=== PATIENT | female | born 1940 | race Caucasian/White ===

== ENCOUNTER 2023-03-22 19:03 | Inpatient (IN) ==
[2023-03-22] MEDS ORDERED: ACETAMINOPHEN 1,000 MG/100 ML VIAL IV STA (19:24)
--- NOTE | 2023-03-22 19:36 | Emergency Department Note ---
Impression & Plan Acute pain of right hip, Fall, Closed fracture of right hip ED Provider Note ED Provider Note NAME: DIPAK MORALES AGE:83 SEX: Female : 1940 ARRIVES VIA: EMS INFORMANT: Patient ED PROVIDER(s): Akila Grant DO CHIEF COMPLAINT: Fall, right hip pain HPI: This is an 83-year-old female who presents emergency department after being found down after accidentally falling. Patient states she was feeling well and while outside caring other objects she somehow tripped and fell landing on her right side. She states she tried to get up but could not due to significant pain in her right hip. She states to try to get up with assistance additionally and could not so 911 was contacted. She was given intranasal fentanyl in route which did help some of the pain. She states she did not strike her head or lose consciousness. She denies any neck or back pain. She denies any chest pain, abdominal pain, or other extremity pain. No difficulty breathing. No use of antiplatelet or anticoagulation medication. 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 PAST MEDICAL HISTORY:See Below PAST SURGICAL HISTORY:See Below FAMILY HISTORY:See Below SOCIAL HISTORY:See Below HOME MEDICATIONS:See Below ALLERGIES:See Below VITALS:See Below PHYSICAL EXAMINATION: GENERAL: alert, well appearing, well nourished, no distress, non-toxic EYE EXAM: normal conjunctiva, PERRL and EOM's grossly intact OROPHARYNX: no exudate, no erythema, lips, buccal mucosa, and tongue normal and mucous membranes are moist NECK: supple, no nuchal rigidity, no adenopathy, non-tender LUNGS: Clear to auscultation. Normal chest wall mechanics, no w/r/r HEART: no murmurs, S1 normal and S2 normal ABDOMEN: abdomen soft, non-tender, normo-active bowel sounds, no masses, no rebound or guarding. BACK: Back is symmetrical on inspection and there is no deformity, no midline tenderness, no CVA tenderness. SKIN: no rashes, petechiae, orbruising UPPER EXTREMITIES: upper extremities are grossly normal. FROM, nml pulses b/l. LOWER EXTREMITIES: No pitting edema. nml pulses b/l. Pain with palpation over the right lateral hip and proximal femur, RLE shortened and rotated NEURO EXAM: Normal sensorium, cranial nerves II-XII grossly intact, normal speech, no facial droop,nogross weakness of arms, no gross weakness of legs. Gross sensation intact. No ataxia. Vital Signs: reviewed and remarkable Differential Diagnosis: fracture, dislocation, contusion, sprain/strain, ligamentous injury, as well as others were considered MEDICAL DECISION MAKING: This is an 83 yo female who presents to the ER following an accidental fall. She denied head trauma or LOC. Patient c/o pain at right hip and was unable to stand or move following the fall. She was afebrile and VS stable. Labs drawn and sent, IV established, EKG and xrys performed and interpreted at bedside, and patient placed on telemetry. Patient given IV tylenol, IV fenanyl, and IVF. Patient updated on results and need for further evaluation and orthopedic consultation regarding her hip fracture. She and family verbalized understanding. Case discussed with hospitalist for additional evaluation and mgmt. Consultation(s): 2044: Discussed with Dr. Teran, [facility] hospitalist, for additional evaluation and mgmt. ER Treatment Provided: See below Diagnostics Interpreted By Me: -ECG: Normal sinus at 61, normal axis, normal intervals, nonspecific ST/T wave changes -Cardiac Monitoring: An order was placed for continuous cardiac monitoring. The monitor shows a rate of 80 with normal sinus rhythm. -Laboratory studies: As stated above and show below. -Imaging studies: X-ray Chest: A single view study of the chest was reviewed and was negative for cardiomegaly, focal infiltrate, effusion, pulmonary edema, or wide mediastinum. No rib fracture, no pneumothorax. X-ray right hip/pelvis: Right intertrochanteric hip fracture Triage Nursing Note Reviewed Prior/Outside Records Reviewed - DC summary from last admission reivewe Past Med/Surg History Medical History Osteoarthritis Anemia Migraine with aura Allergy-induced asthma inhaler wkly and prn Escobedo esophagus Polyarteritis nodosa Surgical History History of dilatation and curettage several History of colonoscopy History of esophagogastroduodenoscopy (EGD) History of tooth extraction History of bilateral cataract extraction Family History Other No family history of adverse response to anesthesia Social History Smoking Status: Former smoker Tobacco Type: Cigarettes Cigarettes Per Day: Half a pack a day.; Second Hand Exposure: No; Do You Dip or Chew Tobacco: No; Tobacco Cessation Education Requested by Patient: No Hx Alcohol Use: Yes ("OCCASIONALLY") Alcohol type: wine and hard liquor Hx Substance Use: No Preferred Language: Chinese Communication Ability: Effective Cut Filer Required: No Beliefs That Will Affect Care: None Current Living Situation: Alone Other Information That Helps Us Care for You: No Feels Safe at Home: Yes Safety Concerns: Feels Safe At This Time Assistive Devices: Other Assistive Devices Comment: Walking stick. Allergies Allergies Allergy/AdvReac Type Severity Reaction Status Date / Time dust Allergy Intermediate can Uncoded 03/22/23 22:29 trigger asthma pet dander Allergy Intermediate can Uncoded 03/22/23 22:29 trigger asthma pollen Allergy Intermediate can Uncoded 03/22/23 22:29 trigger asthma Home Meds Home Medications Medication Instructions Recorded Confirmed Cilgavimab Inj 300 mg INJ .[id number] 03/22/23 03/22/23 Tixagevimab Inj 300 mg INJ .[id number] 03/22/23 03/22/23 albuterol sulfate 90 mcg/actuation 2 puff inhalation TID PRN 03/22/23 03/22/23 aerosol inhaler Shortness Of Breath Or Wheezing aspirin 81 mg chewable tablet 81 mg PO DAILY 03/22/23 03/22/23 atorvastatin 40 mg tablet 40 mg PO QAM 03/22/23 03/22/23 clobetasol 0.05 % scalp solution 1 applic topical BID PRN 03/22/23 03/22/23 .irritation ferrous sulfate 325 mg (65 mg 325 mg PO QAM 03/22/23 03/22/23 iron) tablet mycophenolate sodium 360 mg 720 mg PO DAILY 03/22/23 03/22/23 tablet,delayed release pantoprazole 40 mg tablet,delayed 40 mg PO QAM 03/22/23 03/22/23 release prednisone 5 mg tablet 5 mg PO DAILY 03/22/23 03/22/23 triamcinolone acetonide 0.1 % 1 applic topical BID PRN .itching 03/22/23 03/22/23 topical cream vit C 250 mg-vit E 90 mg-zinc 40 1 tab PO DAILY 03/22/23 03/22/23 mg-copper 1 [id number] capsule (PreserVision AREDS-2) Results & Data (ED) Vital Signs Vital Signs - 24 hr 03/22/23 19:20 03/22/23 19:20 03/22/23 21:18 Temperature 36.4 C L 36.4 C L Temperature Source Oral Oral Pulse Rate 66 Pulse Rate [Right Radial] 72 76 Respiratory Rate 18 18 16 Blood Pressure 172/67 H Blood Pressure [Right Arm] 172/67 H 151/68 H Blood Pressure Mean 102 Blood Pressure Mean [Right Arm] 102 95 Pulse Oximetry 99 100 99 Oxygen Delivery Method Room Air Room Air Room Air Sepsis Recent Fever Within 48 Hours No Sepsis New/Unexplained Change in Mental Status N/A Sepsis Action Taken by Nursing No Action Required Laboratory Data 03/24/23 06:36 03/24/23 06:36 Lab Results 03/22/23 Range/Units 19:35 WBC 13.56 H (4.8-10.8) K/ul RBC 4.51 (4.20-5.40) M/uL Hgb 12.2 (12.0-16.0) g/dl Hct 38.8 (37.0-47.0) % MCV 86.0 (80.0-100.0) fL MCH 27.1 (25.0-34.0) pg MCHC 31.4 L (32.0-36.0) g/dL RDW Std Deviation 41.2 (36.4-46.3) fL RDW Coeff of Shoshana 13.3 (11.5-14.5) % Plt Count 369 (130-400) K/uL MPV 8.1 L (9.4-12.4) fL Immature Gran % (Auto) 0.8 % Neut % (Auto) 77.4 % Lymph % (Auto) 13.9 % [place] % (Auto) 5.5 % Eos % (Auto) 2.0 % Baso % (Auto) 0.4 % Neut # (Auto) 10.48 H (1.40-6.50) K/uL Lymph # (Auto) 1.89 (1.20-3.40) K/uL [place] # (Auto) 0.75 H (0.11-0.59) K/uL Eos # (Auto) 0.27 (0.00-0.50) K/uL Baso # (Auto) 0.06 (0.00-0.20) K/uL Immature Gran # (Auto) 0.11 (0.01-0.20) K/uL PT 10.7 (9.0-12.0) Seconds INR 1.0 (0.9-1.1) Sodium 139 (136-145) mmol/L Potassium 3.4 L (3.5-5.1) mmol/L Chloride 104 (98-107) mmol/L Carbon Dioxide 26 (21-32) mmol/L Anion Gap 9 (3-11) BUN 14 (6-23) mg/dl Creatinine 0.70 (0.6-1.2) mg/dl Est Cr Clr Drug Dosing 54.6 ml/min Est GFR ( Amer) 94.2 ml/min Est GFR (Non-Af Amer) 81.3 ml/min BUN/Creatinine Ratio 20.0 (10-20) Glucose 118 H (70-99(Fasting)) mg/dl Calcium 9.1 (8.6-10.3) mg/dl Magnesium 1.7 (1.7-2.4) mg/dl Total Bilirubin 0.3 (0.2-1.0) mg/dl AST 17 (13-39) U/L ALT 16 (7-52) U/L Alkaline Phosphatase 48 (34-104) U/L Total Protein 6.8 (6.0-8.3) gm/dl Albumin 4.1 (3.4-5.0) gm/dl Globulin 2.7 (2.5-4.0) gm/dl Albumin/Globulin Ratio 1.5 (0.9-2) Administered Medications Acetaminophen (Acetaminophen 500 Mg Tab) 1,000 mg PO Q8H KELLEE Stop: 04/22/23 09:59 Last Admin: 03/24/23 09:22 Dose: 1,000 mg Documented By: Admin: 03/24/23 02:04 Dose: 1,000 mg Documented By: Admin: 03/23/23 18:40 Dose: 1,000 mg Documented By: Admin: 03/23/23 12:27 Dose: 1,000 mg Documented By: EDDA Aspirin (Aspirin 81 Mg Chew) 81 mg PO DAILY [facility] Stop: 04/22/23 08:59 Last Admin: 03/23/23 08:53 Dose: 81 mg Documented By: EDDA Atorvastatin Calcium (Atorvastatin 40 Mg Tab) 40 mg PO QAM [facility] Stop: 04/22/23 08:59 Last Admin: 03/24/23 07:44 Dose: 40 mg Documented By: Admin: 03/23/23 08:53 Dose: 40 mg Documented By: EDDA Ferrous Sulfate (Ferrous Sulfate 325 Mg Tab) 325 mg PO QDB KELLEE Stop: 04/22/23 07:29 Last Admin: 03/24/23 07:45 Dose: 325 mg Documented By: Admin: 03/23/23 08:53 Dose: 325 mg Documented By: EDDA Morphine Sulfate (Morphine Sulfate 2 Mg/Ml Carp) 2 mg IV Q3H PRN PRN Reason: Pain Stop: 04/05/23 20:42 Last Admin: 03/24/23 09:16 Dose: 2 mg Documented By: Admin: 03/23/23 20:17 Dose: 2 mg Documented By: Admin: 03/23/23 16:32 Dose: 2 mg Documented By: Admin: 03/23/23 12:22 Dose: 2 mg Documented By: Admin: 03/23/23 06:34 Dose: 2 mg Documented By: Admin: 03/23/23 01:51 Dose: 2 mg Documented By: Admin: 03/22/23 22:37 Dose: 2 mg Documented By: CHAUNCEY Multivitamins/Minerals (Cerovite Adv Formula Tab) 1 tab PO DAILY [facility] Stop: 04/22/23 08:59 Last Admin: 03/24/23 07:44 Dose: 1 tab Documented By: Admin: 03/23/23 08:53 Dose: 1 tab Documented By: EDDA Mycophenolate Sodium (Mycophenolate Sodium 180 Mg Tab) 720 mg PO DAILY [facility] Stop: 04/22/23 08:59 Last Admin: 03/24/23 07:44 Dose: 720 mg Documented By: Admin: 03/23/23 08:54 Dose: 720 mg Documented By: EDDA Ondansetron HCl (Ondansetron Inj 2 Mg/Ml 2 Ml Vial) 4 mg IV Q6H PRN PRN Reason: Nausea And Vomiting Stop: 04/23/23 08:54 Last Admin: 03/24/23 09:16 Dose: 4 mg Documented By: DEBRA Pantoprazole Sodium (Pantoprazole 40 Mg Tab) 40 mg PO QAM KELLEE Stop: 04/22/23 08:59 Last Admin: 03/24/23 07:45 Dose: 40 mg Documented By: Admin: 03/23/23 08:55 Dose: 40 mg Documented By: EDDA Polyethylene Glycol (Polyethylene (Miralax) 17 Gm Pack) 17 gm PO DAILY KELLEE Stop: 04/22/23 10:54 Last Admin: 03/24/23 08:30 Dose: Not Given Documented By: Admin: 03/23/23 12:28 Dose: 17 gm Documented By: EDDA Prednisone (Prednisone 5 Mg Tab) 5 mg PO DAILY KELLEE Stop: 04/22/23 08:59 Last Admin: 03/24/23 07:45 Dose: 5 mg Documented By: Admin: 03/23/23 08:57 Dose: 5 mg Documented By: EDDA Tramadol HCl (Tramadol Hcl 50 Mg Tablet) 25 - 50 mg PO Q4H PRN PRN Reason: Pain Stop: 04/21/23 20:42 Last Admin: 03/23/23 14:47 Dose: 50 mg Documented By: Admin: 03/23/23 08:35 Dose: 50 mg Documented By: EDDA Discontinued Medications Fentanyl Citrate (Fentanyl Citrate Pf 100 Mcg/2 Ml Vial) 50 mcg IV Q15M PRN PRN Reason: Pain Stop: 04/05/23 19:23 Last Admin: 03/22/23 20:01 Dose: 50 mcg Documented By: Admin: 03/22/23 19:43 Dose: 50 mcg Documented By: CHAUNCEY Acetaminophen (Ofirmev) 1,000 mg in 100 mls @ 400 mls/hr IV NOW STA Stop: 03/22/23 19:38 Last Infusion: 03/22/23 20:00 Dose: Infused Documented By: Admin: 03/22/23 19:43 Dose: 400 mls/hr Documented By: CHAUNCEY Potassium Chloride/Sodium Chloride (Normal Saline W/20 Meq Kcl) 20 meq in 1,000 mls @ 50 mls/hr IV .Q20H ONE; Protocol Stop: 03/23/23 17:40 Last Infusion: 03/23/23 18:43 Dose: Infused Documented By: Admin: 03/23/23 01:14 Dose: 50 mls/hr Documented By: CARROLL Magnesium Sulfate/Dextrose (Magnesium Sulfate / D5w) 1 gm in 100 mls @ 50 mls/hr IV ONE ONE Stop: 03/23/23 00:06 Last Infusion: 03/23/23 01:06 Dose: Infused Documented By: Admin: 03/22/23 22:38 Dose: 50 mls/hr Documented By: CHAUNCEY Potassium Chloride (Potassium Chloride Crtab 20 Meq Tabcr) 20 meq PO NOW STA Stop: 03/22/23 20:43 Last Admin: 03/22/23 23:58 Dose: Not Given Documented By: GEOVANY Imaging Data Radiologist's Impression: Hip/Pelvis X-Ray 03/22/23 19:23 SINGLE VIEW PELVIS; 2 VIEWS RIGHT HIP CLINICAL HISTORY: Trauma. FINDINGS: An AP view of the pelvis with AP and frog-leg views of the right hip are obtained. Correlation is made with pelvic CT dated 03/04/2018. The skeletal structures are osteopenic. There is a comminuted intertrochanteric fracture of the right proximal femur with angulation and medial displacement of the lesser trochanter. Overlying soft tissue edema is noted. No additional acute fracture is seen involving the left hip or the bony pelvis. Mild arthritic change and joint space narrowing is seen in the hips. There is mild degenerative sclerosis of the sacroiliac joints. Small phleboliths are noted in the pelvis. IMPRESSION: Comminuted intertrochanteric fracture of the right proximal femur as above. Electronically signed by: Jefferson Garduno M.D. 03/22/2023 11:44 PM Discharge Plan Visit Data Chief Complaint: Fall Stated Complaint: FALL ED Provider: Akila Grant Discharge Problem: Acute pain of right hip, Fall, Closed fracture of right hip Patient Disposition: Admitted As Inpatient Discharge Instructions Interventions: ED Discharge Assessment Last Done: 03/22/23 22:34
[2023-03-22] MEDS: fentaNYL citrate PF 100 MCG/2 ML VIAL IV PRN ×2 (19:43→20:01)
[2023-03-22 19:55] LABS: Basophils # (auto) 0.06 K/uL (0.00-0.20); Basophils % (auto) 0.4 %; Eosinophils # (auto) 0.27 K/uL (0.00-0.50); Hematocrit (blood only) 38.8 % (37.0-47.0); Hemoglobin 12.2 g/dl (12.0-16.0); Immature Granulocytes # (auto) 0.11 K/uL (0.01-0.20); Immature Granulocytes % (auto) 0.8 %; Lymphocytes # (auto) 1.89 K/uL (1.20-3.40); Lymphocytes % (auto) 13.9 %; Mean Corpuscular Hemoglobin 27.1 pg (25.0-34.0); Mean Corpuscular Hgb Conc 31.4 g/dL (32.0-36.0); Mean Platelet Volume 8.1 fL (9.4-12.4); Monocytes # (auto) 0.75 K/uL (0.11-0.59); Monocytes % (auto) 5.5 %; Neutrophils # (auto) 10.48 K/uL (1.40-6.50); Neutrophils % (auto) 77.4 %; Platelet Count 369 K/uL (130-400); RDW Coefficient of Variation 13.3 % (11.5-14.5); RDW Standard Deviation 41.2 fL (36.4-46.3); Red Blood Count 4.51 M/uL (4.20-5.40); White Blood Count 13.56 K/ul (4.8-10.8)
[2023-03-22 20:11] LABS: Albumin Globulin Ratio 1.5 (0.9-2); Albumin Level 4.1 gm/dl (3.4-5.0); Bilirubin,Total 0.3 mg/dl (0.2-1.0); Calcium 9.1 mg/dl (8.6-10.3); Creatinine Clr Calc Pharmacy 54.6 ml/min; Est GFR (African American) 94.2 ml/min; Est GFR (Non-African American) 81.3 ml/min; Globulin 2.7 gm/dl (2.5-4.0); Potassium 3.4 mmol/L (3.5-5.1); Total Protein 6.8 gm/dl (6.0-8.3)
[2023-03-22 20:21] LABS: Prothrombin Time 10.7 Seconds (9.0-12.0)
[2023-03-22] MEDS ORDERED: POTASSIUM CHLORIDE CRTAB 20 MEQ TABCR PO STA (20:42)
[2023-03-22] MEDS ORDERED: ACETAMINOPHEN 325 MG TAB PO PRN (20:43)
[2023-03-22] MEDS ORDERED: oxyCODONE HCL IR 5 MG TAB (IMMEDIATE RELEASE) PO PRN (20:43)
[2023-03-22] MEDS ORDERED: PROMETHAZINE HCL 6.25 MG in SODIUM CHLORIDE 0.9% 50 ML IV PRN (20:44)
[2023-03-22 21:01] LABS: Magnesium 1.7 mg/dl (1.7-2.4)
--- NOTE | 2023-03-22 21:20 | History & Physical Report ---
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 until patient evaluated by Orthopedics. Acceptable risk for cardiac complications resulting from prospective procedure Revised Cardiac Risk Index (RCRI): 1. High-risk type of surgery (examples include vascular and any open intraperitoneal or intrathoracic procedures). No 2. History of ischemic heart disease (history of myocardial infarction or positive exercise test, current compliant of chest pain considered to be secondary to myocardial ischemia, use of nitrate therapy, or ECG with patho logical Q waves; do not count prior coronary revascularization procedure unless one of the other criteria for ischemic heart disease is present). No 3. History of heart failure. No 4. History of cerebrovascular disease. No 5. Diabetes mellitus requiring treatment with insulin. No 6. Preoperative serum creatinine >2.0. No Pt has revised cardiac index score of 0 points. (Class I Risk.) 3.9 % 30-day risk of , CA, or cardiac arrest. Acceptable risk for cardiac complications if surgery recommended by Orthopedics and patient/family agreeable to attendant procedural benefits and risks.. Continue aspirin for secondary DVT prevention Continue daily prednisone for vasculitis, may need stress dose steroids if BP borderline DVT prophylaxis. SCDs Re: Possible procedure Full code Patient daughter requesting updates providers. Ms. Marli Salinas, contact #[phone]. Text document was generated using [employer] voice recognition software. It may contain grammatical or spelling errors. Kindly contact undersigned for clarification of any documentation item in question. History of Present Illness Chief Complaint: Fall, right hip pain Primary Care Provider: Elvia Pink, History obtained from patient, family, and records. 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 Patient stumbled at her home this afternoon while carrying a load of objects. Achy right hip pain following fall. No head trauma, no LOC, no chest pain, no SOB. Patient unable to get up to get to her phone. Patient was on the ground for about an hour before she was found by family. Patient brought to ER by EMS. Highest SBP of 170s documented at the ER. 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 Allergies Allergy/AdvReac Type Severity Reaction Status Date / Time dust Allergy Intermediate can Uncoded 03/22/23 22:29 trigger asthma pet dander Allergy Intermediate can Uncoded 03/22/23 22:29 trigger asthma pollen Allergy Intermediate can Uncoded 03/22/23 22:29 trigger asthma Home Medications Medication Instructions Recorded Confirmed Type Cilgavimab Inj 300 mg INJ .[id number] 03/22/23 03/22/23 History Tixagevimab Inj 300 mg INJ .[id number] 03/22/23 03/22/23 History albuterol sulfate 90 mcg/actuation 2 puff inhalation TID PRN 03/22/23 03/22/23 History aerosol inhaler Shortness Of Breath Or Wheezing aspirin 81 mg chewable tablet 81 mg PO DAILY 03/22/23 03/22/23 History atorvastatin 40 mg tablet 40 mg PO QAM 03/22/23 03/22/23 History clobetasol 0.05 % scalp solution 1 applic topical BID PRN 03/22/23 03/22/23 History .irritation ferrous sulfate 325 mg (65 mg 325 mg PO QAM 03/22/23 03/22/23 History iron) tablet mycophenolate sodium 360 mg 720 mg PO DAILY 03/22/23 03/22/23 History tablet,delayed release pantoprazole 40 mg tablet,delayed 40 mg PO QAM 03/22/23 03/22/23 History release prednisone 5 mg tablet 5 mg PO DAILY 03/22/23 03/22/23 History triamcinolone acetonide 0.1 % 1 applic topical BID PRN .itching 03/22/23 03/22/23 History topical cream vit C 250 mg-vit E 90 mg-zinc 40 1 tab PO DAILY 03/22/23 03/22/23 History mg-copper 1 [id number] capsule (PreserVision AREDS-2) Past Med/Surg History Medical History Allergy-induced asthma inhaler wkly and prn Anemia Escobedo esophagus Migraine with aura Osteoarthritis Polyarteritis nodosa Surgical History History of bilateral cataract extraction History of colonoscopy History of dilatation and curettage several History of esophagogastroduodenoscopy (EGD) History of tooth extraction Family History Other No family history of adverse response to anesthesia Social History Smoking Status: Former smoker Tobacco Type: Cigarettes Cigarettes Per Day: Half a pack a day.; Second Hand Exposure: No; Do You Dip or Chew Tobacco: No; Tobacco Cessation Education Requested by Patient: No Hx Alcohol Use: Yes ("OCCASIONALLY") Alcohol type: wine and hard liquor Hx Substance Use: No Preferred Language: Luxembourger Communication Ability: Effective Immigration Specialist Required: No Beliefs That Will Affect Care: None Current Living Situation: Alone Other Information That Helps Us Care for You: No Feels Safe at Home: Yes Safety Concerns: Feels Safe At This Time Assistive Devices: Other Assistive Devices Comment: Walking stick. Review of Systems Review of Systems: As per HPI, all other systems reviewed and negative Physical Exam Physical Exam: GENERAL: Slightly uncomfortable, pleasant, no respiratory distress SKIN: Normal color, warm HEENT: Bespectacled, [place] palpebral conjunctivae, no ptosis, dry buccal mucosa NECK : Supple, no tenderness CHEST : Decreased breath sounds, no tenderness HEART : RRR, no obvious murmurs ABDOMEN: no distention, nontender EXTREMITIES : Externally rotated right hip, right hip tenderness NEUROLOGIC : Coherent, no facial asymmetry, no other gross focality Results & Data Results & Data Vital Signs (Past 12 Hours) Vital Signs Temp Pulse Pulse Resp BP BP Pulse Ox 03/22/23 19:20 36.4 C L 72 18 172/67 H 100 03/22/23 19:20 36.4 C L 66 18 172/67 H 99 O2 Del Method 03/22/23 19:20 Room Air 03/22/23 19:20 Room Air Laboratory Results Laboratory Results WBC 13.56 K/ul (4.8-10.8) H 03/22/23 19:35 RBC 4.51 M/uL (4.20-5.40) 03/22/23 19:35 Hgb 12.2 g/dl (12.0-16.0) 03/22/23 19:35 Hct 38.8 % (37.0-47.0) 03/22/23 19:35 MCV 86.0 fL (80.0-100.0) 03/22/23 19:35 MCH 27.1 pg (25.0-34.0) 03/22/23 19:35 MCHC 31.4 g/dL (32.0-36.0) L 03/22/23 19:35 RDW Std Deviation 41.2 fL (36.4-46.3) 03/22/23 19:35 RDW Coeff of Shoshana 13.3 % (11.5-14.5) 03/22/23 19:35 Plt Count 369 K/uL (130-400) 03/22/23 19:35 MPV 8.1 fL (9.4-12.4) L 03/22/23 19:35 Immature Gran % (Auto) 0.8 % 03/22/23 19:35 Neut % (Auto) 77.4 % 03/22/23 19:35 Lymph % (Auto) 13.9 % 03/22/23 19:35 [place] % (Auto) 5.5 % 03/22/23 19:35 Eos % (Auto) 2.0 % 03/22/23 19:35 Baso % (Auto) 0.4 % 03/22/23 19:35 Neut # (Auto) 10.48 K/uL (1.40-6.50) H 03/22/23 19:35 Lymph # (Auto) 1.89 K/uL (1.20-3.40) 03/22/23 19:35 [place] # (Auto) 0.75 K/uL (0.11-0.59) H 03/22/23 19:35 Eos # (Auto) 0.27 K/uL (0.00-0.50) 03/22/23 19:35 Baso # (Auto) 0.06 K/uL (0.00-0.20) 03/22/23 19:35 Immature Gran # (Auto) 0.11 K/uL (0.01-0.20) 03/22/23 19:35 PT 10.7 Seconds (9.0-12.0) 03/22/23 19:35 INR 1.0 (0.9-1.1) 03/22/23 19:35 Sodium 139 mmol/L (136-145) 03/22/23 19:35 Potassium 3.4 mmol/L (3.5-5.1) L 03/22/23 19:35 Chloride 104 mmol/L (98-107) 03/22/23 19:35 Carbon Dioxide 26 mmol/L (21-32) 03/22/23 19:35 Anion Gap 9 (3-11) 03/22/23 19:35 BUN 14 mg/dl (6-23) 03/22/23 19:35 Creatinine 0.70 mg/dl (0.6-1.2) 03/22/23 19:35 Est Cr Clr Drug Dosing 54.6 ml/min 03/22/23 19:35 Est GFR ( Amer) 94.2 ml/min 03/22/23 19:35 Est GFR (Non-Af Amer) 81.3 ml/min 03/22/23 19:35 BUN/Creatinine Ratio 20.0 (10-20) 03/22/23 19:35 Glucose 118 mg/dl (70-99(Fasting)) H 03/22/23 19:35 Calcium 9.1 mg/dl (8.6-10.3) 03/22/23 19:35 Magnesium 1.7 mg/dl (1.7-2.4) 03/22/23 19:35 Total Bilirubin 0.3 mg/dl (0.2-1.0) 03/22/23 19:35 AST 17 U/L (13-39) 03/22/23 19:35 ALT 16 U/L (7-52) 03/22/23 19:35 Alkaline Phosphatase 48 U/L (34-104) 03/22/23 19:35 Total Protein 6.8 gm/dl (6.0-8.3) 03/22/23 19:35 Albumin 4.1 gm/dl (3.4-5.0) 03/22/23 19:35 Globulin 2.7 gm/dl (2.5-4.0) 03/22/23 19:35 Albumin/Globulin Ratio 1.5 (0.9-2) 03/22/23 19:35 Diagnostic Findings Chest x-ray as per my interpretation atelectasis Hip x-ray as per my interpretation intertrochanteric fracture right femur EKG as per my interpretation : Rate 60, NSR, normal axis, septal infarct, no ischemia
[2023-03-22] MEDS ORDERED: NSS + 20MEQ KCL 20 MEQ/1,000 ML BAG IV ONE (21:41)
[2023-03-22] MEDS ORDERED: MAGNESIUM SULFATE / D5W 1 GM/100 ML BAG IV ONE (22:07)
[2023-03-22] MEDS ORDERED: NALOXONE HCL 0.4 MG/1 ML VIAL/CARP IV PRN (22:34)
[2023-03-22] MEDS ORDERED: bisacodyL 10 MG SUPP PR PRN (22:34)
[2023-03-22] MEDS: MoRPHine SULFATE 2 MG/ML CARP IV PRN (22:37)
[2023-03-22] MEDS ORDERED: ALBUT/IPRATROP 3MG/0.5MG NEB 3 ML VIAL NEB PRN (22:39)
--- NOTE | 2023-03-22 23:45 | XRay Report ---
SINGLE VIEW PELVIS; 2 VIEWS RIGHT HIP CLINICAL HISTORY: Trauma. FINDINGS: An AP view of the pelvis with AP and frog-leg views of the right hip are obtained. Correlat ion is made with pelvic CT dated 03/04/2018. The skeletal structures are osteopenic. There is a commin uted intertrochanteric fracture of the right proximal femur with angulation and medial displacement o f the lesser trochanter. Overlying soft tissue edema is noted. No additional acute fracture is seen i nvolving the left hip or the bony pelvis. Mild arthritic change and joint space narrowing is seen in the hips. There is mild degenerative sclerosis of the sacroiliac joints. Small phleboliths are noted in the pelvis. IMPRESSION: Comminuted intertrochanteric fracture of the right proximal femur as above. Electronically signed by: Jefferson Garduno M.D. 03/22/2023 11:44 PM
--- NOTE | 2023-03-23 00:17 | XRay Report ---
SINGLE VIEW CHEST CLINICAL HISTORY: Trauma. Hip fracture. FINDINGS: An AP, portable, supine chest radiograph is compared to study dated 03/06/2018. The cardiome diastinal silhouette is unremarkable noting atherosclerotic calcification of the thoracic aorta. Finishing Powder Press Operator angela interstitial thickening is similar to previous. There is mild left basilar scarring/atelectasis. The lungs and pleural spaces are otherwise clear. No pneumothorax is seen. The skeletal structures ar e osteopenic. The bony thorax is grossly intact. IMPRESSION: No acute cardiopulmonary abnormality. ACT 112: Negative or not required by law. Electronically signed by: Jefferson Garduno M.D. 03/23/2023 12:16 AM
[2023-03-23] MEDS ORDERED: PNEUMOCOCCAL VACCINE (PCV20) 20-VAL CONJ-DIP CRM/PF 0.5 ML SYR IM ONE (01:06)
[2023-03-23] MEDS: MoRPHine SULFATE 2 MG/ML CARP IV PRN ×5 (01:51→20:17)
--- OUTSIDE RECORDS SUMMARY | 2023-03-23 02:35 | External Medical Summary | Summary of Care ---
Author Name Unknown Organization [facility] Address [address] [facility] [place] [address] Phone [phone] Care Team Providers Care Contour Band Saw Operator Vertical Name Role Phone Elvia Pink DO Primary Care Provider [phone] Reason for Visit * Reason Onset Date Comments Medication Pre-auth 09/25/2022 Recjan Encounter Details Date Type Department Care Team (Late st Contact Info) Description 09/25/2022 Telephone Rheumatology [address] [place] [phone] Sammie Man MD [address] [facility] [place] [address] Medication Pre-auth (January ) Allergies Active Allergy Reactions Criticality Noted Date Comments Dust 07/19/2009 Sneezing, watering eyes, eventually might develop into asthma attack Other - Environmental 07/19/2009 Pet Dander Sneezing, watering eyes Pollen 07/19/2009 Sneezing, watering eyes documented as of this encounter (statuses as of 03/18/2023) Medications Medication Sig Dispensed Refills Start Date End Date Status SURGICAL COMPRESSION STOCKINGIndicatio ns:Anticardiolipi n antibody positive,Cutaneou s polyarteritis nodosa (HCC) Knee high compression stocking 20-30mmg Hg 2 Each 1 8 Active clobetasol propionate 0.05 % external solution Apply topically to affected area 2 times a day. To affected area for up to two weeks. 50 mL 1 8 Active Aspirin 81 MG Oral Tablet Chewable Take 1 Tablet by mouth in the morning. 0 Active PreserVision AREDS 2 Oral Tablet Chewable Take by mouth . 0 Acti ve Mycophenolate Mofetil 500 MG Oral Tablet (Cellcept) TAKE TWO TABLETS BY MOUTH IN THE MORNING 180 Tablet 1 2 01/19/20 23 Discontinued(Me dication/Dose Changed) Atorvastatin Calcium 40 MG Oral Tablet (Lipitor) Take 1 Tablet (40 mg) by mouth in the morning. 90 Tablet 3 2 04/07/20 22 Discontinued([place] prescription brought in as discontinued) Ferrous Sulfate 325 (65 Fe) MG Oral Tablet (Feosol)Indicatio ns:Iron deficiency anemia, unspecified iron deficiency anemia type,Thrombocytos is Take 1 Tablet by mouth daily with breakfast. 90 Tablet 2 3 03/10/20 23 Discontinued(En d of Procedure) Triamcinolone Acetonide 0.1 % External Cream (Aristocort) Apply to legs twice daily as needed for itching 454 g 0 3 05/25/19 23 Discontinued([place] prescription brought in as discontinued) Albuterol Sulfate HFA 108 (90 Base) MCG/ACT Inhalation Aerosol SolutionIndicatio ns:Asthma, allergic, mild intermittent, uncomplicated,Ang ular cheilitis Inhale 2 Puffs by mouth in the morning and 2 Puffs at noon and 2 Puffs in the evening and 2 Puffs before bedtime. 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 180 Tablet 3 3 09/19/19 23 Discontinued([place] prescription brought in as discontinued) predniSONE 1 MG Oral Tablet (Deltasone) Take 4mg daily 360 Tablet 2 3 09/26/19 23 Discontinued([place] prescription brought in as discontinued) Hospital, Clinic, or Other Facility Administered Medication Ordered Dose Route Frequency Start Date End Date Status Tixagevimab inj 300 mgIndications:Encounter for long-term (current) use of medications,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 [id number] 11/14/2021 Active Cilgavimab inj 300 mgIndications:Encounter for long-term (current) use of medications,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 [id number] 11/14/2021 Active documented as of this encounter (statuses as of 03/18/2023) Active Problems Problem Noted Date Diagnosed Date Immunodeficiency 03/10/2023 Senile osteoporosis 09/29/2022 Peripheral neuropathy 09/03/2022 Carotid stenosis, non-symptomatic, bilateral 10/2021 Bronchiectasis without complication 03/12/2022 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 06/28/2017 06/28/2017 Vasculitis 06/08/2017 03/14/2018 Anticardiolipin antibody syndrome 05/17/2017 02/16/2018 MILLER (polyarteritis nodosa) 05/07/2017 1 05/14/2017 Encounter for long-term (cur rent) use of medications 12/09/2016 03/14/2018 Lesion of soft tissue of lower leg and ankle 7 12/07/2016 Chronic cough 08/06/2015 03/14/2018 COPD, moderate 02/02/2014 07/13/2019 Overview: Per COPD GOLD Classification Moderate intermittent asthma with acute exacerbation 02/02/2014 06/08/2017 Escobedo's esophagus with low grade dysplasia 4 01/30/2020 Overview: 1 endo clip placed Gastritis 09/15/2011 12/07/2016 Diverticulosis of colon (wit hout mention of hemorrhage) 09/10/2011 11/19/2015 Overview: Colonoscopy-09/09/11 Escobedo's esophagus 09/08/2011 01/05/20 15 Overview: EGD-09/07/11-Dr Stephens Diaphragmatic hernia without mention of obstruction or gangrene 09/08/2011 02/02/2014 Overview: EGD-09/07/11-Dr Stephens Loss of height 10/30/2010 04/05/2015 ASTHMA 07/19/2009 12/29/2013 Psoriasis 07/19/2009 01/30/2020 Esophageal reflux 07/19/2009 02/02/2014 MIGRAINE 07/19/2009 12/07/2016 Major depressive disorder 07/19/2009 Overview: ICD-10 update of inactive term ALLERGIC RHINITIS 07/19/2009 12/07/2016 Gastroesophageal reflux dise ase with esophagitis 01/30/2020 documented as of this encounter (statuses as of 03/18/2023) Immunizations Name Administration Dates Next Due COVID-19 mRNA, LNP-s, No Pre serve, 2-Dose Series (Moderna) 09/27/2021,06/19/2021,01/10/2021,06/04,05/30/2020 PPD 03/02/2012,10/14/2010 Pneumococcal Conjugate Vacc, 13 Valent (Prevnar) 02/19/2016 Pneumococcal Polysaccharide PPV23 (Pneumovax) 12/30/2007,02/06/2000 SEASONAL INFLUENZA, PF, 6 M & Above, IM , (FLULAVAL or FLUZONE) 01/31/2020,02/10/2018 Seasonal Influenza, Quadriva lent Hd (Fluzone Hd) 03/10/2023,02/12/2022,02/06/2021 Seasonal Influenza, Quadriva lent, No Preserve, IM 02/19/2016,02/15/2015 02/18/2017 Seasonal Influenza, Split, I IV3, With Preserve, Inj 02/02/2014,02/02/2013,01/28/2012,03/03,02/11/2010,02/11/2009 02/02/2014 Seasonal Influenza, Trivalen t, Adjuvanted, 65+ yrs 02/27/2019 Seasonal Influenza, Trivalen t, High Dose, No Preserve, IM 02/01/2017 TB Anita Test 01/09/2017 TD - Tetanus/Diptheria (ADULT) 07/09/2003 TDAP (age 10 and older)(Boostrix) 02/05/2014 Varicella Zoster Vaccine (Adult) 11/16/2013 documented as of this encounter Social History Tobacco Use Types Packs/Day Years Used Date Smoking Tobacco: Former Cigarettes 0.5 24 Q uit: 05/03/1983 Smokeless Tobacco: Never Alcohol Use Standard Drinks/Week Comments Yes 0.8 (1 standard drink = 0.6 oz p ure alcohol) OCCASIONAL PHQ-2 Answer Date Recorded PHQ Adult Total Score 0 11/13/2020 Hunger Vital Sign Answer Date Recorded Worried About Running Out of Food in the Last Ye ar Never true 05/19/2019 Ran Out of Food in the Last Year Never true 05/19/2019 Sex and Gender Information Value Date Recorded Sex Assigned at Not on file Gender Identity Not on file Sexual Orientation Not on file Job Start Date Occupation Industry Not on file Not on file Not on file documented as of this encounter Functional Status Functional Status Response Date of Assess ment Are you deaf or do you have serious difficulty h earing? No 10/23/2013 Are you blind or do you have serious difficulty seeing, even when wearing glasses? No 10/23/2013 Do you have serious difficul ty walking or climbing stairs? (5 years old or older) No 10/23/2013 Do you have difficulty dress ing or bathing? (5 years old or older) No 10/23/2013 Because of a physical, menta l, or emotional condition, do you have difficulty doing errands alone such as visiting a doctor s office or shopping? (15 years old or older) No 10/24/19 14 Cognitive Status Response Date of Assessm ent Because of a physical, menta l, or emotional condition, do you have serious difficulty concentrating, remembering, or making decisions? (5 years old or older) No 10/23/2013 documented as of this encounter Miscellaneous Notes * Addendum Note - Amor Meneses RN - 03/18/2023 8:20 AM ESTAddended by: AMOR MENESES on: 03/18/2023 08:20 AM Modules accepted: Orders * Telephone Encounter - Amor Meneses RN - 03/18/2023 8:19 AM EST Letter sent 01/18/23, patient has not returned calls/ letter to schedule. [place] plan for reclast discontinued. Patient can be re-referred if agreeable to scheduling in the future. * Telephone Encounter - Angelica Narayan OSA - 01/18/2023 9:53 AM EDT Sent letter * Telephone Encounter - Angelica Narayan OSA - 01/15/2023 10:17 AM EDT Called X3. Lmom for patient. * Telephone Encounter - Angelica Narayan OSA - 01/14/2023 8:37 AM EDT Called X2. Lmom for patient. * Telephone Encounter - Angelica Narayan OSA - 01/13/2023 10:40 AM EDT Patient returned call but patient unable to hear conversation. Asked if she could call back. * Telephone Encounter - Angelica Narayan OSA - 01/13/2023 9:59 AM EDT Called and lmom for patient. * Telephone Encounter - Amor Rodriguez RN - 01/13/2023 9:48 AM EDT [place] plan is signed, referral in place. Scheduling: please call patient to schedule 1 hour appt on 503 schedule "reclast" (Dr Sammie Man). Thanks! * Telephone Encounter - Neha Gan LPN - 01/13/2023 9:42 AM EDT Repeat labs done, please call and schedule. Thx * Telephone Encounter - Neha Gan LPN - 01/08/2023 2:56 PM EDT Pt reminded to have repeat labs done so we can schedule her Reclast See pt message from 10/05 * Telephone Encounter - Neha Gan LPN - 10/19/2022 3:01 PM EDT Pt aware * Addendum Note - Sammie Man MD - 10/08/2022 1:48 PM EDTAddended by: SAMMIE MAN on: 10/08/2022 01:48 PM Modules accepted: Orders * Telephone Encounter - Sammie Man MD - 10/08/2022 1:48 PM EDT Yes will need to repeat labs in 3 months first * Telephone Encounter - Amor Rodriguez RN - 10/08/2022 7:53 AM EDT Patient had labs 10/02/22, vit D low, starting supplement and repeating in 3 months. Rheum: please advise on reclast- are we waiting until repeat labs in 3 months for reclast? Will patient need to have kidney function/ ca rechecked as well if so? * Telephone Encounter - Stella Gan LPN - 10/02/2022 9:43 AM EDT Left a message for pt to get lab work done, auth is back for Reclast. * Telephone Encounter - Adelaida Avila LPN - 09/29/2022 3:50 PM EDT Order received for Reclast 5mg IV once yearly [place] created and routed to provider for signature Rheum: When the labs and auth are back and patient is ready to be scheduled, please forward back top [phone] for scheduling. Thank you! * Telephone Encounter - Neha Gan LPN - 09/29/2022 10:17 AM EDT Please auth, thanks * Telephone Encounter - Sammie Man MD - 09/25/2022 4:33 PM EDT Can we look into coverage for IV Reclast for her osteoporosis. Can not get oral therapy because of heartburn. documented in this encounter Plan of Treatment Upcoming Encounters Date Type Department Care Team (Late st Contact Info) Description 04/07/2023 10:00 AM EST Imaging Vascular Lab, [facility], [address] [place] [address] 05/05/2023 9:30 AM EST Laboratory Laboratory [place] [place] [phone] Zelda Chacon [address] [place] [phone] 05/12/2023 12:30 PM EST Office Visit [facility]ology[facility] [address] [place] [address] Jordan Elias MD [address] [place] [address] 11/19/2023 10:00 AM EDT Office Visit Rheumatology [address], [address] [place] [address] Sammie Man MD [address] [facility] [place], [place] [phone] 03/14/2024 11:00 AM EST Telemedicine General Surgery, [place] [address] [place], [place] [phone] Marek Petty PA-C [address] [place], [place] [id number] Scheduled Procedures Name Priority Associated Diagnoses Date/Ti me ESOPHAGOGASTRODUODENOSCOPY ( EGD), FLEXIBLE, TRANSORAL, DIAGNOSTIC Recall Esophagitis, [place]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 Health Maintenance Due Date Last Done Comments Zoster Vaccines (1 of 2) 01/11/2014 11/16/2013 Depression Screening 11/13/2021 11/13/2020 *BISPHONATE OR OTHER ACCEPTABLE MEDICATION NEEDED FOR OSTEOPOROSIS (REFER TO SMARTSET #1146) 10/02/2022 COVID-19 Vaccine ( season) 2023 09/27/2021, 06/19/2021, 01/10/2021, Additional history exists O2 ASSESSMENT COMPLETED IN PAST YEAR FOR COPD 12/03/2023 12/02/2022 DTaP,Tdap,and Td Vaccines (2 - Td or Tdap) 02/06/2024 02/05/2014, 07/09/2003 DXA Scan 09/22/2024 09/22/2022, 06/03, 06/22/2014, Additional history exists Escobedo's Esophagus Surveilance 12/02/2025 12/02/2022, 01/29/2015, 11/23/2014, Additional history exists COLONOSCOPY-EVERY 5 YRS AGES 18-100 12/13/2025 12/13/2020, 04/01/2017, 09/09/2011 Pneumococcal Vaccine: 65+ Years Completed 02/19/2016, 12/30/2007, 02/06/2000 Albumin/Creatinine Ratio Discontinued 022, 01/02/2022, 10/30/2021, Additional history exists Alpha-1 Antitrypsin Completed 04/29/2022 Influenza Vaccine (FLU shot) Completed 03/10/2023, 02/12/2022, 02/06/2021, Additional history exists VITAMIN D LEVEL ONCE IN A LIFETIME-USE SMARTSET# 88979 Completed 03/10/2023, 01/12/2023, 10/02/2022, Additional history exists GARDASIL-HPV IMMUNIZATION SERIES Aged Out No longer eligible based on patient's age to complete this topic Hepatitis B Aged Out No longer eligi ble based on patient's age to complete this topic MENINGOCOCCAL (MENACTRA/MENVEO) Aged Out No longer eligible based on patient's age to complete this topic documented as of this encounter Medical Devices Implanted Type Area Nuclear Technologist Device Identifier Shelf Expiration Date Model / Serial / Lot Alloderm 2x4 Sheet [id number](8 Units) - [id number] Implanted:Qty : 8 on 10[place]23/2013 [place] [facility] [place] - Human N/A: Esophagus [employer] 05/02/2015 [id number] / / [id number] documented as of this encounter Results * (ABNORMAL) 25-HYDROXY VITAMIN D (10/02/2022 11:06 AM EDT) 25-Hydroxy Vitamin D 15(L) >19 ng/mL 10/02/2022 11:47 PM EDT [facility] Blood Venous blood specimen / Unknown Venipuncture / Unknown 10/02/2022 11:06 AM EDT 10/02/2022 11:06 AM EDT Narrative [facility] - 10/02/2022 11:47 PM EDT Deficient: <20 ng/mL Insufficient: 20-29 ng/mL Recommended/Optimum:30-50 ng/mL Vitamin D intoxication is rare. If suspicious of Vitamin D toxicity, evaluation of serum Calcium and PTH is recommended. Sammie Man MD LAB BLOOD ORDERABLE S [facility] [address] [place] [address] documented in this encounter Visit Diagnoses Diagnosis Senile osteoporosis- Primary documented in this encounter Advance Directives Latest Code Status on File Code Status Date Activated Date Inactivated Comments Full Code 10/23/2013 11:32 AM 10/24/2013 4:10 PM This order reflects the patients wishes and were consensually agreed upon. Care Teams Contour Band Saw Operator Vertical Relationship Specialty Start Date End Date Elvia Pink DO [address] [facility] [place] [address] PCP - General Family Medicine 11/19/15 documented as of this encounter
--- OUTSIDE RECORDS SUMMARY | 2023-03-23 02:35 | External Medical Summary | Summary of Care ---
Author Name Unknown Organization [facility] Address [address] [facility] [place] [address] Phone [phone] Care Team Providers Care Crop Picker Name Role Phone Elvia Pink DO Primary Care Provider [phone] Reason for Visit * Reason Onset Date Comments Medication Pre-auth 09/25/2022 Recjan Encounter Details Date Type Department Care Team (Late st Contact Info) Description 09/25/2022 Telephone Rheumatology [address] [place] [phone] Sammie Man MD [address] [facility] [place] [address] Medication Pre-auth (January ) Allergies Active Allergy [...] medications,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 [id number] 11/14/2021 Active Cilgavimab inj 300 mgIndications:Encounter for long-term (current) use of medications,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 [id number] 11/14/2021 Active documented as of this encounter [...] has not returned calls/ letter to schedule. [place] plan for reclast discontinued. Patient can be [...] Rodriguez RN - 01/13/2023 9:48 AM EDT [place] plan is signed, referral in place. Scheduling: [...] received for Reclast 5mg IV once yearly [place] created and routed to provider for signature Rheum: When the labs and auth are back and patient is ready to be scheduled, please forward back top [phone] for scheduling. Thank you! * Telephone Encounter [...] 04/07/2023 10:00 AM EST Imaging Vascular Lab, [facility] 2nd [facility], [address] [place] [address] 05/05/2023 9:30 AM EST Laboratory Laboratory [place] [place] [phone] Zelda Chacon [address] [place] [address] 05/12/2023 12:30 PM EST Office [facility]ology[facility] [address] [place] [address] Jordan Elias MD [address] [place] [address] 11/19/2023 10:00 AM EDT Office Visit Rheumatology [address], [address] [place] [address] Sammie Man MD [address] [facility], [place] [phone] 03/14/2024 11:00 AM EST Telemedicine General Surgery, [place] [address] [place], [place] [phone] Marek Petty PA-C [address] [place], [place] [phone] Scheduled Procedures Name Priority Associated Diagnoses Date/Ti me ESOPHAGOGASTRODUODENOSCOPY ( EGD), FLEXIBLE, TRANSORAL, DIAGNOSTIC Recall Esophagitis, [place]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 Health Maintenance Due [...] D LEVEL ONCE IN A LIFETIME-USE SMARTSET# [id number] Completed 03/10/2023, 01/12/2023, 10/02/2022, Additional history exists [...] this encounter Medical Devices Implanted Type Area Assembly Technician Device Identifier Shelf Expiration Date Model / Serial / Lot Alloderm 2x4 Sheet [id number](8 Units) - [id number] Implanted:Qty : 8 on 10/23/2013 [place] [facility] [place] Tissue - Human N/A: Esophagus [employer] 05/02/2015 [id number] / / [id number] documented as of this encounter Results * (ABNORMAL) 25-HYDROXY VITAMIN D (10/02/2022 11:06 AM EDT) 25-Hydroxy Vitamin D 15(L) >19 ng/mL 10/02/2022 11:47 PM EDT LAB[facility]ORY [facility] [place] Blood Venous blood specimen / Unknown Venipuncture / Unknown 10/02/2022 11:06 AM EDT 10/02/2022 11:06 AM EDT Narrative [facility] [place] - 10/02/2022 11:47 PM EDT Deficient: <20 ng/mL Insufficient: 20-29 ng/mL Recommended/Optimum:30-50 ng/mL Vitamin D intoxication is rare. If suspicious of Vitamin D toxicity, evaluation of serum Calcium and PTH is recommended. Sammie Man MD LAB BLOOD ORDERABLE S LAB[facility] [address] [place] [address] documented in this encounter Visit Diagnoses Diagnosis Senile osteoporosis- Primary documented in this encounter Advance Directives Latest Code Status on File Code Status Date Activated Date Inactivated Comments Full Code 10/23/2013 11:32 AM 10/24/2013 4:10 PM This order reflects the patients wishes and were consensually agreed upon. Care Teams Crop Picker Relationship Specialty Start Date End Date Elvia Pink DO [address] [facility] [place] [address] PCP - General Family Medicine 11/19/15 documented as of this encounter
--- OUTSIDE RECORDS SUMMARY | 2023-03-23 02:36 | External Medical Summary | Summary of Care ---
Author Name Unknown Organization [facility] Address [address] [facility] [place] [address] Phone [phone] Care Team Providers Care Aquacultural Worker Supervisor Name Role Phone Elvia Pink DO Primary Care Provider [phone] Reason for Visit * Reason Onset Date Comments Routine Exam Routine 6 month return, Medication Administration 03/10/2023 Flu an d/or Pneumo Inj Encounter Details Date Type Department Care Team (Latest Contact Info) Description 03/10/2023 1:20 PM EST Office Visit [facility] Oswaldo Cooper [address] [place] [address] Elvia Pink DO [address] [facility] [place] [address] Anticardiolipin antibody syndrome (HCC)*; 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; Bronchiectasis without complication (HCC); Carotid stenosis, non-symptomatic, bilateral; Cutaneous polyarteritis nodosa (HCC); Dyslipidemia, goal LDL below 100; Encounter for long-term (current) use of medications; COPD, group A, by GOLD 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); HLA B27 (HLA B27 positive); Essential (hemorrhagic) thrombocythemia (HCC); Low vitamin B12 level; Iron deficiency anemia, unspecified iron deficiency anemia type; Mononeuritis multiplex; Peripheral polyneuropathy; Psoriatic arthropathy (HCC); Pulmonary nodule; S/P Tanja fundoplication (without gastrostomy tube) procedure; Spondyloarthropathy; Senile osteoporosis; Thrombocytosis; Immunodeficiency (HCC); Need for prophylactic vaccination and inoculation against influenza; Prediabetes; Encounter for screening mammogram for breast cancer Allergies Active Allergy Reactions Criticality Noted Date Comments Dust 07/19/2009 Sneezing, watering eyes, eventually might develop into asthma attack Other - Environmental 07/19/2009 Pet Dander Sneezing, watering eyes Pollen 07/19/2009 Sneezing, watering eyes documented as of this encounter (statuses as of 03/10/2023) Medications Medication Sig Dispensed Refills Start Date End Date Status PREDNISONE 20 MG PO TABSIndications:He adache(784.0) 2 by mouth daily for 5 days 10 Tab 0 11/22/2012 Active SURGICAL COMPRESSION STOCKINGIndication s:Anticardiolipin antibody positive,Cutaneous polyarteritis nodosa (HCC) Knee high compression stocking 20-30mmg Hg 2 Each 1 06/28/2017 Active clobetasol propionate 0.05 % external solution Apply topically to affected area 2 times a day. To affected area for up to two weeks. 50 mL 1 07/05/2017 Active Aspirin 81 MG Oral Tablet Chewable Take 1 Tablet by mouth in the morning. 0 Active PreserVision AREDS 2 Oral Tablet Chewable Take by mouth . 0 Active predniSONE 5 MG Oral Tablet (Deltasone) TAKE ONE TABLET BY MOUTH EVERY DAY 90 Tablet 1 08/27/2022 4 Active Ferrous Sulfate 325 (65 Fe) MG Oral Tablet Delayed Release TAKE ONE TABLET BY MOUTH DAILY WITH BREAKFAST 90 Tablet 2 05/25/2022 4 Active Triamcinolone Acetonide 0.1 % External Cream (Aristocort) APPLY TO LEGS TWICE DAILY NEEDED FOR ITCHING 454 g 0 05/25/2022 4 Active Pantoprazole Sodium 40 MG Oral Tablet Delayed Release (Protonix) Take 1 Tablet by mouth in the morning. 90 Tablet 3 12/14/2022 Active Mycophenolate Sodium 360 MG Oral Tablet Delayed Release (Myfortic) Take 3 Tablets by mouth daily. 270 Tablet 4 01/18/2023 Active Atorvastatin Calcium 40 MG Oral Tablet (Lipitor) TAKE ONE TABLET BY MOUTH EVERY MORNING 90 Tablet 3 03/03/2023 4 Active Albuterol Sulfate HFA 108 (90 Base) MCG/ACT Inhalation Aerosol SolutionIndication s:Asthma, allergic, mild intermittent, uncomplicated,Angu lar cheilitis INHALE TWO PUFFS BY MOUTH EVERY MORNING & TWO PUFFS AT NOON & TWO PUFFS IN THE EVENING & TWO PUFFS BEFORE BEDTIME 25.5 g 1 03/09/2023 4 Active Zoster Vac Recomb Adjuvanted 50 MCG/0.5ML Intramuscular Suspension Reconstituted (Shingrix) Inject 0.5 mL into a large muscle now and repeat dose in 60 to 180 days 1 Each 1 03/10/2023 Active Ferrous Sulfate 325 (65 Fe) MG Oral Tablet (Feosol)Indication s:Iron deficiency anemia, unspecified iron deficiency anemia type,Thrombocytosi s Take 1 Tablet by mouth daily with breakfast. 90 Tablet 2 05/25/2022 3 Discontinue d(End of Procedure) Hospital, Clinic, or Other Facility Administered Medication Ordered Dose Route Frequency Start Date End Date Status Tixagevimab inj 300 mgIndications:Encounter for long-term (current) use of medications,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 [id number] 11/14/2021 Active Cilgavimab inj 300 mgIndications:Encounter for long-term (current) use of medications,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 [id number] 11/14/2021 Active documented as of this encounter (statuses as of 03/10/2023) Active Problems Problem Noted Date Diagnosed Date [...] (current) use of medicat ions 09/20/2015 S/P Tanja fundoplication (w ithout gastrostomy tube) procedure 04/05/2015 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) 07/19/2009 documented as of this encounter (statuses as of 03/10/2023) Resolved Problems Problem Noted Date Diagnosed Date [...] as of this encounter (statuses as of 03/10/2023) Immunizations Name Administration Dates Next Due COVID-19 [...] 24 Q uit: 05/[birth year]1983 Smokeless Tobacco: Never Tobacco Cessation:Counseling Given: Not Answered Alcohol Use Standard Drinks/Week Comments Yes 0.8 [...] on file documented as of this encounter Last Filed Vital Signs Vital Sign Reading Time Taken Comments Blood Pressure 122/68 03/10/2023 1:13 PM EST Pulse 80 03/10/2023 1:13 PM EST Temperature 36.3 C (97.4 F) 03/10/2023 1:13 PM ES T Respiratory Rate 20 03/10/2023 1:13 PM EST Oxygen Saturation 98% 03/10/2023 1:13 PM EST Inhaled Oxygen Concentration - - Weight 61.4 kg (135 lb 6.4 oz) 03/10/2023 1:13 P M EST Height 154.9 cm (5' 1") 03/10/2023 1:13 PM EST Body Mass Index 25.58 03/10/2023 1:13 PM EST documented in this encounter Functional Status Functional Status Response [...] or making decisions? (5 years old or older No 10/23/2013 documented as of this encounter Progress Notes * Ophelia Santizo LPN - 03/10/2023 1:26 PM EST PRE - ADMINISTRATION DOCUMENTATION Are you experiencing any cold symptoms or fever? No Have you had Guillain-[place] Syndrome (an illness that causes paralysis) within the last 6 weeks? No Have you had the flu shot in the past? YES Have you ever had a reaction to the flu shot? No Ophelia Santizo LPN, 03/10/2023 1:26 PM Immunization Administration Documentation Time Out Procedure Performed: Yes Patient Identified (Ask Name/Date of ): Yes Does the patient have a fever greater than 101 degrees today? No Patient allergic to latex? No VFC Stock: No Immunization(s) verified: Yes, Immunization Name: Flu, VIS Sheet(s) given: Yes Verified Side and Site: Yes Verified Shot(s) with Parent(s)/Patient: Yes * Elvia Pink DO - 03/10/2023 1:18 PM EST Subjective: Patricia Salinas is a 83 year old female. Chief Complaint Patient presents with Routine Exam Routine 6 month return, Medication Administration Flu and/or Pneumo Inj HPI: Patient is an 83-year-old female who presents to the office for routine follow-up. She was last in the office in July. Recent fasting blood work was stable. Hemoglobin A1c is pending. She continues to follow with Dermatology and was last in the office in May for a history of cutaneous poly arteritis nodosa. She continues to follow with Rheumatology and was recently seen in August. She is a history of psoriatic arthritis, HLA B27, cutaneous PN. She remains on CellCept. Recent DEXA scan in August demonstrated osteoporosis. She is following with Rheumatology and she will be having an infusion of IV Reclast. She had a recent evaluation with Gastroenterology in October. She is had a history of fecal leaking. She had an evaluation in 2020 prior. Last EGD was in 2020 with Barretts, status post ablation. She was recommended to undergo an EGD for ablation at [place], patient deferred due to difficulty with transportation. Last colonoscopy was in 2020. Her recent EGD recommended repeat ablation at [facility] but issues with transportation. Alternatively sheshould have surveillance EGD annually at least. She continues to follow with Pulmonary for her COPD. Per Pulmonary no further surveillance CT chestrequired for follow-up of her lung nodules. She had a recent tele video visit with Hematology in October for thrombocytosis. Plan at that time wasto continue to monitor symptoms. She had a normal echo in 2020. We discussed mammogram. She performs breast exams at home. She wouldlike to have a mammogram. Last evaluation was 08/2020. She is due for a follow-up. She would a tele video visit with vascular surgery in April of 2022 for carotid stenosis. She is to continue on aspirin and Lipitor. She is repeat follow-up this April with an ultrasound prior to her appointment. General surgery in March of 2022. She is to follow up in 1 year. She is status post knees on fundoplication in 2013. Last EGD and pathic positive for Escobedo's, but no dysplasia. She is been following locally with Gastroenterology. She has been watching her memory. She is up to date with her eye exam and dentist. She has a left dropping eyelid that has slightly gotten worse. Normal MRI in January. She denies any chest pain, shortness of breath, or lower extremity edema. PMH: Patient Active Problem List Diagnosis Code HLA B27 (HLA B27 positive) Z15.89 Psoriatic arthropathy (HCC) L40.50 Iron deficiency anemia D50.9 Spondyloarthropathy M47.819 S/P Tanja fundoplication (without gastrostomy tube) procedure Z98.890 Encounter for long-term (current) use of medications Z79.899 Pulmonary nodule R91.1 Cutaneous polyarteritis nodosa (HCC) M30.0 Mononeuritis multiplex G58.7 Low vitamin B12 level R79.89 Dyslipidemia, goal LDL below 100 E78.5 COPD, group A, by GOLD 2017 classification ([facility]) J44.9 Anticardiolipin antibody syndrome ([facility]) D68.61 Essential (hemorrhagic) thrombocythemia ([facility]) D47.3 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 To affected area for up to two weeks. 50 mL 1 Aspirin 81 MG Oral Tablet Chewable Take 1 Tablet by mouth in the morning. PreserVision AREDS 2 Oral Tablet Chewable Take by mouth . predniSONE 5 MG Oral Tablet (Deltasone) TAKE ONE TABLET BY MOUTH EVERY DAY 90 Tablet 1 Ferrous Sulfate 325 (65 Fe) MG Oral Tablet Delayed Release TAKE ONE TABLET BY MOUTH DAILY WITH BREAKFAST 90 Tablet 2 Triamcinolone Acetonide 0.1 % External Cream (Aristocort) APPLY TO LEGS TWICE DAILY NEEDED FOR ITCHING 454 g 0 Pantoprazole Sodium 40 MG Oral Tablet Delayed Release (Protonix) Take 1 Tablet by mouth in the morning. 90 Tablet 3 Mycophenolate Sodium 360 MG Oral Tablet Delayed Release (Myfortic) Take 3 Tablets by mouth daily. 270 Tablet 4 Atorvastatin Calcium 40 MG Oral Tablet (Lipitor) TAKE ONE TABLET BY MOUTH EVERY MORNING 90 Tablet 3 Albuterol Sulfate HFA 108 (90 Base) MCG/ACT Inhalation Aerosol Solution INHALE TWO PUFFS BY MOUTH EVERY MORNING & TWO PUFFS AT NOON & TWO PUFFS IN THE EVENING & TWO PUFFS BEFORE BEDTIME 25.5 g 1 Zoster Vac Recomb Adjuvanted 50 MCG/0.5ML Intramuscular Suspension Reconstituted (Shingrix) Inject 0.5 mL into a large muscle now and repeat dose in 60 to 180 days 1 Each 1 PREDNISONE 20 MG PO TABS 2 by mouth daily for 5 days 10 Tab 0 Current Facility-Administered Medications Medication Dose Route Frequency Provider Last Rate Last Admin Tixagevimab inj 300 mg 300 mg Intramuscular Q6 Months Cesar Gaona MD 300 mg at 11/14/21 1253 Cilgavimab inj 300 mg 300 mg Intramuscular Q6 Months Cesar Gaona MD 300 mg at 11/14/21 1252 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 Escobedo's esophagus 09/08/2011 Escobedo's esophagus 07/05/2013 1 endo clip placed Chronic cough 08/06/2015 COPD (chronic obstructive pulmonary disease) (HCC) DEPRESSION 07/19/2009 Diaphragmatic hernia without mention of obstruction or gangrene 09/08/2011 Diverticulosis of colon (without mention of hemorrhage) 09/10/2011 Esophageal reflux 07/19/2009 Gastritis 09/15/2011 HLAB 27+ 07/19/2009 KAITLIN (iron deficiency anemia) 09/16/2011 Lesion of soft tissue of lower leg and ankle 09/11/2016 Lung nodule MIGRAINE 07/19/2009 PSORIASIS 07/19/2009 Psoriatic arthropathy (HCC) 11/20/2010 Pulmonary nodule 09/11/2016 Thrombocytopenia (HCC) 03/14/2018 Thrombocytopenia (HCC) 03/14/2018 Past Surgical History: Procedure Laterality Date COLONOSCOPY COLONOSCOPY, DIAGNOSTIC (RECTUM) 12/13/2020 benign adenomatous polyp / [facility] D&[facility] AFTER DELIVERY 2 times EGD, FLEXIBLE, DIAGNOSTIC 05/16/2013 ESOPHAGOGASTRODUODENOSCOPY (EGD), FLEXIBLE, TRANSORAL, DIAGNOSTIC performed by Ruddy Cavazos MD atENDOSCOPY [facility] EGD, FLEXIBLE, DIAGNOSTIC 07/05/2013 ESOPHAGOGASTRODUODENOSCOPY (EGD), FLEXIBLE, TRANSORAL, DIAGNOSTIC performed by Ruddy Cavazos MD [facility] EGD, FLEXIBLE, DIAGNOSTIC 10/23/2013 ESOPHAGOGASTRODUODENOSCOPY (EGD), FLEXIBLE, TRANSORAL, DIAGNOSTIC performed by Francisco Yarbrough OR [facility] EGD, FLEXIBLE, DIAGNOSTIC N/A 11/23/2014 ESOPHAGOGASTRODUODENOSCOPY (EGD), FLEXIBLE, TRANSORAL, DIAGNOSTIC performed by MD Faheem PastorNDOSCOPY [facility] EGD, FLEXIBLE, DIAGNOSTIC N/A 01/29/2015 ESOPHAGOGASTRODUODENOSCOPY (EGD), FLEXIBLE, TRANSORAL, DIAGNOSTIC performed by Ruddy Cavazos MD at[facility] EGD, FLEXIBLE, DIAGNOSTIC 12/13/2020 Barretts, reflux esophagitis / [facility] EGD, FLEXIBLE, DIAGNOSTIC 12/02/2022 partial fundoplication, wrap appears loose/biopsies Escobedo's esophagitis, indefinite for dysplasia/repeat 6 months/ESOPHAGOGASTRODUODENOSCOPY (EGD), FLEXIBLE, TRANSORAL, DIAGNOSTIC performed by Jadon Dean MD at ENDOSCOPY [facility] EGD, W/ENDOSCOPIC US N/A 11/22/2017 ESOPHAGOGASTRODUODENOSCOPY (EGD), FLEXIBLE, TRANSORAL, ENDOSCOPIC ULTRASOUND performed by Ruddy Cavazos MD at ENDOSCOPY [facility] ESOPHAGOGASTRIC FUNDOPLASTY 10/23/2013 10/23/2013 LAPAROSCOPIC ESOPHAGOGASTRIC FUNDOPLASTY TAJNA performed by Rickey Stern MD at OR [facility] REMOVE CATARACT, INSERT LENS PROSTH 09/22/[address] Jarrett Review of patient's allergies indicates: Allergen Reactions Dust Sneezing, watering eyes, eventually might develop into asthma attack Other - Environmental Pet Dander Sneezing, watering eyes Pollen Sneezing, watering eyes Family History Problem Relation Age of Onset Cancer Mother stomach, colon Heart Disorder Mother valve problems from Rheum. fever as a child Arthritis Mother Rheum. fever as a child, hump in back Colon cancer Mother Heart Disorder Father Arthritis Father ? Lung Disorder Sister Pulmonary edema COPD Brother Cancer Brother skin Lung Disorder Brother Diabetes Aunt (Unspecified) Cancer Grandmother (Maternal) Stomach Diabetes Other Family Status Relation Status Mo at age 87 STOMACH CA, COLON CA, Fa at age 79 CHF, HTN, ARTHRITIS Sis Bro at age 83 emphysema (20 years) Bro (Not Specified) Bro (Not Specified) Jany Alive Jany Alive AUNT (Not Specified) MGMA (Not Specified) Other (Not Specified) Social History Socioeconomic History Marital status: Spouse name: Not on file Number of children: 2 Years of education: Not on file Highest education level: Not on file Occupational History Employer: [employer] 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, 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 Tobacco Use Smoking status: Former Packs/day: 0.50 Years: 24.00 Additional pack years: 0.00 Total pack years: 12.00 Types: Cigarettes Quit date: 05/03/1983 Years since quittin.8 Smokeless tobacco: Never Vaping Use Vaping Use: Never used Substance and Sexual Activity Alcohol use: Yes Alcohol/week: 0.8 standard drinks of alcohol Types: 1 5 oz of wine per week Comment: OCCASIONAL Drug use: No Sexual activity: Not on file Other Topics Concern Service Not Asked Blood Transfusions Not Asked Caffeine Concern Not Asked Occupational Exposure Not Asked Hobby Hazards Not Asked Sleep Concern Not Asked Stress Concern Not Asked Weight Concern Not Asked Special Diet Not Asked Back Care Not Asked Exercise Not Asked Bike Helmet Not Asked Seat Belt Yes Self-Exams Not Asked Social History Narrative No pets. No mold. Social Determinants of Health Financial Resource Strain: Not on file Food Insecurity: No Food Insecurity (05/19/2019) Hunger Vital Sign Worried About Running Out of Food in the Last Year: Never true Ran Out of Food in the Last Year: Never true Transportation Needs: Not on file Physical Activity: Not on file Stress: Not on file Social Connections: Not on file Intimate Partner Violence: Not on file Housing Stability: Not on file Review of Systems Constitutional: Negative. HENT: Negative. Eyes: Negative. Respiratory: Negative. Cardiovascular: Negative. Gastrointestinal: Negative. Endocrine: Negative. Genitourinary: Negative. Musculoskeletal: Negative. Skin: Negative. Allergic/Immunologic: Negative. Neurological: Negative. Hematological: Negative. Psychiatric/Behavioral: Negative. Objective: BP 122/68 | Pulse 80 | Temp 36.3 C (97.4 F) (Tympanic) | Resp 20 | Ht 1.549 m (5' 1") | Wt 61.4kg (135 lb 6.4 oz) | LMP (LMP Unknown) | SpO2 98% | BMI 25.58 kg/m | BSA 1.63 m Physical Exam Vitals and nursing note reviewed. Constitutional: Appearance: She is well-developed. HENT: Right Ear: External ear normal. Left Ear: External ear normal. Nose: Nose normal. Eyes: Conjunctiva/sclera: Conjunctivae normal. Pupils: Pupils are equal, round, and reactive to light. Cardiovascular: Rate and Rhythm: Normal rate and regular rhythm. Heart sounds: Normal heart sounds. Pulmonary: Effort: Pulmonary effort is normal. Breath sounds: Normal breath sounds. Abdominal: General: Bowel sounds are normal. Palpations: Abdomen is soft. Musculoskeletal: General: Normal range of motion. Cervical back: Neck supple. Skin: General: Skin is warm and dry. Neurological: Mental Status: She is alert and oriented to person, place, and time. Psychiatric: Behavior: Behavior normal. Thought Content: Thought content normal. Judgment: Judgment normal. 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 - 25-HYDROXY VITAMIN D; Future; Expected date: 03/10/2023 Bronchiectasis without complication (HCC) - 25-HYDROXY VITAMIN D; Future; Expected date: 03/10/2023 Carotid stenosis, non-symptomatic, bilateral - 25-HYDROXY VITAMIN D; Future; Expected date: 03/10/2023 Cutaneous polyarteritis nodosa (HCC) - 25-HYDROXY VITAMIN D; Future; Expected date: 03/10/2023 Dyslipidemia, goal LDL below 100 - 25-HYDROXY VITAMIN D; Future; Expected date: 03/10/2023 Encounter for long-term (current) use of medications - 25-HYDROXY VITAMIN D; Future; Expected date: 03/10/2023 COPD, group A, by GOLD 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) - 25-HYDROXY VITAMIN D; Future; Expected date: 03/10/2023 HLA B27 (HLA B27 positive) - 25-HYDROXY VITAMIN D; Future; Expected date: 03/10/2023 Essential (hemorrhagic) thrombocythemia (HCC) - 25-HYDROXY VITAMIN D; Future; Expected date: 03/10/2023 Low vitamin B12 level - 25-HYDROXY VITAMIN D; Future; Expected date: 03/10/2023 Iron deficiency anemia, unspecified iron deficiency anemia type - 25-HYDROXY VITAMIN D; Future; Expected date: 03/10/2023 Mononeuritis multiplex - 25-HYDROXY VITAMIN D; Future; Expected date: 03/10/2023 Peripheral polyneuropathy - 25-HYDROXY VITAMIN D; Future; Expected date: 03/10/2023 Psoriatic arthropathy (HCC) - 25-HYDROXY VITAMIN D; Future; Expected date: 03/10/2023 Pulmonary nodule - 25-HYDROXY VITAMIN D; Future; Expected date: 03/10/2023 S/P Tanja fundoplication (without gastrostomy tube) procedure - 25-HYDROXY VITAMIN D; Future; Expected date: 03/10/2023 Spondyloarthropathy - 25-HYDROXY VITAMIN D; Future; Expected date: 03/10/2023 Senile osteoporosis - 25-HYDROXY VITAMIN D; Future; Expected date: 03/10/2023 Thrombocytosis - 25-HYDROXY VITAMIN D; Future; Expected date: 03/10/2023 Immunodeficiency (HCC) - 25-HYDROXY VITAMIN D; Future; Expected date: 03/10/2023 Need for prophylactic vaccination and inoculation against influenza - INFLUENZA VACC, QUAD, HIGH DOSE (FLUZONE HD) - 25-HYDROXY VITAMIN D; Future; Expected date: 03/10/2023 Prediabetes - HEMOGLOBIN A1C; Future; Expected date: 03/10/2023 - 25-HYDROXY VITAMIN D; Future; Expected date: 03/10/2023 Encounter for screening mammogram for breast cancer - MAMMOGRAM SCREENING BILATERAL; Future; Expected date: 03/10/2023 Other orders - Zoster Vac Recomb Adjuvanted 50 MCG/0.5ML Intramuscular Suspension Reconstituted (Shingrix); Inject 0.5 mL into a large muscle now and repeat dose in 60 to 180 days Follow Up: Return in about 4 months (around 07/09/2023), or if symptoms worsen or fail to improve, for Blood work today. | For: Blood work today Plan Hemoglobin A1C 25-Hydroxy Vitamin D Mammogram Screening Bilateral Fluzone High Dose (HD) - Influenza Vacc, Quad, 0.7mL, IM [54095.01] Zoster Vac Recomb Adjuvanted 50 MCG/0.5ML Intramuscular Suspension Reconstituted (Shingrix) Stable 83-year-old female. She is up-to-date with her routine screenings. Hemoglobin A1c is pending. We discussed mammogram and she would like to get a mammogram. Risks discussed. Continue follow-up with specialists. We discussed her fecal incontinence. We discussed getting a CT scan and she would like to hold off for now. Risks discussed. Continue current medications. Return to the office in 4 months or sooner as needed. Blood work today. Follow Up: Return in about 4 months (around 07/09/2023), or if symptoms worsen or fail to improve, for Blood work today. | For: Blood work today Elvia Pink DO documented in this encounter Nursing Notes * Ophelia Santizo LPN - 03/10/2023 1:13 PM EST Chief Complaint Patient presents with Routine Exam Routine 6 month return, documented in this encounter Plan of Treatment Upcoming Encounters Date Type Department Care Team (Late st Contact Info) Description 03/16/2023 11:00 AM EST Telemedicine General Surgery, [place] [address] [place] [address] Marek Petty PA-C [address] [place], [place] [id number] 04/07/2023 10:00 AM EST Imaging Vascular Lab, [facility] 2nd Floor, [place] [address] [facility] [place] [id number] 05/05/2023 9:30 AM EST Laboratory Laboratory [place] Oswaldo Cooper [address] [place] [id number] Oswaldo, Lab [facility] [address] [place] [id number] 05/12/2023 12:30 PM EST Office Visit Hematology/Oncology [facility] [place] [address] [facility] [place], [place] [address] Jordan Elias MD [address] [facility] [place], [place] [id number] 11/19/2023 10:00 AM EDT Office Visit Rheumatology [place] Oswaldo Cooper [address] [place] [address] Cesar Gaona MD [address] [place] [address] Pending Results Name Type Priority Associated Diagnoses Date /Time HEMOGLOBIN A1C Lab Routine Prediabetes 03/10/2023 2:14 PM EST 25-HYDROXY VITAMIN D Lab Routine 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 Bronchiectasis without complication (HCC) Carotid stenosis, non-symptomatic, bilateral Cutaneous polyarteritis nodosa (HCC) Dyslipidemia, goal LDL below 100 Encounter for long-term (current) use of medications COPD, group A, by GOLD 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) HLA B27 (HLA B27 positive) Essential (hemorrhagic) thrombocythemia (HCC) Low vitamin B12 level Iron deficiency anemia, unspecified iron deficiency anemia type Mononeuritis multiplex Peripheral polyneuropathy Psoriatic arthropathy (HCC) Pulmonary nodule S/P Tanja fundoplication (without gastrostomy tube) procedure Spondyloarthropathy Senile osteoporosis Thrombocytosis Immunodeficiency (HCC) Need for prophylactic vaccination and inoculation against influenza Prediabetes 03/10/2023 2:14 PM EST Scheduled Orders Name Type Priority Associated Diagnoses Orde r Schedule HEMOGLOBIN A1C Lab Routine Prediabetes Expected: 03/10/2023 (Approximate), Expires: 03/09/2024 25-HYDROXY VITAMIN D Lab Routine 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 Bronchiectasis without complication (HCC) Carotid stenosis, non-symptomatic, bilateral Cutaneous polyarteritis nodosa (HCC) Dyslipidemia, goal LDL below 100 Encounter for long-term (current) use of medications COPD, group A, by GOLD 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) HLA B27 (HLA B27 positive) Essential (hemorrhagic) thrombocythemia (HCC) Low vitamin B12 level Iron deficiency anemia, unspecified iron deficiency anemia type Mononeuritis multiplex Peripheral polyneuropathy Psoriatic arthropathy (HCC) Pulmonary nodule S/P Tanja fundoplication (without gastrostomy tube) procedure Spondyloarthropathy Senile osteoporosis Thrombocytosis Immunodeficiency (HCC) Need for prophylactic vaccination and inoculation against influenza Prediabetes Expected: 03/10/2023 (Approximate), Expires: 03/09/2024 MAMMOGRAM SCREENING BILATERAL Medical Imaging Routine Encounter for screening mammogram for breast cancer Expected: 03/10/2023, Expires: 04/09/2024 Scheduled Procedures Name Priority Associated Diagnoses Date/Ti me ESOPHAGOGASTRODUODENOSCOPY ( EGD), FLEXIBLE, TRANSORAL, DIAGNOSTIC Recall Esophagitis, [place]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 Health Maintenance Due [...] Additional history exists Alpha-1 Antitrypsin Completed 04/29/2022 VITAMIN D LEVEL ONCE IN A LIFETIME-USE SMARTSET# 39712 Completed 01/12/2023, 10/02/2022, 08/20/2017, Additional history exists Influenza Vaccine (FLU shot) Completed 03/10/2023, 02/12/2022, 02/06/2021, Additional history exists GARDASIL-HPV IMMUNIZATION SERIES Aged Out No longer eligible based on patient's age to complete this topic Hepatitis B Aged Out No longer eligi ble based on patient's age to complete this topic MENINGOCOCCAL (MENACTRA/MENVEO) Aged Out No longer eligible based on patient's age to complete this topic documented as of this encounter Medical Devices Implanted Type Area Real Estate Paralegal Device Identifier Shelf Expiration Date Model / Serial / Lot Alloderm 2x4 Sheet [id number](8 Units) - [id number] Implanted:Qty : 8 on 10/23/2013 [place] [facility] [place] - Human N/A: Esophagus LIFE AngioSlide 05/02/2015 [id number] / / [id number] documented as of this encounter Visit Diagnoses Diagnosis Anticardiolipin antibody syndrome (HCC)- Primary Primary hypercoagulable state 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 Bronchiectasis without complication (HCC) Bronchiectasis without acute exacerbation Carotid stenosis, non-symptomatic, bilateral Cutaneous polyarteritis nodosa (HCC) Polyarteritis nodosa Dyslipidemia, goal LDL below 100 Other and unspecified hyperlipidemia Encounter for long-term (current) use of medications Encounter for long-term (current) use of other medications COPD, group A, by GOLD 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) HLA B27 (HLA B27 positive) Genetic susceptibility to other disease Essential (hemorrhagic) thrombocythemia (HCC) Low vitamin B12 level Other B-complex deficiencies Iron deficiency anemia, unspecified iron deficiency anemia type Mononeuritis multiplex Peripheral polyneuropathy Unspecified hereditary and idiopathic peripheral neuropathy Psoriatic arthropathy (HCC) Psoriatic arthropathy Pulmonary nodule Solitary pulmonary nodule S/P Tanja fundoplication (without gastrostomy tube) procedure Follow-up examination, following unspecified surgery Spondyloarthropathy Spondylosis of unspecified site without mention of myelopathy Senile osteoporosis Thrombocytosis Essential thrombocythemia Immunodeficiency (HCC) Unspecified immunity deficiency Need for prophylactic vaccination and inoculation against influenza Prediabetes Other abnormal glucose Encounter for screening mammogram for breast cancer documented in this encounter Advance Directives Latest Code Status on File Code Status Date Activated Date Inactivated Comments Full Code 10/23/2013 11:32 AM 10/24/2013 4:10 PM This order reflects the patients wishes and were consensually agreed upon. Care Teams Aquacultural Worker Supervisor Relationship Specialty Start Date End Date Elvia Pink DO [address] [facility] [place] [address] PCP - General Family Medicine 11/19/15 documented as of this encounter
--- OUTSIDE RECORDS SUMMARY | 2023-03-23 02:36 | External Medical Summary | Summary of Care ---
Author Name Unknown Organization [facility] Address [address] [facility] [place] [address] Phone [phone] Care Team Providers Care Installers Mechanical Name Role Phone Elvia Pink DO Primary Care Provider [phone] Encounter Details Date Type Department Care Team (Late st Contact Info) Description [facility] [address] [place] [address] Elvia Pink DO [address] [facility] [place] [address] Allergies Active Allergy Reactions Criticality Noted Date Comments Dust 07/19/2009 Sneezing, watering eyes, eventually might develop into asthma attack Other - Environmental 07/19/2009 Pet Dander Sneezing, watering eyes Pollen 07/19/2009 Sneezing, watering eyes documented as of this encounter (statuses as of 03/16/2023) Medications Medication Sig Dispensed Refills Start Date End Date Status PREDNISONE 20 MG PO TABSIndications:Hea dache(784.0) 2 by mouth daily for 5 days 10 Tab 0 11/22/2012 Active SURGICAL COMPRESSION STOCKINGIndications :Anticardiolipin antibody positive,Cutaneous polyarteritis nodosa (HCC) Knee high [...] MOUTH EVERY DAY 90 Tablet 1 08/27/2022 08/27/2023 Active Ferrous Sulfate 325 (65 Fe) MG Oral Tablet Delayed Release TAKE ONE TABLET BY MOUTH DAILY WITH BREAKFAST 90 Tablet 2 05/25/2022 05/25/2023 Active Triamcinolone Acetonide 0.1 % External Cream (Aristocort) APPLY TO LEGS TWICE DAILY NEEDED FOR ITCHING 454 g 0 05/25/2022 05/25/2023 Active Pantoprazole Sodium 40 MG Oral Tablet Delayed Release (Protonix) Take 1 Tablet by mouth in the morning. 90 Tablet 3 12/14/2022 Active Mycophenolate Sodium 360 MG Oral Tablet Delayed Release (Myfortic) Take 3 Tablets by mouth daily. 270 Tablet 4 01/18/2023 Active Atorvastatin Calcium 40 MG Oral Tablet (Lipitor) TAKE ONE TABLET BY MOUTH EVERY MORNING 90 Tablet 3 03/03/2023 03/02/2024 Active Albuterol Sulfate HFA 108 (90 Base) MCG/ACT Inhalation Aerosol SolutionIndications :Asthma, allergic, mild intermittent, uncomplicated,Angul ar cheilitis INHALE TWO PUFFS BY MOUTH EVERY MORNING & TWO PUFFS AT NOON & TWO PUFFS IN THE EVENING & TWO PUFFS BEFORE BEDTIME 25.5 g 1 03/09/2023 03/08/2024 Active Zoster Vac Recomb Adjuvanted 50 MCG/0.5ML Intramuscular Suspension Reconstituted (Shingrix) Inject 0.5 mL into a large muscle now and repeat dose in 60 to 180 days 1 Each 1 03/10/2023 Active Hospital, Clinic, or Other Facility Administered Medication Ordered Dose Route Frequency Start Date End Date Status Tixagevimab inj 300 mgIndications:Encounter for long-term (current) use of medications,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 [id number] 11/14/2021 Active Cilgavimab inj 300 mgIndications:Encounter for long-term (current) use of medications,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 [id number] 11/14/2021 Active documented as of this encounter (statuses as of 03/16/2023) Active Problems Problem Noted Date Diagnosed Date [...] as of this encounter (statuses as of 03/16/2023) Resolved Problems Problem Noted Date Diagnosed Date [...] as of this encounter (statuses as of 03/16/2023) Immunizations Name Administration Dates Next Due COVID-19 mRNA, LNP-s, No Pre serve, 2-Dose Series (Moderna) 09/27/2021,06/19/2021,01/10/2021,02/08/2020,05/30/2020 PPD 03/02/2012,10/14/2010 Pneumococcal Conjugate Vacc, 13 Valent [...] as of this encounter Miscellaneous Notes * Telephone Encounter - Elvia Pink DO - 03/15/2023 10:41 PM EST Blood work reviewed and stable. Hemoglobin A1c 5.8%. Vitamin-D level increase to 33. Continue vitamin-D supplementation. Follow-up with specialists as scheduled. documented in this encounter Plan of Treatment Upcoming Encounters Date Type Department Care Team (Late st Contact Info) Description 03/16/2023 11:00 AM EST Telemedicine General Surgery, [place] [address] [place] [address] Marek Petty PA-C [address] [place] [address] 04/07/2023 10:00 AM EST Imaging Vascular Lab, [facility] [facility] [address] [facility] [place] [address] 05/05/2023 9:30 AM EST Laboratory Laboratory [address] [place] [phone] [place] [address] 05/12/2023 12:30 PM EST Office Visit Hematology/Oncology [facility] [address] [facility] [address] Jordan Elias MD [address] [facility] [place] [address] 11/19/2023 10:00 AM EDT Office Visit Rheumatology [address], [place] [address] [place] [address] Cesar Gaona MD [address] [place] [address] Scheduled Procedures Name Priority Associated Diagnoses Date/Ti me ESOPHAGOGASTRODUODENOSCOPY ( EGD), FLEXIBLE, TRANSORAL, DIAGNOSTIC Recall Esophagitis, [place]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 Health Maintenance Due [...] D LEVEL ONCE IN A LIFETIME-USE SMARTSET# [id number] Completed 03/10/2023, 01/12/2023, 10/02/2022, Additional history exists [...] this encounter Medical Devices Implanted Type Area Roof Foreman Device Identifier Shelf Expiration Date Model / Serial / Lot Alloderm 2x4 Sheet [id number](8 Units) - [id number] Implanted:Qty : 8 on 10/23/2013 [place] [facility] [place] - Human N/A: Esophagus LIFE CELL ANETTE 05/02/2015 [id number] / / [id number] documented as of this encounter Advance Directives Latest Code Status on File Code Status Date Activated Date Inactivated Comments Full Code 10/23/2013 11:32 AM 10/24/2013 4:10 PM This order reflects the patients wishes and were consensually agreed upon. Care Teams Installers Mechanical Relationship Specialty Start Date End Date Elvia Pink DO [address] [facility] [place] [address] PCP - General Family Medicine 11/19/15 documented as of this encounter
--- OUTSIDE RECORDS SUMMARY | 2023-03-23 02:36 | External Medical Summary | Summary of Care ---
Author Name Unknown Organization [facility] Address [address] [facility] [place] [address] Phone [phone] Care Team Providers Care Consultant Teacher Name Role Phone Elvia Pink DO Primary Care Provider [phone] Encounter Details Date Type Department Care Team (Late st Contact Info) Description 03/15/2023 [facility] [address] [place] [address] Elvia Pink DO [address] [facility] [place] [address] Allergies Active Allergy Reactions Criticality Noted Date Comments Dust 07/19/2009 Sneezing, watering eyes, eventually might develop into asthma attack Other - Environmental 07/19/2009 Pet Dander Sneezing, watering eyes Pollen 07/19/2009 Sneezing, watering eyes documented as of this encounter (statuses as of 03/15/2023) Medications Medication Sig Dispensed Refills Start Date [...] medications,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 [id number] 11/14/2021 Active Cilgavimab inj 300 mgIndications:Encounter for long-term (current) use of medications,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 [id number] 11/14/2021 Active documented as of this encounter (statuses as of 03/15/2023) Active Problems Problem Noted Date Diagnosed Date [...] as of this encounter (statuses as of 03/15/2023) Resolved Problems Problem Noted Date Diagnosed Date [...] as of this encounter (statuses as of 03/15/2023) Immunizations Name Administration Dates Next Due COVID-19 [...] 03/16/2023 11:00 AM EST Telemedicine General Surgery, [place] [address] [place] [address] Marek Petty PA-C [address] [place] [address] 04/07/2023 10:00 AM EST Imaging Vascular Lab, [facility] [address] [facility] [address] [facility] [place] [address] 05/05/2023 9:30 AM EST Laboratory Laboratory [address] [place] [phone] [place] [address] 05/12/2023 12:30 PM EST Office Visit [facility]ology[facility] [address] [facility] [address] Jordan Elias MD [address] [facility] [place] [address] 11/19/2023 10:00 AM EDT Office Visit Rheumatology [address], [place] [address] [place] [address] Cesar Gaona MD [address] [employer] [place] [address] Scheduled Procedures Name Priority Associated Diagnoses Date/Ti me ESOPHAGOGASTRODUODENOSCOPY ( EGD), FLEXIBLE, TRANSORAL, DIAGNOSTIC Recall Esophagitis, [place]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 Health Maintenance Due [...] D LEVEL ONCE IN A LIFETIME-USE SMARTSET# [id number] Completed 03/10/2023, 01/12/2023, 10/02/2022, Additional history exists [...] this encounter Medical Devices Implanted Type Area Slag Mixer Device Identifier Shelf Expiration Date Model / Serial / Lot Alloderm 2x4 Sheet [id number](8 Units) - [id number] Implanted:Qty : 8 on 10/23/2013 at [place] [facility] [place] Tissue - Human N/A: Esophagus LIFE CELL ANETTE 05/02/2015 [id number] / / [id number] documented as of this encounter Advance Directives Latest Code Status on File Code Status Date Activated Date Inactivated Comments Full Code 10/23/2013 11:32 AM 10/24/2013 4:10 PM This order reflects the patients wishes and were consensually agreed upon. Care Teams Consultant Teacher Relationship Specialty Start Date End Date Elvia Pink DO [address] [facility] [place] [address] PCP - General Family Medicine 11/19/15 documented as of this encounter
--- OUTSIDE RECORDS SUMMARY | 2023-03-23 02:36 | External Medical Summary | Summary of Care ---
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 Needs EGD surveillance with possible ablation, pt requesting Dr. Cavazos. 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 [id number] 11/14/2021 Active Cilgavimab inj 300 mgIndications:Encounter for long-term (current) use of medications,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 [id number] 11/14/2021 Active documented as of this encounter (statuses as of 03/16/2023) Active Problems Problem Noted Date Diagnosed Date Immunodeficiency 03/10/2023 Senile osteoporosis 09/29/2022 Peripheral neuropathy 09/03/2022 Carotid stenosis, non-symptomatic, bilateral 10/2021 Bronchiectasis without complication 03/12/2022 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 [facility]OP[facility] REFLUX DISORDERS AT [facility] CLINIC VISIT DATE: 03/16/2023 Last office visit 10/31/2013 (in office), 03/17/2022 (telemedicine) Patricia Salinas [phone] PCP: Elvia Pink DO Consult requested by: Elvia Pink DO Previous MIS Surgical History: Laparoscopy, Esophageal Fundoplication; Tanja 360 degree Fundoplication 10/23/2013 JDG Hiatal hernia repair with mesh, alloderm 2 x 4 thick Upper GI Endoscopy, simple primary examination Patient location: HOME. I was in a hospital or clinic location. After connecting through [employer],patient was verified with two unique identifiers. 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 Methods to assure confidentiality were taken. Patient acknowledged consent and understanding of pr ivacy and security of the Telemedicine visit. The patient agreed to participate. HPI 03/16/2023: 9 yrs post op Tanja and HH repair with mesh. History of BE and recent EGD on 12/02/2022 shows continued BE and indefinite for dysplasia. GI recommending ablation or yearly eval. Pt asking for referral to Dr. Cavazos. HPI 03/17/2022: This patient had a lap tanja with alloderm 2013 and has been doing very well. Doeshave very minor acid reflux (pt states almost not worth mentioning). She does have a small recurrent Hiatal hernia per imaging. EGD from last year revealed Escobedo's per path. Symptoms also include: Heartburn Score: 1 Gas Bloat Score: 0 - None Dysphagia Score: 0 Regurgitation Score: 0 - none Nausea/Vomiting Score: 0 - none Diarrhea: 0 - none Does this patient have known Escobedo's Esophagus? Yes, non dysplastic. Does this patient have a suspected or established diagnosis of Achalasia? No 02/29/2020 HPI: This patient had a laparoscopic hiatal hernia repair with tanja fundoplication andplacement of alloderm 2 x4 thick mesh on 10/23/2013. She was last seen in clinic on 07/23/2016. She hd a main pre-operative symptom of heartburn and also had a history of BE with HGD. At her last visitshe wasn't taking PPI's. She is currently not on PPI and she is not having significant reflux issues. She takes occasional pepto-bismol. Symptoms also include: Heartburn Score: 1 - Minimal - episodic no ongoing treatment Gas Bloat Score: 0 - None Dysphagia Score: 0 - no dysphagia Regurgitation Score: 0 - none Nausea/Vomiting Score: 0 - none Diarrhea: 2 - moderate Burping or belching Unknown, Previous DIAGNOSTIC TESTS include the followin12/02/2022 EGD - Jadon Dean MD Findings & Specimens: A 2 cm hiatal hernia was found. The proximal extent of the gastric folds (end of tubular esophagus)was 33 cm from the incisors. The hiatal narrowing was 35 cm from the incisors. The esophagus and gastroesophageal junction were examined with white light and narrow band imaging (NBI) from a forward view and retroflexed position. There were esophageal mucosal changes classified as Escobedo's stage C3-M4 per [place] criteria. These changes involved the mucosa extending to the Z-line (29 cm from the incisors). No visible abnormalities were present. The maximum longitudinal extent of these esophageal mucosal changes was 4 cm in length. Several biopsies were obtained at 29, 30, 31 and 32 cm from the incisors with cold forceps for histology. Verification of patient identification forthe specimen was done by the physician and nurse using the patient's name and date. The pathology specimen was placed into Bottle A. Evidence of a partial fundoplication was found in the gastric fundus. The wrap appeared loose. Thiswas traversed. The entire examined stomach was normal. The duodenal bulb and second portion of the duodenum were normal. Impression: - 2 cm hiatal hernia. - Esophageal mucosal changes classified as Escobedo's stage C3-M4 per [place] criteria. Several biopsies were obtained. - A partial fundoplication was found. The wrap appears loose. - Normal stomach. - Normal duodenal bulb and second portion of the duodenum. Recommendation: - Discharge patient to home. - Await pathology results. - Follow an antireflux regimen. - PO PPI. - Return to referring physician. COMMENT: Patient should have repeat ablation in view of prior HGD however she does [place] have [place] [facility] Alternatively she should have surveillance EGD annually at least. PATH: A. Esophagus, @ 32 cm, biopsy: Columnar mucosa with reactive changes Negative for intestinal metaplasia or dysplasia No squamous mucosa identified B. Esophagus, @ 31 cm, biopsy: Columnar mucosa with intestinal metaplasia Negative for dysplasia No squamous mucosa identified C. Esophagus, @ 30 cm, biopsy: Columnar mucosa with intestinal metaplasia Negative for dysplasia A small fragment of benign squamous mucosa D. Esophagus, @ 29 cm, biopsy: Columnar mucosa with intestinal metaplasia and chronic active inflammation Indefinite for focal low-grade dysplasia No squamous mucosa identified 12/13/2020 EGD: Eros Terrazas MD 11/20/2019. UGI ([facility]) 11/22/2017. EGD. Ruddy Cavazos MD. [facility] Findings: [place] Grade A (one or more mucosal breaks less than 5 mm, not extending between tops of 2 mucosal folds) esophagitis with no bleeding was found 29 to 31 cm from the incisors. The esophagus and gastroesophageal junction were examined with white light and narrow band imaging (NBI) from a forward view and retroflexed position. There were esophageal mucosal changes classifiedas Escobedo's stage C0-M1 per [place] criteria. These changes involved the mucosa along an irregular Z-line (31 cm from the incisors). Two tongues of salmon-colored mucosa were present from 29 to 31 cm, two tongues of salmon-colored mucosa were present, scattered islands of salmon-colored mucosa were present at 30 cm and hiatal narrowing was identified at 35 cm. The maximum longitudinalextent of these esophageal mucosal changes was 1 cm in length. Mucosa was biopsied with a cold forceps for histology in a targeted manner. One specimen bottle was sent to pathology. Coagulation for tissue destruction using argon plasma at liter/minute and 40 sandy was successful in the scattered islands. The gastroesophageal flap valve was visualized endoscopically. There was evidence of previous fundoplication, but the GEJ was somewhat loose. The exam of the stomach was otherwise normal. Impression: - LA Grade A erosive esophagitis. - Esophageal mucosal changes classified as Escobedo's stage C0M1 per [place] criteria. Biopsied. Treated with argon plasma coagulation (APC). - Previous hiatal hernia repair intact but slightly loose. A. Esophagus, gastroesophageal junction, biopsy: Intestinal metaplasia, indefinite for dysplasia in a squamocolumnar junction mucosa Current Outpatient Medications Medication Sig Dispense Refill PREDNISONE 20 MG PO TABS 2 by mouth daily for 5 days 10 Tab 0 SURGICAL COMPRESSION STOCKING Knee high compression stocking [...] 60 to 180 days 1 Each 1 Current Facility-Administered Medications Medication Dose Route Frequency Provider Last Rate Last Admin Tixagevimab inj 300 mg 300 mg Intramuscular Q6 Months Cesar Gaona MD 300 mg at 11/14/21 1253 Cilgavimab inj 300 mg 300 mg Intramuscular Q6 Months Cesar Gaona MD 300 mg at 11/14/21 1252 Allergies as of 03/16/2023 - Reviewed 03/10/2023 Allergen Reaction Noted Dust 07/19/2009 Other - environmental 07/19/2009 Pollen 07/19/2009 Past Medical History: Diagnosis Date ASTHMA 07/19/2009 [...] DIAGNOSTIC (RECTUM) 12/13/2020 benign adenomatous polyp / [facility] D&C AFTER DELIVERY 2 times EGD, FLEXIBLE, DIAGNOSTIC 05/16/2013 ESOPHAGOGASTRODUODENOSCOPY (EGD), FLEXIBLE, TRANSORAL, DIAGNOSTIC performed by Ruddy Cavazos MD [place] [facility] [place]GD, FLEXIBLE, DIAGNOSTIC 07/05/2013 ESOPHAGOGASTRODUODENOSCOPY (EGD), FLEXIBLE, TRANSORAL, DIAGNOSTIC performed by Ruddy Cavazos MD [place] [facility] [place]GD, FLEXIBLE, DIAGNOSTIC 10/23/2013 ESOPHAGOGASTRODUODENOSCOPY (EGD), FLEXIBLE, TRANSORAL, DIAGNOSTIC performed by Francisco Yarbrough [place] [facility] [place]GD, FLEXIBLE, DIAGNOSTIC N/A 11/23/2014 ESOPHAGOGASTRODUODENOSCOPY (EGD), FLEXIBLE, TRANSORAL, DIAGNOSTIC performed by uRddy Cavazos MD [place] [facility] [place]GD, FLEXIBLE, DIAGNOSTIC N/A 01/29/2015 ESOPHAGOGASTRODUODENOSCOPY (EGD), FLEXIBLE, TRANSORAL, DIAGNOSTIC performed by Ruddy Cavazos MD [place] [facility] [place]GD, FLEXIBLE, DIAGNOSTIC 12/13/2020 Barretts, reflux esophagitis / [facility] EGD, FLEXIBLE, DIAGNOSTIC 12/02/2022 partial fundoplication, wrap appears loose/biopsies Escobedo's esophagitis, indefinite for dysplasia/repeat 6 months/ESOPHAGOGASTRODUODENOSCOPY (EGD), FLEXIBLE, TRANSORAL, DIAGNOSTIC performed by Jadon Dean MD at ENDOSCOPY [facility] EGD, W/ENDOSCOPIC US N/A 11/22/2017 ESOPHAGOGASTRODUODENOSCOPY (EGD), FLEXIBLE, TRANSORAL, ENDOSCOPIC ULTRASOUND performed by Ruddy Cavazos MD at [place] [facility] ESOPHAGOGASTRIC FUNDOPLASTY 10/23/2013 10/23/2013 LAPAROSCOPIC ESOPHAGOGASTRIC FUNDOPLASTY TANJA performed by Rickey Stern MD [place] [facility] REMOVE CATARACT, INSERT LENS PROSTH 09/22/[address] Jarrett Family History Problem Relation Age of Onset Cancer Mother stomach, colon Heart Disorder Mother valve problems from Rheum. fever as a child Arthritis Mother Rheum. fever as a child, hump in back Colon cancer Mother Heart Disorder Father Arthritis Father ? Lung Disorder Sister Pulmonary edema COPD Brother Cancer Brother skin Lung Disorder Brother Diabetes Aunt (Unspecified) Cancer Grandmother (Maternal) Stomach Diabetes Other PHYSICAL EXAM: 03/16/2023 none reported 03/17/2022: none reported 03/04/2021: Telephonic medicine General: well appearing, no distress Impression: 1) s/p lap tanja in 2014. Small recurrent hiatal hernia, but symptomatically doing well 2) Escobedo's esophagus - Last EGD and path were positive for Escobedo's and indefinite dysplasia. Will place order for EGD with Dr. Caavzos Plan: 1) Follow up one year. Continue current medications. 2) Continue follow up with GI, per their team, needs EGD with Dr. Cavazos in [place] for EGD and possible ablation. I spent a total of 30-39 minutes (exact time 31 mins) on the date of service in preparation, delivery, and documentation of the care provided to Patricia Salinas excluding any time spent in the performance of separately billed services. Marek Petty PA-C Bariatric and Foregut Surgery [facility] 03/16/2023 documented in this encounter Plan of Treatment Upcoming Encounters Date Type Department Care Team (Late st Contact Info) Description 04/07/2023 10:00 AM EST Imaging Vascular Lab, [facility] 2nd [facility], [address] [place] [address] 05/05/2023 9:30 AM EST Laboratory Laboratory [address] [place] [phone] Zel[address] [place] [address] 05/12/2023 12:30 PM EST Office Visit Hematology/Oncology [facility] Jony Aguilar [address] [place] [address] Jordan Elias MD [address] [place] [address] 11/19/2023 10:00 AM EDT Office Visit Rheumatology [address], [place] [place] [address] Cesar Gaona MD [address] [place] [address] Scheduled Procedures Name Priority Associated Diagnoses Date/Ti me ESOPHAGOGASTRODUODENOSCOPY ( EGD), FLEXIBLE, TRANSORAL, DIAGNOSTIC Recall Esophagitis, [place]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 Scheduled Referrals Name Type Priority Associated Diagnoses Orde r Schedule UPPER ENDOSCOPY GI REFERRAL OP Referral Within 30 days (routine) S/P laparoscopic fundoplication 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 Ordered: 03/16/2023 Health Maintenance Due Date Last Done Comments [...] D LEVEL ONCE IN A LIFETIME-USE SMARTSET# [id number] Completed 03/10/2023, 01/12/2023, 10/02/2022, Additional history exists [...] this encounter Medical Devices Implanted Type Area Overhead Irrigator Device Identifier Shelf Expiration Date Model / Serial / Lot Alloderm 2x4 Sheet [id number](8 Units) - [id number] Implanted:Qty : 8 on 10/23/2013 [place] [facility] Tissue - Human N/A: Esophagus [employer] Backand 05/02/2015 [id number] / / [id number] documented as of this encounter Visit Diagnoses Diagnosis S/P laparoscopic fundoplication- Primary Other postprocedural status 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 Care Teams Abseiling Instructor Relationship Specialty Start Date End Date Elvia Pink DO [address] [facility] [place] [address] PCP - General Family Medicine 11/19/15 documented as of this encounter
--- OUTSIDE RECORDS SUMMARY | 2023-03-23 02:36 | External Medical Summary | Summary of Care ---
Author Name Unknown Organization [facility] Address [address] [address] Phone [phone] Care Team Providers Care Analytical Manager Name Role Phone Elvia Pink DO Primary Care Provider [phone] Reason for Visit * Reason Onset Date Comments Test Results 03/15/2023 [facility] 03/16 Encounter Details Date Type Department Care Team (Late st Contact Info) Description 03/15/2023 Telephone Family Practice [address] [place] [place] [address] Elvia Pink DO [address] [facility] [place] [address] Test Results ([facility] 03/16) Allergies Active Allergy Reactions Criticality Noted Date [...] medications,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 Left voicemail to return our call. If patient returns call fwd to nurse line @ [phone]. * Telephone Encounter - Elvia Pink DO - 03/15/2023 10:41 PM EST Blood work reviewed and stable. Hemoglobin A1c 5.8%. Vitamin-D level increase to 33. Continue vitamin-D supplementation. Follow-up with specialists as scheduled. documented in this encounter Plan of Treatment Upcoming Encounters Date Type Department Care Team (Late st Contact Info) Description 03/16/2023 11:00 AM EST Telemedicine General Surgery, [place] [address] [place] [address] Marek Petty PA-C [address] [place] [facility] [place] [address] 04/07/2023 10:00 AM EST Imaging Vascular Lab, [facility] 2nd [facility] [address] [place] [address] 05/05/2023 9:30 AM EST Laboratory Laboratory [place] [address] [place] [phone] [address], [address] [place] [address] 05/12/2023 12:30 PM EST Office Visit Hematology/Oncology [address] [address] [place] [address] [facility] [place] [address] Jordan Elias MD [address] [place] [address] 11/19/2023 10:00 AM EDT Office Visit Rheumatology [address] [place] [address] [place] [address] Cesar Gaona MD [address] [employer] [place] [address] Scheduled Procedures Name Priority Associated Diagnoses Date/Ti me ESOPHAGOGASTRODUODENOSCOPY ( EGD), FLEXIBLE, TRANSORAL, DIAGNOSTIC Recall Esophagitis, [place]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 Health Maintenance Due [...] D LEVEL ONCE IN A LIFETIME-USE SMARTSET# [id number] Completed 03/10/2023, 01/12/2023, 10/02/2022, Additional history exists [...] this encounter Medical Devices Implanted Type Area Project Management Consultant Device Identifier Shelf Expiration Date Model / Serial / Lot Alloderm 2x4 Sheet [id number](8 Units) - [id number] Implanted:Qty : 8 on 10/23/2013 at [place] [facility] Tissue - Human N/A: Esophagus [employer] CELL ANETTE 05/02/2015 [id number] / / [id number] documented as of this encounter Advance Directives Latest Code Status on File Code Status Date Activated Date Inactivated Comments Full Code 10/23/2013 11:32 AM 10/24/2013 4:10 PM This order reflects the patients wishes and were consensually agreed upon. Care Teams Analytical Manager Relationship Specialty Start Date End Date Elvia Pink DO [address] [facility] [place] [address] PCP - General Family Medicine 11/19/15 documented as of this encounter
--- OUTSIDE RECORDS SUMMARY | 2023-03-23 02:36 | External Medical Summary | Summary of Care ---
Author Name Unknown Organization [facility] Address [address] [facility] [place] [address] Phone [phone] Care Team Providers Care Face Burler Name Role Phone Elvia Pink DO Primary Care Provider [phone] Reason for Visit * Reason Onset Date Comments Medication Pre-auth 09/25/2022 Recjan Encounter Details Date Type Department Care Team (Late st Contact Info) Description 09/25/2022 Telephone Rheumatology [address] [place] [phone] Sammie Man MD [address] [facility] [place] [address] Medication Pre-auth (January ) Allergies Active Allergy [...] medications,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 Platinum plan for reclast discontinued. Patient can be [...] Rodriguez RN - 01/13/2023 9:48 AM EDT Platinum plan is signed, referral in place. Scheduling: [...] received for Reclast 5mg IV once yearly Platinum created and routed to provider for signature Rheum: When the labs and auth are back and patient is ready to be scheduled, please forward back top [phone] for scheduling. Thank you! * Telephone Encounter [...] 04/07/2023 10:00 AM EST Imaging Vascular Lab, [facility] 2nd [facility], [address] [place] [address] 05/05/2023 9:30 AM EST Laboratory Laboratory [place] [address] [place] [phone] Zelda [place] [address] [place] [address] 05/12/2023 12:30 PM EST Office Visit Hematology/Oncology [facility] [address] [place] [address] Jordan Elias MD [address] [place] [address] 11/19/2023 10:00 AM EDT Office Visit Rheumatology [address], [place] [address] [place] [address] Sammie Man MD [address] [facility] [place], [place] [id number] 03/14/2024 11:00 AM EST Telemedicine General Surgery, [place] [address] [place], [place] [id number] Marek Petty PA-C [address] [place], [place] [id number] Scheduled Procedures Name Priority Associated Diagnoses Date/Ti me ESOPHAGOGASTRODUODENOSCOPY ( EGD), FLEXIBLE, TRANSORAL, DIAGNOSTIC Recall Esophagitis, [place]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 Health Maintenance Due [...] D LEVEL ONCE IN A LIFETIME-USE SMARTSET# [id number] Completed 03/10/2023, 01/12/2023, 10/02/2022, Additional history exists [...] this encounter Medical Devices Implanted Type Area Audiovisual Aids Technician Device Identifier Shelf Expiration Date Model / Serial / Lot Alloderm 2x4 Sheet [id number](8 Units) - [id number] Implanted:Qty : 8 on 10/23/2013 at [place] [facility] [place] Tissue - Human N/A: Esophagus [employer] Hemoteq 05/02/2015 [id number] / / [id number] documented as of this encounter Results * (ABNORMAL) 25-HYDROXY VITAMIN D (10/02/2022 11:06 AM EDT) 25-Hydroxy Vitamin D 15(L) >19 ng/mL 10/02/2022 11:47 PM EDT LAB[facility]AT[facility] Blood Venous blood specimen / Unknown Venipuncture / Unknown 10/02/2022 11:06 AM EDT 10/02/2022 11:06 AM EDT Narrative LAB[facility]ATORY [facility] - 10/02/2022 11:47 PM EDT Deficient: <20 ng/mL Insufficient: 20-29 ng/mL Recommended/Optimum:30-50 ng/mL Vitamin D intoxication is rare. If suspicious of Vitamin D toxicity, evaluation of serum Calcium and PTH is recommended. Sammie Man MD LAB BLOOD ORDERABLE S LAB[facility]ATORY [facility] [address] [place] [address] documented in this encounter Visit Diagnoses Diagnosis Senile osteoporosis- Primary documented in this encounter Advance Directives Latest Code Status on File Code Status Date Activated Date Inactivated Comments Full Code 10/23/2013 11:32 AM 10/24/2013 4:10 PM This order reflects the patients wishes and were consensually agreed upon. Care Teams Face Burler Relationship Specialty Start Date End Date Elvia Pink DO [address] [facility] [place] [address] PCP - General Family Medicine 11/19/15 documented as of this encounter
--- OUTSIDE RECORDS SUMMARY | 2023-03-23 02:37 | External Medical Summary ---
Author Name Unknown Address Unknown Organization K01:[place] [place] [address] [place] [address] Laboratory Report Ordering Provider Test Date Status JOSUE CAMEJO 03/10/2023 14:14:51 Final Deficient: <20 ng/mL
Ins ufficient: 20-29 ng/mL
Recommended/Optimum:30-50 ng/mL

Vitamin D intoxication is rare. If suspicious of Vitamin D toxicity, evaluation of serum Calcium and PTH is recommended. Observation Date Value Abnormality Reference (Units ) Status 25-OH Vitamin D total 03/10/2023 14:14:51 33 >19 (ng/mL) Final Performing Location [facility] [place] [address] [place] [address]
--- OUTSIDE RECORDS SUMMARY | 2023-03-23 02:37 | External Medical Summary | Summary of Care ---
Author Name Unknown Organization [facility] Address [address] [place] [address] Phone [phone] Care Team Providers Care Tool Planer Set Up Operator Name Role Phone Elvia Pink DO Primary Care Provider [phone] Encounter Details Date Type Department Care Team (Late st Contact Info) Description 02/23/2023 Orders Only Outcomes Research Department [address] [place] [address] Anna Jha CHRA [employer] Research Other*[id number] Allergies Active Allergy Reactions Criticality Noted Date Comments Dust 07/19/2009 Sneezing, watering eyes, eventually might develop into asthma attack Other - Environmental 07/19/2009 Pet Dander Sneezing, watering eyes Pollen 07/19/2009 Sneezing, watering eyes documented as of this encounter (statuses as of 02/23/2023) Medications Medication Sig Dispensed Refills Start Date End Date Status SURGICAL COMPRESSION STOCKINGIndications :Anticardiolipin antibody positive,Cutaneous polyarteritis [...] Chewable Take by mouth . 0 Active Ferrous Sulfate 325 (65 Fe) MG Oral Tablet (Feosol)Indications :Iron deficiency anemia, unspecified iron deficiency anemia type,Thrombocytosis Take 1 Tablet by mouth daily with breakfast. 90 Tablet 2 05/25/2022 Active predniSONE 5 MG Oral Tablet (Deltasone) TAKE ONE TABLET BY MOUTH EVERY DAY 90 Tablet 1 08/27/2022 08/27/2023 Active Albuterol Sulfate HFA 108 (90 Base) MCG/ACT Inhalation Aerosol SolutionIndications :Asthma, allergic, mild intermittent, uncomplicated,Angul ar cheilitis INHALE TWO PUFFS BY MOUTH EVERY MORNING & TWO PUFFS AT NOON & TWO PUFFS IN THE EVENING & TWO PUFFS BEFORE BEDTIME 33.5 g 0 06/22/2022 06/22/2023 Active Ferrous Sulfate 325 (65 Fe) MG Oral Tablet Delayed Release TAKE ONE TABLET BY MOUTH DAILY WITH BREAKFAST 90 Tablet 2 05/25/2022 05/25/2023 Active Triamcinolone Acetonide 0.1 % External Cream (Aristocort) APPLY TO LEGS TWICE DAILY NEEDED FOR ITCHING 454 g 0 05/25/2022 05/25/2023 Active Atorvastatin Calcium 40 MG Oral Tablet (Lipitor) TAKE ONE TABLET BY MOUTH EVERY MORNING 90 Tablet 3 04/07/2022 04/07/2023 Active Pantoprazole Sodium 40 MG Oral Tablet Delayed Release (Protonix) Take 1 Tablet by mouth in the morning. 90 Tablet 3 12/14/2022 Active Mycophenolate Sodium 360 MG Oral Tablet Delayed Release (Myfortic) Take 3 Tablets by mouth daily. 270 Tablet 4 01/18/2023 Active Hospital, Clinic, or Other Facility Administered Medication Ordered Dose Route Frequency Start Date End Date Status Tixagevimab inj 300 mgIndications:Encounter for long-term (current) use of medications,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 [id number] 11/14/2021 Active Cilgavimab inj 300 mgIndications:Encounter for long-term (current) use of medications,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 [id number] 11/14/2021 Active documented as of this encounter (statuses as of 02/23/2023) Active Problems Problem Noted Date Diagnosed Date Senile osteoporosis 09/29/2022 Peripheral neuropathy 09/03/2022 Carotid [...] as of this encounter (statuses as of 02/23/2023) Resolved Problems Problem Noted Date Diagnosed Date [...] as of this encounter (statuses as of 02/23/2023) Immunizations Name Administration Dates Next Due COVID-19 mRNA, LNP-s, No Pre serve, 2-Dose Series (Moderna) 09/27/2021,06/19/2021,01/10/2021,06/04,05/30/2020 PPD 03/02/2012,10/14/2010 Pneumococcal Conjugate Vacc, 13 Valent (Prevnar) 02/19/2016 Pneumococcal Polysaccharide PPV23 (Pneumovax) 12/30/2007,02/06/2000 SEASONAL INFLUENZA, PF, 6 M & Above, IM , (FLULAVAL or FLUZONE) 01/31/2020,02/10/2018 Seasonal Influenza, Quadriva lent Hd (Fluzone Hd) 02/12/2022,02/06/2021 Seasonal Influenza, Quadriva lent, No Preserve, IM [...] = 0.6 oz p ure alcohol) OCCASIONAL Sex and Gender Information Value Date Recorded [...] No 10/23/2013 documented as of this encounter Plan of Treatment Upcoming Encounters Date Type Department Care Team (Late st Contact Info) Description 03/10/2023 1:20 PM EST Office Visit Family Practice [address] [place] [address] Elvia Pink DO [address] [place] [address] 03/16/2023 11:00 AM EST Telemedicine General Surgery, [place] [address] [place], [place] [phone] Marek Petty PA-C [address], [place] [id number] 04/07/2023 10:00 AM EST Imaging Vascular Lab, [facility] 2nd [facility], [address] [place] [address] 05/05/2023 9:30 AM EST Laboratory Laboratory [place] [address] [place] [id number] [facility] [address] [place] [address] 05/12/2023 12:30 PM EST Office Visit Hematology/Oncology [facility] [address] [facility] [place] [address] Jordan Elias MD 200 [facility] [place], [place] [address] 11/19/2023 10:00 AM EDT Office Visit Rheumatology [address] [place] [address] Cesar Gaona MD [address] [facility] [place] [address] Scheduled Orders Name Type Priority Associated Diagnoses Orde r Schedule MYCODE SUBSEQUENT ADULT Lab Routine [employer] Other*[id number] Every 6 Months for 2 Occurrences starting 02/23/2023 until 03/14/2024 Scheduled Procedures Name Priority Associated Diagnoses Date/Ti me ESOPHAGOGASTRODUODENOSCOPY ( EGD), FLEXIBLE, TRANSORAL, DIAGNOSTIC Recall Esophagitis, [place]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 Health Maintenance Due Date Last Done Comments Zoster Vaccines (1 of 2) 01/11/2014 11/16/2013 Depression Screening 11/13/2021 11/13/2020 *BISPHONATE OR OTHER ACCEPTABLE MEDICATION NEEDED FOR OSTEOPOROSIS (REFER TO SMARTSET #1146) 10/02/2022 COVID-19 Vaccine ( season) 2023 09/27/2021, 06/19/2021, 01/10/2021, Additional history exists Influenza Vaccine (FLU shot) (#1) 2023 02/12/2022, 02/06/2021, 01/31/2020, Additional history exists O2 ASSESSMENT COMPLETED IN [...] D LEVEL ONCE IN A LIFETIME-USE SMARTSET# 34832 Completed 01/12/2023, 10/02/2022, 08/20/2017, Additional history exists GARDASIL-HPV IMMUNIZATION SERIES Aged Out No longer eligible based on patient's age to complete this topic Hepatitis B Aged Out No longer eligi ble based on patient's age to complete this topic MENINGOCOCCAL (MENACTRA/MENVEO) Aged Out No longer eligible based on patient's age to complete this topic documented as of this encounter Medical Devices Implanted Type Area Forestry Workers Device Identifier Shelf Expiration Date Model / Serial / Lot Alloderm 2x4 Sheet [id number](8 Units) - [id number] Implanted:Qty : 8 on 10/23/2013 [place] [facility] [place] Human N/A: Esophagus LIFE CELL ANETTE 05/02/2015 [id number] / / [id number] documented as of this encounter Visit Diagnoses Diagnosis [employer] Other*[id number] documented in this encounter Advance Directives Latest Code Status on File Code Status Date Activated Date Inactivated Comments Full Code 10/23/2013 11:32 AM 10/24/2013 4:10 PM This order reflects the patients wishes and were consensually agreed upon. Care Teams Tool Planer Set Up Operator Relationship Specialty Start Date End Date Elvia Pink DO [address] [facility] [place] [address] PCP - General Family Medicine 11/19/15 documented as of this encounter
--- OUTSIDE RECORDS SUMMARY | 2023-03-23 02:37 | External Medical Summary | Summary of Care ---
Author Name Unknown Organization [facility] Address [address] [place] [address] Phone [phone] Care Team Providers Care Stacker Driver Name Role Phone Elvia Pink DO Primary Care Provider [phone] Reason for Visit * Reason Comments Medication Refill Encounter Details Date Type Department Care Team (Late st Contact Info) Description 03/03/2023 Refill Vascular [facility]urg [facility] [address], [place] [phone] Mansi Rousseau CRNP [address] [place], [place] [phone] Allergies Active Allergy Reactions Criticality Noted Date Comments Dust 07/19/2009 Sneezing, watering eyes, eventually might develop into asthma attack Other - Environmental 07/19/2009 Pet Dander Sneezing, watering eyes Pollen 07/19/2009 Sneezing, watering eyes documented as of this encounter (statuses as of 03/03/2023) Medications Medication Sig Dispensed Refills Start Date End Date Status SURGICAL COMPRESSION STOCKINGIndication s:Anticardiolipin antibody positive,Cutaneous polyarteritis [...] DAY 90 Tablet 1 08/27/2022 4 Active Albuterol Sulfate HFA 108 (90 Base) MCG/ACT Inhalation Aerosol SolutionIndication s:Asthma, allergic, mild intermittent, uncomplicated,Angu lar cheilitis INHALE TWO PUFFS BY MOUTH EVERY MORNING & TWO PUFFS AT NOON & TWO PUFFS IN THE EVENING & TWO PUFFS BEFORE BEDTIME 33.5 g 0 06/22/2022 4 Active Ferrous Sulfate 325 (65 Fe) [...] MORNING 90 Tablet 3 03/03/2023 4 Active Atorvastatin Calcium 40 MG Oral Tablet (Lipitor) TAKE ONE TABLET BY MOUTH EVERY MORNING 90 Tablet 3 04/07/2022 3 Discontinue d(Refill) Hospital, Clinic, or Other Facility Administered Medication Ordered Dose Route Frequency Start Date End Date Status Tixagevimab inj 300 mgIndications:Encounter for long-term (current) use of medications,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 [id number] 11/14/2021 Active Cilgavimab inj 300 mgIndications:Encounter for long-term (current) use of medications,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 [id number] 11/14/2021 Active documented as of this encounter (statuses as of 03/03/2023) Active Problems Problem Noted Date Diagnosed Date [...] as of this encounter (statuses as of 03/03/2023) Resolved Problems Problem Noted Date Diagnosed Date [...] as of this encounter (statuses as of 03/03/2023) Immunizations Name Administration Dates Next Due COVID-19 [...] encounter Miscellaneous Notes * Telephone Encounter - Mansi Rousseau CRNP - 03/03/2023 6:11 AM EDT Signed Prescriptions: Disp Refills Atorvastatin Calcium 40 MG Oral Tablet (Li*90 Tab*3 Sig: TAKE ONE TABLET BY MOUTH EVERY MORNINGAuthorizing Provider: MANSI ROUSSEAU documented in this encounter Plan of Treatment Upcoming Encounters Date Type Department Care Team (Late st Contact Info) Description 03/10/2023 1:20 PM EST Office Visit Family Practice [facility] [address] [place] [address] Elvia Pink DO [address] [place] [address] 03/16/2023 11:00 AM EST Telemedicine General Surgery, [place] [address] [place] [address] Marek Petty PA-C [address] [place] [address] 04/07/2023 10:00 AM EST Imaging Vascular Lab, [facility] 2nd [facility], [address] [place] [address] 05/05/2023 9:30 AM EST Laboratory Laboratory [place] [address] [place] [phone] [place] [address] 05/12/2023 12:30 PM EST Office Visit Hematology/Oncology [facility] [place] [address] [facility] [place] [address] Jordan Elias MD [address] [place], [place] [address] 11/19/2023 10:00 AM EDT Office Visit Rheumatology [address] [place] [address] Cesar Gaona MD [facility] [place], [place] [address] Scheduled Procedures Name Priority Associated Diagnoses Date/Ti me ESOPHAGOGASTRODUODENOSCOPY ( EGD), FLEXIBLE, TRANSORAL, DIAGNOSTIC Recall Esophagitis, [place]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 Health Maintenance Due [...] D LEVEL ONCE IN A LIFETIME-USE SMARTSET# 10135 Completed 01/12/2023, 10/02/2022, 08/20/2017, Additional history exists [...] this encounter Medical Devices Implanted Type Area Telecommunication Systems Designer Device Identifier Shelf Expiration Date Model / Serial / Lot Alloderm 2x4 Sheet [id number](8 Units) - [id number] Implanted:Qty : 8 on 10/23/2013 at [place] [facility] [place] Tissue - Human N/A: Esophagus LIFE CELL ANETTE 05/02/2015 [id number] / / [id number] documented as of this encounter Advance Directives Latest Code Status on File Code Status Date Activated Date Inactivated Comments Full Code 10/23/2013 11:32 AM 10/24/2013 4:10 PM Thi s order reflects the patients wishes and were consensually agreed upon. Care Teams Stacker Driver Relationship Specialty Start Date End Date Elvia Pink DO [address] [facility] [place] [address] PCP - General Family Medicine 11/19/15 documented as of this encounter
--- OUTSIDE RECORDS SUMMARY | 2023-03-23 02:37 | External Medical Summary ---
Author Name Unknown Address Unknown Organization K01:[facility] [place] [address] [place] [address] Laboratory Report Ordering Provider Test Date Status JOSUE CAMEJO 03/10/2023 14:14:51 Final Observation Date Value Abnormality Reference (Units ) Status HbA1C 03/10/2023 14:14:51 5.8 Above high normal 4. 0-5.6 (%) Final The use of HbA1c to monitor glycemic status is based on normal hemoglobin and HbA composition. This test should not be used in patients with abnormal hemoglobin that affects the half life of the red blood cell or the in vivo glycation rates. Glucose, estimated average 03/10/2023 14:14:51 120 <126 (mg/dL) Final Performing Location [facility] [place] - [address] [place] [address]
--- OUTSIDE RECORDS SUMMARY | 2023-03-23 02:37 | External Medical Summary | Summary of Care ---
Author Name Unknown Organization [facility] Address [address] [facility] [place] [address] Phone [phone] Care Team Providers Care Rides Supervisor Name Role Phone Elvia Pink DO Primary Care Provider [phone] Reason for Visit * Reason Onset Date Comments Test Results 01/15/202301/19 Encounter Details Date Type Department Care Team Description 01/15/2023 Telephone [facility] [address] [place] [phone] Elvia Pink DO [address] [place] [address] Test Results (01/19) Allergies Active Allergy Reactions Severity Noted Date Comments Dust 07/19/2009 Sneezing, watering eyes, eventually might develop into asthma attack Other - Environmental 07/19/2009 Pet Dander Sneezing, watering eyes Pollen 07/19/2009 Sneezing, watering eyes documented as of this encounter (statuses as of 01/19/2023) Medications Medication Sig Dispensed Refills Start Date [...] ITCHING 454 g 0 05/25/2022 4 Active Atorvastatin Calcium 40 MG Oral Tablet (Lipitor) TAKE ONE TABLET BY MOUTH EVERY MORNING 90 Tablet 3 04/07/2022 3 Active Pantoprazole Sodium 40 MG Oral Tablet Delayed Release (Protonix) Take 1 Tablet by mouth in the morning. 90 Tablet 3 12/14/2022 Active Mycophenolate Mofetil 500 MG Oral Tablet (Cellcept) TAKE TWO TABLETS BY MOUTH IN THE MORNING 180 Tablet 1 03/24/2022 3 Discontinue d(Medicatio n/Dose Changed) predniSONE 1 MG Oral Tablet (Deltasone) TAKE FOUR TABLETS BY MOUTH EVERY DAY 360 Tablet 2 09/25/2022 3 Discontinue d(Medicatio n List Clean Up) Mycophenolate Mofetil 500 MG Oral Tablet (Cellcept) TAKE TWO TABLETS BY MOUTH IN THE MORNING 180 Tablet 1 03/27/2022 3 Discontinue d(Medicatio n/Dose Changed) Hospital, Clinic, or Other Facility Administered Medication Ordered Dose Route Frequency Start Date End Date Status Tixagevimab inj 300 mgIndications:Encounter for long-term (current) use of medications,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 [id number] 11/14/2021 Active Cilgavimab inj 300 mgIndications:Encounter for long-term (current) use of medications,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 [id number] 11/14/2021 Active documented as of this encounter (statuses as of 01/19/2023) Active Problems Problem Noted Date Senile osteoporosis 09/29/2022 Peripheral neuropathy 09/03/2022 Carotid stenosis, non-symptomatic, bilat eral 04/07/2022 Bronchiectasis without complication 03/03 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 06/28/2017 06/28/2017 Vasculitis 06/08/2017 03/14/2018 Anticardiolipin antibody syndrome 05/17/2017 02/16/2018 MILLER (polyarteritis nodosa) 05/07/201703/14 Encounter for long-term (current) use of medicat ions 12/09/2016 03/14/2018 Lesion of soft tissue of lower leg and ankle 04/201712/07/2016 Chronic cough 08/06/2015 03/14/2018 COPD, moderate 02/02/2014 07/13/2019 Overview: Per COPD GOLD Classification Moderate intermittent asthma with acute exacerba tion 02/02/2014 06/08/2017 Escobedo's esophagus with low grade dysplasia 08/201301/30/2020 Overview: 1 endo clip placed Gastritis 09/15/2011 12/07/2016 Diverticulosis of colon (without mention of hemo rrhage) 09/10/2011 11/19/2015 Overview: Colonoscopy-09/09/11 Escobedo's esophagus 09/08/2011 01/04/2015 Overview: EGD-09/07/11-Dr Stephens Diaphragmatic hernia without mention of obstruction or gangrene 09/08/2011 02/02/2014 Overview: EGD-09/07/11-Dr Stephens Loss of height 10/30/2010 04/05/2015 ASTHMA 07/19/2009 12/29/2013 Psoriasis 07/19/2009 01/30/2020 Esophageal reflux 07/19/2009 02/02/2014 MIGRAINE 07/19/2009 12/07/2016 Major depressive disorder 07/19/20092014 Overview: ICD-10 update of inactive term ALLERGIC RHINITIS 07/19/2009 12/07/2016 Gastroesophageal reflux disease with esophagitis 01/30/2020 documented as of this encounter (statuses as of 01/19/2023) Immunizations Name Administration Dates Next Due COVID-19 mRNA, LNP-s, No Pre serve, 2-Dose Series (Moderna) 09/27/2021,06/19/2021,01/10/2021,06/04,05/30/2020 PPD 03/02/2012,10/14/2010 Pneumococcal Conjugate Vacc, 13 Valent (Prevnar) 02/19/2016 Pneumococcal Polysaccharide PPV23 (Pneumovax) 12/30/2007,02/06/2000 Seasonal Influenza, PF, 6 mo ns & Above, IM , (Flulaval) 01/31/2020,02/10/2018 Seasonal Influenza, Quadriva lent Hd (Fluzone [...] = 0.6 oz p ure alcohol) OCCASIONAL Food Insecurity Answer Date Recorded Within the past 12 months, y ou worried that your food would run out before you got money to buy more. Never true 05/19/2019 Within the past 12 months, t he food you bought just didn't last and you didn't have money to get more. Never true 05/19/2019 Sex Assigned at Date Recorded Not on file Job Start Date Occupation [...] encounter Miscellaneous Notes * Telephone Encounter - Chava Mckee LPN - 01/19/2023 1:23 PM EDT Attempted to contact pt to relay below message. No answer, left message requesting a return call to [phone]. * Telephone Encounter - Elvia Pink DO - 01/15/2023 11:40 AM EDT Blood work stable. Will discuss at follow-up visit on March 10. documented in this encounter Plan of Treatment Upcoming Encounters Date Type Specialty Care Team Description 03/10/2023 Office Visit Family Medicine Elvia Pink DO [address] [facility] [place] [address] 03/16/2023 Telemedicine General Surgery Marek Petty PA-C [address] [facility] [phone] 04/07/2023 Imaging Radiology 05/05/2023 Laboratory Laboratory [place] [place] [address] [place] [address] 05/12/2023 Office Visit Hematology Oncology Jordan Elias MD [address] [place], [place] [address] 11/19/2023 Office Visit Rheumatology Cesar Gaona MD [address] [facility] [place], [place] [address] Scheduled Procedures Name Priority Associated Diagnoses Date/Ti me ESOPHAGOGASTRODUODENOSCOPY ( EGD), FLEXIBLE, TRANSORAL, DIAGNOSTIC Recall Esophagitis, [place]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 Health Maintenance Due Date Last Done Comments Zoster Vaccines (1 of 2) 01/11/2014 11/16/2013 Depression Screening 11/13/2021 11/13/2020 COVID-19 Vaccine (6 - Moderna risk series) 11/22/2021 09/27/2021, 06/19/2021, 01/10/2021, Additional history exists *BISPHONATE OR OTHER ACCEPTABLE MEDICATION NEEDED FOR OSTEOPOROSIS (REFER TO SMARTSET #1146) 10/02/2022 Influenza Vaccine (FLU shot) (#1) 2023 02/12/2022, 02/06/2021, 01/31/2020, Additional history exists O2 ASSESSMENT COMPLETED IN PAST YEAR FOR COPD 12/03/2023 12/02/2022 DTaP,Tdap,and Td Vaccines (2 - Td or Tdap) 02/06/2024 02/05/2014, 07/09/2003 DXA Scan 09/22/2024 09/22/2022, 06/03, 06/22/2014, Additional history exists COLONOSCOPY-EVERY 5 YRS AGES 18-100 12/13/2025 12/13/2020, 04/01/2017, 09/09/2011 Pneumococcal Vaccine: 65+ Years Completed 02/19/2016, 12/30/2007, 02/06/2000 Albumin/Creatinine Ratio Discontinued 022, 01/02/2022, 10/30/2021, Additional history exists Alpha-1 Antitrypsin Completed 04/29/2022 VITAMIN D LEVEL ONCE IN A LIFETIME-USE SMARTSET# 30935 Completed 01/12/2023, 10/02/2022, 08/20/2017, Additional history exists [...] this encounter Medical Devices Implanted Type Area Sales Specialist Device Identifier Shelf Expiration Date Model / Serial / Lot Alloderm 2x4 Sheet [id number](8 Units) - [id number] Implanted:Qty : 8 on 10/23/2013 at [place] [facility] [place] Tissue - Human N/A: Esophagus LIFE CELL ANETTE 05/02/2015 [id number] / / [id number] documented as of this encounter Advance Directives Latest Code Status on File Code Status Date Activated Date Inactivated Comments Full Code 10/23/2013 11:32 AM 10/24/2013 4:10 PM This order reflects the patients wishes and were consensually agreed upon. Care Teams Rides Supervisor Relationship Specialty Start Date End Date Elvia Pink DO [address] [facility] [place] [address] PCP - General Family Medicine 11/19/15 documented as of this encounter
--- OUTSIDE RECORDS SUMMARY | 2023-03-23 02:37 | External Medical Summary | Summary of Care ---
Author Name Unknown Organization [facility] Address [address] [place] [place] [address] Phone [phone] Care Team Providers Care Forest Pathology Associate Professor Name Role Phone Elvia Pink DO Primary Care Provider [phone] Reason for Visit * Reason Comments Outpatient Testing Encounter Details Date Type Department Care Team (Latest Contact Info) Description 03/10/2023 2:20 PM EST Laboratory Laboratory [facility] [place] [address] [facility] [place] [address] [facility] [address] [facility] [place] [address] Prediabetes; Anticardiolipin antibody syndrome (HCC); 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; Bronchiectasis without complication (HCC); Carotid stenosis, non-symptomatic, bilateral; Cutaneous polyarteritis nodosa (HCC); Dyslipidemia, goal LDL below 100; Encounter for long-term (current) use of medications; COPD, group A, by GOLD 2017 classification ([facility]); HLA B27 (HLA B27 positive); Essential (hemorrhagic) thrombocythemia (HCC); Low vitamin B12 level; Iron deficiency anemia, unspecified iron deficiency anemia type; Mononeuritis multiplex; Peripheral polyneuropathy; Psoriatic arthropathy (HCC); Pulmonary nodule; S/P Flores fundoplication (without gastrostomy tube) procedure; Spondyloarthropathy; Senile osteoporosis; Thrombocytosis; Immunodeficiency (HCC); Need for prophylactic vaccination and inoculation against influenza Allergies Active Allergy Reactions Criticality Noted Date [...] medications,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 [id number] 11/14/2021 Active Cilgavimab inj 300 mgIndications:Encounter for long-term (current) use of medications,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 [id number] 11/14/2021 Active documented as of this encounter [...] 03/16/2023 11:00 AM EST Telemedicine General Surgery, [place] [address] [place] [address] Marek Petty PA-C [address] [place] [address] 04/07/2023 10:00 AM EST Imaging Vascular Lab, [facility] 2nd [facility], [address] [address] 05/05/2023 9:30 AM EST Laboratory Laboratory [place] [facility] [place] Cooper [address] [place] [address] Kenneth [place], [place] [id number] [place], [facility] [address] [place] [address] 05/12/2023 12:30 PM EST Office Visit Hematology/Oncology Arnoldo Aguilar [place] [address] [facility] [place] [address] Jordan Elias MD [address] [facility] [place], [place] [address] 11/19/2023 10:00 AM EDT Office Visit Rheumatology [place] [address] [facility] [place] [address] Cesar Gaona MD [address] [place] [address] Pending Results Name Type Priority Associated Diagnoses [...] polyneuropathy Psoriatic arthropathy (HCC) Pulmonary nodule S/P Flores fundoplication (without gastrostomy tube) procedure Spondyloarthropathy Senile osteoporosis Thrombocytosis Immunodeficiency (HCC) Need for prophylactic vaccination and inoculation against influenza Prediabetes 03/10/2023 2:14 PM EST Scheduled Procedures Name Priority Associated Diagnoses Date/Ti me ESOPHAGOGASTRODUODENOSCOPY ( EGD), FLEXIBLE, TRANSORAL, DIAGNOSTIC Recall Esophagitis, [place]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 Health Maintenance Due Date Last Done Comments Zoster Vaccines (1 of 2) 01/11/2014 11/16/2013 Depression Screening 11/13/2021 11/13/2020 *BISPHONATE OR OTHER ACCEPTABLE MEDICATION NEEDED FOR OSTEOPOROSIS (REFER TO SMARTSET #1146) 10/02/2022 COVID-19 Vaccine (2022-24 season) 2023 09/27/2021, 06/19/2021, 01/10/2021, Additional history [...] D LEVEL ONCE IN A LIFETIME-USE SMARTSET# [id number] Completed 01/12/2023, 10/02/2022, 08/20/2017, Additional history exists [...] this encounter Medical Devices Implanted Type Area Psychiatry Physician Device Identifier Shelf Expiration Date Model / Serial / Lot Alloderm 2x4 Sheet [id number](8 Units) - [id number] [place]planted:Qty : 8 on 10[place]23[place] [facility] [place] - Human N/A: Es[employer] 05/02/2015 [id number] / / [id number] documented as of this encounter Visit Diagnoses Diagnosis Prediabetes Other abnormal glucose Anticardiolipin antibody syndrome (HCC) Primary hypercoagulable state Escobeod's esophagus without dysplasia Escobedo's esophagus Bronchiectasis without [...] arthropathy Pulmonary nodule Solitary pulmonary nodule S/P Flores fundoplication (without gastrostomy tube) procedure Follow-up examination, following unspecified surgery Spondyloarthropathy Spondylosis of unspecified site without mention of myelopathy Senile osteoporosis Thrombocytosis Essential thrombocythemia Immunodeficiency (HCC) Unspecified immunity deficiency Need for prophylactic vaccination and inoculation against influenza documented in this encounter Advance Directives Latest Code Status on File Code Status Date Activated Date Inactivated Comments Full Code 10/23/2013 11:32 AM 10/24/2013 4:10 PM This order reflects the patients wishes and were consensually agreed upon. Care Teams Forest Pathology Associate Professor Relationship Specialty Start Date End Date Elvia Pink DO [address] [facility] [place] [address] PCP - General Family Medicine 11/19/15 documented as of this encounter
--- OUTSIDE RECORDS SUMMARY | 2023-03-23 02:37 | External Medical Summary | Summary of Care ---
Author Name Unknown Organization [facility] Address [address] [facility] [address] Phone [phone] Care Team Providers Care Herbicide Sprayer Name Role Phone Elvia Pink DO Primary Care Provider [phone] Reason for Visit * Reason Comments Medication Refill Encounter Details Date Type Department Care Team (Late st Contact Info) Description 03/08[facility] [address] [place] [address] Susan Mendoza DO [address] [facility] [address] Asthma, allergic, mild intermittent, uncomplicated; Angular cheilitis Allergies Active Allergy Reactions Criticality Noted Date Comments Dust 07/19/2009 Sneezing, watering eyes, eventually might develop into asthma attack Other - Environmental 07/19/2009 Pet Dander Sneezing, watering eyes Pollen 07/19/2009 Sneezing, watering eyes documented as of this encounter (statuses as of 03/09/2023) Medications Medication Sig Dispensed Refills Start Date [...] BEDTIME 25.5 g 1 03/09/2023 4 Active Albuterol Sulfate HFA 108 (90 Base) MCG/ACT Inhalation Aerosol SolutionIndication s:Asthma, allergic, mild intermittent, uncomplicated,[place]gu lar cheilitis INHALE TWO PUFFS BY MOUTH EVERY MORNING & TWO PUFFS AT NOON & TWO PUFFS IN THE EVENING & TWO PUFFS BEFORE BEDTIME 33.5 g 0 06/22/2022 3 Discontinue d(Refill) Hospital, Clinic, or Other Facility Administered Medication Ordered Dose Route Frequency Start Date End Date Status Tixagevimab inj 300 mgIndications:Encounter for long-term (current) use of medications,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 [id number] 11/14/2021 Active Cilgavimab inj 300 mgIndications:Encounter for long-term (current) use of medications,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 [id number] 11/14/2021 Active documented as of this encounter (statuses as of 03/09/2023) Active Problems Problem Noted Date Diagnosed Date [...] as of this encounter (statuses as of 03/09/2023) Resolved Problems Problem Noted Date Diagnosed Date [...] as of this encounter (statuses as of 03/09/2023) Immunizations Name Administration Dates Next Due COVID-19 [...] encounter Miscellaneous Notes * Telephone Encounter - Arabella Mobley RPh - 03/09/2023 9:00 AM EST Signed Prescriptions: Disp Refills Albuterol Sulfate HFA 108 (90 Base) MCG/AC*25.5 g 1 Sig: INHALE TWO PUFFS BY MOUTH EVERY MORNING & TWO PUFFS AT NOON & TWO PUFFS IN THE EVENING & TWO PUFFS BEFORE BEDTIMEAuthorizing Provider: ELVIA PINKOrderijeoma User: ARABELLA MOBLEY--- documented in this encounter Plan of Treatment Upcoming Encounters Date Type Department Care Team (Late st Contact Info) Description 03/10/2023 1:20 PM EST Office Visit Family Practice [address] [place] [address] Elvia Pink DO [address] [facility] [place] [address] 03/16/2023 11:00 AM EST Telemedicine General Surgery, [place] [address] [place] [address] Marek Petty PA-C [address] [place], [place] [id number] 04/07/2023 10:00 AM EST Imaging Vascular Lab, [facility] 2nd [facility], [place] [address] [facility] [place] [address] 05/05/2023 9:30 AM EST Laboratory Laboratory [place] Kenneth [place] [address] [place] [place] [phone] [place], [facility] [address] [place] [address] 05/12/2023 12:30 PM EST Office Visit Hematology/Oncology [facility] 200 [facility] [place], [place] [address] Jordan Elias MD 200 [facility] [place], [place] [address] 11/19/2023 10:00 AM EDT Office Visit Rheumatology [place] Kenneth [place] [address] [facility] [place] [address] Cesar Gaona MD [address] [place] [address] [place], [place] [address] Scheduled Procedures Name Priority Associated Diagnoses Date/Ti me ESOPHAGOGASTRODUODENOSCOPY ( EGD), FLEXIBLE, TRANSORAL, DIAGNOSTIC Recall Esophagitis, [place]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 Health Maintenance Due [...] D LEVEL ONCE IN A LIFETIME-USE SMARTSET# [id number] Completed 01/12/2023, 10/02/2022, 08/20/2017, Additional history exists [...] this encounter Medical Devices Implanted Type Area Polymer Specialist Device Identifier Shelf Expiration Date Model / Serial / Lot Alloderm 2x4 Sheet [id number](8 Units) - [id number] Implanted:Qty : 8 on 10/23/2013 [place] [facility] [place] - Human N/A: Esophagus [employer] 05/02/2015 [id number] / / [id number] documented as of this encounter Visit Diagnoses Diagnosis Asthma, allergic, mild intermittent, uncomplicated Angular cheilitis Diseases of lips documented in this encounter Advance Directives Latest Code Status on File Code Status Date Activated Date Inactivated Comments Full Code 10/23/2013 11:32 AM 10/24/2013 4:10 PM This order reflects the patients wishes and were consensually agreed upon. Care Teams Herbicide Sprayer Relationship Specialty Start Date End Date Elvia Pink DO [address] [facility] [place] [address] PCP - General Family Medicine 11/19/15 documented as of this encounter
--- OUTSIDE RECORDS SUMMARY | 2023-03-23 02:37 | External Medical Summary | Summary of Care ---
Author Name Unknown Organization [facility] Address [address] [facility] [place] [address] Phone [phone] Care Team Providers Care Inorganic Chemistry Professor Name Role Phone Elvia Pink DO Primary Care Provider [phone] Reason for Visit * Reason Onset Date Comments Test Results 01/15/202301/19 Encounter Details Date Type Department Care Team Description 01/15/2023 [facility] [place] [facility] [address] [place] [id number] Elvia Pink DO [address] [place] [address] Test Results (01/19) Allergies [...] medications,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 [id number] 11/14/2021 Active Cilgavimab inj 300 mgIndications:Encounter for long-term (current) use of medications,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 [id number] 11/14/2021 Active documented as of this encounter [...] Colonoscopy-09/09/11 Escobedo's esophagus 09/08/2011 01/04/2015 Overview: EGD-09/07/11-Dr Stephnes Diaphragmatic hernia without mention of obstruction or [...] encounter Miscellaneous Notes * Telephone Encounter - Vivienne Wagner LPN - 01/19/2023 1:38 PM EDT Patient called. Informed of message. Verbalized understanding. * Telephone Encounter - Chava Mckee LPN - 01/19/2023 1:23 PM EDT Attempted to contact pt to relay below message. No answer, left message requesting a return call to [phone]. * Telephone Encounter - Elvia Pink DO - 01/15/2023 11:40 AM EDT Blood work stable. Will discuss at follow-up visit on March 10. documented in this encounter Plan of Treatment Upcoming Encounters Date Type Specialty Care Team Description 03/10/2023 Office Visit Family Medicine Elvia Pink, [address] [facility] [place] [address] 03/16/2023 Telemedicine General Surgery Marek Petty PA-C [address] [place] [address] 04/07/2023 Imaging Radiology 05/05/2023 [facility] [place] [address] [place] [address] [facility] [place] [address] 05/12/2023 Office Visit Hematology Oncology Jordan Elias MD [address] [place] [address] 11/19/2023 Office Visit Rheumatology Cesar Gaona MD [address] [place], [place] [phone] Scheduled Procedures Name Priority Associated Diagnoses Date/Ti me ESOPHAGOGASTRODUODENOSCOPY ( EGD), FLEXIBLE, TRANSORAL, DIAGNOSTIC Recall Esophagitis, [place]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 Health Maintenance Due [...] D LEVEL ONCE IN A LIFETIME-USE SMARTSET# [id number] Completed 01/12/2023, 10/02/2022, 08/20/2017, Additional history exists [...] this encounter Medical Devices Implanted Type Area Precision Honer Device Identifier Shelf Expiration Date Model / Serial / Lot Alloderm 2x4 Sheet [id number](8 Units) - [id number] Implanted:Qty : 8 on 10/23/2013 at [place] [facility] [place] Tissue - Human N/A: Esophagus [employer] 05/02/2015 [id number] / / [id number] documented as of this encounter Advance Directives Latest Code Status on File Code Status Date Activated Date Inactivated Comments Full Code 10/23/2013 11:32 AM 10/24/2013 4:10 PM This order reflects the patients wishes and were consensually agreed upon. Care Teams Inorganic Chemistry Professor Relationship Specialty Start Date End Date Elvia Pink DO [address] [facility] [place] [address] PCP - General Family Medicine 11/19/15 documented as of this encounter
--- OUTSIDE RECORDS SUMMARY | 2023-03-23 02:37 | External Medical Summary | Summary of Care ---
Author Name Unknown Organization [facility] [address] [facility] [address] Phone [phone] Care Team Providers Care Career Development Consultant Name Role Phone Elvia Pink DO Primary Care Provider [phone] Reason for Visit * Reason Comments Outpatient Testing Encounter Details Date Type Department Care Team (Late st Contact Info) Description 03/05/2023 8:40 AM EDT Laboratory Laboratory [place] [address] [place] [address] Zelda [place] [facility] [address] [facility] [place] [address] Arrived Allergies Active Allergy Reactions Criticality Noted Date Comments Dust 07/19/2009 Sneezing, watering eyes, eventually might develop into asthma attack Other - Environmental 07/19/2009 Pet Dander Sneezing, watering eyes Pollen 07/19/2009 Sneezing, watering eyes documented as of this encounter (statuses as of 03/05/2023) Medications Medication Sig Dispensed Refills Start Date [...] MORNING 90 Tablet 3 03/03/2023 03/02/2024 Active Hospital, Clinic, or Other Facility Administered Medication Ordered Dose Route Frequency Start Date End Date Status Tixagevimab inj 300 mgIndications:Encounter for long-term (current) use of medications,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 [id number] 11/14/2021 Active Cilgavimab inj 300 mgIndications:Encounter for long-term (current) use of medications,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 [id number] 11/14/2021 Active documented as of this encounter (statuses as of 03/05/2023) Active Problems Problem Noted Date Diagnosed Date [...] as of this encounter (statuses as of 03/05/2023) Resolved Problems Problem Noted Date Diagnosed Date [...] as of this encounter (statuses as of 03/05/2023) Immunizations Name Administration Dates Next Due COVID-19 [...] Office Visit Family Practice [address] [place] [address] Elvia Pink DO [address] [place] [address] 03/16/2023 11:00 AM EST Telemedicine General Surgery, [place] [address] [place] [address] Marek Petty PA-C [address] [place] [address] 04/07/2023 10:00 AM EST Imaging Vascular Lab, [facility] 2nd [facility], [address] [address] 05/05/2023 9:30 AM EST Laboratory [facility] [address] [place] [phone] [place], Lab [place] Kenneth [address] [place] [address] 05/12/2023 12:30 PM EST Office Visit Hematology/Oncology Arnoldo Aguilar [place] [address] Arnold[place] [address] Jordan Elias MD [address] [place] [address] 11/19/2023 10:00 AM EDT Office Visit Rheumatology [place] [address] [place] [address] Cesar Gaona MD [address] [facility] [place] [address] Scheduled Procedures Name Priority Associated Diagnoses Date/Ti me ESOPHAGOGASTRODUODENOSCOPY ( EGD), FLEXIBLE, TRANSORAL, DIAGNOSTIC Recall Esophagitis, [place]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 Health Maintenance Due [...] D LEVEL ONCE IN A LIFETIME-USE SMARTSET# [id number] Completed 01/12/2023, 10/02/2022, 08/20/2017, Additional history exists [...] this encounter Medical Devices Implanted Type Area Workday Director Device Identifier Shelf Expiration Date Model / Serial / Lot Alloderm 2x4 Sheet [id number](8 Units) - [id number] Implanted:Qty : 8 on 10/23/[place] [facility] [place] - Human N/A: Esophagus [employer] 05/02/2015 [id number] / / [id number] documented as of this encounter Advance Directives Latest Code Status on File Code Status Date Activated Date Inactivated Comments Full Code 10/23/2013 11:32 AM 10/24/2013 4:10 PM This order reflects the patients wishes and were consensually agreed upon. Care Teams Career Development Consultant Relationship Specialty Start Date End Date Elvia Pink DO [address] [facility] [place] [address] PCP - General Family Medicine 11/19/15 documented as of this encounter
--- OUTSIDE RECORDS SUMMARY | 2023-03-23 02:37 | External Medical Summary | Summary of Care ---
Author Name Unknown Organization [facility] Address [address] [facility] [place] [address] Phone [phone] Care Team Providers Care Associate Professor Of Archaeology Name Role Phone Elvia Pink DO Primary Care Provider [phone] Encounter Details Date Type Department Care Team (Late st Contact Info) Description 11/30/2022 Telephone OR [facility], Operating Room [facility] [address] [place] [address] Jadon Dean MD [address] [place] [address] Allergies Active Allergy Reactions Criticality Noted Date Comments Dust 07/19/2009 Sneezing, watering eyes, eventually might develop into asthma attack Other - Environmental 07/19/2009 Pet Dander Sneezing, watering eyes Pollen 07/19/2009 Sneezing, watering eyes documented as of this encounter (statuses as of 03/01/2023) Medications Medication Sig Dispensed Refills Start Date [...] MORNING 90 Tablet 3 04/07/2022 3 Active Mycophenolate Mofetil 500 MG Oral Tablet (Cellcept) TAKE TWO TABLETS BY MOUTH IN THE MORNING 180 Tablet 1 03/24/2022 3 Discontinue d(Medicatio n/Dose Changed) predniSONE 1 MG Oral Tablet (Deltasone) TAKE FOUR TABLETS BY MOUTH EVERY DAY 360 Tablet 2 09/25/2022 3 Discontinue d(Medicatio n List Clean Up) Omeprazole 20 MG Oral Tablet Delayed ReleaseIndications :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 TAKE ONE TABLET BY MOUTH IN THE MORNING AND ONE TABLET BEFORE BEDTIME 180 Tablet 3 09/18/2022 3 Discontinue d(Patient preference/ discontinua tion) Mycophenolate Mofetil 500 MG Oral Tablet (Cellcept) TAKE TWO TABLETS BY MOUTH IN THE MORNING 180 Tablet 1 03/27/2022 3 Discontinue d(Medicatio n/Dose Changed) Hospital, Clinic, or Other Facility Administered Medication Ordered Dose Route Frequency Start Date End Date Status Tixagevimab inj 300 mgIndications:Encounter for long-term (current) use of medications,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 [id number] 11/14/2021 Active Cilgavimab inj 300 mgIndications:Encounter for long-term (current) use of medications,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 [id number] 11/14/2021 Active documented as of this encounter (statuses as of 03/01/2023) Active Problems Problem Noted Date Diagnosed Date [...] as of this encounter (statuses as of 03/01/2023) Resolved Problems Problem Noted Date Diagnosed Date [...] as of this encounter (statuses as of 03/01/2023) Immunizations Name Administration Dates Next Due COVID-19 [...] encounter Miscellaneous Notes * Telephone Encounter - Ciic Lopez RN - 11/30/2022 1:08 PM EDT Attempted to call for pre anesthesia evaluation. No answer. Voice mail left requesting return call documented in this encounter Plan of Treatment Upcoming Encounters Date Type Department Care Team (Late st Contact Info) Description 03/10/2023 1:20 PM EST Office Visit Family [facility] [address] [facility] [place] [address] Elvia Pink DO [address] [place] [address] 03/16/2023 11:00 AM EST Telemedicine General Surgery, [place] [address] [place] [address] Marek Petty PA-C [address] [place] [address] 04/07/2023 10:00 AM EST Imaging Vascular Lab, [facility] 2nd [facility], [address] [place] [address] 05/05/2023 9:30 AM EST Laboratory Laboratory [place] Cooper [address] [place] [phone] [address] [place] [address] 05/12/2023 12:30 PM EST Office Visit Hematology/Oncology Arnoldo Aguilar [place] 200 [facility] [place] [address] Jordan Elias MD [address] [place] [address] 11/19/2023 10:00 AM EDT Office Visit Rheumatology [address] [place] [address] Cesar Gaona MD [address] [facility] [place], [place] [address] Scheduled Procedures Name Priority Associated Diagnoses Date/Ti me ESOPHAGOGASTRODUODENOSCOPY ( EGD), FLEXIBLE, TRANSORAL, DIAGNOSTIC Recall Esophagitis, [place]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 Health Maintenance Due [...] D LEVEL ONCE IN A LIFETIME-USE SMARTSET# [id number] Completed 01/12/2023, 10/02/2022, 08/20/2017, Additional history exists [...] this encounter Medical Devices Implanted Type Area Typewriter Mechanic Device Identifier Shelf Expiration Date Model / Serial / Lot Alloderm 2x4 Sheet [id number](8 Units) - [id number] Implanted:Qty : 8 [place] 10[place]23[place] [facility] [place] - Human N/A: Esophagus [employer] 05/02/2015 [id number] / / [id number] documented as of this encounter Advance Directives Latest Code Status on File Code Status Date Activated Date Inactivated Comments Full Code 10/23/2013 11:32 AM 10/24/2013 4:10 PM This order reflects the patients wishes and were consensually agreed upon. Care Teams Associate Professor Of Archaeology Relationship Specialty Start Date End Date Elvia Pink DO [address] [facility] [place] [address] PCP - General Family Medicine 11/19/15 documented as of this encounter
--- OUTSIDE RECORDS SUMMARY | 2023-03-23 02:38 | External Medical Summary | Summary of Care ---
Author Name Unknown Organization [facility] Address [address] [facility] [place] [address] Phone [phone] Care Team Providers Care Delivery Merchandiser Name Role Phone Elvia Pink DO Primary Care Provider [phone] Reason for Visit * Reason Onset Date Comments Medication Pre-auth 09/25/2022 Recjan Encounter Details Date Type Department Care Team Description 09/25/2022 Telephone Rheumatology [address] [place] [phone] Sammie Man MD [address] [facility] [place] [address] Medication Pre-auth (January ) Allergies Active Allergy Reactions Severity Noted Date Comments Dust 07/19/2009 Sneezing, watering eyes, eventually might develop into asthma attack Other - Environmental 07/19/2009 Pet Dander Sneezing, watering eyes Pollen 07/19/2009 Sneezing, watering eyes documented as of this encounter (statuses as of 01/15/2023) Medications Medication Sig Dispensed Refills Start Date [...] IN THE MORNING 180 Tablet 1 2 Active Ferrous Sulfate 325 (65 Fe) MG Oral Tablet (Feosol)Indicatio ns:Iron deficiency anemia, unspecified iron deficiency anemia type,Thrombocytos is Take 1 Tablet by mouth daily with breakfast. 90 Tablet 2 3 Active Atorvastatin Calcium 40 MG Oral Tablet (Lipitor) Take 1 Tablet (40 mg) by mouth in the morning. 90 Tablet 3 2 04/07/20 22 Discontinued([place] prescription brought in as discontinued) Triamcinolone Acetonide 0.1 % External Cream (Aristocort) [...] medications,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 [id number] 11/14/2021 Active Cilgavimab inj 300 mgIndications:Encounter for long-term (current) use of medications,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 [id number] 11/14/2021 Active documented as of this encounter (statuses as of 01/15/2023) Active Problems Problem Noted Date Senile osteoporosis [...] as of this encounter (statuses as of 01/15/2023) Resolved Problems Problem Noted Date Resolved Date [...] as of this encounter (statuses as of 01/15/2023) Immunizations Name Administration Dates Next Due COVID-19 [...] encounter Miscellaneous Notes * Telephone Encounter - MARYJO Queen - 01/15/2023 10:17 AM EDT Called X3. Lmom for patient. * Telephone Encounter - MARYJO Queen - 01/14/2023 8:37 AM EDT Called X2. Lmom for patient. * Telephone Encounter - MARYJO Queen - 01/13/2023 10:40 AM EDT Patient returned call but patient unable to hear conversation. Asked if she could call back. * Telephone Encounter - MARYJO Queen - 01/13/2023 9:59 AM EDT Called and lmom for patient. * Telephone Encounter - Maddy Rodriguez RN - 01/13/2023 9:48 AM EDT [place] plan is signed, referral in place. Scheduling: please call patient to schedule 1 hour appt on 503 schedule "reclast" (Dr Sammie Man). Thanks! * Telephone Encounter - Neha Birch LPN - 01/13/2023 9:42 AM EDT Repeat labs done, please call and schedule. Thx * Telephone Encounter - Neha Birch LPN - 01/08/2023 2:56 PM EDT Pt reminded to have repeat labs done so we can schedule her Reclast See pt message from 10/05 * Telephone Encounter - Neha Birch LPN - 10/19/2022 3:01 PM EDT Pt aware * Addendum Note - Sammie Man MD - 10/08/2022 1:48 PM EDTAddended by: SAMMIE MAN on: 10/08/2022 01:48 PM Modules accepted: Orders * Telephone Encounter - Sammie Man MD - 10/08/2022 1:48 PM EDT Yes will need to repeat labs in 3 months first * Telephone Encounter - Maddy Rodriguez RN - 10/08/2022 7:53 AM EDT [...] received for Reclast 5mg IV once yearly [place] created and routed to provider for signature Rheum: When the labs and auth are back and patient is ready to be scheduled, please forward back top [phone] for scheduling. Thank you! * Telephone Encounter - Neha Birch LPN - 09/29/2022 10:17 AM EDT Please auth, thanks * Telephone Encounter - Sammie Man MD - 09/25/2022 4:33 PM EDT Can we look into coverage for IV Reclast for her osteoporosis. Can not get oral therapy because of heartburn. documented in this encounter Plan of Treatment Upcoming Encounters Date Type Specialty Care Team Description 03/10/2023 Office Visit Family Medicine Elvia Pink DO [address] [facility] [place] [address] 03/16/2023 Telemedicine General Surgery Marek Petty PA-Sly [address] [place] [address] 04/07/2023 Imaging Radiology 05/05/2023 Laboratory Laboratory [facility] [address] [place] [address] 05/12/2023 Office Visit Hematology Oncology Jordan Elias MD [address] [place] [address] 11/19/2023 Office Visit Rheumatology OpSammie العلي MD [address] [place] [address] Scheduled Procedures Name Priority Associated Diagnoses Date/Ti me ESOPHAGOGASTRODUODENOSCOPY ( EGD), FLEXIBLE, TRANSORAL, DIAGNOSTIC Recall Esophagitis, [place]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 Health Maintenance Due [...] D LEVEL ONCE IN A LIFETIME-USE SMARTSET# [id number] Completed 01/12/2023, 10/02/2022, 08/20/2017, Additional history exists [...] this encounter Medical Devices Implanted Type Area Production Pattern Maker Device Identifier Shelf Expiration Date Model / Serial / Lot Alloderm 2x4 Sheet [id number](8 Units) - [id number] Implanted:Qty : 8 on 10/23/2013 at OR [facility] Tissue - Human N/A: Esophagus LIFE CELL ANETTE 05/02/2015 [id number] / / [id number] documented as of this encounter Results * (ABNORMAL) 25-HYDROXY VITAMIN D (10/02/2022 11:06 AM EDT) 25-Hydroxy Vitamin D 15(L) >19 ng/mL 10/02/2022 11:47 PM EDT LABORATORY [facility] Blood Venous blood specimen / Unknown Venipuncture / Unknown 10/02/2022 11:06 AM EDT 10/02/2022 11:06 AM EDT Narrative LAB[facility]ATORY [facility] - 10/02/2022 11:47 PM EDT Deficient: <20 ng/mL Insufficient: 20-29 ng/mL Recommended/Optimum:30-50 ng/mL Vitamin D intoxication is rare. If suspicious of Vitamin D toxicity, evaluation of serum Calcium and PTH is recommended. Sammie Man MD LAB BLOOD ORDERABLE S LABORATORY [facility] [address] [place] [address] documented in this encounter Visit Diagnoses Diagnosis Senile osteoporosis- Primary documented in this encounter Advance Directives Latest Code Status on File Code Status Date Activated Date Inactivated Comments Full Code 10/23/2013 11:32 AM 10/24/2013 4:10 PM This order reflects the patients wishes and were consensually agreed upon. Care Teams Delivery Merchandiser Relationship Specialty Start Date End Date Elvia Pink DO [address] [facility] [place] [address] PCP - General Family Medicine 11/19/15 documented as of this encounter
--- OUTSIDE RECORDS SUMMARY | 2023-03-23 02:38 | External Medical Summary | Summary of Care ---
Author Name Unknown Organization [facility] Address [address] [facility] [place] [address] Phone [phone] Care Team Providers Care Mailing Specialist Name Role Phone Elvia Pink DO Primary Care Provider [phone] Reason for Visit * Reason Onset Date Comments Medication Pre-auth 09/25/2022 Recjan Encounter Details Date Type Department Care Team Description 09/25/2022 Telephone Rheumatology [address] [place] [phone] Cesar Man MD [address] [facility] [place] [address] Medication Pre-auth (January ) Allergies Active Allergy Reactions Severity Noted Date Comments Dust 07/19/2009 Sneezing, watering eyes, eventually might develop into asthma attack Other - Environmental 07/19/2009 Pet Dander Sneezing, watering eyes Pollen 07/19/2009 Sneezing, watering eyes documented as of this encounter (statuses as of 01/13/2023) Medications Medication Sig Dispensed Refills Start Date [...] medications,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 [id number] 11/14/2021 Active Cilgavimab inj 300 mgIndications:Encounter for long-term (current) use of medications,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 [id number] 11/14/2021 Active documented as of this encounter (statuses as of 01/13/2023) Active Problems Problem Noted Date Senile osteoporosis [...] as of this encounter (statuses as of 01/13/2023) Resolved Problems Problem Noted Date Resolved Date [...] as of this encounter (statuses as of 01/13/2023) Immunizations Name Administration Dates Next Due COVID-19 [...] encounter Miscellaneous Notes * Telephone Encounter - Neha Birch LPN [...] EDT Pt aware * Addendum Note - Cesar Man MD - 10/08/2022 1:48 PM EDTAddended by: CESAR MAN on: 10/08/2022 01:48 PM Modules accepted: Orders * Telephone Encounter - Cesar Man MD - 10/08/2022 1:48 PM EDT [...] received for Reclast 5mg IV once yearly [place] created and routed to provider for signature Rheum: When the labs and auth are back and patient is ready to be scheduled, please forward back top [phone] for scheduling. Thank you! * Telephone Encounter - Neha Birch LPN - 09/29/2022 10:17 AM EDT Please auth, thanks * Telephone Encounter - Cesar Man MD - 09/25/2022 4:33 PM EDT Can we look into coverage for IV Reclast for her osteoporosis. Can not get oral therapy because of heartburn. documented in this encounter Plan of Treatment Upcoming Encounters Date Type Specialty Care Team Description 03/10/2023 Office Visit Family Medicine Elvia Pink, [address] [facility] [place] [address] 03/16/2023 Telemedicine General Surgery Marek Petty PA-C [address] [place] [address] 04/07/2023 Imaging Radiology 05/05/2023 Laboratory Laboratory [address] [facility] [place] [address] 05/12/2023 Office Visit Hematology Oncology Jordan Elias MD [address] [place] [address] 11/19/2023 Office Visit Rheumatology Cesar Man MD [address] [place] [address] Scheduled Procedures Name Priority Associated Diagnoses Date/Ti me ESOPHAGOGASTRODUODENOSCOPY ( EGD), FLEXIBLE, TRANSORAL, DIAGNOSTIC Recall Esophagitis, [place]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 Health Maintenance Due [...] D LEVEL ONCE IN A LIFETIME-USE SMARTSET# [id number] Completed 01/12/2023, 10/02/2022, 08/20/2017, Additional history exists [...] this encounter Medical Devices Implanted Type Area Forensic Document Examiner Device Identifier Shelf Expiration Date Model / Serial / Lot Alloderm 2x4 Sheet [id number](8 Units) - [id number] Implanted:Qty : 8 on 10/23/2013 at [place] [facility] Tissue - Human N/A: Esophagus LIFE CELL ANETTE 05/02/2015 [id number] / / [id number] documented as of this encounter Results * (ABNORMAL) 25-HYDROXY VITAMIN D (10/02/2022 11:06 AM EDT) 25-Hydroxy Vitamin D 15(L) >19 ng/mL 10/02/2022 11:47 PM EDT LABORATORY [facility] Blood Venous blood specimen / Unknown Venipuncture / Unknown 10/02/2022 11:06 AM EDT 10/02/2022 11:06 AM EDT Narrative LAB[facility]ATORY [facility] - 10/02/2022 11:47 PM EDT Deficient: <20 ng/mL Insufficient: 20-29 ng/mL Recommended/Optimum:30-50 ng/mL Vitamin D intoxication is rare. If suspicious of Vitamin D toxicity, evaluation of serum Calcium and PTH is recommended. Cesar Man MD LAB BLOOD ORDERABLE S LAB[facility]ATORY [facility] [address] [facility] [place] [address] documented in this encounter Visit Diagnoses Diagnosis Senile osteoporosis- Primary documented in this encounter Advance Directives Latest Code Status on File Code Status Date Activated Date Inactivated Comments Full Code 10/23/2013 11:32 AM 10/24/2013 4:10 PM This order reflects the patients wishes and were consensually agreed upon. Care Teams Mailing Specialist Relationship Specialty Start Date End Date Elvia Pink DO [address] [facility] [place] [address] PCP - General Family Medicine 11/19/15 documented as of this encounter
--- OUTSIDE RECORDS SUMMARY | 2023-03-23 02:38 | External Medical Summary | Summary of Care ---
Author Name Unknown Organization [facility] Address [address] [facility] [place] [address] Phone [phone] Care Team Providers Care Sales Operations Assistant Name Role Phone Elvia Pink DO Primary Care Provider [phone] Reason for Visit * Reason Onset Date Comments Medication Pre-auth 09/25/2022 Recjan Encounter Details Date Type Department Care Team Description 09/25/2022 Telephone Rheumatology [address] [place] [phone] Sammie Man MD [address] [facility] [place] [address] Medication Pre-auth (January ) Allergies Active [...] medications,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 [id number] 11/14/2021 Active Cilgavimab inj 300 mgIndications:Encounter for long-term (current) use of medications,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 [id number] 11/14/2021 Active documented as of this encounter [...] Rodriguez RN - 01/13/2023 9:48 AM EDT [place] plan is signed, referral in place. Scheduling: [...] received for Reclast 5mg IV once yearly [place] created and routed to provider for signature Rheum: When the labs and auth are back and patient is ready to be scheduled, please forward back top [phone] for scheduling. Thank you! * Telephone Encounter [...] 03/10/2023 Office Visit Family Medicine Elvia Pink, [address] [facility] [place] [address] 03/16/2023 Telemedicine General Surgery Marek Petty PA-C [address] [place] [address] 04/07/2023 Imaging Radiology 05/05/2023 Laboratory Laboratory [facility] [address] [place] [address] 05/12/2023 Office Visit Hematology Oncology Jordan Elias MD [address] [facility] [place] [address] 11/19/2023 Office Visit Rheumatology Sammie Man MD [facility] [place] [address] Scheduled Procedures Name Priority Associated Diagnoses Date/Ti me ESOPHAGOGASTRODUODENOSCOPY ( EGD), FLEXIBLE, TRANSORAL, DIAGNOSTIC Recall Esophagitis, [place]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 Health Maintenance Due [...] D LEVEL ONCE IN A LIFETIME-USE SMARTSET# [id number] Completed 01/12/2023, 10/02/2022, 08/20/2017, Additional history exists [...] this encounter Medical Devices Implanted Type Area Show Worker Device Identifier Shelf Expiration Date Model / Serial / Lot Alloderm 2x4 Sheet [id number](8 Units) - [id number] Implanted:Qty : 8 on 10/23/2013 at [place] [facility] [place] Tissue - Human N/A: Esophagus LIFE CELL ANETTE 05/02/2015 [id number] / / [id number] documented as of this encounter Results * (ABNORMAL) 25-HYDROXY VITAMIN D (10/02/2022 11:06 AM EDT) 25-Hydroxy Vitamin D 15(L) >19 ng/mL 10/02/2022 11:47 PM EDT LABORATORY [facility] Blood Venous blood specimen / Unknown Venipuncture / Unknown 10/02/2022 11:06 AM EDT 10/02/2022 11:06 AM EDT Narrative LABORATORY [facility] - 10/02/2022 11:47 PM EDT Deficient: <20 ng/mL Insufficient: 20-29 ng/mL Recommended/Optimum:30-50 ng/mL Vitamin D intoxication is rare. If suspicious of Vitamin D toxicity, evaluation of serum Calcium and PTH is recommended. Sammie Man MD LAB BLOOD ORDERABLE S LABORATORY [facility] [address] [facility] [place] [address] documented in this encounter Visit Diagnoses Diagnosis Senile osteoporosis- Primary documented in this encounter Advance Directives Latest Code Status on File Code Status Date Activated Date Inactivated Comments Full Code 10/23/2013 11:32 AM 10/24/2013 4:10 PM This order reflects the patients wishes and were consensually agreed upon. Care Teams Sales Operations Assistant Relationship Specialty Start Date End Date Elvia Pink DO [address] [facility] [place] [address] PCP - General Family Medicine 11/19/15 documented as of this encounter
--- OUTSIDE RECORDS SUMMARY | 2023-03-23 02:38 | External Medical Summary | Summary of Care ---
Author Name Unknown Organization [facility] Address [address] [facility] [place] [address] Phone [phone] Care Team Providers Care Retail Shift Manager Name Role Phone Elvia Pink DO Primary Care Provider [phone] Reason for Visit * Reason Onset Date Comments Medication Pre-auth 09/25/2022 Recjan Encounter Details Date Type Department Care Team Description 09/25/2022 Telephone Rheumatology [address] [place] [phone] Sammie Man MD [address] [facility] [place] [address] Medication Pre-auth (January ) Allergies Active [...] medications,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 [id number] 11/14/2021 Active Cilgavimab inj 300 mgIndications:Encounter for long-term (current) use of medications,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 [id number] 11/14/2021 Active documented as of this encounter [...] Rodriguez RN - 01/13/2023 9:48 AM EDT [place] plan is signed, referral in place. Scheduling: [...] received for Reclast 5mg IV once yearly [place] created and routed to provider for signature Rheum: When the labs and auth are back and patient is ready to be scheduled, please forward back top [phone] for scheduling. Thank you! * Telephone Encounter [...] Office Visit Family Medicine Elvia Pink DO [address] [place] [address] [place] [address] 03/16/2023 Telemedicine General Surgery Marek Petty PA-C [address] [place] [address] 04/07/2023 Imaging Radiology 05/05/2023 Laboratory Laboratory [address] [place] [address] 05/12/2023 Office Visit Hematology Oncology Jordan Elias MD [address] [facility] [place] [address] 11/19/2023 Office Visit Rheumatology Sammie Man MD [address] [facility] [place], [place] [address] Scheduled Procedures Name Priority Associated Diagnoses Date/Ti me ESOPHAGOGASTRODUODENOSCOPY ( EGD), FLEXIBLE, TRANSORAL, DIAGNOSTIC Recall Esophagitis, [place]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 Health Maintenance Due [...] D LEVEL ONCE IN A LIFETIME-USE SMARTSET# [id number] Completed 01/12/2023, 10/02/2022, 08/20/2017, Additional history exists [...] this encounter Medical Devices Implanted Type Area Music Sound Light Technician Device Identifier Shelf Expiration Date Model / Serial / Lot Alloderm 2x4 Sheet [id number](8 Units) - [id number] Implanted:Qty : 8 on 10/23/2013 at OR [facility] [place] Tissue - Human N/A: Esophagus LIFE CELL ANETTE 05/02/2015 [id number] / / [id number] documented as of this encounter Results * (ABNORMAL) 25-HYDROXY VITAMIN D (10/02/2022 11:06 AM EDT) 25-Hydroxy Vitamin D 15(L) >19 ng/mL 10/02/2022 11:47 PM EDT LABORATORY [facility] Blood Venous blood specimen / Unknown Venipuncture / Unknown 10/02/2022 11:06 AM EDT 10/02/2022 11:06 AM EDT Narrative LABORATORY [facility] - 10/02/2022 11:47 PM EDT Deficient: <20 ng/mL Insufficient: 20-29 ng/mL Recommended/Optimum:30-50 ng/mL Vitamin D intoxication is rare. If suspicious of Vitamin D toxicity, evaluation of serum Calcium and PTH is recommended. Sammie Man MD LAB BLOOD ORDERABLE S LABORATORY [facility] [address] [facility] [address] documented in this encounter Visit Diagnoses Diagnosis Senile osteoporosis- Primary documented in this encounter Advance Directives Latest Code Status on File Code Status Date Activated Date Inactivated Comments Full Code 10/23/2013 11:32 AM 10/24/2013 4:10 PM This order reflects the patients wishes and were consensually agreed upon. Care Teams Retail Shift Manager Relationship Specialty Start Date End Date Elvia Pink DO [address] [facility] [place] [address] PCP - General Family Medicine 11/19/15 documented as of this encounter
--- OUTSIDE RECORDS SUMMARY | 2023-03-23 02:38 | External Medical Summary | Summary of Care ---
Author Name Unknown Organization [facility] Address [address] [facility] [place] [address] Phone [phone] Care Team Providers Care Junior Programmer Analyst Name Role Phone Elvia Pink DO Primary Care Provider [phone] Reason for Visit * Reason Onset Date Comments Medication Pre-auth 09/25/2022 Recjan Encounter Details Date Type Department Care Team Description 09/25/2022 Telephone Rheumatology [address] [place] [id number] Sammie Man MD [address] [facility] [place] [address] Medication Pre-auth (January ) Allergies Active Allergy Reactions Severity Noted Date Comments Dust 07/19/2009 Sneezing, watering eyes, eventually might develop into asthma attack Other - Environmental 07/19/2009 Pet Dander Sneezing, watering eyes Pollen 07/19/2009 Sneezing, watering eyes documented as of this encounter (statuses as of 01/14/2023) Medications Medication Sig Dispensed Refills Start Date [...] medications,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 [id number] 11/14/2021 Active Cilgavimab inj 300 mgIndications:Encounter for long-term (current) use of medications,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 [id number] 11/14/2021 Active documented as of this encounter (statuses as of 01/14/2023) Active Problems Problem Noted Date Senile osteoporosis [...] as of this encounter (statuses as of 01/14/2023) Resolved Problems Problem Noted Date Resolved Date [...] as of this encounter (statuses as of 01/14/2023) Immunizations Name Administration Dates Next Due COVID-19 [...] Rodriguez RN - 01/13/2023 9:48 AM EDT [place] plan is signed, referral in place. Scheduling: please call patient to schedule 1 hour appt on 503 schedule "alejandrot" (Dr Sammie Man). Thanks! * Telephone Encounter - Neha Birch LPN - 01/13/2023 9:42 AM EDT Repeat labs done, please call and schedule. Thx * Telephone Encounter - Neha Birch LPN - 01/08/2023 2:56 PM EDT Pt reminded to have repeat labs done so we can schedule her Reclast See pt message from 10/05 * Telephone Encounter - eNha Birch LPN - 10/19/2022 3:01 PM EDT [...] received for Reclast 5mg IV once yearly [place] created and routed to provider for signature Rheum: When the labs and auth are back and patient is ready to be scheduled, please forward back top [phone] for scheduling. Thank you! * Telephone Encounter [...] Office Visit Family Medicine Elvia Pink DO [address] [facility] [place] [address] 03/16/2023 Telemedicine General Surgery Marek Petty PA-C [address] [place], [place] [id number] 04/07/2023 Imaging Radiology 05/05/2023 Laboratory Laboratory [address] [place] [address] 05/12/2023 Office Visit Hematology Oncology Jordan Elias MD [address] [place] [address] 11/19/2023 Office Visit Rheumatology Sammie Man MD [address] [facility] 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 Health Maintenance Due [...] D LEVEL ONCE IN A LIFETIME-USE SMARTSET# [id number] Completed 01/12/2023, 10/02/2022, 08/20/2017, Additional history exists [...] this encounter Medical Devices Implanted Type Area Chief Payroll Clerk Device Identifier Shelf Expiration Date Model / Serial / Lot Alloderm 2x4 Sheet [id number](8 Units) - [id number] Implanted:Qty : 8 on 10/23/2013 at OR [facility] [place] Tissue - Human N/A: Esophagus LIFE CELL ANETTE 05/02/2015 [id number] / / [id number] documented as of this encounter Results * (ABNORMAL) 25-HYDROXY VITAMIN D (10/02/2022 11:06 AM EDT) 25-Hydroxy Vitamin D 15(L) >19 ng/mL 10/02/2022 11:47 PM EDT LAB[facility]ATORY [facility] Blood Venous blood specimen / Unknown Venipuncture / Unknown 10/02/2022 11:06 AM EDT 10/02/2022 11:06 AM EDT Narrative LABORATORY [facility] - 10/02/2022 11:47 PM EDT Deficient: <20 ng/mL Insufficient: 20-29 ng/mL Recommended/Optimum:30-50 ng/mL Vitamin D intoxication is rare. If suspicious of Vitamin D toxicity, evaluation of serum Calcium and PTH is recommended. Sammie Man MD LAB BLOOD ORDERABLE S LABORATORY [facility] [address] [place] [address] documented in this encounter Visit Diagnoses Diagnosis Senile osteoporosis- Primary documented in this encounter Advance Directives Latest Code Status on File Code Status Date Activated Date Inactivated Comments Full Code 10/23/2013 11:32 AM 10/24/2013 4:10 PM This order reflects the patients wishes and were consensually agreed upon. Care Teams Junior Programmer Analyst Relationship Specialty Start Date End Date Elvia Pink DO [address] [facility] [place] [address] PCP - General Family Medicine 11/19/15 documented as of this encounter
--- OUTSIDE RECORDS SUMMARY | 2023-03-23 02:38 | External Medical Summary | Summary of Care ---
Author Name Unknown Organization [facility] Address [address] [facility] [place] [address] Phone [phone] Care Team Providers Care Fishing Gear Mechanic Name Role Phone Elvia Pink DO Primary Care Provider [phone] Reason for Visit * Reason Onset Date Comments Medication Pre-auth 09/25/2022 Recjan Encounter Details Date Type Department Care Team Description 09/25/2022 Telephone Rheumatology [address] [place] [phone] Cesar Man MD [address] [facility] [place] [address] Medication Pre-auth (January ) Allergies Active [...] medications,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 Scheduling: please call patient to schedule 1 hour appt on 503 schedule "reclast" (Dr Cesar Man). Thanks! * Telephone Encounter - Neha [...] received for Reclast 5mg IV once yearly [place] created and routed to provider for signature Rheum: When the labs and auth are back and patient is ready to be scheduled, please forward back top [phone] for scheduling. Thank you! * Telephone Encounter [...] Office Visit Family Medicine Elvia Pink DO [address] [facility] [place] [address] 03/16/2023 Telemedicine General Surgery Marek Petty PA-C [address] [place] [address] 04/07/2023 Imaging Radiology 05/05/2023 Laboratory Laboratory Zelda [address] [facility] [place] [address] 05/12/2023 Office Visit Hematology Oncology Jordan Elias MD [address] [facility] [place], [place] [address] 11/19/2023 Office Visit Rheumatology Cesar Man MD [address] [facility] [place] [address] Scheduled Procedures Name Priority Associated Diagnoses Date/Ti me ESOPHAGOGASTRODUODENOSCOPY ( EGD), FLEXIBLE, TRANSORAL, DIAGNOSTIC Recall Esophagitis, [place]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 Health Maintenance Due [...] D LEVEL ONCE IN A LIFETIME-USE SMARTSET# [id number] Completed 01/12/2023, 10/02/2022, 08/20/2017, Additional history exists [...] this encounter Medical Devices Implanted Type Area Visual Effects Artist Device Identifier Shelf Expiration Date Model / Serial / Lot Alloderm 2x4 Sheet [id number](8 Units) - [id number] Implanted:Qty : 8 on 10/23/2013 at OR [facility] [place] Tissue - Human N/A: Esophagus LIFE CELL ANETTE 05/02/2015 [id number] / / [id number] documented as of this encounter Results * (ABNORMAL) 25-HYDROXY VITAMIN D (10/02/2022 11:06 AM EDT) 25-Hydroxy Vitamin D 15(L) >19 ng/mL 10/02/2022 11:47 PM EDT LABORATORY [facility] Blood Venous blood specimen / Unknown Venipuncture / Unknown 10/02/2022 11:06 AM EDT 10/02/2022 11:06 AM EDT Narrative LAB[facility]ATORY [facility] - 10/02/2022 11:47 PM EDT Deficient: <20 ng/mL Insufficient: 20-29 ng/mL Recommended/Optimum:30-50 ng/mL Vitamin D intoxication is rare. If suspicious of Vitamin D toxicity, evaluation of serum Calcium and PTH is recommended. Cesar Man MD LAB BLOOD ORDERABLE S LABORATORY [facility] [address] [facility] [place] [address] documented in this encounter Visit Diagnoses Diagnosis Senile osteoporosis- Primary documented in this encounter Advance Directives Latest Code Status on File Code Status Date Activated Date Inactivated Comments Full Code 10/23/2013 11:32 AM 10/24/2013 4:10 PM This order reflects the patients wishes and were consensually agreed upon. Care Teams Fishing Gear Mechanic Relationship Specialty Start Date End Date Elvia Pink DO [address] [facility] [place] [address] PCP - General Family Medicine 11/19/15 documented as of this encounter
--- OUTSIDE RECORDS SUMMARY | 2023-03-23 02:38 | External Medical Summary | Summary of Care ---
Author Name Unknown Organization [facility] Address [address] [facility] [place] [address] Phone [phone] Care Team Providers Care Digester Capper Name Role Phone Elvia Pink DO Primary Care Provider [phone] Reason for Visit * Reason Onset Date Comments Medication Pre-auth 09/25/2022 Recjan Encounter Details Date Type Department Care Team Description 09/25/2022 Telephone Rheumatology [address] [place] [phone] Sammie Man MD [address] [facility] [place] [address] Medication Pre-auth (January ) Allergies Active Allergy Reactions Severity Noted Date Comments Dust 07/19/2009 Sneezing, watering eyes, eventually might develop into asthma attack Other - Environmental 07/19/2009 Pet Dander Sneezing, watering eyes Pollen 07/19/2009 Sneezing, watering eyes documented as of this encounter (statuses as of 01/18/2023) Medications Medication Sig Dispensed Refills Start Date [...] medications,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 [id number] 11/14/2021 Active Cilgavimab inj 300 mgIndications:Encounter for long-term (current) use of medications,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 [id number] 11/14/2021 Active documented as of this encounter (statuses as of 01/18/2023) Active Problems Problem Noted Date Senile osteoporosis [...] as of this encounter (statuses as of 01/18/2023) Resolved Problems Problem Noted Date Resolved Date [...] as of this encounter (statuses as of 01/18/2023) Immunizations Name Administration Dates Next Due COVID-19 [...] * Telephone Encounter - MARYJO Queen - 01/18/2023 9:53 AM EDT Sent letter * Telephone Encounter - MARYJO Queen - [...] Rodriguez RN - 01/13/2023 9:48 AM EDT [place] plan is signed, referral in place. Scheduling: [...] received for Reclast 5mg IV once yearly [place] created and routed to provider for signature Rheum: When the labs and auth are back and patient is ready to be scheduled, please forward back top [phone] for scheduling. Thank you! * Telephone Encounter [...] Office Visit Family Medicine Elvia Pink DO [address] [facility] [place] [address] 03/16/2023 Telemedicine General Surgery Marek Petty PA-Sly [address] [place], [place] [address] 04/07/2023 Imaging Radiology 05/05/2023 Laboratory Laboratory [facility] [address] [facility] [place] [address] 05/12/2023 Office Visit Hematology Oncology Jordan Elias MD [address] [facility], [place] [address] 11/19/2023 Office Visit Rheumatology Sammie Man MD [address] [place] [address] Scheduled Procedures Name Priority Associated Diagnoses Date/Ti me ESOPHAGOGASTRODUODENOSCOPY ( EGD), FLEXIBLE, TRANSORAL, DIAGNOSTIC Recall Esophagitis, [place]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 Health Maintenance Due [...] D LEVEL ONCE IN A LIFETIME-USE SMARTSET# [id number] Completed 01/12/2023, 10/02/2022, 08/20/2017, Additional history exists [...] this encounter Medical Devices Implanted Type Area Concrete Pipe Making Machine Operator Device Identifier Shelf Expiration Date Model / Serial / Lot Alloderm 2x4 Sheet [id number](8 Units) - [id number] Implanted:Qty : 8 on 10/23/2013 at [place] [facility] [place] Tissue - Human N/A: Esophagus LIFE CELL ANETTE 05/02/2015 [id number] / / [id number] documented as of this encounter Results * (ABNORMAL) 25-HYDROXY VITAMIN D (10/02/2022 11:06 AM EDT) 25-Hydroxy Vitamin D 15(L) >19 ng/mL 10/02/2022 11:47 PM EDT LABORATORY [facility] [place] [facility] Blood Venous blood specimen / Unknown Venipuncture / Unknown 10/02/2022 11:06 AM EDT 10/02/2022 11:06 AM EDT Narrative LABORATORY [facility] [place] [facility] - 10/02/2022 11:47 PM EDT Deficient: <20 ng/mL Insufficient: 20-29 ng/mL Recommended/Optimum:30-50 ng/mL Vitamin D intoxication is rare. If suspicious of Vitamin D toxicity, evaluation of serum Calcium and PTH is recommended. Sammie Man MD LAB BLOOD ORDERABLE S LAB[facility]ATORY [facility] [place] [address] [facility] [address] documented in this encounter Visit Diagnoses Diagnosis Senile osteoporosis- Primary documented in this encounter Advance Directives Latest Code Status on File Code Status Date Activated Date Inactivated Comments Full Code 10/23/2013 11:32 AM 10/24/2013 4:10 PM This order reflects the patients wishes and were consensually agreed upon. Care Teams Digester Capper Relationship Specialty Start Date End Date Elvia Pink DO [address] [facility] [place] [address] PCP - General Family Medicine 11/19/15 documented as of this encounter
--- OUTSIDE RECORDS SUMMARY | 2023-03-23 02:38 | External Medical Summary | Summary of Care ---
Author Name Unknown Organization [facility] Address [address] [place] [address] Phone [phone] Care Team Providers Care Highway Worker Name Role Phone Elvia Pink DO Primary Care Provider [phone] Encounter Details Date Type Department Care Team Description [facility]23 [facility] [facility] [place] [address] Elvia Pink DO [address] [facility] [place] [address] Allergies Active Allergy Reactions Severity Noted Date [...] Chewable Take by mouth . 0 Active Mycophenolate Mofetil 500 MG Oral Tablet (Cellcept) TAKE TWO TABLETS BY MOUTH IN THE MORNING 180 Tablet 1 03/24/2022 Active Ferrous Sulfate 325 (65 Fe) MG Oral Tablet (Feosol)Indications :Iron deficiency anemia, unspecified iron deficiency anemia type,Thrombocytosis Take 1 Tablet by mouth daily with breakfast. 90 Tablet 2 05/25/2022 Active predniSONE 1 MG Oral Tablet (Deltasone) TAKE FOUR TABLETS BY MOUTH EVERY DAY 360 Tablet 2 09/25/2022 09/25/2023 Active Additional Information Patient not taking.Reported on 11/20/2022 predniSONE 5 MG Oral Tablet (Deltasone) TAKE [...] MORNING 90 Tablet 3 04/07/2022 04/07/2023 Active Mycophenolate Mofetil 500 MG Oral Tablet (Cellcept) TAKE TWO TABLETS BY MOUTH IN THE MORNING 180 Tablet 1 03/27/2022 03/27/2023 Active Pantoprazole Sodium 40 MG Oral Tablet Delayed Release (Protonix) Take 1 Tablet by mouth in the morning. 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 [id number] 11/14/2021 Active documented as of this encounter [...] Office Visit Family Medicine Elvia Pink DO [address] [place] [address] 03/16/2023 Telemedicine General Surgery Marek Petty PA-C [address] [place] [address] 04/07/2023 Imaging Radiology 05/05/2023 Laboratory Laboratory [facility] [address] [place] [address] 05/12/2023 Office Visit Hematology Oncology Jordan Elias MD [address] [place] [address] 11/19/2023 Office Visit Rheumatology Cesar Gaona MD [address] [place] [address] Scheduled Procedures Name Priority Associated Diagnoses Date/Ti me ESOPHAGOGASTRODUODENOSCOPY ( EGD), FLEXIBLE, TRANSORAL, DIAGNOSTIC Recall Esophagitis, [place]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 Health Maintenance Due [...] Completed 02/19/2016, 12/30/2007, 02/06/2000 Albumin/Creatinine Ratio Discontinued 2 022, 01/02/2022, 10/30/2021, Additional history exists Alpha-1 Antitrypsin Completed 04/29/2022 VITAMIN D LEVEL ONCE IN A LIFETIME-USE SMARTSET# [id number] Completed 01/12/2023, 10/02/2022, 08/20/2017, Additional history exists [...] this encounter Medical Devices Implanted Type Area Earth Science Professor Device Identifier Shelf Expiration Date Model / Serial / Lot Alloderm 2x4 Sheet [id number](8 Units) - [id number] Implanted:Qty : 8 on 10/23/2013 at OR [facility] [place] Tissue - Human N/A: Esophagus LIFE CELL ANETTE 05/02/2015 [id number] / / [id number] documented as of this encounter Advance Directives Latest Code Status on File Code Status Date Activated Date Inactivated Comments Full Code 10/23/2013 11:32 AM 10/24/2013 4:10 PM This order reflects the patients wishes and were consensually agreed upon. Care Teams Highway Worker Relationship Specialty Start Date End Date Elvia Pink DO [address] [facility] [place] [address] PCP - General Family Medicine 11/19/15 documented as of this encounter
--- OUTSIDE RECORDS SUMMARY | 2023-03-23 02:39 | External Medical Summary | Summary of Care ---
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] History of Escobedo's esophagus [Z87.19] Procedures EGD, FLEXIBLE, DIAGNOSTIC ESOPHAGOGASTRODUODENOSCOPY (EGD), FLEXIBLE, TRANSORAL, DIAGNOSTIC Referral ID Status Reason Start Date Expiration Date Visits Re quested Visits Authorized [id number] Encounter Details Date Type Department Care Team Description 12/02/2022 Hospital Encounter ENDO [facility], Endoscopy Room [facility] [address] [place] [id number] Jadon Dean MD [address] [place] [address] Upper GI Endoscopy Allergies Active Allergy Reactions Severity Noted Date Comments Dust 07/19/2009 Sneezing, watering eyes, eventually might develop into asthma attack Other - Environmental 07/19/2009 Pet Dander Sneezing, watering eyes Pollen 07/19/2009 Sneezing, watering eyes documented as of this encounter (statuses as of 12/03/2022) Medications Medication Sig Dispensed Refills Start Date [...] Additional Information Patient not taking.Reported on 11/20/2022 Omeprazole 20 MG Oral Tablet Delayed ReleaseIndications: 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 TAKE ONE TABLET BY MOUTH IN THE MORNING AND ONE TABLET BEFORE BEDTIME 180 Tablet 3 09/18/2022 09/18/2023 Active predniSONE 5 MG Oral Tablet (Deltasone) [...] MORNING 180 Tablet 1 03/27/2022 03/27/2023 Active documented as of this encounter (statuses as of 12/03/2022) Active Problems Problem Noted Date Senile osteoporosis [...] as of this encounter (statuses as of 12/03/2022) Resolved Problems Problem Noted Date Resolved Date [...] as of this encounter (statuses as of 12/03/2022) Immunizations Name Administration Dates Next Due COVID-19 mRNA, LNP-s, No Pre serve, 2-Dose Series (Moderna) 09/27/2021,06/19/2021,01/10/2021,06/04,05/30/2020 PPD 03/02/2012,10/14/2010 Pneumococcal Conjugate Vacc, 13 Valent (Prevnar) 02/19/2016 Pneumococcal Polysaccharide PPV23 (Pneumovax) 12/30/2007,02/06/2000 Seasonal Influenza, Quadriva lent Hd (Fluzone Hd) 02/12/2022,02/06/2021 Seasonal Influenza, Quadriva lent, No Preserve, 6 Mons & Above, IM 01/31/2020,02/10/2018 Seasonal Influenza, Quadriva lent, No Preserve, IM [...] Sign Reading Time Taken Comments Blood Pressure 118/56 12/02/2022 1:40 PM EDT Pulse 69 12/02/2022 1:40 PM EDT Temperature 36.1 C (97 F) 12/02/2022 1:10 PM EDT Respiratory Rate 18 12/02/2022 1:40 PM EDT Oxygen Saturation 99% 12/02/2022 1:40 PM EDT Inhaled Oxygen Concentration - - Weight 61.2 kg (135 lb) 11/30/2022 3:43 PM EDT Height 154.9 cm (5' 1") 11/30/2022 3:43 PM EDT Body Mass Index 25.51 11/30/2022 3:43 PM EDT documented in this encounter Functional Status Functional [...] No 10/23/2013 documented as of this encounter H&P Notes * Jadon Dean MD - 12/02/2022 11:58 AM EDT Endoscopy Pre-Procedure Assessment Name: Patricia Salinas Date: 12/02/2022 Time: 11:58 AM Procedure(s): Upper GI Endoscopy; with Indication(s) of evaluation or management of Escobedo's esophagus Endoscopy Pre-Procedure Assessment: Prior to the procedure, the patient was identified. The patient's history, medications and allergies were reviewed as per the Anesthesia Assessment. The patient is competent. The risks and benefits of the proposed procedure and the planned sedation were discussed with the patient. All questions were answered and informed consent for the procedure was obtained. Ht 1.549 m (5' 1") | Wt 61.2 kg (135 lb) | LMP (LMP Unknown) | BMI 25.51 kg/m | BSA 1.62 m Review of patient's allergies indicates: Allergen Reactions Dust Sneezing, watering eyes, eventually might develop into asthma attack Other - Environmental Pet Dander Sneezing, watering eyes Pollen Sneezing, watering eyes Prior to Admission medications Medication Sig Last Dose Discont. Omeprazole 20 MG Oral Tablet Delayed Release TAKE ONE TABLET BY MOUTH IN THE MORNING AND ONE TABLETBEFORE BEDTIME 11/30/2022 predniSONE 5 MG Oral Tablet (Deltasone) TAKE ONE TABLET BY MOUTH EVERY DAY 11/30/2022 Albuterol Sulfate HFA 108 (90 Base) MCG/ACT Inhalation Aerosol Solution INHALE TWO PUFFS BY MOUTH EVERY MORNING & TWO PUFFS AT NOON & TWO PUFFS IN THE EVENING & TWO PUFFS BEFORE BEDTIME Past Month Ferrous Sulfate 325 (65 Fe) MG Oral Tablet (Feosol) Take 1 Tablet by mouth daily with breakfast. 11/30/2022 Atorvastatin Calcium 40 MG Oral Tablet (Lipitor) TAKE ONE TABLET BY MOUTH EVERY MORNING 11/30/2022 Mycophenolate Mofetil 500 MG Oral Tablet (Cellcept) TAKE TWO TABLETS BY MOUTH IN THE MORNING 11/30/2022 Aspirin 81 MG Oral Tablet Chewable Take 1 Tablet by mouth in the morning. 11/30/2022 predniSONE 1 MG Oral Tablet (Deltasone) TAKE FOUR TABLETS BY MOUTH EVERY DAY Patient not taking: Reported on 11/20/2022 Ferrous Sulfate 325 (65 Fe) MG Oral Tablet Delayed Release TAKE ONE TABLET BY MOUTH DAILY WITH BREAKFAST Triamcinolone Acetonide 0.1 % External Cream (Aristocort) APPLY TO LEGS TWICE DAILY NEEDED FOR ITCHING Mycophenolate Mofetil 500 MG Oral Tablet (Cellcept) TAKE TWO TABLETS BY MOUTH IN THE MORNING PreserVision AREDS 2 Oral Tablet Chewable Take by mouth . clobetasol propionate 0.05 % external solution Apply topically to affected area 2 times a day. To affected area for up to two weeks. SURGICAL COMPRESSION STOCKING Knee high compression stocking 20-30mmg Hg Physical Exam: Mental Status Examination: alert and oriented. Airway Examination: normal oropharyngeal airway and neck mobility. Respiratory Examination: clear to auscultation. CV Examination: Regular rate and rythm, no murmurs. ASA Grade: II - A patient with mild systemic disease. After reviewing the risks and benefits, the patient was deemed in satisfactory condition to undergothe procedure. The anesthesia plan was to use sedation. Patient was explained in detail regarding risks, benefits, limitations and alternatives of the above endoscopic procedure. Risks of intravenous sedation used for procedure were also explained. Risks include, but not limited to perforation, bleeding, infection, respiratory distress, cardiac arrest and . Risk of acute pancreatitis and necrosis if ERCP is done. Patient is also aware about the possibility of missed lesion. Patient's questions were answered. The patient verbalized understandingthe information and agreed to undergo the procedure. Jadon Dean MD 12/02/2022 documented in this encounter Procedure Notes * Elvia Pink, - 12/02/2022 12:02 PM EDTAssociated Order(s): UPPER GI ENDOSCOPY [facility] Patient Name: Patricia Salinas Procedure Date: 12/02/2022 12:02 PM Date of : 1940 Admit Type: Outpatient Note Status: Finalized Date of : 1940 Admit Type: Outpatient Age: 82 Room: [facility] Gender: Female Note Status: Finalized Procedure: Upper GI endoscopy Indications: Surveillance for malignancy due to personal history of Escobedo's esophagus Providers: Jadon Dean MD (Doctor), Chi Griffin RN Referring MD: Elvia Pink (Referring MD) Medicines: Propofol per Anesthesia Complications: No immediate complications. Procedure: Pre-Anesthesia Assessment: - Prior to the procedure, a History and Physical was performed, and patient medications, allergies and sensitivities were reviewed. The patient's tolerance of previous anesthesia was reviewed. - The risks and benefits of the procedure and the sedation options and risks were discussed with the patient. All questions were answered and informed consent was obtained. - Patient identification and proposed procedure were verified prior to the procedure by the physician and the nurse. The procedure was verified in the procedure room. - Pre-procedure physical examination revealed no contraindications to sedation. After obtaining informed consent, the endoscope was passed under direct vision. All instruments were visually inspected immediately before and after removal from the patient to ensure they are fully intact. Throughout the procedure, the patient's blood pressure, pulse, and oxygen saturations were monitored continuously.The upper GI endoscopy was accomplished without difficulty. The patient tolerated the procedure well. The [id number]-[id number] Endoscope ([id number]) was introduced through the mouth, and advanced to the second part of duodenum. Findings & Specimens: A 2 cm hiatal [...] changes classified as Escobedo's stage C3-M4 per Girard criteria. These changes involved the mucosa extending [...] changes classified as Escobedo's stage C3-M4 per Girard criteria. Several biopsies were obtained. - A [...] however she does not have transportation to [facility]. Alternatively she should have surveillance EGD annually at least. Jadon Dean MD 12/02/2022 1:11:36 PM This report has been signed electronically. documented in this encounter Nursing Notes * Humera Jung RN - 12/02/2022 1:48 PM EDT Patient is alert, pain free, and tolerating po fluids prior to discharge. Patient has been visited by Dr. Dean. Patient has received and demonstrates understanding of discharge instructions. Patient is transported ambulatory to private auto accompanied by friend and staff. * Humera Jung RN - 12/02/2022 1:18 PM EDT Awake, O2 removed, respirations easy and regular denies pain. * Humera Jung RN - 12/02/2022 1:10 PM EDT Pt received PACU II,s/p EGD with Dr. Yun, pt sedated O2 4 lpm nasal canula . * Chi Griffin RN - 12/02/2022 1:08 PM EDT See anesthesia record for medication administered during procedure. Chi Griffin RN Specimen(s) and location(s) verified with physician post procedure 1:08 PM Chi Griffin RN Pre cleaning of scope at the bedside started by carpet technician. * Elly Vicente RN - 12/02/2022 12:29 PM EDT The following pt discharge instructions reviewed with pt prior to prodedure: No driving today. No alcohol today. No signing of legal documents. Rest as much as possible today and can return to normal activities tomorrow. No operating any heavy equipment today. Diet as tolerated. Pt verbalized understanding. Pt prepped. documented in this encounter Plan of Treatment Upcoming Encounters Date Type Specialty Care Team Description 03/10/2023 Office Visit Family Medicine Elvia Pink DO [address] [facility] [place] [address] 03/16/2023 Telemedicine General Surgery Marek Petty PA-C [address] [place] [address] 04/07/2023 Imaging Radiology 05/05/2023 Laboratory Laboratory Zelda [place] [facility] [address] [facility] [place] [address] 05/12/2023 Office Visit Hematology Oncology Jordan Elias MD [address] [place] [address] 11/19/2023 Office Visit Rheumatology Cesar Gaona MD [address] [place] [address] Pending Results Name Type Priority Associated Diagnoses Date /Time SURGICAL PATHOLOGY Pathology Routine 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 12/02/2022 1:08 PM EDT Scheduled Orders Name Type Priority Associated Diagnoses Orde r Schedule SURGICAL PATHOLOGY Pathology Routine 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 Release Upon Ordering for 1 Occurrences starting 12/02/2022, 1 completed Scheduled Procedures Name Priority Associated Diagnoses Date/Ti me ESOPHAGOGASTRODUODENOSCOPY ( EGD), FLEXIBLE, TRANSORAL, DIAGNOSTIC Recall Esophagitis, [place]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 Health Maintenance Due Date Last Done Comments Zoster Vaccines (1 of 2) 01/11/2014 11/16/2013 Depression Screening, Annual for Pts 12 and Over 11/13/2021 11/13/2020 COVID-19 Vaccine (6 - Moderna risk series) 11/22/2021 09/27/2021, 06/19/2021, 01/10/2021, Additional history exists *BISPHONATE OR OTHER ACCEPTABLE MEDICATION NEEDED FOR OSTEOPOROSIS (REFER TO SMARTSET #1146) 10/02/2022 Influenza Vaccine (FLU shot) (#1) 2023 02/12/2022, 02/06/2021, 01/31/2020, Additional history exists O2 ASSESSMENT COMPLETED IN PAST YEAR FOR COPD 07/25/2023 12/02/2022 DTaP,Tdap,and Td Vaccines (2 - Td or Tdap) 02/06/2024 02/05/2014, 07/09/2003 DXA Scan 09/22/2024 09/22/2022, 06/03, 06/22/2014, Additional history exists COLONOSCOPY-EVERY 5 YRS AGES 18-100 12/13/2025 12/13/2020, 04/01/2017, 09/09/2011 Pneumococcal Vaccine: 65+ Years Completed 02/19/2016, 12/30/2007, 02/06/2000 Albumin/Creatinine Ratio Discontinued 022, 01/02/2022, 10/30/2021, Additional history exists Alpha-1 Antitrypsin Completed 04/29/2022 VITAMIN D LEVEL ONCE IN A LIFETIME-USE SMARTSET# 10036 Completed 10/02/2022, 08/20/2017, 02/01/2017, Additional history exists GARDASIL-HPV IMMUNIZATION SERIES Aged Out No longer eligible based on patient's age to complete this topic Hepatitis B Aged Out No longer eligi ble based on patient's age to complete this topic MENINGOCOCCAL (MENACTRA/MENVEO) Aged Out No longer eligible based on patient's age to complete this topic documented as of this encounter Medical Devices Implanted Type Area Design Agent Device Identifier Shelf Expiration Date Model / Serial / Lot Alloderm 2x4 Sheet [id number](8 Units) - [id number] Implanted:Qty : 8 on 10/23/2013 at [place] [facility] Tissue - Human N/A: Esophagus [employer]ETTE 05/02/2015 [id number] / / [id number] documented as of this encounter Procedures Procedure Name Priority Date/Time Associated Diagnosis Comments UPPER GI ENDOSCOPY 12/02/2022 12 :02 PM EDT documented in this encounter Results * UPPER GI ENDOSCOPY (12/02/2022 12:02 PM EDT) 12/02/2022 12:0 2 PM EDT Procedure Note Elvia Pink DO - 12/02/2022 12:02 PM EDT [facility] Patient Name: Patricia Salinas Procedure Date: 12/02/2022 12:02 PMMRN: [id number] Date of : 1940 Admit Type: Outpatient Note Status:Finalized Date of : 1940 Admit Type: Outpatient Age: 82 Room: [facility] Gender: Female Note Status: Finalized Procedure: Upper GI endoscopy Indications: Surveillance for malignancy due to personal historyof Escobedo's esophagus Providers: Jadon Dean MD (Doctor), Chi Griffin RN Referring MD: Elvia Pink (Referring MD) Medicines: Propofol per Anesthesia Complications: No immediate complications. Procedure: Pre-Anesthesia Assessment: - Prior to the procedure, a History and Physicalwas performed, and patient medications, allergies and sensitivities werereviewed. The patient's tolerance of previous anesthesia was reviewed. - The risks and benefits of the procedure and thesedation options and risks were discussed with the patient. All questions wereanswered and informed consent was obtained. - Patient identification and proposed procedurewere verified prior to the procedure by the physician and the nurse. The procedure wasverified in the procedure room. - Pre-procedure physical examination revealed nocontraindications to sedation. After obtaining informed consent, the endoscope waspassed under direct vision. All instruments were visually inspected immediatelybefore and after removal from the patient to ensure they are fully intact. Throughout the procedure, the patient's bloodpressure, pulse, and oxygen saturations were monitored continuously.The upper GI endoscopywas accomplished without difficulty. The patient tolerated the procedurewell. The GIF-HQ190 Endoscope ([id number]) was introduced through the mouth, andadvanced to the second part of duodenum. Findings & Specimens: A 2 cm hiatal hernia was found. The proximal extent of the gastricfolds (end of tubular esophagus) was 33 cm from the incisors. The hiatal narrowing was 35 cm from theincisors. The esophagus and gastroesophageal junction were examined with whitelight and narrow band imaging (NBI) from a forward view and retroflexed position. There wereesophageal mucosal changes classified as Escobedo's stage C3-M4 per Girard criteria. These changes involved themucosa extending to the Z-line (29 cm from the incisors). No visible abnormalities were present. Themaximum longitudinal extent of these esophageal mucosal changes was 4 cm in length. Several biopsieswere obtained at 29, 30, 31 and 32 cm from the incisors with cold forceps for histology. Verificationof patient identification for the specimen was done by the physician and nurse using the patient's nameand date. The pathology specimen was placed into Bottle A. Evidence of a partial fundoplication was found in the gastric fundus.The wrap appeared loose. This was traversed. The entire examined stomach was normal. The duodenal bulb and second portion of the duodenum were normal. Impression: - 2 cm hiatal hernia. - Esophageal mucosal changes classified asBarrett's stage C3-M4 per Girard criteria. Several biopsies were obtained. - A partial fundoplication was found. The wrapappears loose. - Normal stomach. - Normal duodenal bulb and second portion of theduodenum. Recommendation: - Discharge patient to home. - Await pathology results. - Follow an antireflux regimen. - PO PPI. - Return to referring physician. COMMENT: Patient should have repeat ablation inview of prior HGD however she does not have transportation to [facility]. Alternatively sheshould have surveillance EGD annually at least. Jadon Dean MD 12/02/2022 1:11:36 PM This report has been signed electronically. Elvia Pink DO GASTRO UPPER documented in this encounter Visit Diagnoses Diagnosis Escobedo's esophagus with dysplasia Escobedo's esophagus History of Escobedo's esophagus documented in this encounter Administered Medications Inactive Administered Medications - up to 3 most recent administrations Medication Order MAR Action Action Date Dose Rate Site Acetaminophen (Tylenol) tab 650 mg 650 mg, Oral, PRN Pain, Mild, Starting on Wed12/02/22 at 1315, Until Wed12/02/22 at 1749, For 1 dose, Maximum of 4 grams (4000 mg) per day., Post-op isolyte-S pH 7.4 infusion Intravenous, at 100 mL/hr, Plasma-LYTE 148, isolyte-S, and isolyte-S pH 7.4 are considered equivalent - including for MAR barcode scanning., CONTINUOUS, Starting on Wed12/02/22 at 1300, Until Wed12/02/22 at 1749, Pre-Op Restarted 12/02/2022 1:10 PM EDT Continue from Pre-Op 12/02/2022 12:54 PM EDT 10 0 mL/hr New Bag 12/02/2022 12:36 PM EDT 100 mL/hr documented in this encounter Active and Recently Administered Medications Times are shown in EDT. Continuous Medication Order 11/30/2022 12/01/2022 12/02/2022 isolyte-S pH 7.4 infusion Intravenous, at 100 mL/hr, Plasma-LYTE 148, isolyte-S, and isolyte-S pH 7.4 are considered equivalent - including for MAR barcode scanning., CONTINUOUS, Starting on Wed12/02/22 at 1300, Until Wed12/02/22 at 1749, Pre-Op 1236 (New Bag - Prov ider: Elly Vicente RN)1254 (Continue from Pre-Op - Provider: ANDREA Ag)1309 (Paused - Provider: ANDREA Ag - Comment: Switch to gravity)1310 (Restarted - Provider: ANDREA Ag) PRN Medication Order 11/30/2022 12/01/2022 12/02/2022 Acetaminophen (Tylenol) tab 650 mg 650 mg, Oral, PRN Pain, Mild, Starting on Wed12/02/22 at 1315, Until Wed12/02/22 at 1749, For 1 dose, Maximum of 4 grams (4000 mg) per day., Post-op documented in this encounter Advance Directives Latest Code Status on File Code Status Date Activated Date Inactivated Comments Full Code 10/23/2013 11:32 AM 10/24/2013 4:10 PM This order reflects the patients wishes and were consensually agreed upon. Care Teams Geospatial Systems Integrator Relationship Specialty Start Date End Date Elvia Pink DO [address] [facility] [place] [id number] PCP - General Family Medicine 11/19/15 documented as of this encounter
--- OUTSIDE RECORDS SUMMARY | 2023-03-23 02:39 | External Medical Summary ---
Author Name Unknown Address Unknown Organization [id number]:[facility]ORY [facility] - [address] [facility] [place] [address] Laboratory Report Ordering Provider Test Date Status JOSUE CAMEJO 01/12/2023 09:28:56 Final Observation Date Value Abnormality Reference (Units ) Status Triglyceride 01/12/2023 09:28:56 101 <=174 ( mg/dL) Final Triglyceride Reference Range s (mg/dL):
<150 Acceptable
150-174 Borderline high
175-499 High
>=500 Very high Cholesterol 01/12/2023 09:28:56 157 <200 (mg /dL) Final Total Cholesterol Reference Ranges (mg/dL):
<200 Desirable
200-239 Borderline high
>=240 High HDL 01/12/2023 09:28:56 82 >49 (mg/dL ) Final HDL Cholesterol Reference Ra nges (mg/dL):
>=60 High (Desirable)
<50 Low (Undesirable) For Females
<40 Low (Undesirable) For Males NON-HDL CHOLESTEROL 01/12/2023 09:28:56 75 <=159 (mg/dL) Final Non-HDL Cholesterol Referenc e Range (mg/dL):
<100 Target level for high risk ASCVD patient
<130 Optimal for general population
130-159 Near optimal for general population
160-189 Borderline High
190-219 High
>=220 Very High LDL, (calculated) 01/12/2023 09:28:56 55 <= 129 (mg/dL) Final LDL Cholesterol Reference Ra nges (mg/dL):
<70 Target level for high risk ASCVD patient
<100 Optimal for general population
100-129 Near optimal for general population
130-159 Borderline high
160-189 High
>=190 Very high Performing Location [facility]ATORY [facility] - [address] [facility] [address]
--- OUTSIDE RECORDS SUMMARY | 2023-03-23 02:39 | External Medical Summary | Summary of Care ---
Author Name Unknown Organization [facility] Address [address] [facility] [place] [address] Phone [phone] Care Team Providers Care Bench Inspector Name Role Phone Elvia Pink DO Primary Care Provider [phone] [phone] Reason for Visit * Reason Onset Date Comments Medication Pre-auth 09/25/2022 Recjan Encounter Details Date Type Department Care Team Description 09/25/2022 Telephone Rheumatology [address] [place] [phone] Cesar Man MD [address] [facility] [place] [address] Medication Pre-auth (January ) Allergies Active Allergy Reactions Severity Noted Date Comments Dust 07/19/2009 Sneezing, watering eyes, eventually might develop into asthma attack Other - Environmental 07/19/2009 Pet Dander Sneezing, watering eyes Pollen 07/19/2009 Sneezing, watering eyes documented as of this encounter (statuses as of 01/08/2023) Medications Medication Sig Dispensed Refills Start Date [...] medications,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 [id number] 11/14/2021 Active Cilgavimab inj 300 mgIndications:Encounter for long-term (current) use of medications,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 [id number] 11/14/2021 Active documented as of this encounter (statuses as of 01/08/2023) Active Problems Problem Noted Date Senile osteoporosis [...] as of this encounter (statuses as of 01/08/2023) Resolved Problems Problem Noted Date Resolved Date [...] as of this encounter (statuses as of 01/08/2023) Immunizations Name Administration Dates Next Due COVID-19 [...] received for Reclast 5mg IV once yearly [place] created and routed to provider for signature Rheum: When the labs and auth are back and patient is ready to be scheduled, please forward back top [phone] for scheduling. Thank you! * Telephone Encounter [...] Office Visit Family Medicine Elvia Pink DO [address] [facility] [place] [address] 03/16/2023 Telemedicine General Surgery Marek Petty PA-C [address] [facility] [address] 04/07/2023 Imaging Radiology 05/05/2023 Laboratory Laboratory Zelda [address] [place] [address] 05/12/2023 Office Visit Hematology Oncology Jordan Elias MD [address] [place] [address] 11/19/2023 Office Visit Rheumatology Cesar Man MD [address] [facility] [place] [address] Scheduled Orders Name Type Priority Associated Diagnoses Orde r Schedule BASIC METABOLIC PANEL Lab Routine Senile osteoporosis Expected: 01/08/2023, Expires: 10/09/2023 Scheduled Procedures Name Priority Associated Diagnoses Date/Ti me ESOPHAGOGASTRODUODENOSCOPY ( EGD), FLEXIBLE, TRANSORAL, DIAGNOSTIC Recall Esophagitis, [place]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 Health Maintenance Due [...] D LEVEL ONCE IN A LIFETIME-USE SMARTSET# [id number] Completed 10/02/2022, 08/20/2017, 02/01/2017, Additional history exists [...] this encounter Medical Devices Implanted Type Area Exterminator Device Identifier Shelf Expiration Date Model / Serial / Lot Alloderm 2x4 Sheet [id number](8 Units) - [id number] Implanted:Qty : 8 on 10/23/2013 at OR [facility] [place] Tissue - Human N/A: Esophagus LIFE CELL ANETTE 05/02/2015 [id number] / / [id number] documented as of this encounter Results * (ABNORMAL) 25-HYDROXY VITAMIN D (10/02/2022 11:06 AM EDT) 25-Hydroxy Vitamin D 15(L) >19 ng/mL 10/02/2022 11:47 PM EDT LABORATORY [facility] Blood Venous blood specimen / Unknown Venipuncture / Unknown 10/02/2022 11:06 AM EDT 10/02/2022 11:06 AM EDT Narrative LABORATORY [facility] - 10/02/2022 11:47 PM EDT Deficient: <20 ng/mL Insufficient: 20-29 ng/mL Recommended/Optimum:30-50 ng/mL Vitamin D intoxication is rare. If suspicious of Vitamin D toxicity, evaluation of serum Calcium and PTH is recommended. Cesar Man MD LAB BLOOD ORDERABLE S LABORATORY [facility] [address] [place] [address] documented in this encounter Visit Diagnoses Diagnosis Senile osteoporosis- Primary documented in this encounter Advance Directives Latest Code Status on File Code Status Date Activated Date Inactivated Comments Full Code 10/23/2013 11:32 AM 10/24/2013 4:10 PM This order reflects the patients wishes and were consensually agreed upon. Care Teams Bench Inspector Relationship Specialty Start Date End Date Elvia Pink DO [address] [facility] [place] [address] PCP - General Family Medicine 11/19/15 documented as of this encounter
--- OUTSIDE RECORDS SUMMARY | 2023-03-23 02:39 | External Medical Summary | Summary of Care ---
Author Name Unknown Organization [facility] Address [address] [facility] [address] Phone [phone] Care Team Providers Care Sales And Business Development Manager Name Role Phone Elvia Pink DO Primary Care Provider [phone] [phone] Reason for Visit * Reason Comments Outpatient Testing Encounter Details Date Type Department Care Team Description 01/12/2023 [facility] [address] [facility] [place] [address] [place], Lab [facility] [address] [facility] [place] [address] Hyperlipidemia, unspecified hyperlipidemia type; Thrombocytosis; Psoriatic arthropathy (HCC); Cutaneous polyarteritis nodosa (HCC); Encounter for long-term (current) use of medications; Vitamin D deficiency; Senile osteoporosis Allergies Active Allergy Reactions Severity Noted Date Comments Dust 07/19/2009 Sneezing, watering eyes, eventually might develop into asthma attack Other - Environmental 07/19/2009 Pet Dander Sneezing, watering eyes Pollen 07/19/2009 Sneezing, watering eyes documented as of this encounter (statuses as of 01/12/2023) Medications Medication Sig Dispensed Refills Start Date [...] medications,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 [id number] 11/14/2021 Active Cilgavimab inj 300 mgIndications:Encounter for long-term (current) use of medications,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 [id number] 11/14/2021 Active documented as of this encounter (statuses as of 01/12/2023) Active Problems Problem Noted Date Senile osteoporosis [...] as of this encounter (statuses as of 01/12/2023) Resolved Problems Problem Noted Date Resolved Date [...] as of this encounter (statuses as of 01/12/2023) Immunizations Name Administration Dates Next Due COVID-19 [...] Office Visit Family Medicine Elvia Pink DO [address] [place] [address] 03/16/2023 Telemedicine General Surgery Marek Petty PA-C [address] [place] [address] 04/07/2023 Imaging Radiology 05/05/2023 Laboratory Laboratory Zelda Chacon [facility] [address] [place] [address] 05/12/2023 Office Visit Hematology Oncology Jordan Elias MD [address] [facility] [place] [address] 11/19/2023 Office Visit Rheumatology Cesar Gaona MD [address] [place] [address] Pending Results Name Type Priority Associated Diagnoses Date /Time COMPREHENSIVE METABOLIC PANEL Lab Routine Hyperlipidemia, unspecified hyperlipidemia type 01/12/2023 9:28 AM EDT LIPID PANEL WITH DIRECT LDL IF TG IS HIGH Lab Routine Hyperlipidemia, unspecified hyperlipidemia type 01/12/2023 9:28 AM EDT CBC WITH WBC DIFFERENTIAL Lab Routine Thrombocytosis 01/12/2023 9:28 AM EDT 25-HYDROXY VITAMIN D Lab Routine Vitamin D deficiency 01/12/2023 9:28 AM EDT CBC Lab Routine Thrombocytosis 01/12/2023 9:28 AM EDT DIFFERENTIAL, AUTOMATED Lab Routine Thrombocytosis 01/12/2023 9:28 AM EDT Scheduled Procedures Name Priority Associated Diagnoses Date/Ti me ESOPHAGOGASTRODUODENOSCOPY ( EGD), FLEXIBLE, TRANSORAL, DIAGNOSTIC Recall Esophagitis, [place]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 Health Maintenance Due [...] Completed 02/19/2016, 12/30/2007, 02/06/2000 Albumin/Creatinine Ratio Discontinued 02/12/ 022, 01/02/2022, 10/30/2021, Additional history exists Alpha-1 Antitrypsin Completed 04/29/2022 VITAMIN D LEVEL ONCE IN A LIFETIME-USE SMARTSET# [id number] Completed 10/02/2022, 08/20/2017, 02/01/2017, Additional history exists [...] this encounter Medical Devices Implanted Type Area Fire Captain Device Identifier Shelf Expiration Date Model / Serial / Lot Alloderm 2x4 Sheet [id number](8 Units) - [id number] Implanted:Qty : 8 on 10/23/2013 at OR [facility] [place] Tissue - Human N/A: Esophagus LIFE CELL ANETTE 05/02/2015 [id number] / / [id number] documented as of this encounter Visit Diagnoses Diagnosis Hyperlipidemia, unspecified hyperlipidemia type Thrombocytosis Essential thrombocythemia Psoriatic arthropathy (HCC) Psoriatic arthropathy Cutaneous polyarteritis nodosa (HCC) Polyarteritis nodosa Encounter for long-term (current) use of medications Encounter for long-term (current) use of other medications Vitamin D deficiency Unspecified vitamin D deficiency Senile osteoporosis documented in this encounter Advance Directives Latest Code Status on File Code Status Date Activated Date Inactivated Comments Full Code 10/23/2013 11:32 AM 10/24/2013 4:10 PM This order reflects the patients wishes and were consensually agreed upon. Care Teams Sales And Business Development Manager Relationship Specialty Start Date End Date Elvia Pink DO [address] [facility] [place] [address] PCP - General Family Medicine 11/19/15 documented as of this encounter
--- OUTSIDE RECORDS SUMMARY | 2023-03-23 02:39 | External Medical Summary ---
Author Name Unknown Address Unknown Organization K01:LAB[facility]ATORY [facility] [place] [address] [facility] [address] [facility] [address] Laboratory Report Ordering Provider Test Date Status ARELY DANG 01/12/2023 09:28:56 Final Observation Date Value Abnormality Reference (Units ) Status WBC, Total 01/12/2023 09:28:56 8.91 4.00-10.80 (K/uL) Final RBC 01/12/2023 09:28:56 4.65 3.85-5.15 (M/uL) Final Hemoglobin 01/12/2023 09:28:56 13.0 12.0-15.3 (g/dL) Final HCT 01/12/2023 09:28:56 42.6 36.0-45.2 (%) Final MCV 01/12/2023 09:28:56 91.6 81.5-97.5 (fL) Final MCH 01/12/2023 09:28:56 28.0 27.0-34.0 (pg) Final MCHC 01/12/2023 09:28:56 30.5 32.0-36.0 (g/dL) Final RDW 01/12/2023 09:28:56 13.7 11.5-15.5 (%) Final Platelets 01/12/2023 09:28:56 464 Above high normal 140-400 (K/uL) Final MPV 01/12/2023 09:28:56 8.4 6.6-11.1 (fL) Final Nucleated erythrocytes/100 leukocytes [Ratio] in Blood by Automated count 01/12/2023 09:28:56 0 <=0 (/100 WBCs) Final Performing Location LAB[facility]ORY [facility] [place] [address] [facility] [address]
--- OUTSIDE RECORDS SUMMARY | 2023-03-23 02:39 | External Medical Summary | Summary of Care ---
Author Name Unknown Organization [facility] Address [address] [facility] [place] [address] Phone [phone] Care Team Providers Care Extruder Operator Name Role Phone Elvia Pink DO Primary Care Provider [phone] [phone] Reason for Visit * Reason Onset Date Comments Medication Pre-auth 09/25/2022 Recjan Encounter Details Date Type Department Care Team Description 09/25/2022 Telephone Rheumatology [address] [place] [phone] Cesar Man MD [address] [facility] [place] [address] Medication Pre-auth (January ) Allergies Active [...] medications,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 [id number] 11/14/2021 Active Cilgavimab inj 300 mgIndications:Encounter for long-term (current) use of medications,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 [id number] 11/14/2021 Active documented as of this encounter [...] received for Reclast 5mg IV once yearly [place] created and routed to provider for signature Rheum: When the labs and auth are back and patient is ready to be scheduled, please forward back top [phone] for scheduling. Thank you! * Telephone Encounter [...] 03/10/2023 Office Visit Family Medicine Elvia Pink, [address] [facility] [place] [address] 03/16/2023 Telemedicine General Surgery Marek Petty PA-C [address] [place] [address] 04/07/2023 Imaging Radiology 05/05/2023 Laboratory Laboratory Zelda Ch[address] [facility] [place] [address] 05/12/2023 Office Visit Hematology Oncology Jordan Elias MD [address] [place] [address] 11/19/2023 Office Visit Rheumatology Cesar Man MD [address] [place] [address] Scheduled Orders Name Type Priority Associated Diagnoses Orde r Schedule BASIC METABOLIC PANEL Lab Routine Senile osteoporosis Expected: 01/08/2023, Expires: 10/09/2023 Scheduled Procedures Name Priority Associated Diagnoses Date/Ti me ESOPHAGOGASTRODUODENOSCOPY ( EGD), FLEXIBLE, TRANSORAL, DIAGNOSTIC Recall Esophagitis, [place]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 Health Maintenance Due [...] D LEVEL ONCE IN A LIFETIME-USE SMARTSET# [id number] Completed 10/02/2022, 08/20/2017, 02/01/2017, Additional history exists [...] this encounter Medical Devices Implanted Type Area Intraoperative Neuro Tech Device Identifier Shelf Expiration Date Model / Serial / Lot Alloderm 2x4 Sheet [id number](8 Units) - [id number] Implanted:Qty : 8 on 10/23/2013 at OR [facility] [place] Tissue - Human N/A: Esophagus LIFE CELL ANETTE 05/02/2015 [id number] / / [id number] documented as of this encounter Results * (ABNORMAL) 25-HYDROXY VITAMIN D (10/02/2022 11:06 AM EDT) 25-Hydroxy Vitamin D 15(L) >19 ng/mL 10/02/2022 11:47 PM EDT LABORATORY [facility] Blood Venous blood specimen / Unknown Venipuncture / Unknown 10/02/2022 11:06 AM EDT 10/02/2022 11:06 AM EDT Narrative LABORATORY [facility] - 10/02/2022 11:47 PM EDT Deficient: <20 ng/mL Insufficient: 20-29 ng/mL Recommended/Optimum:30-50 ng/mL Vitamin D intoxication is rare. If suspicious of Vitamin D toxicity, evaluation of serum Calcium and PTH is recommended. Cesar Man MD LAB BLOOD ORDERABLE S LABORATORY [facility] [address] [facility] [place] [address] documented in this encounter Visit Diagnoses Diagnosis Senile osteoporosis- Primary documented in this encounter Advance Directives Latest Code Status on File Code Status Date Activated Date Inactivated Comments Full Code 10/23/2013 11:32 AM 10/24/2013 4:10 PM This order reflects the patients wishes and were consensually agreed upon. Care Teams Extruder Operator Relationship Specialty Start Date End Date Elvia Pink DO [address] [facility] [place] [address] PCP - General Family Medicine 11/19/15 documented as of this encounter
--- OUTSIDE RECORDS SUMMARY | 2023-03-23 02:39 | External Medical Summary ---
Author Name Unknown Address Unknown Organization K01:LABORATORY [facility] [place] - [address] [place] [address] Laboratory Report Ordering Provider Test Date Status DONOVAN COCHRAN 01/12/2023 09:28:56 Final Deficient: <20 ng/mL
Ins ufficient: 20-29 ng/mL
Recommended/Optimum:30-50 ng/mL

Vitamin D intoxication is rare. If suspicious of Vitamin D toxicity, evaluation of serum Calcium and PTH is recommended. Observation Date Value Abnormality Reference (Units ) Status 25-OH Vitamin D total 01/12/2023 09:28:56 35 >19 (ng/mL) Final Performing Location LABORATORY C - [address] [place] [address]
--- OUTSIDE RECORDS SUMMARY | 2023-03-23 02:39 | External Medical Summary | Summary of Care ---
Author Name Unknown Organization [facility] Address [address] [facility] [place] [address] Phone [phone] Care Team Providers Care Cart Driver Name Role Phone Elvia Pink DO Primary Care Provider +1 [phone] Reason for Visit * Reason Onset Date Comments Order Request 10/05/2022 Encounter Details Date Type Department Care Team Description 10/05/2022 Telephone Rheumatology [facility] [address] [place] [address] Cesar Gaona MD [address] [place] [address] Order Request Allergies Active Allergy Reactions Severity Noted Date [...] medications,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 [id number] 11/14/2021 Active Cilgavimab inj 300 mgIndications:Encounter for long-term (current) use of medications,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 [id number] 11/14/2021 Active documented as of this encounter [...] encounter Miscellaneous Notes * Telephone Encounter - Marisela Waterman LPN - 01/08/2023 2:24 PM EDT Left message on pt phone to have labs done ,so we can schedule Reclast. * Telephone Encounter - Cesar Gaona MD - 10/05/2022 7:55 AM EDT Repeat vit d level in 3 months documented in this encounter Plan of Treatment Upcoming Encounters Date Type Specialty Care Team Description 03/10/2023 Office Visit Family Medicine Elvia Pink DO [address] [place] [address] 03/16/2023 Telemedicine General Surgery Marek Petty PA-C [address] [place] [address] 04/07/2023 Imaging Radiology 05/05/2023 Laboratory Laboratory Zelda Ch[place] [address] [place] 05/12/2023 Office Visit Hematology Oncology Jordan Elias MD [address] [facility] [place], [place] [address] 11/19/2023 Office Visit Rheumatology Cesar Gaona MD [address] [facility] [place], [place] [address] Scheduled Orders Name Type Priority Associated Diagnoses Orde r Schedule 25-HYDROXY VITAMIN D Lab Routine Vitamin D deficiency Expected: 01/05/2023, Expires: 10/06/2023 Scheduled Procedures Name Priority Associated Diagnoses Date/Ti me ESOPHAGOGASTRODUODENOSCOPY ( EGD), FLEXIBLE, TRANSORAL, DIAGNOSTIC Recall Esophagitis, [place]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 Health Maintenance Due [...] D LEVEL ONCE IN A LIFETIME-USE SMARTSET# [id number] Completed 10/02/2022, 08/20/2017, 02/01/2017, Additional history exists [...] this encounter Medical Devices Implanted Type Area Satellite Dish Installer Device Identifier Shelf Expiration Date Model / Serial / Lot Alloderm 2x4 Sheet [id number](8 Units) - [id number] Implanted:Qty : 8 on 10/23/2013 at OR [facility] [place] Tissue - Human N/A: Esophagus LIFE CELL ANETTE 05/02/2015 [id number] / / [id number] documented as of this encounter Visit Diagnoses Diagnosis Vitamin D deficiency- Primary Unspecified vitamin D deficiency documented in this encounter Advance Directives Latest Code Status on File Code Status Date Activated Date Inactivated Comments Full Code 10/23/2013 11:32 AM 10/24/2013 4:10 PM This order reflects the patients wishes and were consensually agreed upon. Care Teams Cart Driver Relationship Specialty Start Date End Date Elvia Pink DO [address] [facility] [place] [address] PCP - General Family Medicine 11/19/15 documented as of this encounter
--- OUTSIDE RECORDS SUMMARY | 2023-03-23 02:39 | External Medical Summary ---
Author Name Unknown Address Unknown Organization K01:LABORATORY [facility] [place] - [address] [facility]. [place] [address] Laboratory Report Ordering Provider Test Date Status JOSUE CAMEJO 01/12/2023 09:28:56 Final Observation Date Value Abnormality Reference (Units ) Status BUN 01/12/2023 09:28:56 18 6-20 (mg/dL) Final Creatinine 01/12/2023 09:28:56 1.0 0.5-1.0 (mg/dL) Final Glomerular filtration rate/1.73 sq M.predicted [Volume Rate/Area] in Serum, Plasma or Blood by Creatinine-based formula (CKD-EPI) 01/12/2023 09:28:56 59 Below low normal >=60 (mL/min) Final eGFR is calculated based on the CKD-EPI 2020 equation SODIUM 01/12/2023 09:28:56 140 135-146 (m mol/L) Final Potassium 01/12/2023 09:28:56 4.3 3.5-5.1 (m mol/L) Final Cl 01/12/2023 09:28:56 103 98-107 (mm ol/L) Final CO2 01/12/2023 09:28:56 24 22-32 (mmo l/L) Final Anion gap 01/12/2023 09:28:56 13 7-15 (mmol /L) Final Glucose 01/12/2023 09:28:56 75 70-120 (mg /dL) Final Albumin 01/12/2023 09:28:56 4.3 3.8-5.0 (g /dL) Final AST (Aspartate aminotransferase) 01/12/2023 09:28:56 12 10-35 (U/L) Final Alk Phos 01/12/2023 09:28:56 56 35-130 (U/ L) Final Bilirubin, Total 01/12/2023 09:28:56 0.3 <=1 .2 (mg/dL) Final Calcium 01/12/2023 09:28:56 9.2 8.4-10.2 ( mg/dL) Final Protein 01/12/2023 09:28:56 6.7 6.0-8.3 (g /dL) Final ALT (Alanine aminotransferase) 01/12/2023 09:28:56 13 10-35 (U/L) Final Performing Location LABORATORY [facility] [place] - [facility] [address] [facility] [address]
--- OUTSIDE RECORDS SUMMARY | 2023-03-23 02:39 | External Medical Summary ---
Author Name Unknown Address Unknown Organization K01:LABORATORY [facility] [place] - [address] [facility] [place] [address] Laboratory Report Ordering Provider Test Date Status ARELY DANG 01/12/2023 09:28:56 Final Observation Date Value Abnormality Reference (Units ) Status SYNC LEUKOCYTES IN BLOOD BY AUTOMATED COUNT 01/12/2023 09:28:56 8.91 4.00-10.80 (K/uL) Final Segs 01/12/2023 09:28:56 59.6 40.0-75.0 (%) Final Lymphs % 01/12/2023 09:28:56 26.6 18.0-42.0 (%) Final Monos 01/12/2023 09:28:56 9.4 1.0-11.0 (%) Final Eosinophils 01/12/2023 09:28:56 3.3 0.0-6.0 (%) Final Basos 01/12/2023 09:28:56 0.7 0.0-2.0 (%) Final Immature Granulocyte, Percent 01/12/2023 09:28:56 0.4 0.0-2.0 (%) Final Absolute Segs 01/12/2023 09:28:56 5.31 1.80-7.70 (K/uL) Final Lymphs, absolute 01/12/2023 09:28:56 2.37 1.00-4.80 (K/ul) Final Monos, Abs 01/12/2023 09:28:56 0.84 0.00-1.10 (K/uL) Final Eos, Abs 01/12/2023 09:28:56 0.29 0.00-0.70 (K/uL) Final Basos, Abs 01/12/2023 09:28:56 0.06 0.00-0.20 (K/uL) Final Immature Granulocytes, Number 01/12/2023 09:28:56 0.04 0.00-0.20 (K/uL) Final Performing Location LABORATORY [facility] [place] - [address] [facility] [address]
--- OUTSIDE RECORDS SUMMARY | 2023-03-23 02:40 | External Medical Summary | Summary of Care ---
Author Name Unknown Organization [facility] Address [address] [place] [address] Phone [phone] Care Team Providers Care Time Study Technician Name Role Phone Elvia Pink DO Primary Care Provider [phone] Reason for Visit * Reason Comments NEW PATIENT Fecal incontinence * Evaluate & Treat - Unlimited Visits (Within 10 days (routine)) - Authorized Specialty Diagnoses / Procedures Referred By Can [email or web address] Referred To Contact Gastroenterology Diagnoses Incontinence of feces, unspecified fecal incontinence type Leobardo Padilla MD [address] [place] [address] Referral ID Status Reason Start Date Expiration Date Visits Requested Visits Authorized [id number] Authorized Specialty Services Required 07/24/[phone] Encounter Details Date Type Department Care Team Description 11/20/2022 Office Visit Gastroenterology, [facility] [address] [place] [address] [facility]man [facility] [address] [facility] [address] Incontinence of feces, unspecified fecal incontinence type*; History of Escobedo's esophagus Allergies Active Allergy Reactions Severity Noted Date Comments Dust 07/19/2009 Sneezing, watering eyes, eventually might develop into asthma attack Other - Environmental 07/19/2009 Pet Dander Sneezing, watering eyes Pollen 07/19/2009 Sneezing, watering eyes documented as of this encounter (statuses as of 11/20/2022) Medications Medication Sig Dispensed Refills Start Date [...] MORNING 180 Tablet 1 03/27/2022 03/27/2023 Active Hospital, Clinic, or Other Facility Administered Medication Ordered Dose Route Frequency Start Date End Date Status Tixagevimab inj 300 mgIndications:Encounter for long-term (current) use of medications,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 [id number] 11/14/2021 Active Cilgavimab inj 300 mgIndications:Encounter for long-term (current) use of medications,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 [id number] 11/14/2021 Active documented as of this encounter (statuses as of 11/20/2022) Active Problems Problem Noted Date Senile osteoporosis [...] long-term (current) use of medications 09/20/2015 S/P Tanja fundoplication (without gastr ostomy tube) procedure 04/05/2015 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) 07/19/2009 documented as of this encounter (statuses as of 11/20/2022) Resolved Problems Problem Noted Date Resolved Date [...] as of this encounter (statuses as of 11/20/2022) Immunizations Name Administration Dates Next Due COVID-19 [...] Sign Reading Time Taken Comments Blood Pressure 124/74 11/20/2022 9:00 AM EDT Pulse 70 11/20/2022 9:00 AM EDT Temperature 36.6 C (97.9 F) 11/20/2022 9:00 AM ED T Respiratory Rate 18 11/20/2022 9:00 AM EDT Oxygen Saturation - - Inhaled Oxygen Concentration - - Weight 61.5 kg (135 lb 8 oz) 11/20/2022 9:00 AM EDT Height - - Body Mass Index 25.6 07/24/2022 2:36 PM EDT documented in this encounter Functional [...] No 10/23/2013 documented as of this encounter Patient Instructions * Patient Instructions* REMA Prasad - 11/20/2022 9:23 AM EDT EGD w Dr. Dean for Escobedo's For stool leaking, I think this is from constipation with overflow. Please do a Miralax/Ducolax purge: 2 Dulcolax tabs and 4 Miralax in 32 oz of water. You probably need to repeat this a second day. Then continue the daily fiber but this time also do 1/2 capful of Miralax with the fiber every day. documented in this encounter Progress Notes * REMA Prasad - 11/20/2022 8:59 AM EDT Consult requested by Ref: LEOBARDO PADILLA[[id number]] [address] [place] [address] (office) [phone] (fax) CC: Fecal incontinence HPI: Recall that Ms. Patricia Salinas is an 82 year old female pt of Elvia Pink DO with a hx of asthma, COPD, psoriasis, depression, GERD, HLA B27 positive, Migraines and lung nodule. Regarding her fecal leaking, We reviewed her visit here for 2020. At that time she had the same problem which vastly improved after undergoing MiraLax and Dulcolax purge then starting daily regime offiber. She is now on fiber daily and drinking lot of water but is having a lot of leaking, sometimes on her underwear and sometimes passing some liquid stool soon after passing a formed BM. She also underwent EGD in 2020 with Escobedo's, S /P ablation, at that time recommended to undergo EGD for ablation at [place] but patient deferred due to difficulty with transportation. She is otherwise feeling well. The fecal incontinence if "cutting into" her "social life." Diagnostic Testing: Colonoscopy 2020 - Multiple small and large-mouthed diverticula were found in the entire colon. - A 1 mm polyp was found in the ascending colon. The polyp was sessile. The polyp was removed with a cold biopsy forceps. Resection and retrieval were complete. Hemorrhoids on retroflexion. - The exam was otherwise without abnormalit EGD 2020 Dr. Terrazas: - [place] Grade B reflux esophagitis. - Esophageal mucosal changes classified as Escobedo's stage. Biopsied. - 2 cm hiatal hernia. Fundoplication appears mildly loose EGD 2018 in [place]: - [place] Grade A erosive esophagitis. - Esophageal mucosal changes classified as Escobedo's stage C0M1 per [place] criteria. Biopsied. Treated with argon plasma coagulation (APC). - Previous hiatal hernia repair intact but slightly loose. ROS: No lightheadedness, dizziness No fevers, chills, sweats No vision loss, eye pain, redness No oral ulcers No chest pain, palpitations, syncope No cough, shortness of breath, exertional dyspnea No rashes or other skin lesions No new joint pain, swelling, myalgias + bilat lower leg edema, mild, chronic, not worsened. No bleeding tendencies or excessive bruising A total of 12 systems were reviewed, all others (-). ALLERGIES: Review of patient's allergies indicates: Allergen Reactions Dust Sneezing, watering eyes, eventually might develop into asthma attack Other - Environmental Pet Dander Sneezing, watering eyes Pollen Sneezing, watering eyes PMH/PSH/Soc Hx reviewed, significant for: Past Medical History: Diagnosis Date ASTHMA 07/19/2009 [...] DIAGNOSTIC (RECTUM) 12/13/2020 benign adenomatous polyp / [facility] D&C AFTER DELIVERY 2 times EGD, FLEXIBLE, DIAGNOSTIC 05/16/2013 ESOPHAGOGASTRODUODENOSCOPY (EGD), FLEXIBLE, TRANSORAL, DIAGNOSTIC performed by Ruddy Cavazos MD [place] [facility] [place]GD, FLEXIBLE, DIAGNOSTIC 07/05/2013 ESOPHAGOGASTRODUODENOSCOPY (EGD), FLEXIBLE, TRANSORAL, DIAGNOSTIC performed by Ruddy Cavazos MD [facility] [place]GD, FLEXIBLE, DIAGNOSTIC 10/23/2013 ESOPHAGOGASTRODUODENOSCOPY (EGD), FLEXIBLE, TRANSORAL, DIAGNOSTIC performed by Rickey Stern MDa [place] [facility] EGD, FLEXIBLE, DIAGNOSTIC N/A 11/23/2014 ESOPHAGOGASTRODUODENOSCOPY (EGD), FLEXIBLE, TRANSORAL, DIAGNOSTIC performed by Ruddy Cavazos MD [facility] EGD, FLEXIBLE, DIAGNOSTIC N/A 01/29/2015 ESOPHAGOGASTRODUODENOSCOPY (EGD), FLEXIBLE, TRANSORAL, DIAGNOSTIC [facility] EGD, FLEXIBLE, DIAGNOSTIC 12/13/2020 Barretts, reflux esophagitis / [facility] EGD, W/ENDOSCOPIC US N/A 11/22/2017 ESOPHAGOGASTRODUODENOSCOPY (EGD), FLEXIBLE, TRANSORAL, ENDOSCOPIC ULTRASOUND performed by Ruddy Cavazos MD at [place]OS[place] [facility] ESOPHAGOGASTRIC FUNDOPLASTY 10/23/2013 10/23/2013 LAPAROSCOPIC ESOPHAGOGASTRIC FUNDOPLASTY TANJA performed by Rickey Stern MD at [place] [facility] REMOVE CATARACT, INSERT LENS PROSTH 09/22/[address] 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 No mold. Family history reviewed and significant for: Family History Problem Relation Age of Onset Cancer Mother stomach, colon Heart Disorder Mother valve problems from Rheum. fever as a child Arthritis Mother Rheum. fever as a child, hump in back Colon cancer Mother Heart Disorder Father Arthritis Father ? Lung Disorder Sister Pulmonary edema COPD Brother Cancer Brother skin Lung Disorder Brother Diabetes Aunt (Unspecified) Cancer Grandmother (Maternal) Stomach Diabetes Other No outpatient medications have been marked as taking for the 11/20/22 encounter (Appointment) with REMA Prasad. Current Facility-Administered Medications for the 11/20/22 encounter (Appointment) with REMA Prasad Medication Cilgavimab inj 300 mg Tixagevimab inj 300 mg EXAM: BP 124/74 | Pulse 70 | Temp 36.6 C (97.9 F) (Infrared ) | Resp 18 | Wt 61.5 kg (135 lb 8 oz) | LMP (LMP Unknown) | BMI 25.60 kg/m | BSA 1.63 m GENERAL: 82 year old female well developed and well nourished in no acute distress SKIN: no rashes, ulcers, or spider angiomata HEENT: normocephalic, sclera clear, pharynx normal NECK: supple, no lymphadenopathy, no masses or thyroid enlargement LUNGS: clear to auscultation anterior and posterior HEART: regular rate & rhythm, no murmurs and no gallops ABDOMEN: normo-active bowel sounds, soft, non-tender, non-distended no masses, no hepatosplenomegaly, no rebound or guarding, no bruits EXTREMITIES: no palmar erythema, no edema, no skin discoloration, no clubbing, no cyanosis NEURO: no lateralizing findings, Sensory/Motor grossly normal IMPRESSION/RECOMMENDATIONS: 82 year old female with Incontinence of feces, unspecified fecal incontinence type (Primary) - Miralax/dulcolax purge then fiber w miralax daily. See pt instructions. If continues with issues would change laxative - possibly amitiza or Linzess. Continue adequate water intake, about 60oz a day. History of Escobedo's esophagus - EGD, FLEXIBLE, DIAGNOSTIC Follow Up: Return in about 3 months (around 02/20/2023) for after endoscopy. | For: after endoscopy I spent a total of 30 minutes on the date of service in review of patient's record, and previously obtained information in person and appropriate medical visit, discussion and education of plan, withpatient and/or caregiver, placing orders for tests/referral/procedures as medically necessary and documentation of pertinent clinical information in patient's medical records for their visit today. REMA Prasad [facility] Gastroenterology documented in this encounter Nursing Notes * Miguel Gomez RN - 11/20/2022 9:03 AM EDT Patient identified by full name and date of Chief Complaint Patient presents with NEW PATIENT Fecal incontinence documented in this encounter Plan of Treatment Upcoming Encounters Date Type Specialty Care Team Description 12/03/19 Hospital Encounter Endoscopy Jadon Dean MD [address] [place] [address] 12/03/19 23 Surgery Endoscopy Jadon Dean MD [address] [place] [address] ESOPHAGOGASTRODUODENOSCOPY (EGD), FLEXIBLE, TRANSORAL, DIAGNOSTIC 02/23/20 23 Office Visit Gastroenterology Kristina Feldman CRNP [address] [place] [address] 03/10/20 23 Office Visit Family Medicine Elvia iPnk, [address] [facility] [place] [address] 03/16/20 23 Telemedicine General Surgery Marek Petty PA-C [address] [place] [address] 04/07/20 23 Imaging Radiology 05/05/19 24 Laboratory Laboratory Zelda [address] [place] [address] 05/12/19 24 Office Visit Hematology Oncology Jordan Elias MD [address] [place], [place] [address] [address] 11/19/19 24 Office Visit Rheumatology Cesar Gaona MD [address] [facility] [place] [address] Scheduled Orders Name Type Priority Associated Diagnoses Orde r Schedule EGD, FLEXIBLE, DIAGNOSTIC Procedures Routine History of Escobedo's esophagus Ordered: 11/20/2022 Scheduled Procedures Name Priority Associated Diagnoses Date/Ti me ESOPHAGOGASTRODUODENOSCOPY ( EGD), FLEXIBLE, TRANSORAL, DIAGNOSTIC 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 12/02/2022 1:00 PM EDT ESOPHAGOGASTRODUODENOSCOPY ( EGD), FLEXIBLE, TRANSORAL, DIAGNOSTIC Recall Esophagitis, [place]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 Health Maintenance Due [...] COMPLETED IN PAST YEAR FOR COPD 07/25/2023 07/24/2022 DTaP,Tdap,and Td Vaccines (2 - Td or Tdap) 02/06/2024 02/05/2014, 07/09/2003 DXA Scan 09/22/2024 09/22/2022, 06/03, 06/22/2014, Additional history exists COLONOSCOPY-EVERY 5 YRS AGES 18-100 12/13/2025 12/13/2020, 04/01/2017, 09/09/2011 Pneumococcal Vaccine: 65+ Years Completed 02/19/2016, 12/30/2007, 02/06/2000 Albumin/Creatinine Ratio Discontinued 022, 01/02/2022, 10/30/2021, Additional history exists Alpha-1 Antitrypsin Completed 04/29/2022 VITAMIN D LEVEL ONCE IN A LIFETIME-USE SMARTSET# [id number] Completed 10/02/2022, 08/20/2017, 02/01/2017, Additional history exists [...] this encounter Medical Devices Implanted Type Area Insurance Business Analyst Device Identifier Shelf Expiration Date Model / Serial / Lot Alloderm 2x4 Sheet [id number](8 Units) - [id number] Implanted:Qty : 8 on 10/23/2013 [place] [facility] Tissue - Human N/A: Esophagus LIFE CELL ANETTE 05/02/2015 [id number] / / [id number] documented as of this encounter Visit Diagnoses Diagnosis Incontinence of feces, unspecified fecal incontinence type- Primary History of Escobedo's esophagus Escobedo's esophagus with dysplasia Escobedo's esophagus History of Escobedo's esophagus documented in this encounter Advance Directives Latest Code Status on File Code Status Date Activated Date Inactivated Comments Full Code 10/23/2013 11:32 AM 10/24/2013 4:10 PM This order reflects the patients wishes and were consensually agreed upon. Care Teams Time Study Technician Relationship Specialty Start Date End Date Elvia Pink DO [address] [facility] [place] [address] PCP - General Family Medicine 11/19/15 documented as of this encounter
--- OUTSIDE RECORDS SUMMARY | 2023-03-23 02:40 | External Medical Summary | Summary of Care ---
Author Name Unknown Organization [facility] Address [address] [facility] [place] [address] Phone [phone] Care Team Providers Care Rubber Engraver Name Role Phone Elvia Pink DO Primary Care Provider [phone] Reason for Visit * Reason Onset Date Comments Medication Pre-auth 09/25/2022 reclast Encounter Details Date Type Department Care Team Description 09/25/2022 Telephone Rheumatology [address] [place] [phone] Sammie Man MD [address] [facility] [place] [address] Medication Pre-auth (reclast) Allergies Active Allergy Reactions Severity Noted Date Comments Dust 07/19/2009 Sneezing, watering eyes, eventually might develop into asthma attack Other - Environmental 07/19/2009 Pet Dander Sneezing, watering eyes Pollen 07/19/2009 Sneezing, watering eyes documented as of this encounter (statuses as of 11/02/2022) Medications Medication Sig Dispensed Refills Start Date End Date Status SURGICAL COMPRESSION STOCKINGIndications: Anticardiolipin antibody positive,Cutaneous polyarteritis nodosa (HCC) Knee high [...] THE MORNING 180 Tablet 1 03/24/2022 Active Atorvastatin Calcium 40 MG Oral Tablet (Lipitor) Take 1 Tablet (40 mg) by mouth in the morning. 90 Tablet 3 04/07/2022 Active Ferrous Sulfate 325 (65 Fe) MG Oral Tablet (Feosol)Indications: Iron deficiency anemia, unspecified iron deficiency anemia type,Thrombocytosis Take 1 Tablet by mouth daily with breakfast. 90 Tablet 2 05/25/2022 Active Triamcinolone Acetonide 0.1 % External Cream (Aristocort) Apply to legs twice daily as needed for itching 454 g 0 05/25/2022 Active Albuterol Sulfate HFA 108 (90 Base) MCG/ACT Inhalation Aerosol SolutionIndications: Asthma, allergic, mild intermittent, uncomplicated,Angula r cheilitis Inhale 2 Puffs by mouth in the morning and 2 Puffs at noon and 2 Puffs in the evening and 2 Puffs before bedtime. 33.5 g 0 06/22/2022 Active predniSONE 5 MG Oral Tablet (Deltasone) TAKE ONE TABLET BY MOUTH EVERY DAY 90 Tablet 1 08/27/2022 Active Omeprazole 20 MG Oral Tablet Delayed ReleaseIndications:B arrett's esophagus without dysplasia Take 1 Tablet by mouth in the morning and 1 Tablet before bedtime. 180 Tablet 3 09/18/2022 Active predniSONE 1 MG Oral Tablet (Deltasone) Take 4mg daily 360 Tablet 2 09/25/2022 Active Hospital, Clinic, or Other Facility Administered Medication Ordered Dose Route Frequency Start Date End Date Status Tixagevimab inj 300 mgIndications:Encounter for long-term (current) use of medications,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 [id number] 11/14/2021 Active Cilgavimab inj 300 mgIndications:Encounter for long-term (current) use of medications,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 [id number] 11/14/2021 Active documented as of this encounter (statuses as of 11/02/2022) Active Problems Problem Noted Date Senile osteoporosis [...] as of this encounter (statuses as of 11/02/2022) Resolved Problems Problem Noted Date Resolved Date [...] as of this encounter (statuses as of 11/02/2022) Immunizations Name Administration Dates Next Due COVID-19 [...] received for Reclast 5mg IV once yearly Kathleen created and routed to provider for signature Rheum: When the labs and auth are back and patient is ready to be scheduled, please forward back top [phone] for scheduling. Thank you! * Telephone Encounter [...] Encounters Date Type Specialty Care Team Description 11/09/2022 Telemedicine Hematology Oncology Jada, Jordan Lo MD [address] [place] [address] 11/20/2022 Office Visit Gastroenterology Vanessa Burnett MD [address] [facility] [address] [place] [address] 03/10/2023 Office Visit Family Medicine Elvia Pink DO [address] [facility] [place] [address] 03/16/2023 Telemedicine General Surgery Marek Petty PA-C [address] [place] [address] 04/07/2023 Imaging Radiology 11/19/2023 Office Visit Rheumatology Sammie Man MD [address] [place] [address] Scheduled Orders Name Type Priority Associated Diagnoses Orde r Schedule BASIC METABOLIC PANEL Lab Routine Senile osteoporosis Expected: 01/08/2023, Expires: 10/09/2023 Scheduled Procedures Name Priority Associated Diagnoses Date/Ti me ESOPHAGOGASTRODUODENOSCOPY ( EGD), FLEXIBLE, TRANSORAL, DIAGNOSTIC Recall Esophagitis, [place]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 Health Maintenance Due Date Last Done Comments Zoster Vaccines (1 of 2) 01/11/2014 11/16/2013 Depression Screening, Annual for Pts 12 and Over 11/13/2021 11/13/2020 COVID-19 Vaccine (6 - Booster for Moderna series) 11/22/2021 09/27/2021, 06/19/2021, 01/10/2021, Additional history [...] D LEVEL ONCE IN A LIFETIME-USE SMARTSET# [id number] Completed 10/02/2022, 08/20/2017, 02/01/2017, Additional history exists [...] this encounter Medical Devices Implanted Type Area Grades 7 And 8 Teacher Device Identifier Shelf Expiration Date Model / Serial / Lot Alloderm 2x4 Sheet [id number](8 Units) - [id number] Implanted:Q[place] : 8 on 10[place]23/[place] [facility] [place] - Human N/A: Esophagus LIFE CELL ANETTE 05/02/2015 [id number] / / [id number] documented as of this encounter Results * (ABNORMAL) 25-HYDROXY VITAMIN D (10/02/2022 11:06 AM EDT) 25-Hydroxy Vitamin D 15(L) >19 ng/mL 10/02/2022 11:47 PM EDT [facility] Blood Venous blood specimen / Unknown Venipuncture / Unknown 10/02/2022 11:06 AM EDT 10/02/2022 11:06 AM EDT Narrative [facility] - 10/02/2022 11:47 PM EDT Deficient: <20 ng/mL Insufficient: 20-29 ng/mL Recommended/Optimum:30-50 ng/mL Vitamin D intoxication is rare. If suspicious of Vitamin D toxicity, evaluation of serum Calcium and PTH is recommended. Sammie Man MD LAB BLOOD ORDERABLE S [facility] [address] [facility] [place] [address] documented in this encounter Visit Diagnoses Diagnosis Senile osteoporosis- Primary documented in this encounter Advance Directives Latest Code Status on File Code Status Date Activated Date Inactivated Comments Full Code 10/23/2013 11:32 AM 10/24/2013 4:10 PM This order reflects the patients wishes and were consensually agreed upon. Care Teams Rubber Engraver Relationship Specialty Start Date End Date Elvia Pink DO [address] [facility] [place] [address] PCP - General Family Medicine 11/19/15 documented as of this encounter
--- OUTSIDE RECORDS SUMMARY | 2023-03-23 02:40 | External Medical Summary | Summary of Care ---
Author Name Unknown Organization [facility] Address [address] [facility] [facility] [place] [address] Phone [phone] Care Team Providers Care Insurance Verification Clerk Name Role Phone Elvia Pink DO Primary Care Provider [phone] [phone] Encounter Details Date Type Department Care Team Description 11/09/2022 Telemedicine Hematology/Oncology [facility] [address] [place] [address] Jordan Elias MD [address] [place] [address] Thrombocytosis* Allergies Active Allergy Reactions Severity Noted Date Comments Dust 07/19/2009 Sneezing, watering eyes, eventually might develop into asthma attack Other - Environmental 07/19/2009 Pet Dander Sneezing, watering eyes Pollen 07/19/2009 Sneezing, watering eyes documented as of this encounter (statuses as of 11/09/2022) Medications Medication Sig Dispensed Refills Start Date [...] DAY 360 Tablet 2 09/25/2022 09/25/2023 Active Omeprazole 20 MG Oral Tablet Delayed ReleaseIndications: 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 TAKE ONE TABLET BY [...] medications,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 [id number] 11/14/2021 Active Cilgavimab inj 300 mgIndications:Encounter for long-term (current) use of medications,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 [id number] 11/14/2021 Active documented as of this encounter (statuses as of 11/09/2022) Active Problems Problem Noted Date Senile osteoporosis 09/29/2022 Peripheral neuropathy 09/03/2022 Carotid stenosis, non-symptomatic, bilat eral 04/07/2022 Bronchiectasis without complication 03/03 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 Thrombocytosis 11/13/2020 Essential (hemorrhagic) [...] as of this encounter (statuses as of 11/09/2022) Resolved Problems Problem Noted Date Resolved Date [...] asthma with acute exacerba tion 02/02/2014 06/08/2017 Gaspar's esophagus with low grade dysplasia 08/201301/30/2020 Overview: 1 endo clip placed Gastritis 09/15/2011 12/07/2016 Diverticulosis of colon (without mention of hemo rrhage) 09/10/2011 11/19/2015 Overview: Colonoscopy-09/09/11 Gaspar's esophagus 09/08/2011 01/04/2015 Overview: EGD-09/07/11-Dr Stephens Diaphragmatic [...] as of this encounter (statuses as of 11/09/2022) Immunizations Name Administration Dates Next Due COVID-19 [...] as of this encounter Progress Notes * Jordan Elias MD - 11/09/2022 10:48 AM EDT Outpatient Consult Note Data Source: Patient, Epic record. Data Source: Patient, Powered by Peak record. 11/09/2022 10:48 AM Patient location: HOME. I was in a hospital or clinic location. After connecting through televideo,patient was verified with two unique identifiers. Patient (or authorized legal signs and displays sales representative) was then informed that this was a Telemedicine visit and being conducted confidentially over secure lines. Methods to assure confidentiality were taken. Patient acknowledged consent and understanding of pr ivacy and security of the Telemedicine visit. The patient agreed to participate. Patricia Salinas [id number] 82 year old Patient Encounter: HEMATOLOGY/ONCOLOGY [facility] Cancer Diagnosis: Anemia and history of thrombocytopenia.She had complete recovery of thrombocytopenia. Now shehas thrombocytosis. JAK2 mutation was negative Current Treatment: Observation Previous Treatment: None Oncologic History : 82-year-old female was referred to me for evaluation of anemia. Her past medical history significant for polyarteritis nodosa, Vasculitis, iron deficiency anemia, spondyloarthropathy, gaspar's esophagus, GERD, s/p flores fundoplication, chronic cough. In March of 2018 she presented to the [facility] with fever, chills, fatigue and diarrhea. CT scan showed bilateral lower lobe pneumonia. Her chest x-ray also shows left lower lobe pneumonia. Platelet counts was found to be 35,000. [facility] was treated to with the antibiotics. Workup for DIC was negative and there was no evidence ofTTP. Her history is also significant for the anemia for many years. Last CBC was done on May 17, 2018 shows WBC count of 8.2 hemoglobin 10.3 platelet count 510, MCV 87.6 RDW is 15 and normal differential.She has low hemoglobin atleast since December of 2016. Ferritin level on March 14, 2018was 469,retic count was 2.78,and peripheral blood smear shows normocytic hypochromic anemia with thrombocytosis. Family history significant for oncologic problem. Mother was diagnosed of a stomach cancer. Hergrandmother was also diagnosed of stomach cancer. The mother is was 80-year-old man she was diagnosed of cancer Review of peripheral blood shows as follow: Peripheral blood, smear: - Mild normocytic anemia (MCV 89.0 fL, HGB 10.7 g/dL) with possible rouleaux and mild thrombocytosis (PLT 553,000) and history of a slightly abnormal lebkygi-4-pgqcnimt-dehydrogenase (G6PD) test in 2018. No definitive morphologic evidence of hemolysis, however; rare schistocytes are noted JAK2 QUANTITATIVE 0.00 - 0.24 % 0.01 JAK2 INTERPRETATION NEGATIVE Interval History: Overall clinically she is stable without any new symptoms. Denies any fever, night sweats, blurred vision, chest pain, palpitation, bleeding, bruising, hematuria, hematochezia. LABS/IMAGING: Results for orders placed or performed in visit on 10/02/22 COMPREHENSIVE METABOLIC PANEL Result Value Ref Range BUN 14 6 - 20 mg/dL Creatinine 0.9 0.5 - 1.0 mg/dL Estimated Glomerular Filtration Rate 69 >=60 mL/min Sodium 139 135 - 146 mmol/L Potassium 4.2 3.5 - 5.1 mmol/L Chloride 101 98 - 107 mmol/L CO2 25 22 - 32 mmol/L Anion Gap 13 7 - 15 mmol/L Glucose 77 70 - 120 mg/dL Albumin 4.4 3.8 - 5.0 g/dL AST 17 10 - 35 U/L Alkaline Phosphatase 55 35 - 130 U/L Bilirubin, Total 0.4 <=1.2 mg/dL Calcium 9.3 8.4 - 10.2 mg/dL Protein 6.7 6.0 - 8.3 g/dL ALT 12 10 - 35 U/L 25-HYDROXY VITAMIN D Result Value Ref Range 25-Hydroxy Vitamin D 15 (L) >19 ng/mL MYCODE SST1 Result Value Ref Range MyCode Specimen Freezing of extracted DNA, whole blood and/or serum. MYCODE SST2 Result Value Ref Range MyCode Specimen Freezing of extracted DNA, whole blood and/or serum. CBC Result Value Ref Range WBC 8.59 4.00 - 10.80 K/uL RBC 4.92 3.85 - 5.15 M/uL HGB 13.2 12.0 - 15.3 g/dL HCT 44.2 36.0 - 45.2 % MCV 89.8 81.5 - 97.5 fL MCH 26.8 27.0 - 34.0 pg MCHC 29.9 32.0 - 36.0 g/dL RDW 13.3 11.5 - 15.5 % PLT 477 (H) 140 - 400 K/uL MPV 8.2 6.6 - 11.1 fL nRBCs 0 <=0 /100 WBCs DIFFERENTIAL, AUTOMATED Result Value Ref Range WBC 8.59 4.00 - 10.80 K/uL Neutrophils % 62.9 40.0 - 75.0 % Lymphocytes % 26.5 18.0 - 42.0 % Monocytes % 8.3 1.0 - 11.0 % Eosinophils % 1.4 0.0 - 6.0 % Basophils % 0.6 0.0 - 2.0 % Immature Granulocytes % 0.3 0.0 - 2.0 % Absolute Neutrophils 5.40 1.80 - 7.70 K/uL Absolute Lymphocytes 2.28 1.00 - 4.80 K/ul Absolute Monocytes 0.71 0.00 - 1.10 K/uL Absolute Eosinophils 0.12 0.00 - 0.70 K/uL Absolute Basophils 0.05 0.00 - 0.20 K/uL Absolute Immature Granulocytes 0.03 0.00 - 0.20 K/uL *Note: Due to a large number of results and/or encounters for the requested time period, some results have not been displayed. A complete set of results can be found in Results Review. Blood counts are in stable range. REVIEW OF SYSTEMS: General: No Fever, chills, night sweats, or weight loss. HEENT: No change in visual acuity, blurred or double vision. No epistaxis, facial pain, nasal discharge or change in hearing. Denies dysphagia, no muscosal ulceration, or sores noted. Cardiovascular: No chest pain, KING, or palpitations Respiratory: No shortness of breath, cough, hemoptysis, or pleuritic chest pain Gastrointestinal: stable abdominal pain, No nausea, vomiting, diarrhea, rectal pain or bleeding Genitourinary: Denies Hematuria or dysuria Musculoskeletal: Stable generalized weakness Skin: No skin rash or lesions noted Neurologic: No numbness, weakness, neuropathic pain or change in cognitive function Psychiatric: No vegetative signs of depression Endocrine: No symptoms of hypothyroidism or hyperglycemia Hematologic: No bleeding or lymph nodes noted As mentioned above, all of the systems were reviewed in full and are unremarkable. 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 Gaspar's esophagus 09/08/2011 Gaspar's esophagus 07/05/2013 1 endo clip placed Chronic cough 08/06/2015 COPD (chronic obstructive pulmonary disease) ([facility]) DEPRESSION 07/19/2009 Diaphragmatic hernia without mention of obstruction or gangrene 09/08/2011 Diverticulosis of colon (without mention of hemorrhage) 09/10/2011 Esophageal reflux 07/19/2009 Gastritis 09/15/2011 HLAB 27+ 07/19/2009 KAITLIN (iron deficiency anemia) 09/16/2011 Lesion of soft tissue of lower leg and ankle 09/11/2016 Lung nodule MIGRAINE 07/19/2009 PSORIASIS 07/19/2009 Psoriatic arthropathy ([facility]) 11/20/2010 Pulmonary nodule 09/11/2016 Thrombocytopenia ([facility]) 03/14/2018 Thrombocytopenia ([facility]) 03/14/2018 Current Outpatient Medications Medication Sig Dispense Refill [...] Oral Tablet Chewable Take by mouth . Mycophenolate Mofetil 500 MG Oral Tablet (Cellcept) TAKE TWO TABLETS BY MOUTH IN THE MORNING 180 Tablet 1 Ferrous Sulfate 325 (65 Fe) MG Oral Tablet (Feosol) Take 1 Tablet by mouth daily with breakfast. 90 Tablet 2 predniSONE 1 MG Oral Tablet (Deltasone) TAKE FOUR TABLETS BY MOUTH EVERY DAY 360 Tablet 2 Omeprazole 20 MG Oral Tablet Delayed Release TAKE ONE TABLET BY MOUTH IN THE MORNING AND ONE TABLET BEFORE BEDTIME 180 Tablet 3 predniSONE 5 MG Oral Tablet (Deltasone) TAKE ONE TABLET BY MOUTH EVERY DAY 90 Tablet 1 Albuterol Sulfate HFA 108 (90 Base) MCG/ACT Inhalation Aerosol Solution INHALE TWO PUFFS BY MOUTH EVERY MORNING & TWO PUFFS AT NOON & TWO PUFFS IN THE EVENING & TWO PUFFS BEFORE BEDTIME 33.5 g 0 Ferrous Sulfate 325 (65 Fe) MG Oral Tablet Delayed Release TAKE ONE TABLET BY MOUTH DAILY WITH BREAKFAST 90 Tablet 2 Triamcinolone Acetonide 0.1 % External Cream (Aristocort) APPLY TO LEGS TWICE DAILY NEEDED FOR ITCHING 454 g 0 Atorvastatin Calcium 40 MG Oral Tablet (Lipitor) TAKE ONE TABLET BY MOUTH EVERY MORNING 90 Tablet 3 Mycophenolate Mofetil 500 MG Oral Tablet (Cellcept) TAKE TWO TABLETS BY MOUTH IN THE MORNING 180 Tablet 1 Current Facility-Administered Medications Medication Dose Route Frequency Provider Last Rate Last Admin Tixagevimab inj 300 mg 300 mg Intramuscular Q6 Months Cesar Gaona MD 300 mg at 11/14/21 1253 Cilgavimab inj 300 mg 300 mg Intramuscular Q6 Months Cesar Gaona MD 300 mg at 11/14/21 1252 Social History Tobacco Use Smoking status: Former Packs/day: 0.50 Years: 24.00 Pack years: 12.00 Types: Cigarettes Quit date: 05/03/1983 Years since quittin.5 Smokeless tobacco: Never Vaping Use Vaping Use: Never used Substance Use Topics Alcohol use: Yes Alcohol/week: 0.8 standard drinks Types: 1 5 oz of wine per week Comment: OCCASIONAL Drug use: No Review of patient's allergies indicates: Allergen Reactions Dust Sneezing, watering eyes, eventually might develop into asthma attack Other - Environmental Pet Dander Sneezing, watering eyes Pollen Sneezing, watering eyes ASSESSMENT: 82-year-old female was initially seen because of thrombocytopenia and anemia. She recovered andnow she is running high platelet count. JAK2 mutation was negative.Her past medical history significant polyarteritis nodosa, Vasculitis, iron deficiency anemia, spondyloarthropathy, gaspar's esophagus, GERD. Overall clinically she is stable without any new symptoms complain. Her blood counts are in stable range with normal WBC and hemoglobin level. Platelet counts are high but overall stable. Reviewed all the available blood test result with the patient. Discussed with her about diagnosis. At this point the best option is to continue to monitor the patient clinically. PLAN: Return to clinic in 6 months with CBC and CMP. The patient voiced understanding of all of the above. All questions and concerns were addressed in an apparently satisfactory manner. Jordan Elias MD (This note was completed using the dictation program Fluency Direct. As such, there may be misspellings, word substitutions, or other variations that should not change the essence of the clinical content of this encounter note. If there is need for further clarification, please direct questions to me.) documented in this encounter Plan of Treatment Upcoming Encounters Date Type Specialty Care Team Description 11/20/2022 Office Visit Gastroenterology Vanessa Burnett MD [address] [facility] [address] [place] [address] 03/10/2023 Office Visit Family Medicine Elvia Pink DO [address] [place] [address] 03/16/2023 Telemedicine General Surgery Marek Petty PA-C [address] [place], [place] [id number] 04/07/2023 Imaging Radiology 11/19/2023 Office Visit Rheumatology Cesar Gaona MD [address] [place] [address] Scheduled Orders Name Type Priority Associated Diagnoses Orde r Schedule CBC WITH WBC DIFFERENTIAL Lab Routine Thrombocytosis Expected: 05/10/2023, Expires: 09/14/2023 COMPREHENSIVE METABOLIC PANEL Lab Routine Thrombocytosis Expected: 05/10/2023, Expires: 09/14/2023 Scheduled Procedures Name Priority Associated Diagnoses Date/Ti me ESOPHAGOGASTRODUODENOSCOPY ( EGD), FLEXIBLE, TRANSORAL, DIAGNOSTIC Recall Esophagitis, [place] grade A Gaspar's esophagus Health Maintenance Due Date Last Done [...] D LEVEL ONCE IN A LIFETIME-USE SMARTSET# [id number] Completed 10/02/2022, 08/20/2017, 02/01/2017, Additional history exists [...] this encounter Medical Devices Implanted Type Area Cdl Team Truck Driver Device Identifier Shelf Expiration Date Model / Serial / Lot Alloderm 2x4 Sheet [id number](8 Units) - [id number] Implanted:Qty : 8 on 10/23/2013 at [facility] Tissue - Human N/A: Esophagus LIFE CELL ANETTE 05/02/2015 [id number] / / [id number] documented as of this encounter Visit Diagnoses Diagnosis Thrombocytosis- Primary Essential thrombocythemia documented in this encounter Advance Directives Latest Code Status on File Code Status Date Activated Date Inactivated Comments Full Code 10/23/2013 11:32 AM 10/24/2013 4:10 PM This order reflects the patients wishes and were consensually agreed upon. Care Teams Insurance Verification Clerk Relationship Specialty Start Date End Date Elvia Pink DO [address] [facility] [place] [address] PCP - General Family Medicine 11/19/15 documented as of this encounter
--- OUTSIDE RECORDS SUMMARY | 2023-03-23 02:40 | External Medical Summary | Summary of Care ---
Author Name Unknown Organization [facility] Address [address] [facility] [place] [address] Phone [phone] Care Team Providers Care Chronic Disease Epidemiologist Name Role Phone Elvia Pink DO Primary Care Provider [phone] Reason for Visit * Reason Onset Date Comments Medication Pre-auth 09/25/2022 Recjan Encounter Details Date Type Department Care Team Description 09/25/2022 Telephone Rheumatology [address] [place] [id number] Sammie Man MD [address] [facility] [place] [address] Medication Pre-auth (January ) Allergies Active [...] medications,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 [id number] 11/14/2021 Active Cilgavimab inj 300 mgIndications:Encounter for long-term (current) use of medications,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 [id number] 11/14/2021 Active documented as of this encounter [...] received for Reclast 5mg IV once yearly [place] created and routed to provider for signature Rheum: When the labs and auth are back and patient is ready to be scheduled, please [place] [phone] for scheduling. Thank you! * Telephone Encounter [...] Care Team Description 11/09/2022 Telemedicine Hematology Oncology Jordan Elias MD [address] [place] [facility] [place] [address] 11/20/2022 Office Visit Gastroenterology Vanessa Burnett MD [address] [facility] [address] [place] [address] 03/10/2023 Office Visit Family Medicine Elvia Pink DO [address] [facility] [place] [address] 03/16/2023 Telemedicine General Surgery Marek Petty PA-C [address] [facility] [place] [address] 04/07/2023 Imaging Radiology 11/19/2023 Office Visit Rheumatology Sammie Man MD [address] [place] [address] Scheduled Orders Name Type Priority Associated Diagnoses Orde r Schedule BASIC METABOLIC PANEL Lab Routine Senile osteoporosis Expected: 01/08/2023, Expires: 10/09/2023 Scheduled Procedures Name Priority Associated Diagnoses Date/Ti me ESOPHAGOGASTRODUODENOSCOPY ( EGD), FLEXIBLE, TRANSORAL, DIAGNOSTIC Recall Esophagitis, [place]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 Health Maintenance Due [...] D LEVEL ONCE IN A LIFETIME-USE SMARTSET# [id number] Completed 10/02/2022, 08/20/2017, 02/01/2017, Additional history exists [...] this encounter Medical Devices Implanted Type Area Hand Buffing Wheel Former Device Identifier Shelf Expiration Date Model / Serial / Lot Alloderm 2x4 Sheet [id number](8 Units) - [id number] Implanted:Qty : 8 on 10/23/2013 at OR [place] Tissue - Human N/A: Esophagus LIFE CELL ANETTE 05/02/2015 [id number] / / [id number] documented as of this encounter Results * (ABNORMAL) 25-HYDROXY VITAMIN D (10/02/2022 11:06 AM EDT) 25-Hydroxy Vitamin D 15(L) >19 ng/mL 10/02/2022 11:47 PM EDT [facility] Blood Venous blood specimen / Unknown Venipuncture / Unknown 10/02/2022 11:06 AM EDT 10/02/2022 11:06 AM EDT Narrative [facility] - 10/02/2022 11:47 PM EDT Deficient: <20 ng/mL Insufficient: 20-29 ng/mL Recommended/Optimum:30-50 ng/mL Vitamin D intoxication is rare. If suspicious of Vitamin D toxicity, evaluation of serum Calcium and PTH is recommended. Sammie Man MD LAB BLOOD ORDERABLE S [facility] [address] [facility] [place] [address] documented in this encounter Visit Diagnoses Diagnosis Senile osteoporosis- Primary documented in this encounter Advance Directives Latest Code Status on File Code Status Date Activated Date Inactivated Comments Full Code 10/23/2013 11:32 AM 10/24/2013 4:10 PM This order reflects the patients wishes and were consensually agreed upon. Care Teams Chronic Disease Epidemiologist Relationship Specialty Start Date End Date Elvia Pink DO [address] [facility] [place] [address] PCP - General Family Medicine 11/19/15 documented as of this encounter
--- OUTSIDE RECORDS SUMMARY | 2023-03-23 02:40 | External Medical Summary | Summary of Care ---
Author Name Unknown Organization [facility] Address [address] [facility] [place] [address] Phone [phone] Care Team Providers Care Sheet Metal Insulator Name Role Phone Elvia Pink DO Primary Care Provider [phone] Reason for Visit * Reason Onset Date Comments Medication Pre-auth 09/25/2022 reclast Encounter Details Date Type Department Care Team Description 09/25/2022 Telephone Rheumatology [address] [place] [phone] Sammie Man MD [address] [facility] [place] [address] Medication Pre-auth (reclast) Allergies Active Allergy Reactions Severity Noted Date Comments Dust 07/19/2009 Sneezing, watering eyes, eventually might develop into asthma attack Other - Environmental 07/19/2009 Pet Dander Sneezing, watering eyes Pollen 07/19/2009 Sneezing, watering eyes documented as of this encounter (statuses as of 10/19/2022) Medications Medication Sig Dispensed Refills Start Date [...] medications,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 [id number] 11/14/2021 Active Cilgavimab inj 300 mgIndications:Encounter for long-term (current) use of medications,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 [id number] 11/14/2021 Active documented as of this encounter (statuses as of 10/19/2022) Active Problems Problem Noted Date Senile osteoporosis [...] as of this encounter (statuses as of 10/19/2022) Resolved Problems Problem Noted Date Resolved Date [...] as of this encounter (statuses as of 10/19/2022) Immunizations Name Administration Dates Next Due COVID-19 [...] received for Reclast 5mg IV once yearly [place] created and routed to provider for signature Rheum: When the labs and auth are back and patient is ready to be scheduled, please forward back [place] [phone] for scheduling. Thank you! * Telephone Encounter [...] Hematology Oncology Jada, Jordan Lo MD [address] [place] [address] 11/20/2022 Office Visit Gastroenterology Vanessa Burnett MD [address] [facility] [address] [place] [address] 03/10/2023 Office Visit Family Medicine Elvia Pink DO [address] [facility] [place] [address] 03/16/2023 Telemedicine General Surgery Marek Petty PA-C [address] [place] [address] 04/07/2023 Imaging Radiology 11/19/2023 Office Visit Rheumatology Sammie Man MD [address] [place] [address] Scheduled Orders Name Type Priority Associated Diagnoses Orde r Schedule BASIC METABOLIC PANEL Lab Routine Senile osteoporosis Expected: 01/08/2023, Expires: 10/09/2023 Scheduled Procedures Name Priority Associated Diagnoses Date/Ti me ESOPHAGOGASTRODUODENOSCOPY ( EGD), FLEXIBLE, TRANSORAL, DIAGNOSTIC Recall Esophagitis, [place]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 Health Maintenance Due Date Last Done Comments Zoster Vaccines (1 of 2) 01/11/2014 11/16/2013 Depression Screening, Annual for Pts 12 and Over 11/13/2021 11/13/2020 COVID-19 Vaccine (6 - Booster for Moderna series) 11/22/2021 09/27/2021, 06/19/2021, 01/10/2021, Additional history exists *BISPHONATE OR OTHER ACCEPTABLE MEDICATION NEEDED FOR OSTEOPOROSIS (REFER TO SMARTSET #1146) 10/02/2022 O2 ASSESSMENT COMPLETED IN PAST YEAR FOR COPD 07/25/2023 07/24/2022 DTaP,Tdap,and Td Vaccines (2 - Td or Tdap) 02/06/2024 02/05/2014, 07/09/2003 DXA Scan 09/22/2024 09/22/2022, 06/03, 06/22/2014, Additional history exists COLONOSCOPY-EVERY 5 YRS AGES 18-100 12/13/2025 12/13/2020, 04/01/2017, 09/09/2011 Pneumococcal Vaccine: 65+ Years Completed 02/19/2016, 12/30/2007, 02/06/2000 Albumin/Creatinine Ratio Discontinued 022, 01/02/2022, 10/30/2021, Additional history exists Influenza Vaccine (FLU shot) Completed 02/12/2022, 02/06/2021, 01/31/2020, Additional history exists Alpha-1 Antitrypsin Completed 04/29/2022 VITAMIN D LEVEL ONCE IN A LIFETIME-USE SMARTSET# [id number] Completed 10/02/2022, 08/20/2017, 02/01/2017, Additional history exists [...] this encounter Medical Devices Implanted Type Area Cafeteria Server Device Identifier Shelf Expiration Date Model / Serial / Lot Alloderm 2x4 Sheet [id number](8 Units) - [id number] Implanted:Qty : 8 on 10/23/2013 at [facility] Tissue - Human N/A: Esophagus LIFE CELL ANETTE 05/02/2015 [id number] / / [id number] documented as of this encounter Results * (ABNORMAL) 25-HYDROXY VITAMIN D (10/02/2022 11:06 AM EDT) 25-Hydroxy Vitamin D 15(L) >19 ng/mL 10/02/2022 11:47 PM EDT [facility] Blood Venous blood specimen / Unknown Venipuncture / Unknown 10/02/2022 11:06 AM EDT 10/02/2022 11:06 AM EDT Narrative [facility] - 10/02/2022 11:47 PM EDT Deficient: <20 ng/mL Insufficient: 20-29 ng/mL Recommended/Optimum:30-50 ng/mL Vitamin D intoxication is rare. If suspicious of Vitamin D toxicity, evaluation of serum Calcium and PTH is recommended. Sammie Man MD LAB BLOOD ORDERABLE S [facility] [address] [facility] [place] [place] [address] documented in this encounter Visit Diagnoses Diagnosis Senile osteoporosis- Primary documented in this encounter Advance Directives Latest Code Status on File Code Status Date Activated Date Inactivated Comments Full Code 10/23/2013 11:32 AM 10/24/2013 4:10 PM This order reflects the patients wishes and were consensually agreed upon. Care Teams Sheet Metal Insulator Relationship Specialty Start Date End Date Elvia Pink DO [address] [facility] [place] [address] PCP - General Family Medicine 11/19/15 documented as of this encounter
--- OUTSIDE RECORDS SUMMARY | 2023-03-23 02:41 | External Medical Summary | Summary of Care ---
Author Name Unknown Organization [facility] Address [address] [facility] [place] [address] Phone [phone] Care Team Providers Care Plastic Installer Name Role Phone Elvia Pink DO Primary Care Provider +1 [phone] Reason for Visit * Reason Onset Date Comments Order Request 10/05/2022 Encounter Details Date Type Department Care Team Description 10/05/2022 Telephone Rheumatology [facility] [address] [employer] [place] [address] Cesar Gaona MD [address] [place] [address] Order Request Allergies Active Allergy Reactions Severity Noted Date Comments Dust 07/19/2009 Sneezing, watering eyes, eventually might develop into asthma attack Other - Environmental 07/19/2009 Pet Dander Sneezing, watering eyes Pollen 07/19/2009 Sneezing, watering eyes documented as of this encounter (statuses as of 10/05/2022) Medications Medication Sig Dispensed Refills Start Date [...] medications,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 [id number] 11/14/2021 Active Cilgavimab inj 300 mgIndications:Encounter for long-term (current) use of medications,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 [id number] 11/14/2021 Active documented as of this encounter (statuses as of 10/05/2022) Active Problems Problem Noted Date Senile osteoporosis [...] as of this encounter (statuses as of 10/05/2022) Resolved Problems Problem Noted Date Resolved Date [...] as of this encounter (statuses as of 10/05/2022) Immunizations Name Administration Dates Next Due COVID-19 [...] encounter Miscellaneous Notes * Telephone Encounter - Cesar Gaona MD - 10/05/2022 7:55 AM EDT Repeat vit d level in 3 months documented in this encounter Plan of Treatment Upcoming Encounters Date Type Specialty Care Team Description 11/09/2022 Telemedicine Hematology Oncology Jada, Jordan Lo MD [address] [place] [address] 11/20/2022 Office Visit Gastroenterology Vanessa Burnett MD [address] [facility] [address] [place] [address] 03/10/2023 Office Visit Family Medicine Elvia Pink DO [address] [place] [address] 03/16/2023 Telemedicine General Surgery Marek Petty PA-C [address] [place] [address] 04/07/2023 Imaging Radiology 11/19/2023 Office Visit Rheumatology Cesar Gaona MD [address] [place] [address] Scheduled Orders Name Type Priority Associated Diagnoses Orde r Schedule 25-HYDROXY VITAMIN D Lab Routine Vitamin D deficiency Expected: 01/05/2023, Expires: 10/06/2023 Scheduled Procedures Name Priority Associated Diagnoses Date/Ti me ESOPHAGOGASTRODUODENOSCOPY ( EGD), FLEXIBLE, TRANSORAL, DIAGNOSTIC Recall Esophagitis, [place]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 Health Maintenance Due [...] D LEVEL ONCE IN A LIFETIME-USE SMARTSET# [id number] Completed 10/02/2022, 08/20/2017, 02/01/2017, Additional history exists [...] this encounter Medical Devices Implanted Type Area Audit Officer Device Identifier Shelf Expiration Date Model / Serial / Lot Alloderm 2x4 Sheet [id number](8 Units) - [id number] Implanted:Qty : 8 on 10/23/2013 at OR [facility] Tissue - Human N/A: Esophagus LIFE CELL ANETTE 05/02/2015 [id number] / / [id number] documented as of this encounter Visit Diagnoses Diagnosis Vitamin D deficiency- Primary Unspecified vitamin D deficiency documented in this encounter Advance Directives Latest Code Status on File Code Status Date Activated Date Inactivated Comments Full Code 10/23/2013 11:32 AM 10/24/2013 4:10 PM This order reflects the patients wishes and were consensually agreed upon. Care Teams Plastic Installer Relationship Specialty Start Date End Date Elvia Pink DO [address] [facility] [place] [address] PCP - General Family Medicine 11/19/15 documented as of this encounter
--- OUTSIDE RECORDS SUMMARY | 2023-03-23 02:41 | External Medical Summary | Summary of Care ---
Author Name Unknown Organization [facility] Address [address] [facility] [place] [address] Phone [phone] Care Team Providers Care Manager Of Tires Sales Name Role Phone Elvia Pink DO Primary Care Provider [phone] [phone] Reason for Visit * Reason Onset Date Comments Medication Pre-auth 09/25/2022 reclast Encounter Details Date Type Department Care Team Description 09/25/2022 Telephone Rheumatology [address] [place] [phone] Sammie Man MD [address] [facility] [place] [address] Medication Pre-auth (reclast) Allergies Active Allergy [...] medications,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 [id number] 11/14/2021 Active Cilgavimab inj 300 mgIndications:Encounter for long-term (current) use of medications,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 [id number] 11/14/2021 Active documented as of this encounter [...] encounter Miscellaneous Notes * Addendum Note - Sammie Man MD [...] received for Reclast 5mg IV once yearly [place] created and routed to provider for signature Rheum: When the labs and auth are back and patient is ready to be scheduled, please forward back top [phone] for scheduling. Thank you! * Telephone Encounter [...] Telemedicine Hematology Oncology Jordan Elias MD [address] [place] [address] 11/20/2022 Office Visit Gastroenterology Vanessa Burnett MD [address] [facility] [address] [place] [address] 03/10/2023 Office Visit Family Medicine Elvia Pink DO [address] [place] [address] 03/16/2023 Telemedicine General Surgery Marek Petty PA-C [address] [place] [address] 04/07/2023 Imaging Radiology 11/19/2023 Office Visit Rheumatology Sammie Man MD [address] [place] [address] Scheduled Orders Name Type Priority Associated Diagnoses Orde r Schedule BASIC METABOLIC PANEL Lab Routine Senile osteoporosis Expected: 01/08/2023, Expires: 10/09/2023 Scheduled Procedures Name Priority Associated Diagnoses Date/Ti me ESOPHAGOGASTRODUODENOSCOPY ( EGD), FLEXIBLE, TRANSORAL, DIAGNOSTIC Recall Esophagitis, [place]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 Health Maintenance Due [...] D LEVEL ONCE IN A LIFETIME-USE SMARTSET# [id number] Completed 10/02/2022, 08/20/2017, 02/01/2017, Additional history exists [...] this encounter Medical Devices Implanted Type Area Refractory Specialist Device Identifier Shelf Expiration Date Model / Serial / Lot Alloderm 2x4 Sheet [id number](8 Units) - [id number] Implanted:Qty : 8 on 10/23/2013 at [place] [facility] [place] Tissue - Human N/A: Esophagus LIFE CELL ANETTE 05/02/2015 [id number] / / [id number] documented as of this encounter Results * (ABNORMAL) 25-HYDROXY VITAMIN D (10/02/2022 11:06 AM EDT) 25-Hydroxy Vitamin D 15(L) >19 ng/mL 10/02/2022 11:47 PM EDT LABORATORY [facility] Blood Venous blood specimen / Unknown Venipuncture / Unknown 10/02/2022 11:06 AM EDT 10/02/2022 11:06 AM EDT Narrative LABORATORY [facility] - 10/02/2022 11:47 PM EDT Deficient: <20 ng/mL Insufficient: 20-29 ng/mL Recommended/Optimum:30-50 ng/mL Vitamin D intoxication is rare. If suspicious of Vitamin D toxicity, evaluation of serum Calcium and PTH is recommended. Sammie Man MD LAB BLOOD ORDERABLE S LABORATORY [facility] [address] [facility] [address] [place] [address] documented in this encounter Visit Diagnoses Diagnosis Senile osteoporosis- Primary documented in this encounter Advance Directives Latest Code Status on File Code Status Date Activated Date Inactivated Comments Full Code 10/23/2013 11:32 AM 10/24/2013 4:10 PM This order reflects the patients wishes and were consensually agreed upon. Care Teams Manager Of Tires Sales Relationship Specialty Start Date End Date Elvia Pink DO [address] [facility] [place] [address] PCP - General Family Medicine 11/19/15 documented as of this encounter
--- OUTSIDE RECORDS SUMMARY | 2023-03-23 02:41 | External Medical Summary | Summary of Care ---
Author Name Unknown Organization [facility] Address [address] [facility] [place] [address] Phone [phone] Care Team Providers Care Brand Marketing Specialist Name Role Phone Elvia Pink DO Primary Care Provider [phone] [phone] Reason for Visit * Reason Onset Date Comments Medication Pre-auth 09/25/2022 reclast Encounter Details Date Type Department Care Team Description 09/25/2022 Telephone Rheumatology [address] [place] [phone] Cesar Gaona MD [address] [facility] [place] [address] Medication Pre-auth (reclast) Allergies Active Allergy Reactions Severity Noted Date Comments Dust 07/19/2009 Sneezing, watering eyes, eventually might develop into asthma attack Other - Environmental 07/19/2009 Pet Dander Sneezing, watering eyes Pollen 07/19/2009 Sneezing, watering eyes documented as of this encounter (statuses as of 10/08/2022) Medications Medication Sig Dispensed Refills Start Date [...] medications,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 [id number] 11/14/2021 Active Cilgavimab inj 300 mgIndications:Encounter for long-term (current) use of medications,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 [id number] 11/14/2021 Active documented as of this encounter (statuses as of 10/08/2022) Active Problems Problem Noted Date Senile osteoporosis [...] as of this encounter (statuses as of 10/08/2022) Resolved Problems Problem Noted Date Resolved Date [...] as of this encounter (statuses as of 10/08/2022) Immunizations Name Administration Dates Next Due COVID-19 [...] received for Reclast 5mg IV once yearly [place] created and routed to provider for signature Rheum: When the labs and auth are back and patient is ready to be scheduled, please forward back top [phone] for scheduling. Thank you! * Telephone Encounter - Neha Birch LPN - 09/29/2022 10:17 AM EDT Please auth, thanks * Telephone Encounter - Cesar Gaona MD - 09/25/2022 4:33 PM EDT Can we look into coverage for IV Reclast for her osteoporosis. Can not get oral therapy because of heartburn. documented in this encounter Plan of Treatment Upcoming Encounters Date Type Specialty Care Team Description 11/09/2022 Telemedicine Hematology Oncology Jada, Jordan Lo MD [address] [place], [place] [id number] 11/20/2022 Office Visit Gastroenterology Vanessa Burnett MD [address] [facility] [address] [place] [address] 03/10/2023 Office Visit Family Medicine Elvia Pink, [address] [place] [address] 03/16/2023 Telemedicine General Surgery Marek Petty PA-Sly [address] [place], [place] [address] 04/07/2023 Imaging Radiology 11/19/2023 Office Visit Rheumatology Cesar Gaona MD [address] [place] [address] Scheduled Procedures Name Priority Associated Diagnoses Date/Ti me ESOPHAGOGASTRODUODENOSCOPY ( EGD), FLEXIBLE, TRANSORAL, DIAGNOSTIC Recall Esophagitis, [place]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 [place] Tissue - Human N/A: Esophagus LIFE CELL ANETTE 05/02/2015 [id number] / / [id number] documented as of this encounter Results * (ABNORMAL) 25-HYDROXY VITAMIN D (10/02/2022 11:06 AM EDT) 25-Hydroxy Vitamin D 15(L) >19 ng/mL 10/02/2022 11:[address] [facility] Blood Venous blood specimen / Unknown Venipuncture / Unknown 10/02/2022 11:06 AM EDT 10/02/2022 11:06 AM EDT Narrative [facility]ORY [facility] - 10/02/2022 11:47 PM EDT Deficient: <20 ng/mL Insufficient: 20-29 ng/mL Recommended/Optimum:30-50 ng/mL Vitamin D intoxication is rare. If suspicious of Vitamin D toxicity, evaluation of serum Calcium and PTH is recommended. Cesar Gaona MD LAB BLOOD ORDERABLE S [facility]ATORY [facility] [address] [facility] [place] [address] documented in this encounter Visit Diagnoses Diagnosis Senile osteoporosis- Primary documented in this encounter Advance Directives Latest Code Status on File Code Status Date Activated Date Inactivated Comments Full Code 10/23/2013 11:32 AM 10/24/2013 4:10 PM This order reflects the patients wishes and were consensually agreed upon. Care Teams Brand Marketing Specialist Relationship Specialty Start Date End Date Elvia Pink DO [address] [facility] [place] [address] PCP - General Family Medicine 11/19/15 documented as of this encounter
--- OUTSIDE RECORDS SUMMARY | 2023-03-23 02:41 | External Medical Summary | Summary of Care ---
Author Name Unknown Organization [facility] Address [address] [facility] [place] [address] Phone [phone] Care Team Providers Care River Expedition Guide Name Role Phone Elvia Pink DO Primary Care Provider [phone] [phone] Reason for Visit * Reason Onset Date Comments Medication Refill 10/12/2022 Encounter Details Date Type Department Care Team Description 10/12/2022 Refill Family Practice [address] [place] [address] Robinson Sky PA-C [address] [place] [address] Allergies Active Allergy Reactions Severity Noted Date Comments Dust 07/19/2009 Sneezing, watering eyes, eventually might develop into asthma attack Other - Environmental 07/19/2009 Pet Dander Sneezing, watering eyes Pollen 07/19/2009 Sneezing, watering eyes documented as of this encounter (statuses as of 10/12/2022) Medications Medication Sig Dispensed Refills Start Date [...] medications,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 [id number] 11/14/2021 Active Cilgavimab inj 300 mgIndications:Encounter for long-term (current) use of medications,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 [id number] 11/14/2021 Active documented as of this encounter (statuses as of 10/12/2022) Active Problems Problem Noted Date Senile osteoporosis [...] as of this encounter (statuses as of 10/12/2022) Resolved Problems Problem Noted Date Resolved Date [...] as of this encounter (statuses as of 10/12/2022) Immunizations Name Administration Dates Next Due COVID-19 [...] encounter Miscellaneous Notes * Telephone Encounter - RISHABH Kelly - 10/12/2022 12:48 PM EDT Mail order pharmacy checking refill request of omeprazole. According to [facility], RX is available at their pharmacy. Transmission of rx was understood, will check with [place] profile regarding this medication. Thank you, Marcia Jefferson [facility] Supervisor [facility] 10/12/2022, 12:51 PM documented in this encounter Plan of Treatment Upcoming Encounters Date Type Specialty Care Team Description 11/09/2022 Telemedicine Hematology Oncology Jordan Elias MD [address] [place] [address] 11/20/2022 Office Visit Gastroenterology Vanessa Burnett MD [address] [facility] 100 [place] [address] 03/10/2023 Office Visit Family Medicine Elvia Pink DO [address] [place] [address] 03/16/2023 Telemedicine General Surgery Marek Petty PA-C [address] [place] [address] 04/07/2023 Imaging Radiology 11/19/2023 Office Visit Rheumatology Cesar Gaona MD [address] [place] [address] Scheduled Procedures Name Priority Associated Diagnoses Date/Ti me ESOPHAGOGASTRODUODENOSCOPY ( EGD), FLEXIBLE, TRANSORAL, DIAGNOSTIC Recall Esophagitis, [place]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 Health Maintenance Due [...] D LEVEL ONCE IN A LIFETIME-USE SMARTSET# [id number] Completed 10/02/2022, 08/20/2017, 02/01/2017, Additional history exists [...] this encounter Medical Devices Implanted Type Area Reference Library Assistant Device Identifier Shelf Expiration Date Model / Serial / Lot Alloderm 2x4 Sheet [id number](8 Units) - [id number] Implanted:Qty : 8 on 10/23/2013 at [place] [facility] [place] Tissue - Human N/A: Esophagus LIFE CELL ANETTE 05/02/2015 [id number] / / [id number] documented as of this encounter Advance Directives Latest Code Status on File Code Status Date Activated Date Inactivated Comments Full Code 10/23/2013 11:32 AM 10/24/2013 4:10 PM This order reflects the patients wishes and were consensually agreed upon. Care Teams River Expedition Guide Relationship Specialty [place] [address] [facility] [place] [address] PCP - General Family Medicine 11/19/15 documented as of this encounter
--- OUTSIDE RECORDS SUMMARY | 2023-03-23 02:41 | External Medical Summary | Summary of Care ---
Author Name Unknown Organization [facility] Address [address] [facility] [place] [address] Phone [phone] Care Team Providers Care Acupressure Therapist Name Role Phone Elvia Pink DO Primary Care Provider [phone] [phone] Reason for Visit * Reason Onset Date Comments Medication Pre-auth 09/25/2022 reclast Encounter Details Date Type Department Care Team Description 09/25/2022 Telephone Rheumatology [address] [place] [phone] Sammie Man MD [address] [facility] [place] [address] Medication Pre-auth (reclast) Allergies Active Allergy [...] medications,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 [id number] 11/14/2021 Active Cilgavimab inj 300 mgIndications:Encounter for long-term (current) use of medications,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 [id number] 11/14/2021 Active documented as of this encounter [...] received for Reclast 5mg IV once yearly [place] created and routed to provider for signature Rheum: When the labs and auth are back and patient is ready to be scheduled, please forward back top [phone] for scheduling. Thank you! * Telephone Encounter [...] Telemedicine Hematology Oncology Jordan Elias MD [address] [place] [address] 11/20/2022 Office Visit Gastroenterology Vanessa Burnett MD [address] [facility] [address] [place] [address] 03/10/2023 Office Visit Family Medicine Elvia Pink DO [address] [place] [address] 03/16/2023 Telemedicine General Surgery Marek Petty PA-C [address] [place] [address] 04/07/2023 Imaging Radiology 11/19/2023 Office Visit Rheumatology Sammie Man MD [address] [place] [address] Scheduled Orders Name Type Priority Associated Diagnoses Orde r Schedule BASIC METABOLIC PANEL Lab Routine Senile osteoporosis Expected: 01/08/2023, Expires: 10/09/2023 Scheduled Procedures Name Priority Associated Diagnoses Date/Ti me ESOPHAGOGASTRODUODENOSCOPY ( EGD), FLEXIBLE, TRANSORAL, DIAGNOSTIC Recall Esophagitis, [place]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 Health Maintenance Due [...] D LEVEL ONCE IN A LIFETIME-USE SMARTSET# [id number] Completed 10/02/2022, 08/20/2017, 02/01/2017, Additional history exists [...] this encounter Medical Devices Implanted Type Area Clam Bed Worker Device Identifier Shelf Expiration Date Model / Serial / Lot Alloderm 2x4 Sheet [id number](8 Units) - [id number] Implanted:Qty : 8 on 10/23/2013 at [place] [facility] [place] Tissue - Human N/A: Esophagus LIFE CELL ANETTE 05/02/2015 [id number] / / [id number] documented as of this encounter Results * (ABNORMAL) 25-HYDROXY VITAMIN D (10/02/2022 11:06 AM EDT) 25-Hydroxy Vitamin D 15(L) >19 ng/mL 10/02/2022 11:47 PM EDT LABORATORY [facility] Blood Venous blood specimen / Unknown Venipuncture / Unknown 10/02/2022 11:06 AM EDT 10/02/2022 11:06 AM EDT Narrative LABORATORY [facility] - 10/02/2022 11:47 PM EDT Deficient: <20 ng/mL Insufficient: 20-29 ng/mL Recommended/Optimum:30-50 ng/mL Vitamin D intoxication is rare. If suspicious of Vitamin D toxicity, evaluation of serum Calcium and PTH is recommended. Sammie Man MD LAB BLOOD ORDERABLE S LABORATORY [facility] [address] [facility] [address] [place] [address] documented in this encounter Visit Diagnoses Diagnosis Senile osteoporosis- Primary documented in this encounter Advance Directives Latest Code Status on File Code Status Date Activated Date Inactivated Comments Full Code 10/23/2013 11:32 AM 10/24/2013 4:10 PM This order reflects the patients wishes and were consensually agreed upon. Care Teams Acupressure Therapist Relationship Specialty Start Date End Date Elvia Pink DO [address] [facility] [place] [address] PCP - General Family Medicine 11/19/15 documented as of this encounter
--- OUTSIDE RECORDS SUMMARY | 2023-03-23 02:41 | External Medical Summary | Summary of Care ---
Author Name Unknown Organization [facility] Address [address] [facility] [place] [address] Phone [phone] Care Team Providers Care Thread Grinder Tool Name Role Phone Elvia Pink DO Primary Care Provider +1 [phone] Reason for Visit * Reason Onset Date Comments Medication Pre-auth 09/25/2022 reclast Encounter Details Date Type Department Care Team Description 09/25/2022 Telephone Rheumatology [address] [place] [phone] Cesar Gaona MD [address] [facility] [place] [address] Medication Pre-auth (reclast) Allergies Active Allergy [...] medications,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 [id number] 11/14/2021 Active Cilgavimab inj 300 mgIndications:Encounter for long-term (current) use of medications,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 [id number] 11/14/2021 Active documented as of this encounter [...] received for Reclast 5mg IV once yearly [place] created and routed to provider for signature Rheum: When the labs and auth are back and patient is ready to be scheduled, please forward back top [phone] for scheduling. Thank you! * Telephone Encounter [...] Hematology Oncology Jada, Jordan Lo MD [address] [place], [place] [address] 11/20/2022 Office Visit Gastroenterology Vanessa Burnett MD [address] [facility] [address] [place] [address] 03/10/2023 Office Visit Family Medicine Elvia Pink, [address] [place] [address] 03/16/2023 Telemedicine General Surgery Marek Petty PA-Sly [address] [place], [place] [address] 04/07/2023 Imaging Radiology 11/19/2023 Office Visit Rheumatology Cesar Gaona MD [address] [place] [address] Scheduled Procedures Name Priority Associated Diagnoses Date/Ti me ESOPHAGOGASTRODUODENOSCOPY ( EGD), FLEXIBLE, TRANSORAL, DIAGNOSTIC Recall Esophagitis, [place]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 Health Maintenance Due [...] D LEVEL ONCE IN A LIFETIME-USE SMARTSET# [id number] Completed 10/02/2022, 08/20/2017, 02/01/2017, Additional history exists [...] this encounter Medical Devices Implanted Type Area Mining Professionals Device Identifier Shelf Expiration Date Model / Serial / Lot Alloderm 2x4 Sheet [id number](8 Units) - [id number] Implanted:Qty : 8 on 10[place]23[place] [facility] [place] - Human N/A: Esophagus LIFE CELL ANETTE 05/02/2015 [id number] / / [id number] documented as of this encounter Results * (ABNORMAL) 25-HYDROXY VITAMIN D (10/02/2022 11:06 AM EDT) 25-Hydroxy Vitamin D 15(L) >19 ng/mL 10/02/2022 11:47 PM EDT [facility] [place] Venous blood specimen / Unknown Venipuncture / Unknown 10/02/2022 11:06 AM EDT 10/02/2022 11:06 AM EDT Narrative [facility] - 10/02/2022 11:47 PM EDT Deficient: <20 ng/mL Insufficient: 20-29 ng/mL Recommended/Optimum:30-50 ng/mL Vitamin D intoxication is rare. If suspicious of Vitamin D toxicity, evaluation of serum Calcium and PTH is recommended. Cesar Gaona MD LAB BLOOD ORDERABLE S LAB[facility]ORY [facility] [address] [facility] [place] [address] documented in this encounter Visit Diagnoses Diagnosis Senile osteoporosis- Primary documented in this encounter Advance Directives Latest Code Status on File Code Status Date Activated Date Inactivated Comments Full Code 10/23/2013 11:32 AM 10/24/2013 4:10 PM This order reflects the patients wishes and were consensually agreed upon. Care Teams Thread Grinder Tool Relationship Specialty Start Date End Date Elvia Pink DO [address] [facility] [place] [address] PCP - General Family Medicine 11/19/15 documented as of this encounter
--- OUTSIDE RECORDS SUMMARY | 2023-03-23 02:42 | External Medical Summary ---
Author Name Unknown Address Unknown Organization K01:LABORATORY [facility] [place] - [address] [address] Laboratory Report Ordering Provider Test Date Status DONOVAN COCHRAN 10/02/2022 11:06:49 Final Observation Date Value Abnormality Reference (Units ) Status WBC, Total 10/02/2022 11:06:49 8.59 4.00-10.80 (K/uL) Final RBC 10/02/2022 11:06:49 4.92 3.85-5.15 (M/uL) Final Hemoglobin 10/02/2022 11:06:49 13.2 12.0-15.3 (g/dL) Final HCT 10/02/2022 11:06:49 44.2 36.0-45.2 (%) Final MCV 10/02/2022 11:06:49 89.8 81.5-97.5 (fL) Final MCH 10/02/2022 11:06:49 26.8 27.0-34.0 (pg) Final MCHC 10/02/2022 11:06:49 29.9 32.0-36.0 (g/dL) Final RDW 10/02/2022 11:06:49 13.3 11.5-15.5 (%) Final Platelets 10/02/2022 11:06:49 477 Above high normal 140-400 (K/uL) Final MPV 10/02/2022 11:06:49 8.2 6.6-11.1 (fL) Final Nucleated erythrocytes/100 leukocytes [Ratio] in Blood by Automated count 10/02/2022 11:06:49 0 <=0 (/100 WBCs) Final Performing Location LABORATORY [facility] [place] - [address] [place] [address]
--- OUTSIDE RECORDS SUMMARY | 2023-03-23 02:42 | External Medical Summary | Summary of Care ---
Author Name Unknown Organization [facility] Address [address] [facility] [place] [address] Phone [phone] Care Team Providers Care Neuro Psych Sales Specialist Name Role Phone Elvia Pink DO Primary Care Provider [phone] [phone] Reason for Visit * Reason Onset Date Comments Medication Pre-auth 09/25/2022 reclast Encounter Details Date Type Department Care Team Description 09/25/2022 Telephone Rheumatology [address] [place] [id number] Cesar Gaona MD [address] [facility] [place] [address] Medication Pre-auth (reclast) Allergies Active Allergy Reactions Severity Noted Date Comments Dust 07/19/2009 Sneezing, watering eyes, eventually might develop into asthma attack Other - Environmental 07/19/2009 Pet Dander Sneezing, watering eyes Pollen 07/19/2009 Sneezing, watering eyes documented as of this encounter (statuses as of 10/02/2022) Medications Medication Sig Dispensed Refills Start Date [...] medications,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 [id number] 11/14/2021 Active Cilgavimab inj 300 mgIndications:Encounter for long-term (current) use of medications,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 [id number] 11/14/2021 Active documented as of this encounter (statuses as of 10/02/2022) Active Problems Problem Noted Date Senile osteoporosis [...] as of this encounter (statuses as of 10/02/2022) Resolved Problems Problem Noted Date Resolved Date [...] as of this encounter (statuses as of 10/02/2022) Immunizations Name Administration Dates Next Due COVID-19 [...] encounter Miscellaneous Notes * Telephone Encounter - Stella Gan LPN - 10/02/2022 9:43 AM EDT Left a message for pt to get lab work done, auth is back for Reclast. * Telephone Encounter - Adelaida Avila LPN - 09/29/2022 3:50 PM EDT Order received for Reclast 5mg IV once yearly [place] created and routed to provider for signature Rheum: When the labs and auth are back and patient is ready to be scheduled, please forward back top [phone] for scheduling. Thank you! * Telephone Encounter [...] Telemedicine Hematology Oncology Jada, Jordan Lo MD [address] [place] [address] 11/20/2022 Office Visit Gastroenterology Vanessa Burnett MD [address] [place] [address] [place] [address] 03/10/2023 Office Visit Family Medicine Apryl Elvia Walker, DO [address] [facility] [address] 03/16/2023 Telemedicine General Surgery Marek Petty PA-C [address] [place] [address] 04/07/2023 Imaging Radiology 11/19/2023 Office Visit Rheumatology Cesar Gaona MD [address] [employer] [place] [address] Scheduled Orders Name Type Priority Associated Diagnoses Orde r Schedule 25-HYDROXY VITAMIN D Lab Routine Senile osteoporosis Expected: 09/25/2022, Expires: 09/26/2023 Scheduled Procedures Name Priority Associated Diagnoses Date/Ti me ESOPHAGOGASTRODUODENOSCOPY ( EGD), FLEXIBLE, TRANSORAL, DIAGNOSTIC Recall Esophagitis, [place]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 Health Maintenance Due [...] Vaccine: 65+ Years Completed 02/19/2016, 12/30/2007, 02/06/2000 VITAMIN D LEVEL ONCE IN A LIFETIME-USE SMARTSET# [id number] Completed 08/20/2017, 02/01/2017, 08/20/2011 Albumin/Creatinine Ratio Discontinued 022, 01/02/2022, 10/30/2021, Additional history exists Influenza Vaccine (FLU shot) Completed 02/12/2022, 02/06/2021, 01/31/2020, Additional history exists Alpha-1 Antitrypsin Completed 04/29/2022 GARDASIL-HPV IMMUNIZATION SERIES Aged Out No longer eligible based on patient's age to complete this topic Hepatitis B Aged Out No longer eligi ble based on patient's age to complete this topic MENINGOCOCCAL (MENACTRA/MENVEO) Aged Out No longer eligible based on patient's age to complete this topic documented as of this encounter Medical Devices Implanted Type Area Office Services Assistant Device Identifier Shelf Expiration Date Model / Serial / Lot Alloderm 2x4 Sheet [id number](8 Units) - [id number] Implanted:Qty : 8 on 10/23/2013 at OR [facility] [place] Tissue - Human N/A: Esophagus LIFE CELL Zubie 05/02/2015 [id number] / / [id number] documented as of this encounter Visit Diagnoses Diagnosis Senile osteoporosis- Primary documented in this encounter Advance Directives Latest Code Status on File Code Status Date Activated Date Inactivated Comments Full Code 10/23/2013 11:32 AM 10/24/2013 4:10 PM This order reflects the patients wishes and were consensually agreed upon. Care Teams Neuro Psych Sales Specialist Relationship Specialty Start Date End Date Elvia Pink DO [address] [facility] [place] [address] PCP - General Family Medicine 11/19/15 documented as of this encounter
--- OUTSIDE RECORDS SUMMARY | 2023-03-23 02:42 | External Medical Summary ---
Author Name Unknown Address Unknown Organization K01:LABORATORY [facility] [place] - [address] [place] [address] Laboratory Report Ordering Provider Test Date Status DONOVAN COCHRAN 10/02/2022 11:06:49 Final Deficient: <20 ng/mL
Ins ufficient: 20-29 ng/mL
Recommended/Optimum:30-50 ng/mL

Vitamin D intoxication is rare. If suspicious of Vitamin D toxicity, evaluation of serum Calcium and PTH is recommended. Observation Date Value Abnormality Reference (Units ) Status 25-OH Vitamin D total 10/02/2022 11:06:49 15 Below low normal >19 (ng/mL) Final Performing Location LABORATORY [facility] [place] [address] [place] [address]
--- OUTSIDE RECORDS SUMMARY | 2023-03-23 02:42 | External Medical Summary | Summary of Care ---
Author Name Unknown Organization [facility] Address [address] [facility] [address] Phone [phone] Care Team Providers Care Skilled Helper Name Role Phone Elvia Pink DO Primary Care Provider [phone] [phone] Reason for Visit * Reason Comments Outpatient Testing Encounter Details Date Type Department Care Team Description 10/02/2022 [facility] [address] [facility] [place] [phone] [place], Lab [facility] [address] [facility] [place] [address] [place] Other*[id number]; Psoriatic arthropathy (HCC); Cutaneous polyarteritis nodosa (HCC); Encounter for long-term (current) use of medications; Senile osteoporosis Allergies Active Allergy Reactions Severity [...] medications,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 [id number] 11/14/2021 Active Cilgavimab inj 300 mgIndications:Encounter for long-term (current) use of medications,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 [id number] 11/14/2021 Active documented as of this encounter (statuses as of 10/02/2022) Active Problems Problem Noted Date Senile osteoporosis 09/29/2022 Peripheral neuropathy 09/03/2022 Carotid stenosis, non-symptomatic, bilat eral 04/07/2022 Bronchiectasis without complication 03/03 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 Thrombocytosis 11/13/2020 Essential (hemorrhagic) [...] LNP-s, No Pre serve, 2-Dose Series (Moderna) 09/27/2021,06/19/2021,01/10/2021,/08/2020,05/30/2020 PPD 03/02/2012,10/14/2010 Pneumococcal Conjugate Vacc, 13 Valent [...] Telemedicine Hematology Oncology Jordan Elias MD [address] [place] [address] 11/20/2022 Office Visit Gastroenterology Vanessa Burnett MD [address] [facility] [place] [address] [place] [address] 03/10/2023 Office Visit Family Medicine Elvia Pink DO [address] [place] [address] 03/16/2023 Telemedicine General Surgery Marek Petty PA-C [address] [place] [address] 04/07/2023 Imaging Radiology 11/19/2023 Office Visit Rheumatology Cesar Gaona MD [address] [place] [address] Pending Results Name Type Priority Associated Diagnoses Date /Time MYCODE SUBSEQUENT ADULT Lab Routine MyCode Research Other*[id number] 10/02/2022 11:06 AM EDT CBC WITH WBC DIFFERENTIAL Lab Routine Psoriatic arthropathy (HCC) Cutaneous polyarteritis nodosa (HCC) Encounter for long-term (current) use of medications 10/02/2022 11:06 AM EDT COMPREHENSIVE METABOLIC PANEL Lab Routine Psoriatic arthropathy (HCC) Cutaneous polyarteritis nodosa (HCC) Encounter for long-term (current) use of medications 10/02/2022 11:06 AM EDT 25-HYDROXY VITAMIN D Lab Routine Senile osteoporosis 10/02/2022 11:06 AM EDT MYCODE SST1 Lab Routine MyCode Research Other*[id number] 10/02/2022 11:06 AM EDT MYCODE SST2 Lab Routine MyCode Research Other*[id number] 10/02/2022 11:06 AM EDT CBC Lab Routine Psoriatic arthropathy (HCC) Cutaneous polyarteritis nodosa (HCC) Encounter for long-term (current) use of medications 10/02/2022 11:06 AM EDT DIFFERENTIAL, AUTOMATED Lab Routine Psoriatic arthropathy (HCC) Cutaneous polyarteritis nodosa (HCC) Encounter for long-term (current) use of medications 10/02/2022 11:06 AM EDT Scheduled Procedures Name Priority Associated Diagnoses Date/Ti me ESOPHAGOGASTRODUODENOSCOPY ( EGD), FLEXIBLE, TRANSORAL, DIAGNOSTIC Recall Esophagitis, [place]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 Health Maintenance Due [...] D LEVEL ONCE IN A LIFETIME-USE SMARTSET# [id number] Completed 08/20/2017, 02/01/2017, 08/20/2011 Albumin/Creatinine Ratio Discontinued [...] this encounter Medical Devices Implanted Type Area Road Roller Operator Device Identifier Shelf Expiration Date Model / Serial / Lot Alloderm 2x4 Sheet [id number](8 Units) - [id number] Implanted:Qty : 8 on 10/23/2013 at [place] [facility] [place] Tissue - Human N/A: Esophagus LIFE CELL ANETTE 05/02/2015 [id number] / / [id number] documented as of this encounter Visit Diagnoses Diagnosis MyCode Research Other*[id number] Psoriatic arthropathy (HCC) Psoriatic arthropathy Cutaneous polyarteritis nodosa (HCC) Polyarteritis nodosa Encounter for long-term (current) use of medications Encounter for long-term (current) use of other medications Senile osteoporosis documented in this encounter Advance Directives Latest Code Status on File Code Status Date Activated Date Inactivated Comments Full Code 10/23/2013 11:32 AM 10/24/2013 4:10 PM This order reflects the patients wishes and were consensually agreed upon. Care Teams Skilled Helper Relationship Specialty Start Date End Date Elvia Pink DO [address] [facility] [place] [address] PCP - General Family Medicine 11/19/15 documented as of this encounter
--- OUTSIDE RECORDS SUMMARY | 2023-03-23 02:42 | External Medical Summary ---
Author Name Unknown Address Unknown Organization K01:LABORATORY [facility] [place] - [address] [facility] [place] [address] Laboratory Report Ordering Provider Test Date Status DONOVAN COCHRAN 10/02/2022 11:06:49 Final Observation Date Value Abnormality Reference (Units ) Status BUN 10/02/2022 11:06:49 14 6-20 (mg/dL) Final Creatinine 10/02/2022 11:06:49 0.9 0.5-1.0 (mg/dL) Final Glomerular filtration rate/1.73 sq M.predicted [Volume Rate/Area] in Serum, Plasma or Blood by Creatinine-based formula (CKD-EPI) 10/02/2022 11:06:49 69 >=60 (mL/min) Final eGFR is calculated based on the CKD-EPI 2020 equation SODIUM 10/02/2022 11:06:49 139 135-146 (m mol/L) Final Potassium 10/02/2022 11:06:49 4.2 3.5-5.1 (m mol/L) Final Cl 10/02/2022 11:06:49 101 98-107 (mm ol/L) Final CO2 10/02/2022 11:06:49 25 22-32 (mmo l/L) Final Anion gap 10/02/2022 11:06:49 13 7-15 (mmol /L) Final Glucose 10/02/2022 11:06:49 77 70-120 (mg /dL) Final Albumin 10/02/2022 11:06:49 4.4 3.8-5.0 (g /dL) Final AST (Aspartate aminotransferase) 10/02/2022 11:06:49 17 10-35 (U/L) Final Alk Phos 10/02/2022 11:06:49 55 35-130 (U/ L) Final Bilirubin, Total 10/02/2022 11:06:49 0.4 <=1 .2 (mg/dL) Final Calcium 10/02/2022 11:06:49 9.3 8.4-10.2 ( mg/dL) Final Protein 10/02/2022 11:06:49 6.7 6.0-8.3 (g /dL) Final ALT (Alanine aminotransferase) 10/02/2022 11:06:49 12 10-35 (U/L) Final Performing Location LABORATORY [facility] [place] - [address] [facility] [address]
--- OUTSIDE RECORDS SUMMARY | 2023-03-23 02:42 | External Medical Summary | Summary of Care ---
Author Name Unknown Organization [facility] Address [address] [facility] [place] [address] Phone [phone] Care Team Providers Care Diabetic Educator Name Role Phone Elvia Pink DO Primary Care Provider +1 [phone] Encounter Details Date Type Department Care Team Description 09/29/2022 Orders Only Hematology/Oncology [facility] [place] [address] [facility] [place] [address] Cesar Gaona MD [address] [facility] [place] [address] Allergies Active Allergy Reactions Severity Noted Date Comments Dust 07/19/2009 Sneezing, watering eyes, eventually might develop into asthma attack Other - Environmental 07/19/2009 Pet Dander Sneezing, watering eyes Pollen 07/19/2009 Sneezing, watering eyes documented as of this encounter (statuses as of 09/29/2022) Medications Medication Sig Dispensed Refills Start Date [...] medications,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 [id number] 11/14/2021 Active Cilgavimab inj 300 mgIndications:Encounter for long-term (current) use of medications,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 [id number] 11/14/2021 Active documented as of this encounter (statuses as of 09/29/2022) Active Problems Problem Noted Date Senile osteoporosis [...] as of this encounter (statuses as of 09/29/2022) Resolved Problems Problem Noted Date Resolved Date [...] as of this encounter (statuses as of 09/29/2022) Immunizations Name Administration Dates Next Due COVID-19 [...] Telemedicine Hematology Oncology Jordan Elias MD [address] [place], [place] [id number] 11/20/2022 Office Visit Gastroenterology Vanessa Burnett MD [address] [place] [address] 03/10/2023 Office Visit Family Medicine Elvia Pink DO [address] [place] [address] 03/16/2023 Telemedicine General Surgery Marek Petty PA-C [address] [place] [address] 04/07/2023 Imaging Radiology 11/19/2023 Office Visit Rheumatology Cesar Gaona MD [address] [place] [address] Scheduled Procedures Name Priority Associated Diagnoses Date/Ti me ESOPHAGOGASTRODUODENOSCOPY ( EGD), FLEXIBLE, TRANSORAL, DIAGNOSTIC Recall Esophagitis, [place]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 Health Maintenance Due Date Last Done Comments Zoster Vaccines (1 of 2) 01/11/2014 11/16/2013 Depression Screening, Annual for Pts 12 and Over 11/13/2021 11/13/2020 COVID-19 Vaccine (6 - Booster for Moderna series) 11/22/2021 09/27/2021, 06/19/2021, 01/10/2021, Additional history exists O2 ASSESSMENT COMPLETED IN PAST YEAR FOR COPD 07/25/2023 07/24/2022 DTaP,Tdap,and Td Vaccines (2 - Td or Tdap) 02/06/2024 02/05/2014, 07/09/2003 COLONOSCOPY-EVERY 5 YRS AGES 18-100 12/13/2025 12/13/2020, 04/01/2017, 09/09/2011 DXA Scan 09/22/2029 09/22/2022, 06/03, 06/22/2014, Additional history exists Pneumococcal Vaccine: 65+ Years Completed 02/19/2016, 12/30/2007, [...] this encounter Medical Devices Implanted Type Area Charging Board Operator Device Identifier Shelf Expiration Date Model / Serial / Lot Alloderm 2x4 Sheet [id number](8 Units) - [id number] Implanted:Qty : 8 on 10/23/2013 [place] [facility] [place] - Human N/A: Esophagus LIFE CELL ANETTE 05/02/2015 [id number] / / [id number] documented as of this encounter Advance Directives Latest Code Status on File Code Status Date Activated Date Inactivated Comments Full Code 10/23/2013 11:32 AM 10/24/2013 4:10 PM This order reflects the patients wishes and were consensually agreed upon. Care Teams Diabetic Educator Relationship Specialty Start Date End Date Elvia Pink DO [address] [facility] [place] [address] PCP - General Family Medicine 11/19/15 documented as of this encounter
--- OUTSIDE RECORDS SUMMARY | 2023-03-23 02:42 | External Medical Summary | Summary of Care ---
Author Name Unknown Organization [facility] Address [address] [facility] [place] [address] Phone [phone] Care Team Providers Care Paving Foreman Name Role Phone Elvia Pink DO Primary Care Provider [phone] [phone] Encounter Details Date Type Department Care Team Description 09/29/2022 Orders Only Rheumatology [place] [address] [address] [place] [address] Cesar Gaona MD [facility] [place] [address] Allergies Active Allergy Reactions Severity Noted Date [...] medications,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 [id number] 11/14/2021 Active Cilgavimab inj 300 mgIndications:Encounter for long-term (current) use of medications,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 [id number] 11/14/2021 Active documented as of this encounter [...] Telemedicine Hematology Oncology Jordan Elias MD [address] [place], [place] [id number] 11/20/2022 Office Visit Gastroenterology Vanessa Burnett MD [address] [facility] [address] [place] [address] 03/10/2023 Office Visit Family Medicine Elvia Pink DO [address] [place] [address] 03/16/2023 Telemedicine General Surgery Marek Petty PA-C [address] [place] [address] 04/07/2023 Imaging Radiology 11/19/2023 Office Visit Rheumatology Cesar Gaona MD [address] [place] [address] Scheduled Procedures Name Priority Associated Diagnoses Date/Ti me ESOPHAGOGASTRODUODENOSCOPY ( EGD), FLEXIBLE, TRANSORAL, DIAGNOSTIC Recall Esophagitis, [place]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 Health Maintenance Due [...] 2 022, 01/02/2022, 10/30/2021, Additional history exists Influenza [...] this encounter Medical Devices Implanted Type Area Legal Administrative Secretary Device Identifier Shelf Expiration Date Model / Serial / Lot Alloderm 2x4 Sheet [id number](8 Units) - [id number] Implanted:Qty : 8 on 10/23/2013 [place] [facility] [place] Tissue - Human N/A: Esophagus LIFE CELL ANETTE 05/02/2015 [id number] / / [id number] documented as of this encounter Advance Directives Latest Code Status on File Code Status Date Activated Date Inactivated Comments Full Code 10/23/2013 11:32 AM 10/24/2013 4:10 PM This order reflects the patients wishes and were consensually agreed upon. Care Teams Paving Foreman Relationship Specialty Start Date End Date Elvia Pink DO [address] [facility] [place] [address] PCP - General Family Medicine 11/19/15 documented as of this encounter
--- OUTSIDE RECORDS SUMMARY | 2023-03-23 02:42 | External Medical Summary ---
Author Name Unknown Address Unknown Organization K01:LABORATORY [facility] [place] - [address] [facility] [place] [address] Laboratory Report Ordering Provider Test Date Status DONOVAN COCHRAN 10/02/2022 11:06:49 Final Observation Date Value Abnormality Reference (Units ) Status SYNC LEUKOCYTES IN BLOOD BY AUTOMATED COUNT 10/02/2022 11:06:49 8.59 4.00-10.80 (K/uL) Final Segs 10/02/2022 11:06:49 62.9 40.0-75.0 (%) Final Lymphs % 10/02/2022 11:06:49 26.5 18.0-42.0 (%) Final Monos 10/02/2022 11:06:49 8.3 1.0-11.0 (%) Final Eosinophils 10/02/2022 11:06:49 1.4 0.0-6.0 (%) Final Basos 10/02/2022 11:06:49 0.6 0.0-2.0 (%) Final Immature Granulocyte, Percent 10/02/2022 11:06:49 0.3 0.0-2.0 (%) Final Absolute Segs 10/02/2022 11:06:49 5.40 1.80-7.70 (K/uL) Final Lymphs, absolute 10/02/2022 11:06:49 2.28 1.00-4.80 (K/ul) Final Monos, Abs 10/02/2022 11:06:49 0.71 0.00-1.10 (K/uL) Final Eos, Abs 10/02/2022 11:06:49 0.12 0.00-0.70 (K/uL) Final Basos, Abs 10/02/2022 11:06:49 0.05 0.00-0.20 (K/uL) Final Immature Granulocytes, Number 10/02/2022 11:06:49 0.03 0.00-0.20 (K/uL) Final Performing Location LABORATORY [facility] [place] - [address] [facility] [address]
--- OUTSIDE RECORDS SUMMARY | 2023-03-23 02:42 | External Medical Summary ---
Author Name Unknown Address Unknown Organization K01:LABORATORY [facility] [place] - [address] [place] [address] Laboratory Report Ordering Provider Test Date Status DEL DANGELO 10/02/2022 11:06:49 Final Observation Date Value Abnormality Reference (Units ) Status MYCODE SPECIMEN-SST 10/02/2022 11:06:49 Freezing of extracted DNA, whole blood and/or serum. Final Performing Location LABORATORY [facility] [place] - [address] [place] [address]
--- OUTSIDE RECORDS SUMMARY | 2023-03-23 02:42 | External Medical Summary ---
Author Name Unknown Address Unknown Organization K01:LABORATORY [facility] [place] - [address] [place] [address] Laboratory Report Ordering Provider Test Date Status DEL DANGELO 10/02/2022 11:06:49 Final Observation Date Value Abnormality Reference (Units ) Status MYCODE SPECIMEN-SST 10/02/2022 11:06:49 Freezing of extracted DNA, whole blood and/or serum. Final Performing Location LABORATORY [facility] [place] [address] [place] [address]
--- OUTSIDE RECORDS SUMMARY | 2023-03-23 02:43 | External Medical Summary | Summary of Care ---
Author Name Unknown Organization [facility] Address [address] [facility] [place] [address] Phone [phone] Care Team Providers Care Board Certified Behavioral Analyst Name Role Phone Elvia Pink DO Primary Care Provider [phone] Reason for Visit * Reason Onset Date Comments Medication Pre-auth 09/25/2022 reclast Encounter Details Date Type Department Care Team Description 09/25/2022 Telephone Rheumatology [address] [place] [id number] Cesar Gaona MD [address] [facility] [place] [address] Medication Pre-auth (reclast) Allergies Active Allergy [...] medications,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 [id number] 11/14/2021 Active Cilgavimab inj 300 mgIndications:Encounter for long-term (current) use of medications,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 [id number] 11/14/2021 Active documented as of this encounter [...] encounter Miscellaneous Notes * Telephone Encounter - Adelaida Avila LPN - 09/29/2022 3:50 PM EDT Order received for Reclast 5mg IV once yearly [place] created and routed to provider for signature Rheum: When the labs and auth are back and patient is ready to be scheduled, please forward back [place] [phone] for scheduling. Thank you! * Telephone Encounter [...] Hematology Oncology Jada, Jordan Lo MD [address] [place] [address] 11/20/2022 Office Visit Gastroenterology Vanessa Burnett MD [address] [place], [place] [address] 03/10/2023 Office Visit Family Medicine Elvia Pink, DO [address] [place] [address] 03/16/2023 Telemedicine General Surgery Marek Petty PA-C [address] [place] [address] 04/07/2023 Imaging Radiology 11/19/2023 Office Visit Rheumatology Cesar Gaona MD [address] [place] [address] Scheduled Orders Name Type Priority Associated Diagnoses Orde r Schedule 25-HYDROXY VITAMIN D Lab Routine Senile osteoporosis Expected: 09/25/2022, Expires: 09/26/2023 Scheduled Procedures Name Priority Associated Diagnoses Date/Ti me ESOPHAGOGASTRODUODENOSCOPY ( EGD), FLEXIBLE, TRANSORAL, DIAGNOSTIC Recall Esophagitis, [place]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 Health Maintenance Due [...] this encounter Medical Devices Implanted Type Area Test Fixture Designer Device Identifier Shelf Expiration Date Model / Serial / Lot Alloderm 2x4 Sheet [id number] Units) - [id number] Implanted:Qty : 8 on 10/23/2013 at OR [facility] Tissue - Human N/A: Esophagus [employer]ETTE 05/02/2015 [id number] / / [id number] documented as of this encounter Visit Diagnoses Diagnosis Senile osteoporosis- Primary documented in this encounter Advance Directives Latest Code Status on File Code Status Date Activated Date Inactivated Comments Full Code 10/23/2013 11:32 AM 10/24/2013 4:10 PM This order reflects the patients wishes and were consensually agreed upon. Care Teams Board Certified Behavioral Analyst Relationship Specialty Start Date End Date Elvia Pink DO [address] [facility] [place] [address] PCP - General Family Medicine 11/19/15 documented as of this encounter
[2023-03-23 05:54] LABS: Basophils # (auto) 0.03 K/uL (0.00-0.20); Basophils % (auto) 0.3 %; Eosinophils # (auto) 0.05 K/uL (0.00-0.50); Eosinophils % (auto) 0.5 %; Hematocrit (blood only) 34.5 % (37.0-47.0); Hemoglobin 10.8 g/dl (12.0-16.0); Immature Granulocytes # (auto) 0.05 K/uL (0.01-0.20); Immature Granulocytes % (auto) 0.5 %; Lymphocytes # (auto) 1.16 K/uL (1.20-3.40); Lymphocytes % (auto) 11.3 %; Mean Corpuscular Hemoglobin 26.8 pg (25.0-34.0); Mean Corpuscular Hgb Conc 31.3 g/dL (32.0-36.0); Mean Corpuscular Volume 85.6 fL (80.0-100.0); Mean Platelet Volume 8.2 fL (9.4-12.4); Monocytes # (auto) 0.72 K/uL (0.11-0.59); Neutrophils # (auto) 8.25 K/uL (1.40-6.50); Neutrophils % (auto) 80.4 %; Platelet Count 321 K/uL (130-400); RDW Coefficient of Variation 13.2 % (11.5-14.5); RDW Standard Deviation 40.8 fL (36.4-46.3); Red Blood Count 4.03 M/uL (4.20-5.40); White Blood Count 10.26 K/ul (4.8-10.8)
[2023-03-23 06:55] LABS: Calcium 8.2 mg/dl (8.6-10.3); Potassium 4.1 mmol/L (3.5-5.1)
[2023-03-23 07:01] LABS: BUN Creatinine Ratio 20.7 (10-20); Creatinine Clr Calc Pharmacy 64.6 ml/min; Est GFR (African American) 100.2 ml/min; Est GFR (Non-African American) 86.4 ml/min
[2023-03-23] MEDS: traMADol HCL 50 MG TABLET PO PRN ×2 (08:35→14:47)
[2023-03-23] MEDS: CEROVITE ADV FORMULA TAB PO SCH (08:53)
[2023-03-23] MEDS: FERROUS SULFATE 325 MG TAB PO SCH (08:53)
[2023-03-23] MEDS: ATORVASTATIN 40 MG TAB PO SCH (08:53)
[2023-03-23] MEDS: MYCOPHENOLATE SODIUM 180 MG TAB PO SCH (08:54)
[2023-03-23] MEDS: PANTOprazole 40 MG TAB PO SCH (08:55)
[2023-03-23] MEDS: predniSONE 5 MG TAB PO SCH (08:57)
[2023-03-23] MEDS ORDERED: ASPIRIN 81 MG CHEW PO SCH (09:00)
[2023-03-23] MEDS: ACETAMINOPHEN 500 MG TAB PO SCH ×2 (12:27→18:40)
[2023-03-23] MEDS: POLYETHYLENE (MIRALAX) 17 GM PACK PO SCH (12:28)
--- NOTE | 2023-03-23 14:10 | Orthopedic Consultation ---
Date of Consultation March 23, 2023 Assessment & Plan (1) Closed fracture of right hip: Right comminuted intertrochanteric hip fracture. I have discussed the case with Dr. Andrew. Plans will be for a right trochanteric femoral nail. We will plan on doing this tomorrow afternoon. Patient will be made n.p.o. after midnight. Plans for right TFN tomorrow afternoon with Dr. Andrew History of Present Illness Reason for Consultation: Right hip fracture Attending Physician: Дмитрий Serra MD History of Present Illness Patient is an 83-year-old female who states that she was tending to her compost pile last night. She states that she began walking back to the yard and began to go up the stairs to her deck. She states that by the third step on the deck she lost her balance and began falling. She does not know how she began to roll however she rolled completely off the deck and dropped approximately 4 feet onto her right side. She had immediate pain in her right hip and groin. She was unable to move. She was able to call for help. Her daughter and a friend helped her and she was then brought to [facility] ED where she was seen by the staff. X-rays were taken. It was found that she had a right comminuted intertrochanteric hip fracture. She was admitted to the hospitalist service and we have been asked to see her for her hip fracture. Currently she is awake and alert. She is comfortable at rest. No new complaints at this time other than hip pain off and on. Allergies Allergy/AdvReac Type Severity Reaction Status Date / Time dust Allergy Intermediate can Uncoded 03/22/23 22:29 trigger asthma pet dander Allergy Intermediate can Uncoded 03/22/23 22:29 trigger asthma pollen Allergy Intermediate can Uncoded 03/22/23 22:29 trigger asthma Home Medications Medication Instructions Recorded Confirmed Type Cilgavimab Inj 300 mg INJ .[id number] 03/22/23 03/22/23 History Tixagevimab Inj 300 mg INJ .[id number] 03/22/23 03/22/23 History albuterol sulfate 90 mcg/actuation 2 puff inhalation TID PRN 03/22/23 03/22/23 History aerosol inhaler Shortness Of Breath Or Wheezing aspirin 81 mg chewable tablet 81 mg PO DAILY 03/22/23 03/22/23 History atorvastatin 40 mg tablet 40 mg PO QAM 03/22/23 03/22/23 History clobetasol 0.05 % scalp solution 1 applic topical BID PRN 03/22/23 03/22/23 History .irritation ferrous sulfate 325 mg (65 mg 325 mg PO QAM 03/22/23 03/22/23 History iron) tablet mycophenolate sodium 360 mg 720 mg PO DAILY 03/22/23 03/22/23 History tablet,delayed release pantoprazole 40 mg tablet,delayed 40 mg PO QAM 03/22/23 03/22/23 History release prednisone 5 mg tablet 5 mg PO DAILY 03/22/23 03/22/23 History triamcinolone acetonide 0.1 % 1 applic topical BID PRN .itching 03/22/23 03/22/23 History topical cream vit C 250 mg-vit E 90 mg-zinc 40 1 tab PO DAILY 03/22/23 03/22/23 History mg-copper 1 [id number] capsule (PreserVision AREDS-2) Patient History Medical History Osteoarthritis Anemia Migraine with aura Allergy-induced asthma inhaler wkly and prn Escobedo esophagus Polyarteritis nodosa Surgical History History of dilatation and curettage several History of colonoscopy History of esophagogastroduodenoscopy (EGD) History of tooth extraction History of bilateral cataract extraction Family History Other No family history of adverse response to anesthesia Social History Smoking Status: Former smoker Tobacco Type: Cigarettes Cigarettes Per Day: Half a pack a day.; Second Hand Exposure: No; Do You Dip or Chew Tobacco: No; Tobacco Cessation Education Requested by Patient: No Hx Alcohol Use: Yes ("OCCASIONALLY") Alcohol type: wine and hard liquor Hx Substance Use: No Preferred Language: Khmer Communication Ability: Effective Derrick Worker Required: No Beliefs That Will Affect Care: None Current Living Situation: Alone Other Information That Helps Us Care for You: No Feels Safe at Home: Yes Safety Concerns: Feels Safe At This Time Assistive Devices: Other Assistive Devices Comment: Walking stick. Physical Exam Physical Exam: Patient is an 83-year-old white female who appears younger than her stated age. She is alert and oriented x3. No acute distress. Pleasant and cooperative. Examination of the right lower extremity shows a pillow that is under the right knee. The right lower extremity is externally rotated and shortened compared to the left. No attempts to move the right hip or knee were done secondary to right hip fracture. She is able to move the right ankle and toes without difficulty or discomfort. She does state that she has a history of neuropathy. This has not worsened. Sensation is intact of the right thigh at this time. Mild swelling is noted of the right thigh. She is tender on palpation over the lateral hip. Left lower extremity is unaffected and is nontender at the hip, knee, and ankle. Range of motion is within normal limits. Upper extremities are unaffected at this time. She is nontender at the shoulders, elbows, and wrists and range of motion is within normal limits. She denies any cervical, thoracic, lumbar pain at this time. There is no gross motor or sensory loss seen at this time. Results & Data Vital Signs (Past 12 Hours) Vital Signs Temp Pulse Resp BP Pulse Ox O2 Del Method 03/23/23 07:11 36.5 C 75 16 133/68 97 Room Air Laboratory Results Laboratory Results WBC 10.26 K/ul (4.8-10.8) 03/23/23 05:24 RBC 4.03 M/uL (4.20-5.40) L 03/23/23 05:24 Hgb 10.8 g/dl (12.0-16.0) L 03/23/23 05:24 Hct 34.5 % (37.0-47.0) L 03/23/23 05:24 MCV 85.6 fL (80.0-100.0) 03/23/23 05:24 MCH 26.8 pg (25.0-34.0) 03/23/23 05:24 MCHC 31.3 g/dL (32.0-36.0) L 03/23/23 05:24 RDW Std Deviation 40.8 fL (36.4-46.3) 03/23/23 05:24 RDW Coeff of Shoshana 13.2 % (11.5-14.5) 03/23/23 05:24 Plt Count 321 K/uL (130-400) 03/23/23 05:24 MPV 8.2 fL (9.4-12.4) L 03/23/23 05:24 Immature Gran % (Auto) 0.5 % 03/23/23 05:24 Neut % (Auto) 80.4 % 03/23/23 05:24 Lymph % (Auto) 11.3 % 03/23/23 05:24 [place] % (Auto) 7.0 % 03/23/23 05:24 Eos % (Auto) 0.5 % 03/23/23 05:24 Baso % (Auto) 0.3 % 03/23/23 05:24 Neut # (Auto) 8.25 K/uL (1.40-6.50) H 03/23/23 05:24 Lymph # (Auto) 1.16 K/uL (1.20-3.40) L 03/23/23 05:24 [place] # (Auto) 0.72 K/uL (0.11-0.59) H 03/23/23 05:24 Eos # (Auto) 0.05 K/uL (0.00-0.50) 03/23/23 05:24 Baso # (Auto) 0.03 K/uL (0.00-0.20) 03/23/23 05:24 Immature Gran # (Auto) 0.05 K/uL (0.01-0.20) 03/23/23 05:24 PT 10.7 Seconds (9.0-12.0) 03/22/23 19:35 INR 1.0 (0.9-1.1) 03/22/23 19:35 Sodium 136 mmol/L (136-145) 03/23/23 05:24 Potassium 4.1 mmol/L (3.5-5.1) D 03/23/23 05:24 Chloride 105 mmol/L (98-107) 03/23/23 05:24 Carbon Dioxide 26 mmol/L (21-32) 03/23/23 05:24 Anion Gap 5 (3-11) 03/23/23 05:24 BUN 12 mg/dl (6-23) 03/23/23 05:24 Creatinine 0.58 mg/dl (0.6-1.2) L 03/23/23 05:24 Est Cr Clr Drug Dosing 64.6 ml/min 03/23/23 05:24 Est GFR ( Amer) 100.2 ml/min 03/23/23 05:24 Est GFR (Non-Af Amer) 86.4 ml/min 03/23/23 05:24 BUN/Creatinine Ratio 20.7 (10-20) H 03/23/23 05:24 Glucose 95 mg/dl (70-99(Fasting)) 03/23/23 05:24 Calcium 8.2 mg/dl (8.6-10.3) L 03/23/23 05:24 Magnesium 1.7 mg/dl (1.7-2.4) 03/22/23 19:35 Total Bilirubin 0.3 mg/dl (0.2-1.0) 03/22/23 19:35 AST 17 U/L (13-39) 03/22/23 19:35 ALT 16 U/L (7-52) 03/22/23 19:35 Alkaline Phosphatase 48 U/L (34-104) 03/22/23 19:35 Total Protein 6.8 gm/dl (6.0-8.3) 03/22/23 19:35 Albumin 4.1 gm/dl (3.4-5.0) 03/22/23 19:35 Globulin 2.7 gm/dl (2.5-4.0) 03/22/23 19:35 Albumin/Globulin Ratio 1.5 (0.9-2) 03/22/23 19:35 Blood Type O Positive 03/23/23 05:24 Antibody Screen NEGATIVE 03/23/23 05:24 Impressions Hip/Pelvis X-Ray 03/22/23 19:23 SINGLE VIEW PELVIS; 2 VIEWS RIGHT HIP CLINICAL HISTORY: Trauma. FINDINGS: An AP view of the pelvis with AP and frog-leg views of the right hip are obtained. Correlation is made with pelvic CT dated 03/04/2018. The skeletal structures are osteopenic. There is a comminuted intertrochanteric fracture of the right proximal femur with angulation and medial displacement of the lesser trochanter. Overlying soft tissue edema is noted. No additional acute fracture is seen involving the left hip or the bony pelvis. Mild arthritic change and joint space narrowing is seen in the hips. There is mild degenerative sclerosis of the sacroiliac joints. Small phleboliths are noted in the pelvis. IMPRESSION: Comminuted intertrochanteric fracture of the right proximal femur as above. Electronically signed by: Jefferson Garduno M.D. 03/22/2023 11:44 PM
--- NOTE | 2023-03-23 15:09 | Hospitalist Progress Note ---
Date of Service March 23, 2023 Assessment & Plan (1) Closed fracture of right hip: Plan: Right femoral fracture secondary to mechanical fall Age-related osteoporosis w current pathological fracture of right femur Ortho consulted, planning for right trochanteric femoral nail on 03/24. NPO after midnight. Pain control with scheduled Tylenol, as needed morphine and tramadol for breakthrough pain. 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 Serra. Admission and Anticipated Discharge Date Admission Date: March 22, 2023 Supervising Physician Co-Signing Physician Notes Attending Addendum: care coordinated with REMA Perez please refer to her notes for full details, I agree with her notes patient seen and examined, records reviewed by myself as well agree with diagnoses and plan of care Дмитрий Serra MD Subjective Follow-up for intertrochanteric right femur fracture. Patient seen and examined. Reports pain is controlled. No numbness or tingling to the right lower extremity. No chest pain or shortness of breath. Denies abdominal pain and nausea. Physical Exam Constitutional: WD/WN, vitals as above no acute distress Respiratory: normal respiratory effort, lungs clear to auscultation Cardiovascular: Rate/Rhythm: regular rate and regular rhythm Vessels: normal peripheral pulses Extremities: no edema Gastrointestinal (Abdomen): Percussion/Palpation: abdomen soft; abdomen nontender Musculoskeletal: Tenderness to palpation of right hip Skin: no rashes, warm and dry Neurologic: no focal motor deficits Psychiatric: A+Ox3, euthymic affect Results & Data Results & Data Vital Signs (Past 12 Hours) Vital Signs Temp Pulse Resp BP Pulse Ox O2 Del Method 03/23/23 07:11 36.5 C 75 16 133/68 97 Room Air Laboratory Results Short CBC 03/22/23 03/23/23 Range/Units 19:35 05:24 WBC 13.56 H 10.26 (4.8-10.8) K/ul Hgb 12.2 10.8 L (12.0-16.0) g/dl Hct 38.8 34.5 L (37.0-47.0) % Plt Count 369 321 (130-400) K/uL BMP 03/22/23 03/23/23 19:35 05:24 Sodium 139 136 Potassium 3.4 L 4.1 D Chloride 104 105 Carbon Dioxide 26 26 BUN 14 12 Creatinine 0.70 0.58 L Glucose 118 H 95 Calcium 9.1 8.2 L Liver Function 03/22/23 Range/Units 19:35 Total Bilirubin 0.3 (0.2-1.0) mg/dl AST 17 (13-39) U/L ALT 16 (7-52) U/L Alkaline Phosphatase 48 (34-104) U/L Albumin 4.1 (3.4-5.0) gm/dl
[2023-03-24] MEDS ORDERED: ceFAZolin 2000MG 2,000 MG/15 ML SYR IV SCH
[2023-03-24] MEDS: ACETAMINOPHEN 500 MG TAB PO SCH ×3 (02:04→18:33)
[2023-03-24 07:26] LABS: Hematocrit (blood only) 34.8 % (37.0-47.0); Hemoglobin 11.2 g/dl (12.0-16.0); Mean Corpuscular Hgb Conc 32.2 g/dL (32.0-36.0); Mean Corpuscular Volume 83.9 fL (80.0-100.0); Mean Platelet Volume 8.3 fL (9.4-12.4); Platelet Count 324 K/uL (130-400); RDW Coefficient of Variation 13.1 % (11.5-14.5); RDW Standard Deviation 40.1 fL (36.4-46.3); Red Blood Count 4.15 M/uL (4.20-5.40); White Blood Count 8.85 K/ul (4.8-10.8)
--- NOTE | 2023-03-24 07:43 | Anesthesiology Consultation ---
Date of Service March 24, 2023 Assessment & Plan Chart Review Chart Review: administrative assistant data entry initiated History Surgery Operation Date: 03/24/23 08:20 Proposed Procedures p Right Trochanteric Femoral Nail - Jose Andrew DO Height/Weight Height: 5 ft 1 in Weight: 62.823 kg Allergies Allergy/AdvReac Type Severity Reaction Status Date / Time dust Allergy Intermediate can Uncoded 03/22/23 22:29 trigger asthma pet dander Allergy Intermediate can Uncoded 03/22/23 22:29 trigger asthma pollen Allergy Intermediate can Uncoded 03/22/23 22:29 trigger asthma Medications Home Medications Medication Instructions Recorded Confirmed Last Taken Cilgavimab Inj 300 mg INJ .[id number] 03/22/23 03/22/23 Unknown Tixagevimab Inj 300 mg INJ .[id number] 03/22/23 03/22/23 Unknown albuterol sulfate 90 mcg/actuation 2 puff inhalation TID PRN 03/22/23 03/22/23 Unknown aerosol inhaler Shortness Of Breath Or Wheezing aspirin 81 mg chewable tablet 81 mg PO DAILY 03/22/23 03/22/23 03/21/23 atorvastatin 40 mg tablet 40 mg PO QAM 03/22/23 03/22/23 03/21/23 clobetasol 0.05 % scalp solution 1 applic topical BID PRN 03/22/23 03/22/23 Unknown .irritation ferrous sulfate 325 mg (65 mg 325 mg PO QAM 03/22/23 03/22/23 03/21/23 iron) tablet mycophenolate sodium 360 mg 720 mg PO DAILY 03/22/23 03/22/23 03/21/23 tablet,delayed release pantoprazole 40 mg tablet,delayed 40 mg PO QAM 03/22/23 03/22/23 03/21/23 release prednisone 5 mg tablet 5 mg PO DAILY 03/22/23 03/22/23 03/21/23 triamcinolone acetonide 0.1 % 1 applic topical BID PRN .itching 03/22/23 03/22/23 Unknown topical cream vit C 250 mg-vit E 90 mg-zinc 40 1 tab PO DAILY 03/22/23 03/22/23 03/21/23 mg-copper 1 [id number] capsule (PreserVision AREDS-2) Active Medications Generic Name Dose Route Start Last Admin Trade Name Freq PRN Reason Stop Dose Admin Acetaminophen 1,000 mg 03/23/23 10:00 03/24/23 02:04 Acetaminophen 500 Mg Tab PO 04/22/23 09:59 1,000 mg Q8H KELLEE Administration Aspirin 81 mg 03/23/23 09:00 03/23/23 08:53 Aspirin 81 Mg Chew PO 04/22/23 08:59 81 mg DAILY KELLEE Administration Atorvastatin Calcium 40 mg 03/23/23 09:00 03/23/23 08:53 Atorvastatin 40 Mg Tab PO 04/22/23 08:59 40 mg QAM KELLEE Administration Ferrous Sulfate 325 mg 03/23/23 07:30 03/23/23 08:53 Ferrous Sulfate 325 Mg Tab PO 04/22/23 07:29 325 mg QDB KELLEE Administration Morphine Sulfate 2 mg 03/22/23 20:43 03/23/23 20:17 Morphine Sulfate 2 Mg/Ml Carp IV 04/05/23 20:42 2 mg Q3H PRN Administration Pain Multivitamins/Minerals 1 tab 03/23/23 09:00 03/23/23 08:53 Cerovite Adv Formula Tab PO 04/22/23 08:59 1 tab DAILY KELLEE Administration Mycophenolate Sodium 720 mg 03/23/23 09:00 03/23/23 08:54 Mycophenolate Sodium 180 Mg Tab PO 04/22/23 08:59 720 mg DAILY KELLEE Administration Pantoprazole Sodium 40 mg 03/23/23 09:00 03/23/23 08:55 Pantoprazole 40 Mg Tab PO 04/22/23 08:59 40 mg QAM KELLEE Administration Polyethylene Glycol 17 gm 03/23/23 10:55 03/23/23 12:28 Polyethylene (Miralax) 17 Gm Pack PO 04/22/23 10:54 17 gm DAILY KELLEE Administration Prednisone 5 mg 03/23/23 09:00 03/23/23 08:57 Prednisone 5 Mg Tab PO 04/22/23 08:59 5 mg DAILY KELLEE Administration Tramadol HCl 25 - 50 mg 03/22/23 20:43 03/23/23 14:47 Tramadol Hcl 50 Mg Tablet PO 04/21/23 20:42 50 mg Q4H PRN Administration Pain Past Medical History Medical History Osteoarthritis Anemia Migraine with aura Allergy-induced asthma inhaler wkly and prn Escobedo esophagus Polyarteritis nodosa Past Family History Family History Other No family history of adverse response to anesthesia Past Surgical History Surgical History History of dilatation and curettage several History of colonoscopy History of esophagogastroduodenoscopy (EGD) History of tooth extraction History of bilateral cataract extraction Social History Smoking Status: Former smoker Smoking cigarettes per day: Half a pack a day. Do You Dip or Chew Tobacco: No Hx Alcohol Use: Yes ("OCCASIONALLY") Alcohol type: wine and hard liquor alcohol intake frequency: holidays/special occasions only Alcohol Intake Frequency Comment: [facility] [place]. Hx Substance Use: No substance use type: does not use Physical Exam Vital Signs Last Vital Signs Temp 97.7 F 03/24/23 07:03 Pulse 78 03/24/23 07:03 Resp 18 03/24/23 07:03 BP 165/71 H 03/24/23 07:03 Pulse Ox 94 03/24/23 07:03 O2 Del Method Room Air 03/24/23 07:03 Testing Laboratory Results 03/24/23 06:36 PT 10.7 Seconds (9.0-12.0) 03/22/23 19:35 INR 1.0 (0.9-1.1) 03/22/23 19:35 Blood Type O Positive 03/23/23 05:24 Antibody Screen NEGATIVE 03/23/23 05:24 Electrocardiogram Date: 03/22/23 Normal sinus rhythm with sinus arrhythmia, rate 61 bpm Chest X-Ray Date: 03/23/23 Findings: + NAD
[2023-03-24] MEDS: CEROVITE ADV FORMULA TAB PO SCH (07:44)
[2023-03-24] MEDS: ATORVASTATIN 40 MG TAB PO SCH (07:44)
[2023-03-24] MEDS: MYCOPHENOLATE SODIUM 180 MG TAB PO SCH (07:44)
[2023-03-24] MEDS: PANTOprazole 40 MG TAB PO SCH (07:45)
[2023-03-24] MEDS: predniSONE 5 MG TAB PO SCH (07:45)
[2023-03-24] MEDS: FERROUS SULFATE 325 MG TAB PO SCH (07:45)
[2023-03-24 07:55] LABS: BUN Creatinine Ratio 16.7 (10-20); Calcium 8.3 mg/dl (8.6-10.3); Creatinine Clr Calc Pharmacy 69.4 ml/min; Est GFR (African American) 102.6 ml/min; Est GFR (Non-African American) 88.5 ml/min; Magnesium 1.8 mg/dl (1.7-2.4); Phosphorus 2.4 mg/dl (2.5-4.9); Potassium 3.8 mmol/L (3.5-5.1)
[2023-03-24] MEDS: POLYETHYLENE (MIRALAX) 17 GM PACK PO SCH (08:30)
[2023-03-24] MEDS: MoRPHine SULFATE 2 MG/ML CARP IV PRN ×2 (09:16→19:54)
[2023-03-24] MEDS: ONDANSETRON INJ 2 MG/ML 2 ML VIAL IV PRN (09:16)
--- NOTE | 2023-03-24 10:08 | Hospitalist Progress Note ---
Date of Service March 24, 2023 Assessment & Plan (1) Closed fracture of right hip: Plan: Right femoral fracture secondary to mechanical fall Age-related osteoporosis w current pathological fracture of right femur Ortho consulted, planning for right trochanteric femoral nail today. Pain control with scheduled Tylenol, as needed morphine and tramadol for breakthrough pain. PT/OT when appropriate Psoriatic arthropathy, cutaneous polyarteritis nodosa On chronic immunosuppressive therapy with CellCept and prednisone History of PVD HLD Continue ASA and statin GERD Continue PPI DVT PROPHYLAXIS SCDs due to planned procedure. Postop DVT prophylaxis as per Ortho. Dispo -pending, plan for OR today, may need placement for rehab, CM following Patient seen in collaboration with Dr. Jaeger. Admission and Anticipated Discharge Date Admission Date: March 22, 2023 Supervising Physician Co-Signing Physician Notes Pt seen and examined by me, care coordinated w/ Hemanth HODGSON, pls refer to her note above for further detail. Pt is currently laying in bed in NAD. Says she slept ok last night. Pain currently controlled as she recently received pain med. No fever, chills, chest pain, shortness of breath, abd pain, n or v. Lungs are clear to auscultation, heart sounds regular, abdomens soft, nontender, nondistended, + bowel sounds. Awaiting to go to OR later today for R femoral nail. MD Mil Subjective Follow-up for intertrochanteric right femur fracture. Scheduled for OR today. Patient seen and examined. Reporting pain, requesting pain medication. Denies numbness and tingling to the right leg. Reports some mild nausea due to taking medications on empty stomach. No vomiting or abdominal pain. Denies chest pain and shortness of breath. No lightheadedness or dizziness. Review of Systems Review of Systems: All systems reviewed & are unremarkable except as noted in Subjective Physical Exam Constitutional: WD/WN, vitals as above no acute distress Respiratory: normal respiratory effort, lungs clear to auscultation Cardiovascular: Rate/Rhythm: regular rate and regular rhythm Vessels: normal peripheral pulses Extremities: no edema Gastrointestinal (Abdomen): Percussion/Palpation: abdomen soft; abdomen nontender Musculoskeletal: Right hip pain with minimal movement or palpation Skin: no rashes, warm and dry Neurologic: no focal motor deficits Psychiatric: A+Ox3, euthymic affect Results & Data Results & Data Vital Signs (Past 12 Hours) Vital Signs Temp Pulse Resp BP Pulse Ox O2 Del Method 03/24/23 07:03 36.5 C 78 18 165/71 H 94 Room Air Laboratory Results Short CBC 03/24/23 Range/Units 06:36 WBC 8.85 (4.8-10.8) K/ul Hgb 11.2 L (12.0-16.0) g/dl Hct 34.8 L (37.0-47.0) % Plt Count 324 (130-400) K/uL BMP 03/24/23 06:36 Sodium 133 L Potassium 3.8 Chloride 101 Carbon Dioxide 27 BUN 9 Creatinine 0.54 L Glucose 93 Calcium 8.3 L Medications Administered Current Inpatient Medications Acetaminophen (Acetaminophen 500 Mg Tab) 1,000 mg PO Q8H KELLEE Stop: 04/22/23 09:59 Last Admin: 03/24/23 09:22 Dose: 1,000 mg Albuterol (Albut/Ipratrop 3mg/0.5mg Neb 3 Ml Vial) 3 ml NEB Q2H PRN; Protocol PRN Reason: sob wheeze Stop: 04/21/23 22:38 Aspirin (Aspirin 81 Mg Chew) 81 mg PO DAILY KELLEE Stop: 04/22/23 08:59 Last Admin: 03/23/23 08:53 Dose: 81 mg Atorvastatin Calcium (Atorvastatin 40 Mg Tab) 40 mg PO QAM KELLEE Stop: 04/22/23 08:59 Last Admin: 03/24/23 07:44 Dose: 40 mg Bisacodyl (Bisacodyl 10 Mg Supp) 10 mg CA DAILY PRN PRN Reason: Constipation Stop: 04/21/23 22:33 Ferrous Sulfate (Ferrous Sulfate 325 Mg Tab) 325 mg PO QDB KELLEE Stop: 04/22/23 07:29 Last Admin: 03/24/23 07:45 Dose: 325 mg Promethazine HCl 6.25 mg/ (Sodium Chloride) 50.25 mls @ 201 mls/hr IV Q6H PRN PRN Reason: Nausea And Vomiting Stop: 04/21/23 20:43 Morphine Sulfate (Morphine Sulfate 2 Mg/Ml Carp) 2 mg IV Q3H PRN PRN Reason: Pain Stop: 04/05/23 20:42 Last Admin: 03/24/23 09:16 Dose: 2 mg Multivitamins/Minerals (Cerovite Adv Formula Tab) 1 tab PO DAILY KELLEE Stop: 04/22/23 08:59 Last Admin: 03/24/23 07:44 Dose: 1 tab Mycophenolate Sodium (Mycophenolate Sodium 180 Mg Tab) 720 mg PO DAILY KELLEE Stop: 04/22/23 08:59 Last Admin: 03/24/23 07:44 Dose: 720 mg Naloxone HCl (Naloxone Hcl 0.4 Mg/1 Ml Vial/Carp) 0.1 mg IV UD PRN PRN Reason: Opiate Overdose Stop: 04/21/23 22:33 Ondansetron HCl (Ondansetron Inj 2 Mg/Ml 2 Ml Vial) 4 mg IV Q6H PRN PRN Reason: Nausea And Vomiting Stop: 04/23/23 08:54 Last Admin: 03/24/23 09:16 Dose: 4 mg Pantoprazole Sodium (Pantoprazole 40 Mg Tab) 40 mg PO QAM [facility] Stop: 04/22/23 08:59 Last Admin: 03/24/23 07:45 Dose: 40 mg Polyethylene Glycol (Polyethylene (Miralax) 17 Gm Pack) 17 gm PO DAILY KELLEE Stop: 04/22/23 10:54 Last Admin: 03/24/23 08:30 Dose: Not Given Prednisone (Prednisone 5 Mg Tab) 5 mg PO DAILY KELLEE Stop: 04/22/23 08:59 Last Admin: 03/24/23 07:45 Dose: 5 mg Tramadol HCl (Tramadol Hcl 50 Mg Tablet) 25 - 50 mg PO Q4H PRN PRN Reason: Pain Stop: 04/21/23 20:42 Last Admin: 03/23/23 14:47 Dose: 50 mg
[2023-03-24] MEDS ORDERED: fentaNYL citrate PF 100 MCG/2 ML VIAL ONE (13:04)
[2023-03-24] MEDS ORDERED: LIDOCAINE 2% 2 ML VIAL/AMP(20MG/ML) INFIL ONE (13:05)
[2023-03-24] MEDS ORDERED: PROPOFOL IV EMULSION 10 MG/ML 20 ML VIAL IV ONE (13:05)
[2023-03-24] MEDS ORDERED: BUPIVACAINE 0.25% PF 30 ML VIAL ONE (14:43)
[2023-03-24] MEDS ORDERED: ONDANSETRON INJ 2 MG/ML 2 ML VIAL IV PRN (15:16)
[2023-03-24] MEDS ORDERED: fentaNYL citrate PF 100 MCG/2 ML VIAL IV PRN (15:16)
[2023-03-24] MEDS ORDERED: ePHEDrine sulfate 50 MG/ML AMP IV PRN (15:16)
[2023-03-24] MEDS ORDERED: ATROPINE SULFATE 0.1 MG/ML 10ML SYR IV PRN (15:16)
[2023-03-24] MEDS ORDERED: DEXAMETHASONE SOD INJ 4 MG/ML VIAL ONE (15:19)
[2023-03-24] MEDS ORDERED: ONDANSETRON INJ 2 MG/ML 2 ML VIAL ONE (15:19)
[2023-03-24] MEDS: LACTATED RINGER'S 1,000 ML IV SCH (15:28)
[2023-03-24] MEDS ORDERED: ceFAZolin 2000MG 2,000 MG/15 ML SYR IV ONE (15:30)
[2023-03-24] MEDS ORDERED: ceFAZolin 2,000 MG/15 ML IV PUSH IV ONE (15:31)
--- NOTE | 2023-03-24 15:36 | History & Physical Bridge Note ---
Date of Service March 24, 2023 History & Physical Bridge Note I have examined the patient, reviewed the History & Physical and in the interval since the performance of the History & Physical I have noted the following changes of clinical significance: no changes noted Met with the patient. Had a lengthy discussion with her regarding risk benefits potential complications of right hip cephalomedullary nail for her intertrochanteric femur fracture. These include but are not limited to: Infection, neurovascular injury, DVT, nonunion, malunion and need for future surgery. After reviewing these she elected proceed with surgical intervention and written consent was obtained.
[2023-03-24] MEDS ORDERED: PHENYLEPHRINE 100MCG/ML 10ML SYR IV ONE (16:24)
--- NOTE | 2023-03-24 17:19 | Post Operative Brief Note ---
Immediate Post Op Note v1 Date of Surgery March 24, 2023 Pre & Post Diagnosis Operation Date: 03/24/23 08:20 Pre-Op Diagnosis: Closed fracture of right hip Post-Op Diagnosis: Closed fracture of right hip I identified the patient and participated in the time-out.: Yes Procedure Operation Date: 03/24/23 08:20 Actual Procedures p Right Hip Cephalomedullary Nail(Right) - Jose Andrew DO Surgeon Jose Andrew DO Director Telecommunications none Estimated Blood Loss 50 Findings Consistent with Post-Op Diagnosis see dictation Complications none
--- NOTE | 2023-03-24 17:43 | Operative Report ---
Post Operative Report Pre & Post Diagnosis Operation Date: 03/24/23 08:20 Pre-Op Diagnosis: Closed fracture of right hip Post-Op Diagnosis: Closed fracture of right hip I identified the patient and participated in the time-out.: Yes Procedure Operation Date: 03/24/23 08:20 Actual Procedures p Right Hip Cephalomedullary Nail(Right) - Jose Andrew DO Surgeon Jose Andrew DO Component Inspector none Estimated Blood Loss 50 Findings Consistent with Post-Op Diagnosis see dictation Specimens none Complications none Indications 83-year-old female presenting after sustaining a ground-level fall onto her right hip. In the emergency department she was found to have a displaced right intertrochanteric femur fracture. She is admitted to medical service and orthopedics was consulted for operative management. I had a lengthy discussion with the patient regarding risk benefits potential complications of right hip cephalomedullary nail. After reviewing these she elected to proceed with surgical intervention and written consent was obtained Description of Procedure Implants: Synthes TFNA right 11 mm x 235 mm 130 degree, TFNA fenestrated screw 95 mm, 5 mm x 34 mm locking screw Procedure: Patient was properly marked and identified in the preoperative holding area. She was then taken back to the operative suite where she received antibiotics per protocol as well as general anesthesia. She was then transferred over to the manual fracture table using the assistance of C-arm fluoroscopy her fracture was reduced to a satisfactory position. She was then prepped and draped in the standard orthopedic fashion a timeout was then performed. 3 cm incision superior to the tip of the trochanter was then made through the skin subcutaneous tissue and gluteal fascia a threaded guidewire was then advanced through the tip of the trochanter and into the medullary canal. Position was confirmed on AP and lateral fluoroscopy. Canal opening reamer was then used to open the canal proximally. A 11 mm x 235 mm nail was then selected. Unfortunately nail was noted to have some tight fit distally therefore a ball-tipped guidewire was inserted and the canal was sequentially reamed up to a size 12.5 mm reamer. The 11 mm x 235 mm nail was then inserted into the medullary canal and the ball-tipped guidewire was then removed. Proximal outrigger was then attached and incision was made for the fenestrated lag screw. Guide was then compressed down to bone and lateral fluoroscopy the femoral neck segment was noted to be slightly flexed anteriorly. A stab incision was then made and a hemostat was used to translate the femoral neck posteriorly the threaded guidewire was then inserted through the lateral cortex and advanced into the femoral head and a center center position just beneath the subchondral bone. Position was confirmed on AP and lateral fluoroscopy and noted to be satisfactory. A derotational pin was then placed. Length was then measured and noted to be 95 mm. A lateral cortical reamer was first used followed by a tapered reamer set to 95 mm. A 95 mm fenestrated screw was then inserted and then compressed. The nail was then statically locked at the proximal aspect. Outrigger was then removed as well as all guidewires. Attention was then turned to the distal interlock incision was made through the skin subcutaneous tissue and IT band fascia. Drill was then used to drill bicortically and a 34 mm locking screw was then inserted. Proximal outrigger was then removed. Final radiographs were obtained demonstrating satisfactory reduction of the fracture and positioning of the implant. Wounds were then copiously irrigated using normal saline solution. Deep fascia was closed using 0 Vicryl followed by 2-0 Vicryl for subcutaneous tissue and georgi for the skin. Sterile dressing of Xeroform 4 x 4 gauze and Tegaderm was then applied. The patient tolerated the the procedure well was then taken the recovery room in hemodynamically stable condition I attest to the content of the Intraoperative Record and any orders documented therein. Any exceptions are noted below.
--- NOTE | 2023-03-24 18:17 | Fluoroscopy Report ---
INTRAOPERATIVE RADIOGRAPHS CLINICAL HISTORY: Open reduction and internal fixation of the right proximal femur. Fluoro time: 87 seconds Ka,r: 20.33 mGy FINDINGS: 5 spot fluoroscopic views of the right proximal femur are correlated with radiographs dated 03/22/2023. Intertrochanteric and intramedullary nails have been placed transfixing an intertrochant nilo fracture of the right proximal femur. Near-anatomic alignment is restored. A single cortical lag screw transfixes the intramedullary nail. The orthopedic hardware appears intact. There is persisten t medial displacement of the lesser trochanter. Overlying soft tissue edema is noted. IMPRESSION: Intraoperative images from open reduction and internal fixation of the right proximal fem ur as above. Electronically signed by: Nilo Garduno M.D. 03/24/2023 6:15 PM
[2023-03-24] MEDS: SODIUM CHLORIDE 0.9% 1,000 ML IV SCH (18:44)
--- NOTE | 2023-03-24 20:13 | Anesthesiology Progress Note ---
Date of Service March 24, 2023 Anesthesia Post Procedure Vital Signs Vital Signs: Temp Pulse Pulse Resp BP BP Pulse Ox 03/24/23 19:15 98.4 F 85 18 119/75 95 03/24/23 18:10 98.4 F 80 18 111/61 96 03/24/23 17:45 97.7 F 80 18 141/61 H 99 03/24/23 17:35 86 16 130/62 96 03/24/23 17:25 83 16 139/58 L 100 03/24/23 17:15 98.1 F 90 16 129/62 100 03/24/23 15:08 99.0 F 84 20 140/62 92 03/24/23 14:19 98.2 F 86 16 123/70 93 03/24/23 07:03 97.7 F 78 18 165/71 H 94 O2 Del Method O2 Flow Rate 03/24/23 19:15 Nasal Cannula 1 03/24/23 18:10 Room Air 03/24/23 17:45 Nasal Cannula 2 03/24/23 17:35 Nasal Cannula 2 03/24/23 17:25 Oxymask 4 03/24/23 17:15 Oxymask 4 03/24/23 15:08 Room Air 03/24/23 14:19 Room Air 03/24/23 07:03 Room Air Pain Intensity Right Hip: Pain Intensity: 10 Transfer of Care Handoff Completed per policy Notes Mental Status: alert / awake / arousable and participated in evaluation Patient Amnestic to Procedure: Yes Nausea / Vomiting: adequately controlled Pain: adequately controlled Airway Patency, RR, SpO2: stable & adequate BP & HR: stable & adequate Hydration State: stable & adequate Anesthetic Complications: no major complications apparent and Pt Satisfied with anesthetic care
[2023-03-24] MEDS: ASPIRIN 81 MG ECTAB PO SCH (20:38)
[2023-03-24] MEDS: ceFAZolin 2000MG 2,000 MG/15 ML SYR IV SCH (23:19)
[2023-03-25] MEDS: ACETAMINOPHEN 500 MG TAB PO SCH ×3 (01:13→17:48)
[2023-03-25] MEDS: MoRPHine SULFATE 2 MG/ML CARP IV PRN (04:22)
--- NOTE | 2023-03-25 06:07 | Electrocardiogram Report ---
Test Reason : Blood Pressure : / mmHG Vent. Rate : 061 BPM Atrial Rate : 061 BPM P-R Int : 198 ms QRS Dur : 082 ms QT Int : 412 ms P-R-T Axes : 072 003 056 degrees QTc Int : 414 ms Normal sinus rhythm with sinus arrhythmia Normal ECG No previous ECGs available Confirmed by Ebenezer Valentin ([id number]) on 03/25/2023 6:07:08 AM Referred By: REFERRED SELF Confirmed By:Ebenezer Valentin
[2023-03-25] MEDS: SODIUM CHLORIDE 0.9% 1,000 ML IV SCH (06:43)
--- NOTE | 2023-03-25 06:46 | Hospitalist Progress Note ---
Date of Service March 25, 2023 Assessment & Plan (1) Closed fracture of right hip: Plan: Right femoral fracture secondary to mechanical fall Age-related osteoporosis w current pathological fracture of right femur Orthopedics consulted, S/p right trochanteric femoral nail on 03/25/2023 (yesterday) Pain control with scheduled Tylenol, as needed morphine and tramadol for breakthrough pain. PT/OTpatient may be weightbearing as tolerated on the right lower extremity. Range of motion as tolerated right hip. DVT prophylaxisaspirin 81 mg twice daily x 30 days. Follow-up with Dr. Andrew ([facility] [place]) in approximately 2 weeks postop. 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 S/p surgical repair yesterday Today she is feeling well, says she was sitting in chair today for some time pain is controlled No fever, chills, chest pain or shortness of breath. Reports some mild nausea due to taking medications on empty stomach. No vomiting or abdominal pain. Denies chest pain and shortness of breath. No lightheadedness or dizziness. Review of Systems Review of Systems: All systems reviewed & are unremarkable except as noted in Subjective Physical Exam Physical Exam: Constitutional: WD/WN, in no acute distress Respiratory: normal respiratory effort, lungs alfonso ar to auscultation Cardiovascular: Rate/Rhythm: regul ar rate and regula r rhythm Vessels: normal peripheral pulses Extremiti es: no edema Gastrointestinal ( Abdomen): Percussion/Palpati on: abdomen soft; abdomen nontender Musculoskeletal: Dressings over Ri ght hip. no erythe ma seen. Skin: no rashes, warm an d dry Neurologic: no focal motor def icits Psychiatric: A+Ox3, euthymic af fect Results & Data Results & Data Vital Signs (Past 12 Hours) Vital Signs Temp Pulse Resp BP BP Pulse Ox O2 Del Method 03/25/23 03:37 95 Room Air 03/25/23 03:36 36.6 C 82 18 129/69 97 Nasal Cannula 03/25/23 01:05 36.7 C 85 18 109/65 94 Nasal Cannula 03/24/23 21:18 36.7 C 88 16 122/70 96 Nasal Cannula 03/24/23 20:16 36.7 C 88 18 127/61 95 Nasal Cannula 03/24/23 19:30 Nasal Cannula 03/24/23 19:15 36.9 C 85 18 119/75 95 Nasal Cannula O2 Flow Rate 03/25/23 03:37 03/25/23 03:36 1 03/25/23 01:05 1 03/24/23 21:18 1 03/24/23 20:16 1 03/24/23 19:30 1 03/24/23 19:15 1 Laboratory Results 03/25/23 Range/Units 06:17 WBC 11.48 H (4.8-10.8) K/ul RBC 3.86 L (4.20-5.40) M/uL Hgb 10.4 L (12.0-16.0) g/dl Hct 33.1 L (37.0-47.0) % MCV 85.8 (80.0-100.0) fL MCH 26.9 (25.0-34.0) pg MCHC 31.4 L (32.0-36.0) g/dL RDW Std Deviation 40.5 (36.4-46.3) fL RDW Coeff of Shoshana 13.2 (11.5-14.5) % Plt Count 336 (130-400) K/uL MPV 8.4 L (9.4-12.4) fL Immature Gran % (Auto) 0.7 % Neut % (Auto) 79.4 % Lymph % (Auto) 10.0 % [place] % (Auto) 9.8 % Eos % (Auto) 0.0 % Baso % (Auto) 0.1 % Neut # (Auto) 9.11 H (1.40-6.50) K/uL Lymph # (Auto) 1.15 L (1.20-3.40) K/uL [place] # (Auto) 1.13 H (0.11-0.59) K/uL Eos # (Auto) 0.00 (0.00-0.50) K/uL Baso # (Auto) 0.01 (0.00-0.20) K/uL Immature Gran # (Auto) 0.08 (0.01-0.20) K/uL Sodium 135 L (136-145) mmol/L Potassium 4.6 D (3.5-5.1) mmol/L Chloride 104 (98-107) mmol/L Carbon Dioxide 26 (21-32) mmol/L Anion Gap 5 (3-11) BUN 15 (6-23) mg/dl Creatinine 0.77 (0.6-1.2) mg/dl Est Cr Clr Drug Dosing 48.7 ml/min Est GFR ( Amer) 83.9 ml/min Est GFR (Non-Af Amer) 72.4 ml/min BUN/Creatinine Ratio 19.5 (10-20) Glucose 121 H (70-99(Fasting)) mg/dl Calcium 8.3 L (8.6-10.3) mg/dl Phosphorus 3.2 (2.5-4.9) mg/dl Magnesium 1.9 (1.7-2.4) mg/dl 25-OH Vitamin D Total 15.3 L (30-100) ng/ml Medications Administered Current Inpatient Medications Acetaminophen (Acetaminophen 500 Mg Tab) 1,000 mg PO Q8H [facility] Stop: 04/22/23 09:59 Last Admin: 03/25/23 01:13 Dose: 1,000 mg Albuterol (Albut/Ipratrop 3mg/0.5mg Neb 3 Ml Vial) 3 ml NEB Q2H PRN; Protocol PRN Reason: sob wheeze Stop: 04/21/23 22:38 Aspirin (Aspirin 81 Mg Ectab) 81 mg PO BID [facility] Stop: 04/23/23 20:59 Last Admin: 03/24/23 20:38 Dose: 81 mg Atorvastatin Calcium (Atorvastatin 40 Mg Tab) 40 mg PO QAM [facility] Stop: 04/22/23 08:59 Last Admin: 03/24/23 07:44 Dose: 40 mg Bisacodyl (Bisacodyl 10 Mg Supp) 10 mg [place] DAILY PRN PRN Reason: Constipation Stop: 04/21/23 22:33 Ferrous Sulfate (Ferrous Sulfate 325 Mg Tab) 325 mg PO QDB [facility] Stop: 04/22/23 07:29 Last Admin: 03/24/23 07:45 Dose: 325 mg Promethazine HCl 6.25 mg/ (Sodium Chloride) 50.25 mls @ 201 mls/hr IV Q6H PRN PRN Reason: Nausea And Vomiting Stop: 04/21/23 20:43 Lactated Ringer's (Lr) 1,000 mls @ 15 mls/hr IV .Q24H [facility] Stop: 04/23/23 15:29 Last Infusion: 03/24/23 19:15 Dose: Infused Cefazolin Sodium (Ancef 2000mg) 2,000 mg in 15 mls @ 3.75 mls/min IV Q8H [facility]ELLEE; Protocol Stop: 03/25/23 08:03 Last Admin: 03/24/23 23:19 Dose: 3.75 mls/min Morphine Sulfate (Morphine Sulfate 2 Mg/Ml Carp) 2 mg IV Q3H PRN PRN Reason: Pain Stop: 04/05/23 20:42 Last Admin: 03/25/23 04:22 Dose: 2 mg Multivitamins/Minerals (Cerovite Adv Formula Tab) 1 tab PO DAILY [facility] Stop: 04/22/23 08:59 Last Admin: 03/24/23 07:44 Dose: 1 tab Mycophenolate Sodium (Mycophenolate Sodium 180 Mg Tab) 720 mg PO DAILY [facility] Stop: 04/22/23 08:59 Last Admin: 03/24/23 07:44 Dose: 720 mg Naloxone HCl (Naloxone Hcl 0.4 Mg/1 Ml Vial/Carp) 0.1 mg IV UD PRN PRN Reason: Opiate Overdose Stop: 04/21/23 22:33 Ondansetron HCl (Ondansetron Inj 2 Mg/Ml 2 Ml Vial) 4 mg IV Q6H PRN PRN Reason: Nausea And Vomiting Stop: 04/23/23 08:54 Last Admin: 03/24/23 09:16 Dose: 4 mg Pantoprazole Sodium (Pantoprazole 40 Mg Tab) 40 mg PO QAM [facility] Stop: 04/22/23 08:59 Last Admin: 03/24/23 07:45 Dose: 40 mg Polyethylene Glycol (Polyethylene (Miralax) 17 Gm Pack) 17 gm PO DAILY [facility] Stop: 04/22/23 10:54 Last Admin: 03/24/23 08:30 Dose: Not Given Prednisone (Prednisone 5 Mg Tab) 5 mg PO DAILY [facility] Stop: 04/22/23 08:59 Last Admin: 11/22/23 07:45 Dose: 5 mg Tramadol HCl (Tramadol Hcl 50 Mg Tablet) 25 - 50 mg PO Q4H PRN PRN Reason: Pain Stop: 04/21/23 20:42 Last Admin: 03/23/23 14:47 Dose: 50 mg
[2023-03-25 07:04] LABS: Basophils # (auto) 0.01 K/uL (0.00-0.20); Basophils % (auto) 0.1 %; Hematocrit (blood only) 33.1 % (37.0-47.0); Hemoglobin 10.4 g/dl (12.0-16.0); Immature Granulocytes # (auto) 0.08 K/uL (0.01-0.20); Immature Granulocytes % (auto) 0.7 %; Lymphocytes # (auto) 1.15 K/uL (1.20-3.40); Mean Corpuscular Hemoglobin 26.9 pg (25.0-34.0); Mean Corpuscular Hgb Conc 31.4 g/dL (32.0-36.0); Mean Corpuscular Volume 85.8 fL (80.0-100.0); Mean Platelet Volume 8.4 fL (9.4-12.4); Monocytes # (auto) 1.13 K/uL (0.11-0.59); Monocytes % (auto) 9.8 %; Neutrophils # (auto) 9.11 K/uL (1.40-6.50); Neutrophils % (auto) 79.4 %; Platelet Count 336 K/uL (130-400); RDW Coefficient of Variation 13.2 % (11.5-14.5); RDW Standard Deviation 40.5 fL (36.4-46.3); Red Blood Count 3.86 M/uL (4.20-5.40); White Blood Count 11.48 K/ul (4.8-10.8)
[2023-03-25 07:30] LABS: BUN Creatinine Ratio 19.5 (10-20); Calcium 8.3 mg/dl (8.6-10.3); Creatinine Clr Calc Pharmacy 48.7 ml/min; Est GFR (African American) 83.9 ml/min; Est GFR (Non-African American) 72.4 ml/min; Magnesium 1.9 mg/dl (1.7-2.4); Phosphorus 3.2 mg/dl (2.5-4.9); Potassium 4.6 mmol/L (3.5-5.1)
[2023-03-25] MEDS: MYCOPHENOLATE SODIUM 180 MG TAB PO SCH (07:43)
[2023-03-25] MEDS: CEROVITE ADV FORMULA TAB PO SCH (07:43)
[2023-03-25] MEDS: ATORVASTATIN 40 MG TAB PO SCH (07:43)
[2023-03-25] MEDS: FERROUS SULFATE 325 MG TAB PO SCH (07:44)
[2023-03-25] MEDS: ASPIRIN 81 MG ECTAB PO SCH ×2 (07:44→20:02)
[2023-03-25] MEDS: POLYETHYLENE (MIRALAX) 17 GM PACK PO SCH ×2 (07:44→09:06)
[2023-03-25] MEDS: PANTOprazole 40 MG TAB PO SCH (07:44)
[2023-03-25] MEDS: ceFAZolin 2000MG 2,000 MG/15 ML SYR IV SCH (07:45)
[2023-03-25] MEDS: predniSONE 5 MG TAB PO SCH (07:45)
--- NOTE | 2023-03-25 08:49 | Orthopedic Progress Note ---
Date of Service March 25, 2023 Assessment & Plan (1) Closed fracture of right hip: Plan: Postop day #1 status post right trochanteric nail for right comminuted intertrochanteric hip fracture. PT/OTpatient may be weightbearing as tolerated on the right lower extremity. Range of motion as tolerated right hip. DVT prophylaxisaspirin 81 mg twice daily x 30 days. Pain controlIV morphine as needed for severe pain, oral tramadol and Tylenol. Discharge planninguncertain at this time. Depending on PT, the patient may need a rehab facility versus detention facility. Orthopedics will sign off at this time. Follow-up with Dr. Andrew in approximately 2 weeks postop. Admission and Anticipated Discharge Date Admission Date: March 22, 2023 Subjective Patient states she is doing well this morning. Her pain is improved in the right hip postoperatively. States she tried ambulating and placing weight on the right lower extremity today but was unable to do so. No new complaints today. Physical Exam Constitutional: WD/WN, vitals as above no acute distress (Sitting up in bed, comfortable.) Musculoskeletal: Hip: + surgical incision (Dressings were C/D/I right lateral hip. Right thigh was soft.); no deformity, no skin erythema and no ecchymosis Skin: no rashes, warm and dry Neurologic: normal touch/pain/proprioception Psychiatric: A+Ox3, euthymic affect Speech: normal rate/rhythm/volume of speech Results & Data Vital Signs (Past 12 Hours) Vital Signs Temp Pulse Resp BP BP Pulse Ox O2 Del Method 03/25/23 07:26 36.8 C 81 14 123/70 92 Room Air 03/25/23 03:37 95 Room Air 03/25/23 03:36 36.6 C 82 18 129/69 97 Nasal Cannula 03/25/23 01:05 36.7 C 85 18 109/65 94 Nasal Cannula 03/24/23 21:18 36.7 C 88 16 122/70 96 Nasal Cannula O2 Flow Rate 03/25/23 07:26 03/25/23 03:37 03/25/23 03:36 1 03/25/23 01:05 1 03/24/23 21:18 1 Laboratory Results Laboratory Tests 03/25/23 06:17 Hgb 10.4 L Hct 33.1 L BUN 15 Creatinine 0.77
[2023-03-25] MEDS: traMADol HCL 50 MG TABLET PO PRN (10:23)
[2023-03-25] MEDS: ONDANSETRON INJ 2 MG/ML 2 ML VIAL IV PRN (10:24)
[2023-03-25] MEDS: ERGOCALCIFEROL 50,000 UNITS 1250 MCG CAP PO SCH (12:05)
[2023-03-25] MEDS: LACTATED RINGER'S 1,000 ML IV SCH (15:45)
[2023-03-26] MEDS: ACETAMINOPHEN 500 MG TAB PO SCH ×3 (01:19→18:01)
[2023-03-26] MEDS: FERROUS SULFATE 325 MG TAB PO SCH (08:05)
[2023-03-26] MEDS: CEROVITE ADV FORMULA TAB PO SCH (08:05)
[2023-03-26] MEDS: PANTOprazole 40 MG TAB PO SCH (08:05)
[2023-03-26] MEDS: predniSONE 5 MG TAB PO SCH (08:05)
[2023-03-26] MEDS: MYCOPHENOLATE SODIUM 180 MG TAB PO SCH (08:05)
[2023-03-26] MEDS: ATORVASTATIN 40 MG TAB PO SCH (08:05)
[2023-03-26] MEDS: ASPIRIN 81 MG ECTAB PO SCH ×2 (08:05→21:43)
[2023-03-26] MEDS: POLYETHYLENE (MIRALAX) 17 GM PACK PO SCH (08:06)
[2023-03-26] MEDS: traMADol HCL 50 MG TABLET PO PRN ×2 (08:15→16:21)
--- NOTE | 2023-03-26 08:44 | Hospitalist Progress Note ---
Date of Service March 26, 2023 Assessment & Plan (1) Closed fracture of right hip: Plan: Right femoral fracture secondary to mechanical fall Age-related osteoporosis w current pathological fracture of right femur Orthopedics consulted, S/p right trochanteric femoral nail on 03/24/2023 Pain control with scheduled Tylenol, as needed morphine and tramadol for breakthrough pain. PT/OTpatient may be weightbearing as tolerated on the right lower extremity. Range of motion as tolerated right hip. DVT prophylaxisaspirin 81 mg twice daily x 30 days. Follow-up with Dr. Andrew ([facility] [place]) in approximately 2 weeks postop. 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 S/p surgical repair She is feeling well, however she is orthostatic - feels dizzy / lightheaded when standing up No fever, chills, chest pain, shortness of breath pain is controlled at rest, however she has pain with movement Discussed with PT at the bedside. Review of Systems Review of Systems: All systems reviewed & are unremarkable except as noted in Subjective Physical Exam Physical Exam: Constitutional: WD/WN, in no acute distress Respiratory: normal respiratory effort, lungs alfonso ar to auscultation Cardiovascular: Rate/Rhythm: regul ar rate and regula r rhythm Vessels: normal peripheral pulses Extremiti es: no edema Gastrointestinal ( Abdomen): Percussion/Palpati on: abdomen soft; abdomen nontender Musculoskeletal: Dressings over Ri ght hip. no erythe ma seen. Skin: no rashes, warm an d dry Neurologic: no focal motor def icits Psychiatric: A+Ox3, euthymic af fect Results & Data Results & Data Vital Signs (Past 12 Hours) Vital Signs Temp Pulse Resp BP BP Pulse Ox Pulse Ox 03/26/23 07:07 36.8 C 79 16 117/62 92 03/26/23 01:58 36.7 C 80 16 123/68 94 03/25/23 23:35 91 03/25/23 23:34 36.7 C 79 16 107/58 L 91 O2 Del Method O2 Del Method 03/26/23 07:07 Room Air 03/26/23 01:58 Room Air 03/25/23 23:35 Room Air 03/25/23 23:34 Room Air Laboratory Results 03/26/23 Range/Units 09:02 WBC 10.52 (4.8-10.8) K/ul RBC 3.48 L (4.20-5.40) M/uL Hgb 9.3 L (12.0-16.0) g/dl Hct 29.4 L (37.0-47.0) % MCV 84.5 (80.0-100.0) fL MCH 26.7 (25.0-34.0) pg MCHC 31.6 L (32.0-36.0) g/dL RDW Std Deviation 41.1 (36.4-46.3) fL RDW Coeff of Shoshana 13.3 (11.5-14.5) % Plt Count 400 (130-400) K/uL MPV 8.3 L (9.4-12.4) fL Sodium 135 L (136-145) mmol/L Potassium 4.2 (3.5-5.1) mmol/L Chloride 101 (98-107) mmol/L Carbon Dioxide 27 (21-32) mmol/L Anion Gap 7 (3-11) BUN 15 (6-23) mg/dl Creatinine 0.70 (0.6-1.2) mg/dl Est Cr Clr Drug Dosing 53.5 ml/min Est GFR ( Amer) 94.2 ml/min Est GFR (Non-Af Amer) 81.3 ml/min BUN/Creatinine Ratio 21.4 H (10-20) Glucose 183 H (70-99(Fasting)) mg/dl Calcium 8.4 L (8.6-10.3) mg/dl Phosphorus 2.3 L (2.5-4.9) mg/dl Magnesium 1.8 (1.7-2.4) mg/dl Medications Administered Current Inpatient Medications Acetaminophen (Acetaminophen 500 Mg Tab) 1,000 mg PO Q8H [facility] Stop: 04/22/23 09:59 Last Admin: 03/26/23 01:19 Dose: 1,000 mg Albuterol (Albut/Ipratrop 3mg/0.5mg Neb 3 Ml Vial) 3 ml NEB Q2H PRN; Protocol PRN Reason: sob wheeze Stop: 04/21/23 22:38 Aspirin (Aspirin 81 Mg Ectab) 81 mg PO BID [facility] Stop: 04/23/23 20:59 Last Admin: 03/26/23 08:05 Dose: 81 mg Atorvastatin Calcium (Atorvastatin 40 Mg Tab) 40 mg PO QAM [facility] Stop: 04/22/23 08:59 Last Admin: 03/26/23 08:05 Dose: 40 mg Bisacodyl (Bisacodyl 10 Mg Supp) 10 mg [place] DAILY PRN PRN Reason: Constipation Stop: 04/21/23 22:33 Ergocalciferol (Ergocalciferol 50,000 Units 1250 Mcg Cap) 50,000 units PO Q7D@0900 [facility] Stop: 04/24/23 11:29 Last Admin: 03/25/23 12:05 Dose: 50,000 units Ferrous Sulfate (Ferrous Sulfate 325 Mg Tab) 325 mg PO QDB [facility] Stop: 04/22/23 07:29 Last Admin: 03/26/23 08:05 Dose: 325 mg Promethazine HCl 6.25 mg/ (Sodium Chloride) 50.25 mls @ 201 mls/hr IV Q6H PRN PRN Reason: Nausea And Vomiting Stop: 04/21/23 20:43 Morphine Sulfate (Morphine Sulfate 2 Mg/Ml Carp) 2 mg IV Q3H PRN PRN Reason: Pain Stop: 04/05/23 20:42 Last Admin: 03/25/23 04:22 Dose: 2 mg Multivitamins/Minerals (Cerovite Adv Formula Tab) 1 tab PO DAILY [facility] Stop: 04/22/23 08:59 Last Admin: 03/26/23 08:05 Dose: 1 tab Mycophenolate Sodium (Mycophenolate Sodium 180 Mg Tab) 720 mg PO DAILY [facility] Stop: 04/22/23 08:59 Last Admin: 03/26/23 08:05 Dose: 720 mg Naloxone HCl (Naloxone Hcl 0.4 Mg/1 Ml Vial/Carp) 0.1 mg IV UD PRN PRN Reason: Opiate Overdose Stop: 04/21/23 22:33 Ondansetron HCl (Ondansetron Inj 2 Mg/Ml 2 Ml Vial) 4 mg IV Q6H PRN PRN Reason: Nausea And Vomiting Stop: 12/22/23 08:54 Last Admin: 03/25/23 10:24 Dose: 4 mg Pantoprazole Sodium (Pantoprazole 40 Mg Tab) 40 mg PO QAM [facility] Stop: 04/22/23 08:59 Last Admin: 03/26/23 08:05 Dose: 40 mg Polyethylene Glycol (Polyethylene (Miralax) 17 Gm Pack) 17 gm PO DAILY [facility] Stop: 04/22/23 10:54 Last Admin: 03/26/23 08:06 Dose: 17 gm Prednisone (Prednisone 5 Mg Tab) 5 mg PO DAILY [facility] Stop: 04/22/23 08:59 Last Admin: 03/26/23 08:05 Dose: 5 mg Tramadol HCl (Tramadol Hcl 50 Mg Tablet) 25 - 50 mg PO Q4H PRN PRN Reason: Pain Stop: 04/21/23 20:42 Last Admin: 03/26/23 08:15 Dose: 50 mg
[2023-03-26 09:23] LABS: Hematocrit (blood only) 29.4 % (37.0-47.0); Hemoglobin 9.3 g/dl (12.0-16.0); Mean Corpuscular Hemoglobin 26.7 pg (25.0-34.0); Mean Corpuscular Hgb Conc 31.6 g/dL (32.0-36.0); Mean Corpuscular Volume 84.5 fL (80.0-100.0); Mean Platelet Volume 8.3 fL (9.4-12.4); Platelet Count 400 K/uL (130-400); RDW Coefficient of Variation 13.3 % (11.5-14.5); RDW Standard Deviation 41.1 fL (36.4-46.3); Red Blood Count 3.48 M/uL (4.20-5.40); White Blood Count 10.52 K/ul (4.8-10.8)
[2023-03-26 09:38] LABS: BUN Creatinine Ratio 21.4 (10-20); Calcium 8.4 mg/dl (8.6-10.3); Creatinine Clr Calc Pharmacy 53.5 ml/min; Est GFR (African American) 94.2 ml/min; Est GFR (Non-African American) 81.3 ml/min; Magnesium 1.8 mg/dl (1.7-2.4); Phosphorus 2.3 mg/dl (2.5-4.9); Potassium 4.2 mmol/L (3.5-5.1)
[2023-03-26] MEDS: SODIUM CHLORIDE 0.9% 1,000 ML IV SCH ×2 (10:00→21:44)
[2023-03-27] MEDS: ACETAMINOPHEN 500 MG TAB PO SCH ×3 (02:03→17:30)
[2023-03-27] MEDS: traMADol HCL 50 MG TABLET PO PRN ×2 (07:30→20:40)
[2023-03-27] MEDS: ATORVASTATIN 40 MG TAB PO SCH (08:19)
[2023-03-27] MEDS: CEROVITE ADV FORMULA TAB PO SCH (08:19)
[2023-03-27] MEDS: ASPIRIN 81 MG ECTAB PO SCH ×2 (08:19→20:41)
[2023-03-27] MEDS: FERROUS SULFATE 325 MG TAB PO SCH (08:19)
[2023-03-27] MEDS: predniSONE 5 MG TAB PO SCH (08:20)
[2023-03-27] MEDS: POLYETHYLENE (MIRALAX) 17 GM PACK PO SCH (08:20)
[2023-03-27] MEDS: PANTOprazole 40 MG TAB PO SCH ×2 (08:20→12:07)
[2023-03-27] MEDS: MYCOPHENOLATE SODIUM 180 MG TAB PO SCH ×2 (08:20→12:07)
--- NOTE | 2023-03-27 08:35 | Hospitalist Progress Note ---
Date of Service March 27, 2023 Assessment & Plan (1) Closed fracture of right hip: Plan: Right femoral fracture secondary to mechanical fall Age-related osteoporosis w current pathological fracture of right femur Orthopedics consulted, S/p right trochanteric femoral nail on 03/24/2023 Pain control with scheduled Tylenol, as needed morphine and tramadol for breakthrough pain. PT/OTpatient may be weightbearing as tolerated on the right lower extremity. Range of motion as tolerated right hip. DVT prophylaxisaspirin 81 mg twice daily x 30 days. Follow-up with Dr. Andrew ([facility] [place] in approximately 2 weeks postop. 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 S/p surgical repair No fever, chills, chest pain, shortness of breath pain is controlled at rest, however she has pain with movement Nausea this AM as she takes meds on an empty stomach Review of Systems Review of Systems: All systems reviewed & are unremarkable except as noted in Subjective Physical Exam Physical Exam: Constitutional: WD/WN, in no acute distress Respiratory: normal respiratory effort, lungs alfonso ar to auscultation Cardiovascular: Rate/Rhythm: regul ar rate and regula r rhythm Vessels: normal peripheral pulses Extremiti es: no edema Gastrointestinal ( Abdomen): Percussion/Palpati on: abdomen soft; abdomen nontender Musculoskeletal: Dressings over Ri ght hip. no erythe ma seen. Skin: no rashes, warm an d dry Neurologic: no focal motor def icits Psychiatric: A+Ox3, euthymic af fect Results & Data Results & Data Vital Signs (Past 12 Hours) Vital Signs Temp Pulse Resp BP Pulse Ox Pulse Ox O2 Del Method 03/27/23 06:55 36.9 C 85 16 147/63 H 93 Room Air 03/27/23 02:12 95 O2 Del Method 03/27/23 06:55 03/27/23 02:12 Room Air Laboratory Results 03/27/23 Range/Units 08:12 WBC 11.34 H (4.8-10.8) K/ul RBC 3.51 L (4.20-5.40) M/uL Hgb 9.4 L (12.0-16.0) g/dl Hct 29.9 L (37.0-47.0) % MCV 85.2 (80.0-100.0) fL MCH 26.8 (25.0-34.0) pg MCHC 31.4 L (32.0-36.0) g/dL RDW Std Deviation 41.3 (36.4-46.3) fL RDW Coeff of Shoshana 13.3 (11.5-14.5) % Plt Count 442 H (130-400) K/uL MPV 8.4 L (9.4-12.4) fL Sodium 137 (136-145) mmol/L Potassium 4.0 (3.5-5.1) mmol/L Chloride 104 (98-107) mmol/L Carbon Dioxide 27 (21-32) mmol/L Anion Gap 6 (3-11) BUN 13 (6-23) mg/dl Creatinine 0.62 (0.6-1.2) mg/dl Est Cr Clr Drug Dosing 60.5 ml/min Est GFR ( Amer) 98.0 ml/min Est GFR (Non-Af Amer) 84.6 ml/min BUN/Creatinine Ratio 21.0 H (10-20) Glucose 108 H (70-99(Fasting)) mg/dl Calcium 8.3 L (8.6-10.3) mg/dl Phosphorus 2.3 L (2.5-4.9) mg/dl Magnesium 1.8 (1.7-2.4) mg/dl Medications Administered Current Inpatient Medications Acetaminophen (Acetaminophen 500 Mg Tab) 1,000 mg PO Q8H [facility] Stop: 04/22/23 09:59 Last Admin: 03/27/23 02:03 Dose: 1,000 mg Albuterol (Albut/Ipratrop 3mg/0.5mg Neb 3 Ml Vial) 3 ml NEB Q2H PRN; Protocol PRN Reason: sob wheeze Stop: 04/21/23 22:38 Aspirin (Aspirin 81 Mg Ectab) 81 mg PO BID [facility] Stop: 04/23/23 20:59 Last Admin: 11/25/23 08:19 Dose: 81 mg Atorvastatin Calcium (Atorvastatin 40 Mg Tab) 40 mg PO QAM [facility] Stop: 04/22/23 08:59 Last Admin: 03/27/23 08:19 Dose: 40 mg Bisacodyl (Bisacodyl 10 Mg Supp) 10 mg [place] DAILY PRN PRN Reason: Constipation Stop: 04/21/23 22:33 Ergocalciferol (Ergocalciferol 50,000 Units 1250 Mcg Cap) 50,000 units PO Q7D@0900 [facility] Stop: 04/24/23 11:29 Last Admin: 03/25/23 12:05 Dose: 50,000 units Ferrous Sulfate (Ferrous Sulfate 325 Mg Tab) 325 mg PO QDB [facility] Stop: 04/22/23 07:29 Last Admin: 03/27/23 08:19 Dose: 325 mg Promethazine HCl 6.25 mg/ (Sodium Chloride) 50.25 mls @ 201 mls/hr IV Q6H PRN PRN Reason: Nausea And Vomiting Stop: 04/21/23 20:43 Sodium Chloride (Nss) 1,000 mls @ 80 mls/hr IV .[id number] [facility] Stop: 04/25/23 09:44 Last Admin: 03/26/23 21:44 Dose: 80 mls/hr Morphine Sulfate (Morphine Sulfate 2 Mg/Ml Carp) 2 mg IV Q3H PRN PRN Reason: Pain Stop: 04/05/23 20:42 Last Admin: 03/25/23 04:22 Dose: 2 mg Multivitamins/Minerals (Cerovite Adv Formula Tab) 1 tab PO DAILY [facility] Stop: 04/22/23 08:59 Last Admin: 03/27/23 08:19 Dose: 1 tab Mycophenolate Sodium (Mycophenolate Sodium 180 Mg Tab) 720 mg PO DAILY [facility] Stop: 04/22/23 08:59 Last Admin: 03/26/23 08:05 Dose: 720 mg Naloxone HCl (Naloxone Hcl 0.4 Mg/1 Ml Vial/Carp) 0.1 mg IV UD PRN PRN Reason: Opiate Overdose Stop: 04/21/23 22:33 Ondansetron HCl (Ondansetron Inj 2 Mg/Ml 2 Ml Vial) 4 mg IV Q6H PRN PRN Reason: Nausea And Vomiting Stop: 04/23/23 08:54 Last Admin: 03/25/23 10:24 Dose: 4 mg Pantoprazole Sodium (Pantoprazole 40 Mg Tab) 40 mg PO QAM [facility] Stop: 04/22/23 08:59 Last Admin: 03/26/23 08:05 Dose: 40 mg Polyethylene Glycol (Polyethylene (Miralax) 17 Gm Pack) 17 gm PO DAILY [facility] Stop: 04/22/23 10:54 Last Admin: 03/27/23 08:20 Dose: 17 gm Prednisone (Prednisone 5 Mg Tab) 5 mg PO DAILY [facility] Stop: 04/22/23 08:59 Last Admin: 03/27/23 08:20 Dose: 5 mg Tramadol HCl (Tramadol Hcl 50 Mg Tablet) 25 - 50 mg PO Q4H PRN PRN Reason: Pain Stop: 04/21/23 20:42 Last Admin: 03/27/23 07:30 Dose: 50 mg
[2023-03-27] MEDS: ONDANSETRON INJ 2 MG/ML 2 ML VIAL IV PRN (08:44)
[2023-03-27 09:12] LABS: Hematocrit (blood only) 29.9 % (37.0-47.0); Hemoglobin 9.4 g/dl (12.0-16.0); Mean Corpuscular Hemoglobin 26.8 pg (25.0-34.0); Mean Corpuscular Hgb Conc 31.4 g/dL (32.0-36.0); Mean Corpuscular Volume 85.2 fL (80.0-100.0); Mean Platelet Volume 8.4 fL (9.4-12.4); Platelet Count 442 K/uL (130-400); RDW Coefficient of Variation 13.3 % (11.5-14.5); RDW Standard Deviation 41.3 fL (36.4-46.3); Red Blood Count 3.51 M/uL (4.20-5.40); White Blood Count 11.34 K/ul (4.8-10.8)
[2023-03-27 09:34] LABS: Calcium 8.3 mg/dl (8.6-10.3); Creatinine Clr Calc Pharmacy 60.5 ml/min; Est GFR (Non-African American) 84.6 ml/min; Magnesium 1.8 mg/dl (1.7-2.4); Phosphorus 2.3 mg/dl (2.5-4.9)
[2023-03-27] MEDS: SENNA 8.6 MG TAB PO SCH (12:30)
[2023-03-28] MEDS: ACETAMINOPHEN 500 MG TAB PO SCH ×3 (01:42→17:15)
[2023-03-28] MEDS: ATORVASTATIN 40 MG TAB PO SCH (08:23)
[2023-03-28] MEDS: FERROUS SULFATE 325 MG TAB PO SCH (08:23)
[2023-03-28] MEDS: ASPIRIN 81 MG ECTAB PO SCH ×2 (08:23→20:44)
[2023-03-28] MEDS: predniSONE 5 MG TAB PO SCH (08:23)
[2023-03-28] MEDS: CEROVITE ADV FORMULA TAB PO SCH (08:23)
[2023-03-28] MEDS: MYCOPHENOLATE SODIUM 180 MG TAB PO SCH (08:23)
[2023-03-28] MEDS: SENNA 8.6 MG TAB PO SCH (08:24)
[2023-03-28] MEDS: PANTOprazole 40 MG TAB PO SCH (08:24)
[2023-03-28] MEDS: POLYETHYLENE (MIRALAX) 17 GM PACK PO SCH (08:24)
[2023-03-28 08:32] LABS: Hematocrit (blood only) 26.8 % (37.0-47.0); Hemoglobin 8.6 g/dl (12.0-16.0)
--- NOTE | 2023-03-28 08:57 | Hospitalist Progress Note ---
Date of Service March 28, 2023 Assessment & Plan (1) Closed fracture of right hip: Plan: Right femoral fracture secondary to mechanical fall Age-related osteoporosis w current pathological fracture of right femur Orthopedics consulted, S/p right trochanteric femoral nail on 03/24/2023 Pain control with scheduled Tylenol, as needed morphine and tramadol for breakthrough pain. PT/OTpatient may be weightbearing as tolerated on the right lower extremity. Range of motion as tolerated right hip. DVT prophylaxisaspirin 81 mg twice daily x 30 days. Follow-up with Dr. Andrew ([facility] [place] in approximately 2 weeks postop. 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 S/p surgical repair No fever, chills, chest pain, shortness of breath pain is controlled at rest, however she has pain with movement Nausea on and off, pt says she has hx of hiatal hernia Review of Systems Review of Systems: All systems reviewed & are unremarkable except as noted in Subjective Physical Exam Physical Exam: Constitutional: WD/WN, in no acute distress Respiratory: normal respiratory effort, lungs alfonso ar to auscultation Cardiovascular: Rate/Rhythm: regul ar rate and regula r rhythm Vessels: normal peripheral pulses Extremiti es: no edema Gastrointestinal ( Abdomen): Percussion/Palpati on: abdomen soft; abdomen nontender Musculoskeletal: Dressings over Ri ght hip. no erythe ma seen. Skin: no rashes, warm an d dry Neurologic: no focal motor def icits Psychiatric: A+Ox3, euthymic af fect Results & Data Results & Data Vital Signs (Past 12 Hours) Vital Signs Temp Pulse Resp BP Pulse Ox Pulse Ox O2 Del Method 03/28/23 07:11 130/60 03/28/23 06:53 36.6 C 84 16 148/72 H 92 Room Air 03/28/23 02:00 95 O2 Del Method 03/28/23 07:11 03/28/23 06:53 03/28/23 02:00 Room Air Laboratory Results 03/28/23 03/27/23 Range/Units 07:41 08:12 WBC 11.34 H (4.8-10.8) K/ul RBC 3.51 L (4.20-5.40) M/uL Hgb 8.6 L 9.4 L (12.0-16.0) g/dl Hct 26.8 L 29.9 L (37.0-47.0) % MCV 85.2 (80.0-100.0) fL MCH 26.8 (25.0-34.0) pg MCHC 31.4 L (32.0-36.0) g/dL RDW Std Deviation 41.3 (36.4-46.3) fL RDW Coeff of Shoshana 13.3 (11.5-14.5) % Plt Count 442 H (130-400) K/uL MPV 8.4 L (9.4-12.4) fL Sodium 137 (136-145) mmol/L Potassium 4.0 (3.5-5.1) mmol/L Chloride 104 (98-107) mmol/L Carbon Dioxide 27 (21-32) mmol/L Anion Gap 6 (3-11) BUN 13 (6-23) mg/dl Creatinine 0.62 (0.6-1.2) mg/dl Est Cr Clr Drug Dosing 60.5 ml/min Est GFR ( Amer) 98.0 ml/min Est GFR (Non-Af Amer) 84.6 ml/min BUN/Creatinine Ratio 21.0 H (10-20) Glucose 108 H (70-99(Fasting)) mg/dl Calcium 8.3 L (8.6-10.3) mg/dl Phosphorus 2.3 L (2.5-4.9) mg/dl Magnesium 1.8 (1.7-2.4) mg/dl Medications Administered Current Inpatient Medications Acetaminophen (Acetaminophen 500 Mg Tab) 1,000 mg PO Q8H [facility] Stop: 04/22/23 09:59 Last Admin: 03/28/23 01:42 Dose: 1,000 mg Albuterol (Albut/Ipratrop 3mg/0.5mg Neb 3 Ml Vial) 3 ml NEB Q2H PRN; Protocol PRN Reason: sob wheeze Stop: 04/21/23 22:38 Aspirin (Aspirin 81 Mg Ectab) 81 mg PO BID [facility] Stop: 04/23/23 20:59 Last Admin: 03/28/23 08:23 Dose: 81 mg Atorvastatin Calcium (Atorvastatin 40 Mg Tab) 40 mg PO QAM [facility] Stop: 04/22/23 08:59 Last Admin: 03/28/23 08:23 Dose: 40 mg Bisacodyl (Bisacodyl 10 Mg Supp) [address] DAILY PRN PRN Reason: Constipation Stop: 04/21/23 22:33 Ergocalciferol (Ergocalciferol 50,000 Units 1250 Mcg Cap) 50,000 units PO Q7D@0900 [facility] Stop: 04/24/23 11:29 Last Admin: 03/25/23 12:05 Dose: 50,000 units Ferrous Sulfate (Ferrous Sulfate 325 Mg Tab) 325 mg PO QDB [facility] Stop: 04/22/23 07:29 Last Admin: 03/28/23 08:23 Dose: 325 mg Promethazine HCl 6.25 mg/ (Sodium Chloride) 50.25 mls @ 201 mls/hr IV Q6H PRN PRN Reason: Nausea And Vomiting Stop: 04/21/23 20:43 Sodium Chloride (Nss) 1,000 mls @ 80 mls/hr IV .[id number] [facility] Stop: 04/25/23 09:44 Last Infusion: 03/27/23 16:55 Dose: Infused Morphine Sulfate (Morphine Sulfate 2 Mg/Ml Carp) 2 mg IV Q3H PRN PRN Reason: Pain Stop: 04/05/23 20:42 Last Admin: 03/25/23 04:22 Dose: 2 mg Multivitamins/Minerals (Cerovite Adv Formula Tab) 1 tab PO DAILY [facility] Stop: 04/22/23 08:59 Last Admin: 03/28/23 08:23 Dose: 1 tab Mycophenolate Sodium (Mycophenolate Sodium 180 Mg Tab) 720 mg PO DAILY [facility] Stop: 04/22/23 08:59 Last Admin: 03/28/23 08:23 Dose: 720 mg Naloxone HCl (Naloxone Hcl 0.4 Mg/1 Ml Vial/Carp) 0.1 mg IV UD PRN PRN Reason: Opiate Overdose Stop: 04/21/23 22:33 Ondansetron HCl (Ondansetron Inj 2 Mg/Ml 2 Ml Vial) 4 mg IV Q6H PRN PRN Reason: Nausea And Vomiting Stop: 04/23/23 08:54 Last Admin: 03/27/23 08:44 Dose: 4 mg Pantoprazole Sodium (Pantoprazole 40 Mg Tab) 40 mg PO QAM [facility] Stop: 04/22/23 08:59 Last Admin: 03/28/23 08:24 Dose: 40 mg Polyethylene Glycol (Polyethylene (Miralax) 17 Gm Pack) 17 gm PO DAILY [facility] Stop: 04/22/23 10:54 Last Admin: 03/28/23 08:24 Dose: 17 gm Prednisone (Prednisone 5 Mg Tab) 5 mg PO DAILY [facility] Stop: 04/22/23 08:59 Last Admin: 03/28/23 08:23 Dose: 5 mg Sennosides (Senna 8.6 Mg Tab) 8.6 mg PO QAM [facility] Stop: 04/26/23 11:29 Last Admin: 03/28/23 08:24 Dose: 8.6 mg Tramadol HCl (Tramadol Hcl 50 Mg Tablet) 25 - 50 mg PO Q4H PRN PRN Reason: Pain Stop: 04/21/23 20:42 Last Admin: 03/27/23 20:40 Dose: 50 mg
[2023-03-28] MEDS: traMADol HCL 50 MG TABLET PO PRN (09:18)
[2023-03-29] MEDS: ACETAMINOPHEN 500 MG TAB PO SCH ×3 (02:16→17:59)
[2023-03-29] MEDS: FERROUS SULFATE 325 MG TAB PO SCH (07:54)
[2023-03-29 08:42] LABS: Hematocrit (blood only) 28.9 % (37.0-47.0)
[2023-03-29] MEDS: PANTOprazole 40 MG TAB PO SCH (08:46)
[2023-03-29] MEDS: POLYETHYLENE (MIRALAX) 17 GM PACK PO SCH (08:46)
[2023-03-29] MEDS: MYCOPHENOLATE SODIUM 180 MG TAB PO SCH (08:47)
[2023-03-29] MEDS: SENNA 8.6 MG TAB PO SCH (08:47)
[2023-03-29] MEDS: CEROVITE ADV FORMULA TAB PO SCH (08:48)
[2023-03-29] MEDS: predniSONE 5 MG TAB PO SCH (08:48)
[2023-03-29] MEDS: traMADol HCL 50 MG TABLET PO PRN (08:57)
[2023-03-29] MEDS: ATORVASTATIN 40 MG TAB PO SCH (09:13)
[2023-03-29] MEDS: ASPIRIN 81 MG ECTAB PO SCH ×2 (09:13→19:53)
--- NOTE | 2023-03-29 13:21 | Hospitalist Progress Note ---
Date of Service March 29, 2023 Assessment & Plan (1) Closed fracture of right hip: Plan: Right femoral fracture secondary to mechanical fall Age-related osteoporosis w current pathological fracture of right femur Orthopedics consulted, S/p right trochanteric femoral nail on 03/24/2023 Pain control with scheduled Tylenol, as needed morphine and tramadol for breakthrough pain. PT/OTpatient may be weightbearing as tolerated on the right lower extremity. Range of motion as tolerated right hip. DVT prophylaxisaspirin 81 mg twice daily x 30 days. Follow-up with Dr. Andrew ([facility] [place]) in approximately 2 weeks postop. Hypovitaminosis D - started vit D supplement Psoriatic arthropathy, cutaneous polyarteritis nodosa On chronic immunosuppressive therapy with CellCept and prednisone History of PVD HLD Continue ASA and statin GERD Continue PPI DVT PROPHYLAXIS - per Orthopedics - started ASA 81 BID Dispo -pending, plan to [place] rehab/snf, following Admission and Anticipated Discharge Date Admission Date: March 22, 2023 Subjective Follow-up for intertrochanteric right femur fracture. S/p surgical repair No fever, chills, chest pain, shortness of breath pain is controlled at rest, however she has pain with movement Nausea on and off, pt says she has hx of hiatal hernia Reports having muscle cramps in legs that are now resolved Review of Systems Review of Systems: All systems reviewed & are unremarkable except as noted in Subjective Physical Exam Physical Exam: Constitutional: WD/WN, in no acute distress Respiratory: normal respiratory effort, lungs alfonso ar to auscultation Cardiovascular: Rate/Rhythm: regul ar rate and regula r rhythm Vessels: normal peripheral pulses Extremiti es: no edema Gastrointestinal ( Abdomen): Percussion/Palpati on: abdomen soft; abdomen nontender Musculoskeletal: Dressings over Ri ght hip. no erythe ma seen. Skin: no rashes, warm an d dry Neurologic: no focal motor def icits Psychiatric: A+Ox3, euthymic af fect Results & Data Results & Data Vital Signs (Past 12 Hours) Vital Signs Temp Pulse Pulse Resp BP BP Pulse Ox 03/29/23 12:10 36.6 C 81 12 128/60 96 03/29/23 08:00 36.5 C 72 14 138/64 93 03/29/23 06:17 36.7 C 81 16 139/79 95 O2 Del Method 03/29/23 12:10 Room Air 03/29/23 08:00 Room Air 03/29/23 06:17 Room Air Laboratory Results 03/29/23 Range/Units 07:56 Hgb 9.0 L (12.0-16.0) g/dl Hct 28.9 L (37.0-47.0) % Medications Administered Current Inpatient Medications Acetaminophen (Acetaminophen 500 Mg Tab) 1,000 mg PO Q8H [facility] Stop: 04/22/23 09:59 Last Admin: 03/29/23 10:37 Dose: 1,000 mg Albuterol (Albut/Ipratrop 3mg/0.5mg Neb 3 Ml Vial) 3 ml NEB Q2H PRN; Protocol PRN Reason: sob wheeze Stop: 04/21/23 22:38 Aspirin (Aspirin 81 Mg Ectab) 81 mg PO BID [facility] Stop: 04/23/23 20:59 Last Admin: 03/29/23 09:13 Dose: 81 mg Atorvastatin Calcium (Atorvastatin 40 Mg Tab) 40 mg PO QAM [facility] Stop: 04/22/23 08:59 Last Admin: 03/29/23 09:13 Dose: 40 mg Bisacodyl (Bisacodyl 10 Mg Supp) 10 mg [place] DAILY PRN PRN Reason: Constipation Stop: 04/21/23 22:33 Ergocalciferol (Ergocalciferol 50,000 Units 1250 Mcg Cap) 50,000 units PO Q7D@0900 [facility] Stop: 04/24/23 11:29 Last Admin: 03/25/23 12:05 Dose: 50,000 units Ferrous Sulfate (Ferrous Sulfate 325 Mg Tab) 325 mg PO QDB [facility] Stop: 04/22/23 07:29 Last Admin: 03/29/23 07:54 Dose: 325 mg Promethazine HCl 6.25 mg/ (Sodium Chloride) 50.25 mls @ 201 mls/hr IV Q6H PRN PRN Reason: Nausea And Vomiting Stop: 04/21/23 20:43 Sodium Chloride (Nss) 1,000 mls @ 80 mls/hr IV .[id number] [facility] Stop: 04/25/23 09:44 Last Infusion: 03/27/23 16:55 Dose: Infused Morphine Sulfate (Morphine Sulfate 2 Mg/Ml Carp) 2 mg IV Q3H PRN PRN Reason: Pain Stop: 04/05/23 20:42 Last Admin: 03/25/23 04:22 Dose: 2 mg Multivitamins/Minerals (Cerovite Adv Formula Tab) 1 tab PO DAILY [facility] Stop: 04/22/23 08:59 Last Admin: 03/29/23 08:48 Dose: 1 tab Mycophenolate Sodium (Mycophenolate Sodium 180 Mg Tab) 720 mg PO DAILY [facility] Stop: 04/22/23 08:59 Last Admin: 03/29/23 08:47 Dose: 720 mg Naloxone HCl (Naloxone Hcl 0.4 Mg/1 Ml Vial/Carp) 0.1 mg IV UD PRN PRN Reason: Opiate Overdose Stop: 04/21/23 22:33 Ondansetron HCl (Ondansetron Inj 2 Mg/Ml 2 Ml Vial) 4 mg IV Q6H PRN PRN Reason: Nausea And Vomiting Stop: 04/23/23 08:54 Last Admin: 03/27/23 08:44 Dose: 4 mg Pantoprazole Sodium (Pantoprazole 40 Mg Tab) 40 mg PO QAM [facility] Stop: 04/22/23 08:59 Last Admin: 03/29/23 08:46 Dose: 40 mg Polyethylene Glycol (Polyethylene (Miralax) 17 Gm Pack) 17 gm PO DAILY [facility] Stop: 04/22/23 10:54 Last Admin: 03/29/23 08:46 Dose: 17 gm Prednisone (Prednisone 5 Mg Tab) 5 mg PO DAILY [facility] Stop: 04/22/23 08:59 Last Admin: 03/29/23 08:48 Dose: 5 mg Sennosides (Senna 8.6 Mg Tab) 8.6 mg PO QAM [facility] Stop: 04/26/23 11:29 Last Admin: 03/29/23 08:47 Dose: 8.6 mg Tramadol HCl (Tramadol Hcl 50 Mg Tablet) 25 - 50 mg PO Q4H PRN PRN Reason: Pain Stop: 04/21/23 20:42 Last Admin: 03/29/23 08:57 Dose: 50 mg
[2023-03-30] MEDS: SODIUM CHLORIDE 0.9% 1,000 ML IV SCH (01:41)
[2023-03-30] MEDS: ACETAMINOPHEN 500 MG TAB PO SCH ×3 (01:41→17:30)
[2023-03-30 07:22] LABS: Hematocrit (blood only) 28.2 % (37.0-47.0); Hemoglobin 8.9 g/dl (12.0-16.0); Mean Corpuscular Hemoglobin 27.2 pg (25.0-34.0); Mean Corpuscular Hgb Conc 31.6 g/dL (32.0-36.0); Mean Corpuscular Volume 86.2 fL (80.0-100.0); Mean Platelet Volume 8.1 fL (9.4-12.4); Platelet Count 480 K/uL (130-400); RDW Coefficient of Variation 13.3 % (11.5-14.5); RDW Standard Deviation 40.8 fL (36.4-46.3); Red Blood Count 3.27 M/uL (4.20-5.40); White Blood Count 10.13 K/ul (4.8-10.8)
[2023-03-30 07:41] LABS: BUN Creatinine Ratio 26.2 (10-20); Calcium 8.3 mg/dl (8.6-10.3); Creatinine Clr Calc Pharmacy 57.7 ml/min; Est GFR (African American) 96.5 ml/min; Est GFR (Non-African American) 83.3 ml/min; Magnesium 1.8 mg/dl (1.7-2.4); Phosphorus 3.3 mg/dl (2.5-4.9); Potassium 3.9 mmol/L (3.5-5.1)
[2023-03-30] MEDS: FERROUS SULFATE 325 MG TAB PO SCH (07:50)
[2023-03-30] MEDS: SENNA 8.6 MG TAB PO SCH (08:38)
[2023-03-30] MEDS: ATORVASTATIN 40 MG TAB PO SCH (08:38)
[2023-03-30] MEDS: predniSONE 5 MG TAB PO SCH (08:38)
[2023-03-30] MEDS: POLYETHYLENE (MIRALAX) 17 GM PACK PO SCH (08:38)
[2023-03-30] MEDS: CEROVITE ADV FORMULA TAB PO SCH (08:38)
[2023-03-30] MEDS: PANTOprazole 40 MG TAB PO SCH (08:38)
[2023-03-30] MEDS: MYCOPHENOLATE SODIUM 180 MG TAB PO SCH (08:38)
[2023-03-30] MEDS: ASPIRIN 81 MG ECTAB PO SCH ×2 (10:57→20:31)
--- NOTE | 2023-03-30 12:15 | Hospitalist Progress Note ---
Date of Service March 30, 2023 Assessment & Plan (1) Closed fracture of right hip: Plan: Right femoral fracture secondary to mechanical fall Age-related osteoporosis w current pathological fracture of right femur Orthopedics consulted, S/p right trochanteric femoral nail on 03/24/2023 Pain control with scheduled Tylenol, as needed morphine and tramadol for breakthrough pain. PT/OTpatient may be weightbearing as tolerated on the right lower extremity. Range of motion as tolerated right hip. DVT prophylaxisaspirin 81 mg twice daily x 30 days. Follow-up with Dr. Andrew ([facility] [place]) in approximately 2 weeks postop. Hypovitaminosis D - started vit D supplement Psoriatic arthropathy, cutaneous polyarteritis nodosa On chronic immunosuppressive therapy with CellCept and prednisone History of PVD HLD Continue ASA and statin GERD Continue PPI DVT PROPHYLAXIS - per Orthopedics - started ASA 81 BID Dispo -pending, plan to [place] rehab/snf, following Admission and Anticipated Discharge Date Admission Date: March 22, 2023 Subjective Follow-up for intertrochanteric right femur fracture. S/p surgical repair No fever, chills, chest pain, shortness of breath pain is controlled at rest, however she has pain with movement Nausea on and off, pt says she has hx of hiatal hernia Review of Systems Review of Systems: All systems reviewed & are unremarkable except as noted in Subjective Physical Exam Physical Exam: Constitutional: WD/WN, in no acute distress Respiratory: normal respiratory effort, lungs alfonso ar to auscultation Cardiovascular: Rate/Rhythm: regul ar rate and regula r rhythm Vessels: normal peripheral pulses Extremiti es: no edema Gastrointestinal ( Abdomen): Percussion/Palpati on: abdomen soft; abdomen nontender Musculoskeletal: Dressings over Ri ght hip. no erythe ma seen. Skin: no rashes, warm an d dry Neurologic: no focal motor def icits Psychiatric: A+Ox3, euthymic af fect Results & Data Results & Data Vital Signs (Past 12 Hours) Vital Signs Temp Pulse Resp BP Pulse Ox O2 Del Method 03/30/23 08:07 36.2 C L 86 16 129/75 94 Room Air Laboratory Results 03/30/23 Range/Units 06:18 WBC 10.13 (4.8-10.8) K/ul RBC 3.27 L (4.20-5.40) M/uL Hgb 8.9 L (12.0-16.0) g/dl Hct 28.2 L (37.0-47.0) % MCV 86.2 (80.0-100.0) fL MCH 27.2 (25.0-34.0) pg MCHC 31.6 L (32.0-36.0) g/dL RDW Std Deviation 40.8 (36.4-46.3) fL RDW Coeff of Shoshana 13.3 (11.5-14.5) % Plt Count 480 H (130-400) K/uL MPV 8.1 L (9.4-12.4) fL Sodium 137 (136-145) mmol/L Potassium 3.9 (3.5-5.1) mmol/L Chloride 101 (98-107) mmol/L Carbon Dioxide 29 (21-32) mmol/L Anion Gap 7 (3-11) BUN 17 (6-23) mg/dl Creatinine 0.65 (0.6-1.2) mg/dl Est Cr Clr Drug Dosing 57.7 ml/min Est GFR ( Amer) 96.5 ml/min Est GFR (Non-Af Amer) 83.3 ml/min BUN/Creatinine Ratio 26.2 H (10-20) Glucose 93 (70-99(Fasting)) mg/dl Calcium 8.3 L (8.6-10.3) mg/dl Phosphorus 3.3 (2.5-4.9) mg/dl Magnesium 1.8 (1.7-2.4) mg/dl Medications Administered Current Inpatient Medications Acetaminophen (Acetaminophen 500 Mg Tab) 1,000 mg PO Q8H [facility] Stop: 04/22/23 09:59 Last Admin: 03/30/23 10:57 Dose: 1,000 mg Albuterol (Albut/Ipratrop 3mg/0.5mg Neb 3 Ml Vial) 3 ml NEB Q2H PRN; Protocol PRN Reason: sob wheeze Stop: 04/21/23 22:38 Aspirin (Aspirin 81 Mg Ectab) 81 mg PO BID [facility] Stop: 04/23/23 20:59 Last Admin: 03/30/23 10:57 Dose: 81 mg Atorvastatin Calcium (Atorvastatin 40 Mg Tab) 40 mg PO QAM [facility] Stop: 04/22/23 08:59 Last Admin: 03/30/23 08:38 Dose: 40 mg Bisacodyl (Bisacodyl 10 Mg Supp) 10 mg [place] DAILY PRN PRN Reason: Constipation Stop: 04/21/23 22:33 Ergocalciferol (Ergocalciferol 50,000 Units 1250 Mcg Cap) 50,000 units PO Q7D@0900 [facility] Stop: 04/24/23 11:29 Last Admin: 03/25/23 12:05 Dose: 50,000 units Ferrous Sulfate (Ferrous Sulfate 325 Mg Tab) 325 mg PO QDB [facility] Stop: 04/22/23 07:29 Last Admin: 03/30/23 07:50 Dose: 325 mg Promethazine HCl 6.25 mg/ (Sodium Chloride) 50.25 mls @ 201 mls/hr IV Q6H PRN PRN Reason: Nausea And Vomiting Stop: 04/21/23 20:43 Sodium Chloride (Nss) 1,000 mls @ 80 mls/hr IV .[id number] [facility] Stop: 04/25/23 09:44 Last Infusion: 03/30/23 10:00 Dose: 80 mls/hr Morphine Sulfate (Morphine Sulfate 2 Mg/Ml Carp) 2 mg IV Q3H PRN PRN Reason: Pain Stop: 04/05/23 20:42 Last Admin: 03/25/23 04:22 Dose: 2 mg Multivitamins/Minerals (Cerovite Adv Formula Tab) 1 tab PO DAILY [facility] Stop: 04/22/23 08:59 Last Admin: 03/30/23 08:38 Dose: 1 tab Mycophenolate Sodium (Mycophenolate Sodium 180 Mg Tab) 720 mg PO DAILY [facility] Stop: 04/22/23 08:59 Last Admin: 03/30/23 08:38 Dose: 720 mg Naloxone HCl (Naloxone Hcl 0.4 Mg/1 Ml Vial/Carp) 0.1 mg IV UD PRN PRN Reason: Opiate Overdose Stop: 04/21/23 22:33 Ondansetron HCl (Ondansetron Inj 2 Mg/Ml 2 Ml Vial) 4 mg IV Q6H PRN PRN Reason: Nausea And Vomiting Stop: 04/23/23 08:54 Last Admin: 03/27/23 08:44 Dose: 4 mg Pantoprazole Sodium (Pantoprazole 40 Mg Tab) 40 mg PO QAM [facility] Stop: 04/22/23 08:59 Last Admin: 03/30/23 08:38 Dose: 40 mg Polyethylene Glycol (Polyethylene (Miralax) 17 Gm Pack) 17 gm PO DAILY [facility] Stop: 04/22/23 10:54 Last Admin: 03/30/23 08:38 Dose: 17 gm Prednisone (Prednisone 5 Mg Tab) 5 mg PO DAILY [facility] Stop: 04/22/23 08:59 Last Admin: 03/30/23 08:38 Dose: 5 mg Sennosides (Senna 8.6 Mg Tab) 8.6 mg PO QAM [facility] Stop: 04/26/23 11:29 Last Admin: 03/30/23 08:38 Dose: 8.6 mg Tramadol HCl (Tramadol Hcl 50 Mg Tablet) 25 - 50 mg PO Q4H PRN PRN Reason: Pain Stop: 04/21/23 20:42 Last Admin: 03/29/23 08:57 Dose: 50 mg
[2023-03-31] MEDS: ACETAMINOPHEN 500 MG TAB PO SCH ×3 (03:02→18:24)
[2023-03-31 07:13] LABS: Basophils # (auto) 0.07 K/uL (0.00-0.20); Basophils % (auto) 0.7 %; Eosinophils % (auto) 2.8 %; Hematocrit (blood only) 28.9 % (37.0-47.0); Hemoglobin 9.4 g/dl (12.0-16.0); Immature Granulocytes # (auto) 0.13 K/uL (0.01-0.20); Immature Granulocytes % (auto) 1.2 %; Lymphocytes # (auto) 1.81 K/uL (1.20-3.40); Lymphocytes % (auto) 16.9 %; Mean Corpuscular Hemoglobin 27.6 pg (25.0-34.0); Mean Corpuscular Hgb Conc 32.5 g/dL (32.0-36.0); Mean Corpuscular Volume 84.8 fL (80.0-100.0); Mean Platelet Volume 7.8 fL (9.4-12.4); Monocytes # (auto) 1.04 K/uL (0.11-0.59); Monocytes % (auto) 9.7 %; Neutrophils # (auto) 7.33 K/uL (1.40-6.50); Neutrophils % (auto) 68.7 %; Platelet Count 513 K/uL (130-400); RDW Coefficient of Variation 13.8 % (11.5-14.5); Red Blood Count 3.41 M/uL (4.20-5.40); White Blood Count 10.68 K/ul (4.8-10.8)
[2023-03-31] MEDS: MYCOPHENOLATE SODIUM 180 MG TAB PO SCH (08:03)
[2023-03-31] MEDS: ASPIRIN 81 MG ECTAB PO SCH ×2 (08:03→19:52)
[2023-03-31] MEDS: predniSONE 5 MG TAB PO SCH (08:03)
[2023-03-31] MEDS: PANTOprazole 40 MG TAB PO SCH (08:03)
[2023-03-31] MEDS: CEROVITE ADV FORMULA TAB PO SCH (08:03)
[2023-03-31] MEDS: POLYETHYLENE (MIRALAX) 17 GM PACK PO SCH (08:04)
[2023-03-31] MEDS: ATORVASTATIN 40 MG TAB PO SCH (08:04)
[2023-03-31] MEDS: SENNA 8.6 MG TAB PO SCH (08:04)
--- NOTE | 2023-03-31 08:38 | Hospitalist Progress Note ---
Date of Service March 31, 2023 Assessment & Plan (1) Closed fracture of right hip: Plan: Right femoral fracture secondary to mechanical fall Age-related osteoporosis w current pathological fracture of right femur Orthopedics consulted, S/p right trochanteric femoral nail on 03/24/2023 Pain control with scheduled Tylenol, as needed morphine and tramadol for breakthrough pain. PT/OTpatient may be weightbearing as tolerated on the right lower extremity. Range of motion as tolerated right hip. DVT prophylaxisaspirin 81 mg twice daily x 30 days. Follow-up with Dr. Andrew ([facility]) in approximately 2 weeks postop. 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 S/p surgical repair No fever, chills, chest pain, shortness of breath pain is controlled at rest, however she has pain with movement Nausea on and off, pt says she has hx of hiatal hernia Review of Systems Review of Systems: All systems reviewed & are unremarkable except as noted in Subjective Physical Exam Physical Exam: Constitutional: WD/WN, in no acute distress Respiratory: normal respiratory effort, lungs alfonso ar to auscultation Cardiovascular: Rate/Rhythm: regul ar rate and regula r rhythm Vessels: normal peripheral pulses Extremiti es: no edema Gastrointestinal ( Abdomen): Percussion/Palpati on: abdomen soft; abdomen nontender Musculoskeletal: Dressings over Ri ght hip. no erythe ma seen. Skin: no rashes, warm an d dry Neurologic: no focal motor def icits Psychiatric: A+Ox3, euthymic af fect Results & Data Results & Data Laboratory Results 03/31/23 Range/Units 06:45 WBC 10.68 (4.8-10.8) K/ul RBC 3.41 L (4.20-5.40) M/uL Hgb 9.4 L (12.0-16.0) g/dl Hct 28.9 L (37.0-47.0) % MCV 84.8 (80.0-100.0) fL MCH 27.6 (25.0-34.0) pg MCHC 32.5 (32.0-36.0) g/dL RDW Std Deviation 41.0 (36.4-46.3) fL RDW Coeff of Shoshana 13.8 (11.5-14.5) % Plt Count 513 H (130-400) K/uL MPV 7.8 L (9.4-12.4) fL Immature Gran % (Auto) 1.2 % Neut % (Auto) 68.7 % Lymph % (Auto) 16.9 % Orange % (Auto) 9.7 % Eos % (Auto) 2.8 % Baso % (Auto) 0.7 % Neut # (Auto) 7.33 H (1.40-6.50) K/uL Lymph # (Auto) 1.81 (1.20-3.40) K/uL Orange # (Auto) 1.04 H (0.11-0.59) K/uL Eos # (Auto) 0.30 (0.00-0.50) K/uL Baso # (Auto) 0.07 (0.00-0.20) K/uL Immature Gran # (Auto) 0.13 (0.01-0.20) K/uL Medications Administered Current Inpatient Medications Acetaminophen (Acetaminophen 500 Mg Tab) 1,000 mg PO Q8H [facility] Stop: 04/22/23 09:59 Last Admin: 03/31/23 03:02 Dose: Not Given Albuterol (Albut/Ipratrop 3mg/0.5mg Neb 3 Ml Vial) 3 ml NEB Q2H PRN; Protocol PRN Reason: sob wheeze Stop: 04/21/23 22:38 Aspirin (Aspirin 81 Mg Ectab) 81 mg PO BID [facility] Stop: 04/23/23 20:59 Last Admin: 03/31/23 08:03 Dose: 81 mg Atorvastatin Calcium (Atorvastatin 40 Mg Tab) 40 mg PO QAM [facility] Stop: 04/22/23 08:59 Last Admin: 03/31/23 08:04 Dose: 40 mg Bisacodyl (Bisacodyl 10 Mg Supp) 10 mg DE DAILY PRN PRN Reason: Constipation Stop: 04/21/23 22:33 Ergocalciferol (Ergocalciferol 50,000 Units 1250 Mcg Cap) 50,000 units PO Q7D@0900 [facility] Stop: 04/24/23 11:29 Last Admin: 03/25/23 12:05 Dose: 50,000 units Ferrous Sulfate (Ferrous Sulfate 325 Mg Tab) 325 mg PO QDB [facility] Stop: 04/22/23 07:29 Last Admin: 03/30/23 07:50 Dose: 325 mg Promethazine HCl 6.25 mg/ (Sodium Chloride) 50.25 mls @ 201 mls/hr IV Q6H PRN PRN Reason: Nausea And Vomiting Stop: 04/21/23 20:43 Sodium Chloride (Nss) 1,000 mls @ 80 mls/hr IV .[id number] [facility] Stop: 04/25/23 09:44 Last Infusion: 03/30/23 15:07 Dose: Infused Morphine Sulfate (Morphine Sulfate 2 Mg/Ml Carp) 2 mg IV Q3H PRN PRN Reason: Pain Stop: 04/05/23 20:42 Last Admin: 03/25/23 04:22 Dose: 2 mg Multivitamins/Minerals (Cerovite Adv Formula Tab) 1 tab PO DAILY [facility] Stop: 04/22/23 08:59 Last Admin: 03/31/23 08:03 Dose: 1 tab Mycophenolate Sodium (Mycophenolate Sodium 180 Mg Tab) 720 mg PO DAILY [facility] Stop: 04/22/23 08:59 Last Admin: 03/31/23 08:03 Dose: 720 mg Naloxone HCl (Naloxone Hcl 0.4 Mg/1 Ml Vial/Carp) 0.1 mg IV UD PRN PRN Reason: Opiate Overdose Stop: 04/21/23 22:33 Ondansetron HCl (Ondansetron Inj 2 Mg/Ml 2 Ml Vial) 4 mg IV Q6H PRN PRN Reason: Nausea And Vomiting Stop: 04/23/23 08:54 Last Admin: 03/27/23 08:44 Dose: 4 mg Pantoprazole Sodium (Pantoprazole 40 Mg Tab) 40 mg PO QAM [facility] Stop: 04/22/23 08:59 Last Admin: 03/31/23 08:03 Dose: 40 mg Polyethylene Glycol (Polyethylene (Miralax) 17 Gm Pack) 17 gm PO DAILY [facility] Stop: 04/22/23 10:54 Last Admin: 03/31/23 08:04 Dose: 17 gm Prednisone (Prednisone 5 Mg Tab) 5 mg PO DAILY [facility] Stop: 04/22/23 08:59 Last Admin: 03/31/23 08:03 Dose: 5 mg Sennosides (Senna 8.6 Mg Tab) 8.6 mg PO QAM [facility] Stop: 04/26/23 11:29 Last Admin: 03/31/23 08:04 Dose: 8.6 mg Tramadol HCl (Tramadol Hcl 50 Mg Tablet) 25 - 50 mg PO Q4H PRN PRN Reason: Pain Stop: 04/21/23 20:42 Last Admin: 03/29/23 08:57 Dose: 50 mg
[2023-04-01] MEDS: ACETAMINOPHEN 500 MG TAB PO SCH ×2 (02:55→10:35)
[2023-04-01] MEDS: ATORVASTATIN 40 MG TAB PO SCH (07:50)
[2023-04-01] MEDS: SENNA 8.6 MG TAB PO SCH (07:50)
[2023-04-01] MEDS: PANTOprazole 40 MG TAB PO SCH (07:50)
[2023-04-01] MEDS: ASPIRIN 81 MG ECTAB PO SCH (07:50)
[2023-04-01] MEDS: ERGOCALCIFEROL 50,000 UNITS 1250 MCG CAP PO SCH (07:50)
[2023-04-01] MEDS: CEROVITE ADV FORMULA TAB PO SCH (07:50)
[2023-04-01] MEDS: predniSONE 5 MG TAB PO SCH (07:50)
[2023-04-01] MEDS: POLYETHYLENE (MIRALAX) 17 GM PACK PO SCH (07:51)
[2023-04-01] MEDS: MYCOPHENOLATE SODIUM 180 MG TAB PO SCH (07:51)
[2023-04-01 08:00] LABS: Basophils # (auto) 0.07 K/uL (0.00-0.20); Basophils % (auto) 0.7 %; Eosinophils % (auto) 2.9 %; Hematocrit (blood only) 28.8 % (37.0-47.0); Hemoglobin 9.2 g/dl (12.0-16.0); Immature Granulocytes # (auto) 0.18 K/uL (0.01-0.20); Immature Granulocytes % (auto) 1.7 %; Lymphocytes # (auto) 2.12 K/uL (1.20-3.40); Lymphocytes % (auto) 20.3 %; Mean Corpuscular Hemoglobin 26.8 pg (25.0-34.0); Mean Corpuscular Hgb Conc 31.9 g/dL (32.0-36.0); Mean Platelet Volume 7.6 fL (9.4-12.4); Monocytes # (auto) 1.04 K/uL (0.11-0.59); Neutrophils # (auto) 6.74 K/uL (1.40-6.50); Neutrophils % (auto) 64.4 %; Platelet Count 563 K/uL (130-400); RDW Coefficient of Variation 14.1 % (11.5-14.5); RDW Standard Deviation 41.8 fL (36.4-46.3); Red Blood Count 3.43 M/uL (4.20-5.40); White Blood Count 10.45 K/ul (4.8-10.8)
--- NOTE | 2023-04-01 09:39 | Discharge Summary ---
Date of Service April 01, 2023 Admission HPI Per Admitting Provider History obtained from patient, family, and records. 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 Patient stumbled at her home this afternoon while carrying a load of objects. Achy right hip pain following fall. No head trauma, no LOC, no chest pain, no SOB. Patient unable to get up to get to her phone. Patient was on the ground for about an hour before she was found by family. Patient brought to ER by EMS. Highest SBP of 170s documented at the ER. 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 Admission Exam Per Admitting Provider GENERAL: Slightly uncomfortable, pleasant, no respiratory distress SKIN: Normal color, warm HEENT: Bespectacled, [place] palpebral conjunctivae, no ptosis, dry buccal mucosa NECK : Supple, no tenderness CHEST : Decreased breath sounds, no tenderness HEART : RRR, no obvious murmurs ABDOMEN: no distention, nontender EXTREMITIES : Externally rotated right hip, right hip tenderness NEUROLOGIC : Coherent, no facial asymmetry, no other gross focality Principal Diagnosis Right hip fracture s/p surgical repair Discharge Exam Constitutional: WD/WN, in no acute distress Respiratory: normal respiratory effort, lungs clear to auscultation Cardiovascular: Rate/Rhythm: regular rate and regular rhythm Vessels: normal peripheral pulses Extremities: no edema Gastrointestinal (Abdomen): Percussion/Palpation: abdomen soft; abdomen nontender Musculoskeletal: Dressings over Right hip. no erythema seen. Skin: no rashes, warm and dry Neurologic: no focal motor deficits Psychiatric: A+Ox3, euthymic affect Discharge Data Allergies Allergy/AdvReac Type Severity Reaction Status Date / Time dust Allergy Intermediate can Uncoded 03/22/23 22:29 trigger asthma pet dander Allergy Intermediate can Uncoded 03/22/23 22:29 trigger asthma pollen Allergy Intermediate can Uncoded 03/22/23 22:29 trigger asthma Consultations 03/22/23 20:48 ED Decision to Admit Stat 03/22/23 22:34 Consult Orthopedic Surgery Routine Procedures Performed Operation Date: 03/24/23 08:20 Actual Procedures p Right Hip Cephalomedullary Nail(Right) - Jose Andrew DO Ordered Studies 03/24/23 06:45 FL hip RT 2-3V Routine Hospital Course (1) Closed fracture of right hip: Right femoral fracture secondary to mechanical fall Age-related osteoporosis w current pathological fracture of right femur Orthopedics consulted, S/p right trochanteric femoral nail on 03/24/2023 Pain control with scheduled Tylenol, as needed morphine and tramadol for breakthrough pain. PT/OTpatient may be weightbearing as tolerated on the right lower extremity. Range of motion as tolerated right hip. DVT prophylaxisaspirin 81 mg twice daily x 30 days. Follow-up with Dr. Andrew ([facility]) in approximately 2 weeks postop. Hypovitaminosis D - started vit D supplement Psoriatic arthropathy, cutaneous polyarteritis nodosa On chronic immunosuppressive therapy with CellCept and prednisone History of PVD HLD Continue ASA and statin GERD Continue PPI DVT PROPHYLAXIS - per Orthopedics - started ASA 81 BID Dispo -DC to rehab/snf Total Time Total Time Spent Total Time Spent (In Minutes): 40 Discharge Plan Discharge Items Patient Disposition: Transfer Half-Way Fac Reason For Visit: R HIP FX Discharge Diagnosis: Right hip fracture s/p surgical repair Activity: Per Instructions section Weightbearing: Right weightbearing Weightbearing Comment: As tolerated Non-emergency contact: Primary Care Provider and Surgeon Call non-emergency contact if: you have any medication questions and your symptoms worsen Follow-up/Referrals: Elvia Pink DO [Primary Care Provider] - Jose Andrew DO [Surgeon] - (Call to schedule a follow-up approximately 2 weeks postop.) Diet: Heart Healthy Addtl Attending Provider Instructions: Follow up with your primary care physician and orthopedic surgeon. You need to follow up with surgeon in 2 weeks since the surgery. Take aspirin 81 mg twice a day for total of 4 weeks to prevent blood clots, then you can switch back to aspirin 81 mg daily. For pain, take Tylenol 1000 mg 3 times a day. For more severe pain, take tramadol, as prescribed. 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 You are to ambulate with a walker or crutches for approximately 6 weeks. B. You are WEIGHT BEARING TOLERATE on your operative lower extremity for at least 6 weeks. C. Wear low heeled shoes with non-slip soles D. Be sure that your floors are free of things that could trip you throw rugs, electrical cords, and small objects. Avoid wet and waxed floors, especially with crutches/walker/cane. E. Try to walk several times a day with rest periods between. F. You may shower 48 hours after surgery and get the incision area wet, but DO NOT soak or submerge incision area in water. (No baths, swimming pools, hot tubs) G. You may have a large, band-aid like dressing over your incision (Aquacel). This will remain on your incision for 7 days, and then can be removed. You CAN shower with this on. If incision is leaking through the dressing, please call the office . H. Do NOT apply soap or any ointment/lotions directly over incision. I. You may use ice as needed to operative site. SPECIAL CARE INSTRUCTIONS: VERY IMPORTANT TO READ AND REVIEW A. You may be at risk for phlebitis or blood clots. a. Wear surgical stockings (FLOYD hose) for 2 weeks after surgery to improve circulation and reduce swelling. b. Take ASPIRIN 81 mg twice daily for 4 weeks or as directed. This is your blood thinner. B. There are a few signs you need to watch for after you are home. Call [facility] at [phone] if you experience any of the following: a. If you have a temperature of 101 degrees or higher. b. Sudden increase in pain in your hip not relieved by rest or pain medication. c. Any fluid or drainage from the incision; redness of the incision. d. Shortness of breath or chest pain. B. Please call [facility] at [phone] if you have any questions or concerns about your operation or recovery. C. Call your physician if: a. Temperature is greater than 101 degrees (F). b. Pain is not relieved by prescribed pain medications. c. Increase drainage or redness from incision. d. Unanswered questions or concerns. D. Pain Medication: a. You will be prescribed pain medication upon discharge that should last till your first post-operative appointment. b. If you experience nausea and/or skin rash, discontinue this medication and contact our office for an alternative medicati on. c. Caution- narcotic pain medication can cause constipation. FOLLOW UP VISIT: Please call [facility] at [phone] to schedule a follow up appointment 10-14 days from the date of your surgery date. Pending Studies at Discharge: No Stand-Alone Forms: My [facility] Skilled Items Patient informed of condition?: Yes DNR: No Discharge Level of Care: Skilled Communicable Disease: No Discharge Prognosis: Stable Lines: None Urinary Catheter: No Medications and DC Order Prescriptions: New aspirin 81 mg Tablet,Delayed Release (Dr/Ec) 81 mg PO BID 21 Days Qty: 42 0RF acetaminophen [Tylenol Extra Strength] 500 mg Tablet 1,000 mg PO Q8H 7 Days Qty: 42 0RF tramadol 50 mg Tablet 50 mg PO Q4H PRN (Reason: pain) Qty: 14 0RF ergocalciferol (vitamin D2) 1,250 mcg (50,000 unit) Capsule 50,000 unit PO Q7D Qty: 5 0RF sennosides [Senokot] 8.6 mg Tablet 8.6 mg PO QAM 7 Days Qty: 7 0RF polyethylene glycol 3350 [Miralax] 17 gram Powder In Packet 17 g PO DAILY Qty: 14 0RF Continued atorvastatin 40 mg tablet 40 mg PO QAM prednisone 5 mg tablet 5 mg PO DAILY triamcinolone acetonide 0.1 % Cream 1 applic TOPICAL BID PRN (Reason: .itching) pantoprazole 40 mg tablet,delayed release (DR/EC) 40 mg PO QAM ferrous sulfate 325 mg (65 mg iron) Tablet 325 mg PO QAM Rx Instructions: Take with breakfast albuterol sulfate 90 mcg/actuation HFA aerosol inhaler 2 puff INHALATION TID PRN (Reason: Shortness Of Breath Or Wheezing) clobetasol 0.05 % Solution 1 applic TOPICAL BID PRN (Reason: .irritation) mycophenolate sodium 360 mg tablet,delayed release (DR/EC) 720 mg PO DAILY Rx Instructions: Is ordered 3 tablets daily but she only takes 2 tabs PreserVision AREDS-2 250-90-40-1 mg Capsule 1 tab PO DAILY Rx Instructions: chewable tabs, unknown strength Cilgavimab Inj 300 mg INJ .[id number] Rx Instructions: Patient is not sure if she wants to get it Tixagevimab Inj 300 mg INJ .[id number] Rx Instructions: Patient is not sure if will get. Discontinued aspirin [Child Aspirin] 81 mg Tablet,Chewable 81 mg PO DAILY Discharge Orders: Discharge Order (Routine); Ordered 04/01/23 Ordered By: Chris Jaeger Admission Data Admit Date/Time: 03/22/23 21:34 Attending Provider: Chris Jaeger Admit Provider: Richar House Primary Care Provider: Elvia Pink Other Providers: Дмитрий Serra; Richar House; Jose Andrew; Daniela Portillo
--- NOTE | 2023-04-05 12:19 | Coding Query ---
CODING QUERY To promote full compliance with coding requirements relating to patient care, provider participation is requested in all cases of float remover uncertainty. Please assist us with the question(s) below: Coding Question(s): The 03/30 Progress Note had an addendum with documentation of, " Anemia - post-op vs. dilutional - pre op Hgb 12, now 9 and stable - no need for blood transfusion, expected,cont. to monitor - cont. iron supplement as tolerated". Please specify below, regarding the documentation of anemia, post-op: ( x ) anemia, post-op is possible Postoperative Anemia due to Acute Blood Loss ( ) anemia, post-op is possible Postoperative Anemia due to Chronic Blood Loss ( ) anemia, post-op is Other: Please Specify Physician's Response(s): Thank you Maria Guadalupe Cifuentes Principal Diagnosis: "that condition established after study, to be chiefly responsible for occasioning the admission of the patient to the hospital for care." Co-Existing Principal Diagnosis: "when two or more diagnoses equally meet the criteria for principal diagnosis as determined by the circumstances of admission, diagnostic work up, and/or therapy provided, and the Alphabetic Index, Tabular List, or another coding guideline does not provide sequencing direction, any one of the diagnoses may be sequenced first." "When the physician has documented what appears to be a current diagnosis in the body of the record, but has not included the diagnosis in the final diagnostic statement, the physician should be asked whether the diagnosis should be added." (Source Coding [facility] 2 QTR90. p3-4) GABI
== END 2023-04-01 12:21 | DRG 481 ==
LOC: ED 19:03 → SUATTDRO 21:34 → EDINP 21:34 → 3N 22:34